=== PATIENT | male | born 1945 | race African-American/Black ===

== ENCOUNTER 2019-06-10 14:17 | Inpatient (IN) | payer OTHER, MEDICARE, SELFPAY ==
[2019-06-10] VITALS (9 sets, daily range): BP systolic 125–180; BP diastolic 42–65; PULSE 60–73; RESP 15–20; TEMP 35.8–37.2; O2SAT 97–100; BMI 30.4
--- NOTE | ~2019-06-10 | US_ITS ---
EXAMINATION: US renal BI DATE: 06/11/2019 10:06 INDICATION: Acute renal insufficiency TECHNIQUE: Multiple ultrasound grayscale images of the kidneys were obtained. COMPARISON: 11/12/2017 FINDINGS: The right kidney measures 12.3 x 5.1 x 5.2 cm. The left kidney measures 10.9 x 6.5 x 5.8 cm. Bilatera l diffuse increased renal cortical echogenicity consistent with medical renal disease. Again seen are bilateral renal cysts including 1.7 cm and 1.1 cm cyst in the right kidney and a 3.2 cm septated [place] II cyst in the left kidney. There is no hydronephrosis in either kidney. No stones identified. The bladder is decompressed around a Ponce catheter which limits evaluation. IMPRESSION: 1. Bilateral increased renal echogenicity consistent with medical renal disease. No hydronephrosis. 2. Stable appearance of bilateral renal cysts. Reviewed, dictated and finalized at location A. IMPRESSION: 1. Bilateral increased renal echogenicity consistent with medical renal diseas e. No hydronephrosis. 2. Stable appearance of bilateral renal cysts.
--- NOTE | ~2019-06-10 | XR_ITS ---
EXAMINATION: XR hip BI wo pelvis DATE: 06/11/2019 10:10 INDICATION: Bilateral hip pain. TECHNIQUE: Anteroposterior and frog-leg lateral views of the left and right hips were obtained. COMPARISON: CT dated 03/24/2015 FINDINGS: Alignment is normal. No fracture or suspected avascular necrosis. Bilateral hip osteoarthritis with s mall marginal osteophytes along the femoral heads and acetabula. The hip joint spaces appear relative ly preserved on the provided projections from prior CT there is mild joint space narrowing anteriorly at the right hip with underlying subarticular cystic change at the femoral head and anterior acetabu lum. Severe spondylosis at the lumbosacral junction. Mild bilateral sacroiliac osteoarthritis. Extens bessie atherosclerotic calcifications in the pelvis of the pelvis and proximal thighs. IMPRESSION: 1. Bilateral hip osteoarthritis, mild on the left and mild to moderate on the right with subarticular cystic changes on the right better appreciated on prior CT. No acute osseous abnormality. Reviewed, dictated and finalized at location A. IMPRESSION: 1. Bilateral hip osteoarthritis, mild on the left and mild to moderate on the r ight with subarticular cystic changes on the right better appreciated on prior CT. No acute osseous abnormality.
--- NOTE | ~2019-06-10 | US_ITS ---
EXAMINATION: US carotid duplex BI DATE: 06/11/2019 10:06 INDICATION: Weakness. Carotid atherosclerosis and stenosis. Cerebral atherosclerosis. TECHNIQUE: Grayscale, color Doppler, and pulsed Doppler images of the cervical carotid arteries were obtained. The degree of vessel stenosis is placed in one of the following categories: normal, <50%, 5 0-69%, >=70% but less than near-occlusion, near-occlusion, or total occlusion. Note that percent sten osis relative to normal distal artery lumen diameter is indirectly measured from velocity measurement s as described by Jared, et al. Radiology 2003; 229:340-346. COMPARISON: None. FINDINGS: RIGHT: The right common carotid artery (CCA) peak systolic velocity (PSV) is 144 cm/s. The right internal ca rotid artery (ICA) PSV is 129 cm/s. The right ICA end-diastolic velocity (EDV) is 17 cm/s. The right ICA/CCA PSV ratio is 0.9. Grayscale and color Doppler images yield an estimate of 50-69% diameter red uction from plaque in the ICA. The external carotid artery (ECA) PSV is 173 cm/s. There is antegrade flow in the right vertebral artery. LEFT: The left CCA PSV is 127 cm/s. The left ICA PSV is 133 cm/s. The left ICA EDV is 20 cm/s. The left ICA /CCA PSV ratio is 1.1. Grayscale and color Doppler images yield an estimate of 50-69% diameter reduct ion from plaque in the ICA. The ECA PSV is 127 cm/s. There is antegrade flow in the left vertebral ar angella. IMPRESSION: 1. 50-69% stenosis in the right internal carotid artery. 2. 50-69% stenosis in the left internal carotid artery. Reviewed, dictated and finalized at location A.
--- NOTE | ~2019-06-10 | XR_ITS ---
XR chest 2V DATE: 06/17/2019 12:47 INDICATION: Fever TECHNIQUE: AP and lateral views COMPARISON: 06/10/2019 AP and lateral chest FINDINGS: There are patchy infiltrates and/or atelectasis in the lower lung zones, left greater than right, involving the lower lobes. Borderline heart size. Aortic calcification. Left pleural effusion can't be excluded. No apparent right pleural effusion. No pneumothorax. IMPRESSION: Bilateral lower lung infiltrate and/atelectasis, greater on the left. Possible left pleur al effusion. Reviewed, dictated and finalized at location A. IMPRESSION: Bilateral lower lung infiltrate and/atelectasis, greater on the lef t. Possible left pleural effusion.
--- NOTE | ~2019-06-10 | CT_ITS ---
EXAMINATION: CT brain wo con DATE: 06/10/2019 15:04 INDICATION: Weakness. TECHNIQUE: Computed tomography (CT) of the head was performed without intravenous contrast. The mA wa s adjusted according to patient size. Iterative reconstruction technique was employed. The dose-lengt h product was 605.33 mGy-cm. COMPARISON: Head CT 02/23/2019 FINDINGS: There are scattered areas of low attenuation in the cerebral white matter. There is no intr acranial hemorrhage, acute infarction, or abnormal intracranial mass lesion. The ventricles are dimitris l in size. The orbits are normal. There is mucosal thickening in the paranasal sinuses. The mastoid a ir cells are normal. IMPRESSION: 1. Unchanged moderate nonspecific cerebral white matter disease, which likely represents chronic smal l vessel ischemic disease. Reviewed, dictated and finalized at location A. IMPRESSION: 1. Unchanged moderate nonspecific cerebral white matter disease, which likely r epresents chronic small vessel ischemic disease.
--- NOTE | ~2019-06-10 | XR_ITS ---
EXAMINATION: XR chest 2V DATE: 06/10/2019 15:09 INDICATION: Fever and chills. Weakness. Headache. TECHNIQUE: Frontal and lateral views of the chest were obtained. COMPARISON: Chest 2 views 03/16/2019 FINDINGS: The chest demonstrates clear lungs without pneumonia, pleural effusion, or pneumothorax. Th e heart size is normal. There are surgical clips in the abdomen. There is mild chronic anterior wedgi ng of multiple thoracic vertebral bodies. IMPRESSION: 1. No acute cardiopulmonary disease. Reviewed, dictated and finalized at location A.
--- NOTE | 2019-06-10 14:17 | ED.GENADULT ---
HPI - General Adult General Chief complaint: Weakness Stated complaint: weakness Time Seen by Provider: 06/10/19 14:17 Source: patient, family (Ex ) and EMS Mode of arrival: EMS Limitations: no limitations History of Present Illness HPI narrative: A 73 y/o male pt has presented to the ED, via EMS, with c/o generalized weakness. Pt's ex went to his house to check on him today and he complained of weakness and difficulty ambulating. Pt's ex stated that his BP was 98/66 when she first encountered him. EMS notes that his BP leanne to 156/[address] to the ED. Pt denies abdominal pain or chest pain, and a fall. Pt has a Hx of dementia, TIA, DM, cardiac stents, HTN, and CAD. Pt notes that he has not had alcohol today or yesterday. MD complaint: Overall Weakness Onset (ago): unknown Associated symptoms: other (Ambulation difficulty) Related Data Home Medications Medication Instructions Recorded Confirmed acetaminophen 1,300 mg PO BID 06/10/19 amlodipine 7.5 mg PO DAILY 06/10/19 atorvastatin 40 mg PO HS 06/10/19 carvedilol 25 mg PO BID 06/10/19 cholecalciferol (vitamin D3) 2,000 unit PO DAILY 06/10/19 clonidine HCl 0.2 mg PO BID 06/10/19 clopidogrel 75 mg PO DAILY 06/10/19 donepezil 10 mg PO HS 06/10/19 ferrous sulfate 325 mg PO DAILY 06/10/19 furosemide 20 mg PO QPM 06/10/19 furosemide 40 mg PO QAM 06/10/19 glucosamine sulfate [Glucosamine] mg 06/10/19 glucose 16 g PO Q15M PRN 06/10/19 insulin aspart U-100 unit SUBCUT 06/10/19 insulin glargine 25 unit SUBCUT DAILY 06/10/19 levetiracetam 500 mg PO BID 06/10/19 memantine 10 mg PO BID 06/10/19 multivitamin 1 cap PO DAILY 06/10/19 nitroglycerin 0.4 mg SUBLINGUAL ONCE 06/10/19 quetiapine 12.5 mg PO HS 06/10/19 rivaroxaban 20 mg PO DAILY 06/10/19 sertraline 50 mg PO DAILY 06/10/19 trazodone 25 mg PO HS 06/10/19 Allergies Allergy/AdvReac Type Severity Reaction Status Date / Time No Known Allergies Allergy Unknown Verified 06/10/19 16:00 Review of Systems Review of Systems: Narrative: CONSTITUTIONAL: Denies fall CARDIOVASCULAR: Denies chest pain. GASTROINTESTINAL: Denies abdominal pain MUSCULOSKELETAL: Reports ambulation difficulty NEUROLOGIC: Reports general weakness. All systems reviewed & are unremarkable except as noted in HPI and below PMFSH Past Medical History Medical History Afib Alzheimer disease Arthritis CAD (coronary artery disease) Chronic kidney disease Stage III Colon polyps CVA (cerebral vascular accident) Dementia Depression Diabetes GERD (gastroesophageal reflux disease) Heart attack History of angina HTN (hypertension) Hyperlipidemia Pneumonia Rectal polyp Seizures TIA (transient ischemic attack) Surgical History Surgical History History of arthroscopic knee surgery Right History of cardiac catheterization History of colonoscopy History of coronary artery stent placement History of knee replacement, total Right History of partial colectomy Social History Social History Smoking status: Former smoker Alcohol intake: never Substance use: never Substance use type: does not use Gender identity (if verbalized by the patient): Male Spiritual care concerns: No Comments PCP is Dr. Valera Exam Narrative: Exam Narrative: GENERAL: Awake, alert, conversant HEAD: Normocephalic, atraumatic. ENT: Nares patent. Mucous membranes moist. NECK: Full range of motion CHEST: No respiratory distress, speaking in full sentences, no tachypnea HEART: Regular rate ABDOMEN: Non distended, non tender EXTREMITIES: Normal range of motion. No edema. SKIN: Warm, dry, no rash. Neuro: Finger to nose intact bilaterally. EOMs intact without nystagmus. No facial droop/asymmetry noted bilaterally. Grimace intact. Intact sensation in face. Hearing intact bilaterally. S
--- NOTE | 2019-06-10 14:20 | ECG_ITS ---
Measurements Intervals [place] Rate: 62 P: 63 MD: 227 QRS: -24 QRSD: 120 T: -25 QT: 440 QTc: 450 Interpretive Statements SINUS RHYTHM WITH FIRST DEGREE AV BLOCK INTRAVENTRICULAR CONDUCTION DELAY CANNOT RULE OUT SEPTAL INFARCT, AGE INDETERMINATE ST-T WAVE ABNORMALITY IN LATERAL LEADS- CONSIDER ISCHEMIA ABNORMAL ECG Electronically Signed On 06-14-2019 17:00:48 CDT by Lloyd Gonsales D.O.
[2019-06-10] MEDS: SODIUM CHLORIDE 0.9% IV 1,000 ML 999 ML IV CONT (14:51)
--- NOTE | 2019-06-10 14:53 | PC.NURSE ---
pt to CT scan
[2019-06-10 15:03] LABS: Basophils Percent Auto 0.2 % (0.2-1.2); Eosinophils Absolute Auto 0.1 K/mm3 (0-0.3); Eosinophils Percent Auto 0.7 % (0-4.4); Immature Granulocyte Absolute 0.05 K/mm3 (0.00-0.031); Immature Granulocyte Percent A 0.5 % (0-0.5); Lymphocytes Absolute Auto 1.93 K/mm3 (0.9-3.2); Lymphocytes Percent Auto 17.4 % (18.3-44.2); Mean Corpuscular HGB Conc 33.3 g/dl (32-36); Mean Platelet Volume 11.7 fl (7.4-10.4); Monocytes Absolute Auto 1.6 K/mm3 (0.1-0.6); Monocytes Percent Auto 14.6 % (2.6-8.5); Neutrophils Absolute Auto 7.4 K/mm3 (1.3-6.7); Neutrophils Percent Auto 66.6 % (45.5-73.1); Platelet Count Result 206 k/mm3 (150-375); Red Blood Count 4.14 M/mm3 (4.6-6.20); Red Cell Distribution Width 13.6 % (11.5-14.5); White Blood Count 11.1 K/mm3 (4.5-10.0)
[2019-06-10 15:13] LABS: INR 1.3; Prothrombin Time 15.6 Seconds (11.1-14.7)
[2019-06-10 15:14] LABS: Partial Thromboplastin Time 28.8 SECONDS (22.3-36.8)
[2019-06-10 15:15] LABS: Alanine Aminotransferase 96 U/L (4-50); Albumin Level 4.5 g/dL (3.5-5.1); Alkaline Phosphatase 76 U/L (38-126); Aspartate Amino Transferase 694 U/L (17-59); Bilirubin,Total 0.5 mg/dL (0.2-1.3); Blood Urea Nitrogen 40 mg/dL (9-20); Calcium 9.4 mg/dL (8.4-10.2); Carbon Dioxide 21 mmol/L (22-30); Chloride 107 mmol/L (98-107); Estimated Glomerular Filt Rate 26; Ethanol < 10 mg/dL (<10); Glucose 69 mg/dL (75-110); Potassium 4.1 mmol/L (3.4-5.0); Sodium 137 mmol/L (137-145)
[2019-06-10 15:26] LABS: Troponin I 0.161 ng/mL (0.000-0.034)
[2019-06-10 15:52] LABS: NT Pro B Type Natriuretic Pept 1550 PG/ML (5-100)
[2019-06-10 16:38] LABS: Add Urine Microscopic? YES; Appearance Urine Cloudy (Clear); Bacteria Urine Trace /hpf; Bilirubin Urine Negative (Negative); Blood Urine 3+ (Negative); Color Urine Yellow (Yellow); Glucose Urine UA Negative (Negative); Ketones Urine Negative (Negative); Leukocyte Esterase Ur Negative LEU/UL (Negative); Mucus Urine Rare /lpf; Nitrate Urine Negative (Negative); Protein Urine 2+ mg/dL (Negative); RBC Urine 0-2 /hpf (0-2); Specific Grav Ur 1.016 (1.001-1.035); Squamous Epithelial Cell Urine Occasional /hpf (Few); Urobilinogen Urine Negative mg/dL (<2.0)
[2019-06-10 16:41] LABS: Amphetamine Screen Urine Negative (Negative); Barbiturate Screen Urine Negative (Negative); Benzodiazepines Screen Urine Negative (Negative); Cannabinoid Screen Urine Negative (Negative); Cocaine Screen Urine Negative (Negative); Methadone Screen Urine Negative (Negative); Opiate Screen Urine Negative (Negative); Phencyclidine Screen Urine Negative (Negative)
--- NOTE | 2019-06-10 17:20 | ADMGEN ---
This patient, Addy Cervantes, was admitted to IMU Room 213-01. Patient/family oriented to hospital policies and general routines including ID bracelet, bed and alarms, visiting hours, pain management, procedures, bathroom and other care routines, personal items, smoking policy, room service/diet, and visiting hours. Valuables list has been completed. Information on how to activate the Rapid Response Team has been discussed. Patient/Family are encouraged to report perceived risks to care and to ask questions if they do not understand what they are told or what they should do.
[2019-06-10 18:12] LABS: Glucose Point of Care 68 (65-105)
--- NOTE | 2019-06-10 18:27 | PM.IMHP ---
H&P: HPI History of Present Illness Chief complaint: Weakness, Elevated troponin Narrative: Addy Cervantes is a 73 year old male who has a history of chronic renal failure stage 2, congestive heart failure diastolic, and diabetes. To the son the patient took his nighttime medicines too early last night he fell asleep early and was slightly confused last night. The patient has not been eating and drinking very much recently. Today the patient had a fall this morning, he fell off of a step that was about 8 inches high. The patient was having difficulty walking is stating that his hips were sore. He is not in a large amount of pain at this time. He also has a history of dementia as well. The patient lives in his own home but has multiple caregivers. The ex- came to check up on the patient today and the patient complained of having weakness and difficulty ambulating. His blood pressure was initially 98 over a 66 when EMS came to the home. But then it leanne up to 156/62 when he came to the emergency room. The patient was afebrile. No chest pain or discomfort. Chest x-ray was read per Radiology as no acute cardiopulmonary disease. Head CT was read per Radiology as well unchanged moderate nonspecific cerebral white matter disease, which likely represents chronic small vessel ischemic disease. His blood sugar was initially 69 on lab draws. The son stated that his blood sugar was in the 200s last night. Patient's creatinine is 2.9 today of which is last admission in March came back down to normal. Although he does have a history of chronic renal failure stage 2. Patient is being admitted to IMU with a troponin of 0.162. BNP is 1550. Patient was given IV bolus. It looks like he is also being worked up for stroke. Although his CT scan was negative. Date of service 06/10/2019. Review of Systems Review of Systems: Narrative: The patient was falling asleep during the interview and his son who is the power title attorney has been answer questions for me. He complained of being and some discomfort. He stated that his hip muscles were sore. He was having difficulty ambulating due to his hip pain. All systems reviewed & are unremarkable except as noted in HPI and below Constitutional: Constitutional: Reports as per HPI and Reports no additional constitutional complaints Eyes: Eyes: Reports as per HPI and Reports no additional eye complaints ENT: Reports system reviewed and no additional complaints, except as documented and Reports Normal hearing present Cardiovascular: Cardiovascular: Reports no additional cardiovascular complaints Respiratory: Respiratory: Reports no additional respiratory complaints and Reports no additional respiratory complaints Gastrointestinal: Gastrointestinal: Reports as per HPI and Reports no additional gastrointestinal complaints Musculoskeletal: Musculoskeletal: Reports no additional musculoskeletal complaints Integumentary/Breasts: Skin/Breast: Reports system reviewed and no additional complaints, except as docu and Reports as per HPI Neurologic: Reports system reviewed and no additional complaints, except as documented, Reports as per HPI and Reports Normal hearing present Psychiatric: Psychiatric: Reports no additional psychiatric complaints and Reports as per HPI Endocrine: Endocrine: Reports no additional endocrine complaints Hematologic/Lymphatic: Hematologic/Lymphatic: Reports no additional hematologic/lymphatic complaints Allergic/Immunologic: Allergic/Immunologic: Reports no additional allergic/immunologic complaints [facility] Past Medical History Medical History (Updated 06/10/19 @ 19:59 by Christine Beaulieu NP) Afib Alzheimer disease Arthritis CAD (coronary artery disease) Chronic kidney disease Stage III Colon polyps COPD (chronic obstructive pulmonary disease) CVA (cerebral vascular accident) Dementia Depression Diabetes GERD (gastroesophageal reflux disease) Heart attack History of angina
[2019-06-10 18:52] LABS: Troponin I 0.112 ng/mL (0.000-0.034)
[2019-06-10 20:43] LABS: Glucose Point of Care 146 (65-105)
[2019-06-10 21:11] LABS: Troponin I 0.104 ng/mL (0.000-0.034)
[2019-06-10] MEDS: DONEPEZIL HCL 10 MG TABLET PO (21:12)
[2019-06-10] MEDS: QUEtiapine FUMARATE 12.5 MG TABLET PO (21:12)
[2019-06-10] MEDS: carvediloL 25 MG TABLET PO (21:12)
[2019-06-10] MEDS: CLONIDINE HCL 0.2 MG TABLET PO (21:13)
[2019-06-10] MEDS: ATORVASTATIN 40 MG TABLET PO (21:13)
[2019-06-10] MEDS: levETIRAcetam 500 MG TABLET PO (21:13)
[2019-06-10] MEDS: MEMANTINE 10 MG TABLET PO (21:13)
[2019-06-11] VITALS (9 sets, daily range): BP systolic 115–155; BP diastolic 43–51; PULSE 58–86; RESP 16–20; TEMP 36–36.7; O2SAT 98–100
[2019-06-11 06:55] LABS: Basophils Absolute Auto 0.1 K/mm3 (0.0-0.1); Basophils Percent Auto 0.4 % (0.2-1.2); Eosinophils Percent Auto 0.1 % (0-4.4); Hematocrit 38.8 % (42.0-52.0); Hemoglobin 11.7 g/dL (14.0-18.0); Immature Granulocyte Absolute 0.08 K/mm3 (0.00-0.031); Immature Granulocyte Percent A 0.5 % (0-0.5); Lymphocytes Absolute Auto 2.12 K/mm3 (0.9-3.2); Lymphocytes Percent Auto 13.1 % (18.3-44.2); Mean Corpuscular HGB Conc 30.2 g/dl (32-36); Mean Corpuscular Hemoglobin 28.7 pg (26-34); Mean Corpuscular Volume 95.3 fl (80-100); Monocytes Absolute Auto 2.4 K/mm3 (0.1-0.6); Monocytes Percent Auto 14.6 % (2.6-8.5); Neutrophils Absolute Auto 11.5 K/mm3 (1.3-6.7); Neutrophils Percent Auto 71.3 % (45.5-73.1); Platelet Count Result 124 k/mm3 (150-375); Red Blood Count 4.07 M/mm3 (4.6-6.20); Red Cell Distribution Width 13.5 % (11.5-14.5); White Blood Count 16.2 K/mm3 (4.5-10.0)
[2019-06-11 08:07] LABS: Alanine Aminotransferase 108 U/L (4-50); Albumin Level 4.3 g/dL (3.5-5.1); Alkaline Phosphatase 80 U/L (38-126); Aspartate Amino Transferase 636 U/L (17-59); Bilirubin,Total 0.7 mg/dL (0.2-1.3); Blood Urea Nitrogen 42 mg/dL (9-20); Calcium 9.3 mg/dL (8.4-10.2); Carbon Dioxide 20 mmol/L (22-30); Chloride 108 mmol/L (98-107); Estimated CRCL calculation 34 ml/min; Estimated Glomerular Filt Rate 36; Glucose 138 mg/dL (75-110); Magnesium 2.2 mg/dL (1.6-2.3); Potassium 3.5 mmol/L (3.4-5.0); Sodium 139 mmol/L (137-145)
[2019-06-11 09:57] LABS: Glucose Point of Care 120 (65-105)
[2019-06-11] MEDS: AMLODIPINE BESYLATE 2.5 MG TABLET 7.5 MG PO (10:16)
[2019-06-11] MEDS: MEMANTINE 10 MG TABLET PO ×2 (10:16→17:17)
[2019-06-11] MEDS: MULTIVITAMINS THERAPEUTIC TAB (*BKC) 1 TABLET PO (10:16)
[2019-06-11] MEDS: CHOLECALCIFEROL 1,000 UNIT TABLET 2000 UNITS PO (10:17)
[2019-06-11] MEDS: carvediloL 25 MG TABLET PO (10:17)
[2019-06-11] MEDS: SERTRALINE HCL 50 MG TABLET PO (10:17)
[2019-06-11] MEDS: CLOPIDOGREL BISULFATE 75 MG TABLET PO (10:17)
[2019-06-11] MEDS: CLONIDINE HCL 0.2 MG TABLET PO ×2 (10:17→17:17)
[2019-06-11] MEDS: levETIRAcetam 500 MG TABLET PO ×2 (10:17→20:51)
[2019-06-11] MEDS: FERROUS SULFATE 324 MG TABLET PO (10:17)
[2019-06-11] MEDS: POTASSIUM CHLORIDE 20 MEQ TABLET PO (10:22)
[2019-06-11] MEDS: INSULIN GLARGINE (*BKC) 100 UNITS/ML 25 UNITS SUB-Q (10:25)
[2019-06-11] MEDS: SODIUM CHLORIDE 0.9% IV 1,000 ML 75 ML IV CONT (10:25)
[2019-06-11 11:42] LABS: Glucose Point of Care 144 (65-105)
--- NOTE | 2019-06-11 12:39 | PC.NURSE ---
transfer from IMU today resting in bed,no complaints.
--- NOTE | 2019-06-11 14:03 | PCOTNOTE ---
Attempted OT evaluation, Per RN patient is unable to awaken at this time, will attempt in AM
--- NOTE | 2019-06-11 14:03 | PCPTNOTE ---
orders received...attempted to see this patient x 2...patient was sleeping very soundly and could not awaken...will see tomorrow as appropriate
[2019-06-11 15:32] LABS: Glucose Point of Care 143 (65-105)
--- NOTE | 2019-06-11 16:29 | PM.IMPN ---
Progress Note: A&P Assessment and Plan (1) Acute kidney injury: Code(s): N17.9 - Acute kidney failure, unspecified Status: Acute Assessment and Plan: Patient received a bolus of IV fluids x1. And will give rah hydration today with saline, mindful fluid overload his history of diastolic heart failure. We will need to encourage the patient to eat and drink. Renal ultrasound no obstruction. His acute on chronic renal failure stage 2. (2) Dehydration: Code(s): E86.0 - Dehydration Status: Acute Assessment and Plan: Gently hydrate the patient for now . (3) COPD (chronic obstructive pulmonary disease): Code(s): J44.9 - Chronic obstructive pulmonary disease, unspecified Status: Acute Assessment and Plan: Continue with home medications. (4) Weakness: Code(s): R53.1 - Weakness Status: Acute Assessment and Plan: x-ray his hips BRI l. PT and OT (5) CHF (congestive heart failure): Code(s): I50.9 - Heart failure, unspecified Status: Acute Assessment and Plan: Continue with Coreg. I am holding Lasix due to his dehydration acute renal failure. chronic diastolic heart failure (6) Seizures: Code(s): R56.9 - Unspecified convulsions Status: Chronic Assessment and Plan: Continue with Keppra and check Keppra levels. (7) HTN (hypertension): Qualifiers: Hypertension type: unspecified Qualified Code(s): I10 - Essential (primary) hypertension Code(s): I10 - Essential (primary) hypertension Status: Chronic Assessment and Plan: Continue with Coreg, Norvasc and still holding Lasix due to his acute renal failure. (8) Afib: Qualifiers: Atrial fibrillation type: unspecified Qualified Code(s): I48.91 - Unspecified atrial fibrillation Code(s): I48.91 - Unspecified atrial fibrillation Status: Chronic Assessment and Plan: Continue with Xarelto and Coreg.and decrease xarelto to 15 qd (9) Diabetes: Qualifiers: Diabetes mellitus type: type 2 Diabetes mellitus senior care insulin use: with senior care use Diabetes mellitus complication status: without complication Qualified Code(s): E11.9 - Type 2 diabetes mellitus without complications; Z79.4 - superintendent [employer] (current) use of insulin Code(s): E11.9 - Type 2 diabetes mellitus without complications Status: Chronic Assessment and Plan: Continue with long-acting insulin and do sliding scale insulin. Patient's blood sugar was in the 60s today. Yesterday the room the 200s. (10) Dementia: Code(s): F03.90 - Unspecified dementia without behavioral disturbance Status: Chronic Assessment and Plan: Continue with Seroquel and Namenda. And Aricept Subjective Date/time seen: 06/11/19 16:29 Interval history: Date of visit 06/10. 73-year-old hypertensive type 2 diabetic with dementia and paroxysmal AFib admitted with acute renal failure, weakness and falling.. Had 1 L of fluid in his bladder when Ponce placed. After hydration feels better today. No other complaints cough or chest pain or shortness of breath Exam Narrative: Exam Narrative: Blood pressure 146/52 pulse is 64 afebrile Lungs are clear CV regular rate rhythm no murmurs Abdomen soft nontender Extremities without edema good distal pulses Neuro alert pleasant cooperative no focal deficits Objective Data Vital Signs Vital Signs: Vital Signs - 24 hr 06/10/19 17:00 06/10/19 18:00 06/10/19 20:00 Temperature 36.3 C L 37.2 C Pulse Rate 68 68 73 Respiratory Rate 18 20 Blood Pressure 180/54 H 144/65 H Pulse Oximetry 100 100 06/10/19 21:12 06/10/19 22:00 06/10/19 23:51 Temperature 36.1 C L Pulse Rate 71 68 66 Respiratory Rate 16 Blood Pressure 125/42 L Pulse Oximetry 100 06/11/19 00:00 06/11/19 02:00 06/11/19 04:00 Temperature 36.7 C Pulse Rate 61 73 70 Respiratory Rate 18 Blood
[2019-06-11] MEDS: RIVAROXABAN 15 MG TABLET PO (17:17)
[2019-06-11] MEDS: ATORVASTATIN 40 MG TABLET PO (20:50)
[2019-06-11] MEDS: DONEPEZIL HCL 10 MG TABLET PO (20:50)
[2019-06-11] MEDS: QUEtiapine FUMARATE 12.5 MG TABLET PO (20:50)
[2019-06-11 21:28] LABS: Glucose Point of Care 291 (65-105)
[2019-06-12] MEDS: SODIUM CHLORIDE 0.9% IV 1,000 ML 75 ML IV CONT (01:57)
[2019-06-12 05:55] LABS: Alanine Aminotransferase 79 U/L (4-50); Albumin Level 3.7 g/dL (3.5-5.1); Alkaline Phosphatase 70 U/L (38-126); Aspartate Amino Transferase 306 U/L (17-59); Bilirubin,Total 0.5 mg/dL (0.2-1.3); Blood Urea Nitrogen 48 mg/dL (9-20); Calcium 8.7 mg/dL (8.4-10.2); Carbon Dioxide 18 mmol/L (22-30); Chloride 111 mmol/L (98-107); Estimated CRCL calculation 36 ml/min; Estimated Glomerular Filt Rate 38; Glucose 161 mg/dL (75-110); Potassium 3.5 mmol/L (3.4-5.0); Sodium 137 mmol/L (137-145)
[2019-06-12 06:28] LABS: Creatine Kinase 12435 U/L (55-170)
[2019-06-12 06:48] VITALS: BP 122/57; PULSE 59; RESP 18; TEMP 36.2; O2SAT 100
[2019-06-12] MEDS: AMLODIPINE BESYLATE 2.5 MG TABLET 7.5 MG PO (08:28)
[2019-06-12 08:29] VITALS: PULSE 59
[2019-06-12] MEDS: carvediloL 25 MG TABLET PO ×2 (08:29→20:45)
[2019-06-12] MEDS: CLONIDINE HCL 0.2 MG TABLET PO ×2 (08:30→16:24)
[2019-06-12] MEDS: CHOLECALCIFEROL 1,000 UNIT TABLET 2000 UNITS PO (08:30)
[2019-06-12] MEDS: CLOPIDOGREL BISULFATE 75 MG TABLET PO (08:31)
[2019-06-12] MEDS: levETIRAcetam 500 MG TABLET PO ×2 (08:31→20:45)
[2019-06-12] MEDS: FERROUS SULFATE 324 MG TABLET PO (08:31)
[2019-06-12] MEDS: MEMANTINE 10 MG TABLET PO ×2 (08:32→16:24)
[2019-06-12] MEDS: SERTRALINE HCL 50 MG TABLET PO (08:32)
[2019-06-12] MEDS: MULTIVITAMINS THERAPEUTIC TAB (*BKC) 1 TABLET PO (08:32)
[2019-06-12] MEDS: INSULIN GLARGINE (*BKC) 100 UNITS/ML 25 UNITS SUB-Q (08:48)
[2019-06-12 09:50] LABS: Glucose Point of Care 155 (65-105)
[2019-06-12] MEDS: POTASSIUM CHLORIDE 20 MEQ TABLET 40 MEQ PO (11:20)
[2019-06-12] MEDS: INSULIN ASPART (*BKC) 100 UNITS/ML SUB-Q ×2 (11:29→16:23)
--- NOTE | 2019-06-12 11:32 | PM.IMPN ---
Progress Note: A&P Assessment and Plan (1) Acute kidney injury: Code(s): N17.9 - Acute kidney failure, unspecified Status: Acute Assessment and Plan: Patient received a bolus of IV fluids x1. And continue hydration, change to Nahco3 with elevated ck , mindful fluid overload with his history of diastolic heart failure. He is eating better and had decrease oral intake at home. Renal ultrasound no obstruction. acute on chronic renal failure stage 2. secondary to prerenal azotemia from decreased intake or possibly rhabdo (2) Dehydration: Code(s): E86.0 - Dehydration Status: Acute Assessment and Plan: continue IV hydrating the patient for now . (3) COPD (chronic obstructive pulmonary disease): Code(s): J44.9 - Chronic obstructive pulmonary disease, unspecified Status: Acute Assessment and Plan: Continue with home medications. (4) Weakness: Code(s): R53.1 - Weakness Status: Acute Assessment and Plan: x-ray hips DJD . PT and OT (5) CHF (congestive heart failure): Code(s): I50.9 - Heart failure, unspecified Status: Acute Assessment and Plan: Continue with Coreg. holding Lasix due to his dehydration acute renal failure. chronic diastolic heart failure, moniter for fluid overload (6) Seizures: Code(s): R56.9 - Unspecified convulsions Status: Chronic Assessment and Plan: Continue with Keppra . (7) HTN (hypertension): Qualifiers: Hypertension type: unspecified Qualified Code(s): I10 - Essential (primary) hypertension Code(s): I10 - Essential (primary) hypertension Status: Chronic Assessment and Plan: Continue with Coreg,, Norvasc,clonidine, and still holding Lasix due to his acute renal failure. (8) Afib: Qualifiers: Atrial fibrillation type: unspecified Qualified Code(s): I48.91 - Unspecified atrial fibrillation Code(s): I48.91 - Unspecified atrial fibrillation Status: Chronic Assessment and Plan: Continue with Xarelto and Coreg.and decrease xarelto to 15 qd (9) Diabetes: Qualifiers: Diabetes mellitus type: type 2 Diabetes mellitus residential insulin use: with salvage determiner use Diabetes mellitus complication status: without complication Qualified Code(s): E11.9 - Type 2 diabetes mellitus without complications; Z79.4 - salvage determiner (current) use of insulin Code(s): E11.9 - Type 2 diabetes mellitus without complications Status: Chronic Assessment and Plan: Continue with long-acting insulin and do sliding scale insulin. Patient's blood sugar fasting today 161 (10) Dementia: Code(s): F03.90 - Unspecified dementia without behavioral disturbance Status: Chronic Assessment and Plan: Continue with Seroquel and Namenda. And Aricept (11) Rhabdomyolysis: Code(s): M62.82 - Rhabdomyolysis Status: Acute Assessment and Plan: falling at home frequently. checked ck today [place] [id number] today. May have been higher on admission. changed IV to Nahco3 and continue hydration. creatinine is falling. Hold statin Subjective Date/time seen: 06/12/19 11:32 Interval history: Date of visit 06/11. 73-year-old hypertensive type 2 diabetic with dementia and paroxysmal AFib admitted with acute renal failure, weakness and falling.. Had 1 L of fluid in his bladder when Ponce placed. After hydration feels better each day. No other complaints cough or chest pain or shortness of breath Exam Narrative: Exam Narrative: Blood pressure 122/60 pulse is 60 afebrile Lungs are clear CV regular rate rhythm no murmurs Abdomen soft nontender Extremities without edema good distal pulses Neuro alert pleasant cooperative no focal deficits Objective Data Vital Signs Vital Signs: Vital Signs - 24 hr 06/11/19 11:45 06/11/19 15:01 06/11/19 22:31 Temperature 36.2 C
--- NOTE | 2019-06-12 11:54 | CONS_ITS ---
DATE OF CONSULTATION: HISTORY OF PRESENT ILLNESS: This 73 years old right-handed male has been admitted to [facility] through the emergency room for the complaint of generalized weakness with elevated troponin. In addition to the history of 1. Chronic renal failure, stage 2. 2. Congestive heart failure, diastolic in nature. 3. Diabetes mellitus. 4. Atrial fibrillation. 5. Alzheimer disease. 6. Arthritis. As per the information available, the patient took his nighttime medication too early. He fell asleep and was subsequently confused. As per the family, has not been eating and drinking very well. He fell off this morning off a step about 8 inches high, was having difficulties in walking. He lives in his own home with the multiple caregivers, was complaining of difficulties in ambulation. His initial blood pressure was 98/66. When EMS came to the home, it went up to 156/62, he was afebrile with no generalized symptomatology. Initial CT of the head, moderate nonspecific white matter disease with chronic small-vessel ischemic changes. Blood sugar 69, creatinine 2.9. He was admitted to IMU for the elevated troponin of 0.62. BNP was 1550. He received IV bolus. CT scan of the head as mentioned above was negative. PAST MEDICAL HISTORY: In addition to this information, the patient has significant past history, there is atrial fibrillation, Alzheimer disease, arthritis, coronary artery disease, chronic kidney disease, stage 3, colon polyps, COPD, CVA, dementia, depression, diabetes, GERD, history of angina and heart attack, hypertension, hyperlipidemia, pneumonia, rectal polyp, seizure, and recurrent TIAs. PAST SURGICAL HISTORY: Surgically, he has undergone right knee arthroscopic surgery, cardiac catheterization, colonoscopy, coronary artery stent placement, and total right knee replacement with partial colectomy due to the villous adenoma. SOCIAL HISTORY: He is a former smoker. Does not use any drugs. Does not drink. At the time of admission, he was taking multiple medications as outlined. PHYSICAL EXAMINATION: GENERAL: Examination revealed him to be awake, alert, cooperative, in no obvious acute distress. HEENT: Head normocephalic with no cranial bruit. Ear, nose, throat exam normal. NECK: Supple with no cervical bruit. No thyromegaly. No lymphadenopathy. HEART: Regular with murmur. LUNGS: Clear. ABDOMEN: Soft. NEUROLOGICAL: He is awake, alert. He regarded the physician when he entered the room, was trying to push the table and talk to the physician. Pupils were round and regular. Khan of vision to the finger threat were full in all 4 quadrants. Extraocular moves are spontaneous, full. No nystagmus. He was able to move both upper and lower extremities. No drift and tone was normal. Reflexes were symmetrical. Plantars were downgoing. IMPRESSION: Ongoing history of the dementia and seizure disorder in addition to multiple comorbid condition as outlined above. Since admission here, the patient has had the hip x-ray, which revealed bilateral hip osteoarthritis with subarticular cystic change in the right, better appreciated. Renal ultrasound, bilateral increased echogenicity consistent with medical renal disease. No hydronephrosis and bilateral renal cyst of stable appearance. Doppler study of the carotid 50% to 69% stenosis bilaterally. Chest x-ray negative. Considering multiple factors as mentioned above, no other intervention is necessary at this particular time. The patient is taking the atorvastatin 40 mg daily with carvedilol 25 twice a day and other medication to control the blood pressure, but he is also taking the clopidogrel 75 mg daily in addition to donepezil 10 mg at bedtime along with diabetic treatment. Treatment will be continued as
[2019-06-12 12:29] LABS: Glucose Point of Care 303 (65-105)
[2019-06-12] MEDS: SODIUM BICARBONATE 8.4% 150 MEQ in DEXTROSE 5% 1,000 ML 950 ML 75 MEQ IV CONT (12:49)
[2019-06-12 15:11] VITALS: PULSE 65; RESP 18; TEMP 36.1; O2SAT 100
[2019-06-12] MEDS: RIVAROXABAN 15 MG TABLET PO (16:24)
[2019-06-12 16:25] VITALS: BP 135/56; PULSE 69
[2019-06-12 16:45] LABS: Glucose Point of Care 344 (65-105)
[2019-06-12 20:45] VITALS: PULSE 72
[2019-06-12 20:45] LABS: Glucose Point of Care 276 (65-105)
[2019-06-12] MEDS: DONEPEZIL HCL 10 MG TABLET PO (20:45)
[2019-06-12] MEDS: QUEtiapine FUMARATE 12.5 MG TABLET PO (20:45)
[2019-06-12 21:21] VITALS: BP 133/46; PULSE 67; RESP 16; TEMP 36.3; O2SAT 100
[2019-06-13] MEDS: SODIUM BICARBONATE 8.4% 150 MEQ in DEXTROSE 5% 1,000 ML 950 ML 75 MEQ IV CONT ×2 (02:10→16:42)
[2019-06-13 05:23] LABS: Basophils Absolute Auto 0.1 K/mm3 (0.0-0.1); Basophils Percent Auto 0.5 % (0.2-1.2); Eosinophils Absolute Auto 0.2 K/mm3 (0-0.3); Eosinophils Percent Auto 2.3 % (0-4.4); Hematocrit 31.4 % (42.0-52.0); Immature Granulocyte Absolute 0.02 K/mm3 (0.00-0.031); Immature Granulocyte Percent A 0.2 % (0-0.5); Lymphocytes Absolute Auto 1.89 K/mm3 (0.9-3.2); Lymphocytes Percent Auto 17.7 % (18.3-44.2); Mean Corpuscular HGB Conc 31.8 g/dl (32-36); Mean Corpuscular Hemoglobin 28.4 pg (26-34); Mean Corpuscular Volume 89.2 fl (80-100); Mean Platelet Volume 12.7 fl (7.4-10.4); Monocytes Absolute Auto 1.2 K/mm3 (0.1-0.6); Monocytes Percent Auto 10.8 % (2.6-8.5); Neutrophils Absolute Auto 7.3 K/mm3 (1.3-6.7); Neutrophils Percent Auto 68.5 % (45.5-73.1); Platelet Count Result 157 k/mm3 (150-375); Red Blood Count 3.52 M/mm3 (4.6-6.20); White Blood Count 10.7 K/mm3 (4.5-10.0)
[2019-06-13 06:16] LABS: Alanine Aminotransferase 66 U/L (4-50); Albumin Level 3.3 g/dL (3.5-5.1); Alkaline Phosphatase 69 U/L (38-126); Aspartate Amino Transferase 172 U/L (17-59); Bilirubin,Total 0.5 mg/dL (0.2-1.3); Blood Urea Nitrogen 50 mg/dL (9-20); Calcium 8.4 mg/dL (8.4-10.2); Carbon Dioxide 19 mmol/L (22-30); Chloride 107 mmol/L (98-107); Creatine Kinase > 3200 U/L (55-170); Estimated CRCL calculation 40 ml/min; Estimated Glomerular Filt Rate 48; Glucose 247 mg/dL (75-110); Potassium 3.6 mmol/L (3.4-5.0); Sodium 135 mmol/L (137-145)
[2019-06-13 06:22] VITALS: BP 131/46; PULSE 64; RESP 16; TEMP 36.3; O2SAT 98
[2019-06-13] MEDS: FERROUS SULFATE 324 MG TABLET PO (09:05)
[2019-06-13] MEDS: MULTIVITAMINS THERAPEUTIC TAB (*BKC) 1 TABLET PO (09:05)
[2019-06-13] MEDS: MEMANTINE 10 MG TABLET PO ×2 (09:06→16:42)
[2019-06-13] MEDS: levETIRAcetam 500 MG TABLET PO ×2 (09:06→20:39)
[2019-06-13] MEDS: CLOPIDOGREL BISULFATE 75 MG TABLET PO (09:06)
[2019-06-13] MEDS: AMLODIPINE BESYLATE 2.5 MG TABLET 7.5 MG PO (09:06)
[2019-06-13] MEDS: CHOLECALCIFEROL 1,000 UNIT TABLET 2000 UNITS PO (09:06)
[2019-06-13 09:07] VITALS: PULSE 68
[2019-06-13] MEDS: carvediloL 25 MG TABLET PO ×2 (09:07→20:40)
[2019-06-13] MEDS: SERTRALINE HCL 50 MG TABLET PO (09:07)
[2019-06-13] MEDS: CLONIDINE HCL 0.2 MG TABLET PO ×2 (09:08→16:42)
[2019-06-13] MEDS: INSULIN GLARGINE (*BKC) 100 UNITS/ML 25 UNITS SUB-Q (09:11)
[2019-06-13] MEDS: INSULIN ASPART (*BKC) 100 UNITS/ML SUB-Q ×3 (09:11→16:43)
[2019-06-13 11:39] LABS: Glucose Point of Care 268 (65-105)
[2019-06-13 11:39] LABS: Glucose Point of Care 305 (65-105)
--- NOTE | 2019-06-13 15:15 | PM.IMPN ---
Progress Note: A&P Assessment and Plan (1) Acute kidney injury: Code(s): N17.9 - Acute kidney failure, unspecified Status: Acute Assessment and Plan: Patient received a bolus of IV fluids x1. And continue hydration, change to Nahco3 with elevated ck , mindful fluid overload with his history of diastolic heart failure. He is eating better and had decrease oral intake at home. Renal ultrasound no obstruction. acute on chronic renal failure stage 2. secondary to prerenal azotemia from decreased intake or possibly rhabdo 06/12 creatinine 1.7, continue hydration (2) Dehydration: Code(s): E86.0 - Dehydration Status: Acute Assessment and Plan: continue IV hydration (3) COPD (chronic obstructive pulmonary disease): Qualifiers: COPD type: unspecified COPD Qualified Code(s): J44.9 - Chronic obstructive pulmonary disease, unspecified Code(s): J44.9 - Chronic obstructive pulmonary disease, unspecified Status: Acute Assessment and Plan: Continue with home medications. (4) Weakness: Code(s): R53.1 - Weakness Status: Acute Assessment and Plan: x-ray hips DJD . PT and OT (5) CHF (congestive heart failure): Qualifiers: Heart failure type: diastolic Heart failure chronicity: chronic Qualified Code(s): I50.32 - Chronic diastolic (congestive) heart failure Code(s): I50.9 - Heart failure, unspecified Status: Acute Assessment and Plan: Continue with Coreg. holding Lasix due to his dehydration acute renal failure. Chronic diastolic heart failure Monitory I/O (6) Seizures: Code(s): R56.9 - Unspecified convulsions Status: Chronic Assessment and Plan: Continue with Keppra . (7) HTN (hypertension): Qualifiers: Hypertension type: unspecified Qualified Code(s): I10 - Essential (primary) hypertension Code(s): I10 - Essential (primary) hypertension Status: Chronic Assessment and Plan: Continue with Coreg, Norvasc,clonidine; holding Lasix due to his acute renal failure. (8) Afib: Qualifiers: Atrial fibrillation type: unspecified Qualified Code(s): I48.91 - Unspecified atrial fibrillation Code(s): I48.91 - Unspecified atrial fibrillation Status: Chronic Assessment and Plan: Continue with Xarelto at reduced dose and Coreg (9) Diabetes: Qualifiers: Diabetes mellitus type: type 2 Diabetes mellitus long chain beamer insulin use: with prison use Diabetes mellitus complication status: without complication Qualified Code(s): E11.9 - Type 2 diabetes mellitus without complications; Z79.4 - longterm (current) use of insulin Code(s): E11.9 - Type 2 diabetes mellitus without complications Status: Chronic Assessment and Plan: Continue with long-acting insulin and do sliding scale insulin Control adequate (10) Dementia: Qualifiers: Dementia type: unspecified type Dementia behavioral disturbance: without behavioral disturbance Qualified Code(s): F03.90 - Unspecified dementia without behavioral disturbance Code(s): F03.90 - Unspecified dementia without behavioral disturbance Status: Chronic Assessment and Plan: Continue with Seroquel and Namenda. And Aricept (11) Rhabdomyolysis: Qualifiers: Rhabdomyolysis type: non-traumatic Qualified Code(s): M62.82 - Rhabdomyolysis Code(s): M62.82 - Rhabdomyolysis Status: Acute Assessment and Plan: Falling at home frequently IV to NaHCO3 and continue hydration. creatinine is falling. Hold statin F/u Lab Subjective Date/time seen: 06/13/19 15:15 Interval history: Admitted 06/09 with urinary retention, ALBINO, dehydration. Feeling better. Tolerating diet. Walks with walker. Confused. Review of Systems Review of Systems: ROS unobtainable: Yes unobtainable due to medical condition Exam Narrative:
[2019-06-13 16:00] VITALS: BP 139/53; PULSE 66; RESP 18; TEMP 36.5; O2SAT 100
[2019-06-13 16:32] LABS: Glucose Point of Care 227 (65-105)
[2019-06-13] MEDS: RIVAROXABAN 15 MG TABLET PO (16:42)
[2019-06-13] MEDS: DONEPEZIL HCL 10 MG TABLET PO (20:39)
[2019-06-13 20:40] VITALS: PULSE 72
[2019-06-13] MEDS: QUEtiapine FUMARATE 12.5 MG TABLET PO (20:40)
[2019-06-13 20:52] LABS: Glucose Point of Care 361 (65-105)
[2019-06-13] MEDS: INSULIN ASPART (*BKC) 100 UNITS/ML 6 UNITS SUB-Q (21:03)
[2019-06-13 22:23] VITALS: BP 152/51; PULSE 72; RESP 16; TEMP 37.1; O2SAT 98
[2019-06-14 00:34] LABS: Glucose Point of Care 146 (65-105)
[2019-06-14 05:58] VITALS: BP 162/53; PULSE 74; RESP 16; TEMP 36.9; O2SAT 100
[2019-06-14 05:58] LABS: Mean Corpuscular HGB Conc 33.3 g/dl (32-36); Mean Corpuscular Hemoglobin 28.8 pg (26-34); Mean Corpuscular Volume 86.5 fl (80-100); Mean Platelet Volume 12.9 fl (7.4-10.4); Platelet Count Result 189 k/mm3 (150-375); Red Blood Count 3.47 M/mm3 (4.6-6.20); Red Cell Distribution Width 12.8 % (11.5-14.5); White Blood Count 10.3 K/mm3 (4.5-10.0)
[2019-06-14] MEDS: SODIUM BICARBONATE 8.4% 150 MEQ in DEXTROSE 5% 1,000 ML 950 ML 75 MEQ IV CONT (06:00)
[2019-06-14 06:18] LABS: Blood Urea Nitrogen 36 mg/dL (9-20); Calcium 8.4 mg/dL (8.4-10.2); Carbon Dioxide 29 mmol/L (22-30); Chloride 104 mmol/L (98-107); Estimated CRCL calculation 65 ml/min; Estimated Glomerular Filt Rate > 60; Glucose 168 mg/dL (75-110); Potassium 3.1 mmol/L (3.4-5.0); Sodium 139 mmol/L (137-145)
[2019-06-14 07:02] LABS: Creatine Kinase 3551 U/L (55-170)
[2019-06-14 07:37] LABS: Glucose Point of Care 208 (65-105)
[2019-06-14] MEDS: MEMANTINE 10 MG TABLET PO ×2 (07:48→16:46)
[2019-06-14] MEDS: AMLODIPINE BESYLATE 2.5 MG TABLET 7.5 MG PO (07:48)
[2019-06-14] MEDS: SERTRALINE HCL 50 MG TABLET PO (07:48)
[2019-06-14] MEDS: FERROUS SULFATE 324 MG TABLET PO (07:49)
[2019-06-14] MEDS: levETIRAcetam 500 MG TABLET PO (07:49)
[2019-06-14] MEDS: CLOPIDOGREL BISULFATE 75 MG TABLET PO (07:49)
[2019-06-14] MEDS: MULTIVITAMINS THERAPEUTIC TAB (*BKC) 1 TABLET PO (07:49)
[2019-06-14] MEDS: CHOLECALCIFEROL 1,000 UNIT TABLET 2000 UNITS PO (07:49)
[2019-06-14 07:50] VITALS: PULSE 74
[2019-06-14] MEDS: INSULIN ASPART (*BKC) 100 UNITS/ML SUB-Q ×3 (07:50→16:47)
[2019-06-14] MEDS: CLONIDINE HCL 0.2 MG TABLET PO ×2 (07:50→16:47)
[2019-06-14] MEDS: INSULIN GLARGINE (*BKC) 100 UNITS/ML 25 UNITS SUB-Q (07:50)
[2019-06-14] MEDS: carvediloL 25 MG TABLET PO (07:50)
[2019-06-14] MEDS: POTASSIUM CHLORIDE 20 MEQ TABLET 40 MEQ PO ×2 (09:32→13:10)
[2019-06-14 11:46] LABS: Glucose Point of Care 324 (65-105)
--- NOTE | 2019-06-14 12:18 | PM.IMPN ---
Progress Note: A&P Assessment and Plan (1) Acute kidney injury: Code(s): N17.9 - Acute kidney failure, unspecified Status: Acute Assessment and Plan: Patient received a bolus of IV fluids x1. And continue hydration, change to Nahco3 with elevated ck , mindful fluid overload with his history of diastolic heart failure. He is eating better and had decrease oral intake at home. Renal ultrasound no obstruction. acute on chronic renal failure stage 2. secondary to prerenal azotemia from decreased intake or possibly rhabdo 06/12 creatinine 1.7, continue hydration 06/13 creatinine 1.2, continue hydration (2) Rhabdomyolysis: Qualifiers: Rhabdomyolysis type: non-traumatic Qualified Code(s): M62.82 - Rhabdomyolysis Code(s): M62.82 - Rhabdomyolysis Status: Acute Assessment and Plan: Falling at home frequently IV to NaHCO3 and continue hydration. CK is falling. Hold statin F/u Lab Anticipate home in 1-2 days (3) Dehydration: Code(s): E86.0 - Dehydration Status: Acute Assessment and Plan: continue IV hydration (4) COPD (chronic obstructive pulmonary disease): Qualifiers: COPD type: unspecified COPD Qualified Code(s): J44.9 - Chronic obstructive pulmonary disease, unspecified Code(s): J44.9 - Chronic obstructive pulmonary disease, unspecified Status: Acute Assessment and Plan: Continue with home medications. (5) Weakness: Code(s): R53.1 - Weakness Status: Acute Assessment and Plan: x-ray hips DJD . PT and OT (6) CHF (congestive heart failure): Qualifiers: Heart failure type: diastolic Heart failure chronicity: chronic Qualified Code(s): I50.32 - Chronic diastolic (congestive) heart failure Code(s): I50.9 - Heart failure, unspecified Status: Acute Assessment and Plan: Continue with Coreg. 06/13 Resume furosemide Monitory I/O (7) Seizures: Code(s): R56.9 - Unspecified convulsions Status: Chronic Assessment and Plan: Continue with Keppra . 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 insulin use: with long chain dyeing machine operator use Diabetes mellitus complication status: without complication Qualified Code(s): E11.9 - Type 2 diabetes mellitus without complications; Z79.4 - senior care (current) use of insulin Code(s): E11.9 - Type 2 diabetes mellitus without complications Status: Chronic Assessment and Plan: Continue with long-acting insulin and do sliding scale insulin Control adequate (11) Dementia: Qualifiers: Dementia type: unspecified type Dementia behavioral disturbance: without behavioral disturbance Qualified Code(s): F03.90 - Unspecified dementia without behavioral disturbance Code(s): F03.90 - Unspecified dementia without behavioral disturbance Status: Chronic Assessment and Plan: Continue with Seroquel and Namenda. And Aricept Subjective Date/time seen: 06/14/19 12:18 Interval history: Admitted 06/09 with urinary retention, ALBINO, dehydration. Feeling better. Tolerating diet. Walks with walker. Confused. Denied pain, sob, gi/gu c/o, bleeding. Review of Systems Review of Systems: All systems reviewed & are unremarkable except as noted in HPI and below Ex
[2019-06-14 14:00] VITALS: BP 154/51; PULSE 66; RESP 15; TEMP 36.3; O2SAT 99
[2019-06-14] MEDS: KCL 20MEQ/0.9% SOD CHL 1,000 ML 100 ML IV CONT (15:08)
[2019-06-14 16:19] LABS: Glucose Point of Care 232 (65-105)
[2019-06-14] MEDS: RIVAROXABAN 15 MG TABLET PO (16:46)
[2019-06-14] MEDS: FUROSEMIDE 20 MG TABLET PO (16:53)
--- NOTE | 2019-06-14 20:10 | PC.NURSE ---
Responded to patient bed exit alarm, patient was found to be confused, stating that he was in his home. Patient was also aggressive towards staff and threatening. Kylie christensen was called and patient was given IM medication to calm aggressive behavior. Patient refused to take any PO medication or to have his blood sugar taken. Dr. Mitali baca.
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
[2019-06-14] MEDS: HALOPERIDOL LACTATE 5 MG/ML VIAL (21:54)
[2019-06-14] MEDS: LORAZEPAM INJ 2 MG/ML VIAL (21:55)
[2019-06-14 22:00] VITALS: BP 160/54; PULSE 79; RESP 21; TEMP 36.9; O2SAT 100
[2019-06-15] MEDS: KCL 20MEQ/0.9% SOD CHL 1,000 ML 100 ML IV CONT ×3 (00:45→20:14)
[2019-06-15 06:00] VITALS: BP 160/71; PULSE 88; RESP 20; TEMP 36.6; O2SAT 98
[2019-06-15 06:09] LABS: Hematocrit 32.4 % (42.0-52.0); Hemoglobin 10.5 g/dL (14.0-18.0); Mean Corpuscular HGB Conc 32.4 g/dl (32-36); Mean Corpuscular Hemoglobin 28.5 pg (26-34); Mean Platelet Volume 12.5 fl (7.4-10.4); Platelet Count Result 228 k/mm3 (150-375); Red Blood Count 3.68 M/mm3 (4.6-6.20); Red Cell Distribution Width 12.7 % (11.5-14.5); White Blood Count 10.8 K/mm3 (4.5-10.0)
[2019-06-15 06:31] LABS: Glucose Point of Care 215 (65-105)
[2019-06-15 06:46] LABS: Blood Urea Nitrogen 25 mg/dL (9-20); Calcium 8.4 mg/dL (8.4-10.2); Carbon Dioxide 29 mmol/L (22-30); Chloride 105 mmol/L (98-107); Creatine Kinase 2370 U/L (55-170); Estimated CRCL calculation 71 ml/min; Estimated Glomerular Filt Rate > 60; Glucose 237 mg/dL (75-110); Magnesium 1.9 mg/dL (1.6-2.3); Potassium 4.2 mmol/L (3.4-5.0); Sodium 139 mmol/L (137-145)
[2019-06-15 07:54] LABS: Glucose Point of Care 210 (65-105)
[2019-06-15] MEDS: carvediloL 25 MG TABLET PO ×2 (08:20→20:06)
[2019-06-15] MEDS: FERROUS SULFATE 324 MG TABLET PO (08:21)
[2019-06-15] MEDS: MULTIVITAMINS THERAPEUTIC TAB (*BKC) 1 TABLET PO (08:21)
[2019-06-15] MEDS: SERTRALINE HCL 50 MG TABLET PO (08:21)
[2019-06-15] MEDS: CLOPIDOGREL BISULFATE 75 MG TABLET PO (08:21)
[2019-06-15] MEDS: FUROSEMIDE 40 MG TABLET PO (08:21)
[2019-06-15] MEDS: MEMANTINE 10 MG TABLET PO ×2 (08:21→16:37)
[2019-06-15] MEDS: levETIRAcetam 500 MG TABLET PO ×2 (08:21→20:06)
[2019-06-15] MEDS: AMLODIPINE BESYLATE 2.5 MG TABLET 7.5 MG PO (08:21)
[2019-06-15] MEDS: CLONIDINE HCL 0.2 MG TABLET PO ×2 (08:21→16:37)
[2019-06-15] MEDS: INSULIN ASPART (*BKC) 100 UNITS/ML SUB-Q ×3 (08:22→17:28)
[2019-06-15] MEDS: CHOLECALCIFEROL 1,000 UNIT TABLET 2000 UNITS PO (08:22)
[2019-06-15] MEDS: INSULIN GLARGINE (*BKC) 100 UNITS/ML 25 UNITS SUB-Q (08:23)
--- NOTE | 2019-06-15 11:27 | PM.DS ---
DS: Diagnosis Admitting Diagnosis Admitting Diagnosis: Acute kidney failure, unspecified Discharge Diagnosis (1) Acute kidney injury: Code(s): N17.9 - Acute kidney failure, unspecified Status: Acute Assessment and Plan: Patient received a bolus of IV fluids x1. And continue hydration, change to Nahco3 with elevated ck , mindful fluid overload with his history of diastolic heart failure. He is eating better and had decrease oral intake at home. Renal ultrasound no obstruction. acute on chronic renal failure stage 2. secondary to prerenal azotemia from decreased intake or possibly rhabdo 06/12 creatinine 1.7, continue hydration 06/13 creatinine 1.2, continue hydration 06/14 creatinine 1.2, home when awake after sedation given last PM and afer voiding trial 06/14 PM Unable to void, 500ml on bladder scan, ramirez, increase tamsulosin, urology to see Possibly home 06/15 (2) Rhabdomyolysis: Qualifiers: Rhabdomyolysis type: non-traumatic Qualified Code(s): M62.82 - Rhabdomyolysis Code(s): M62.82 - Rhabdomyolysis Status: Acute Assessment and Plan: Falling at home frequently CK is falling. Hold statin until evaluation by PCP (3) Dehydration: Code(s): E86.0 - Dehydration Status: Acute Assessment and Plan: continue IV hydration (4) COPD (chronic obstructive pulmonary disease): Qualifiers: COPD type: unspecified COPD Qualified Code(s): J44.9 - Chronic obstructive pulmonary disease, unspecified Code(s): J44.9 - Chronic obstructive pulmonary disease, unspecified Status: Acute Assessment and Plan: Continue with home medications. (5) Weakness: Code(s): R53.1 - Weakness Status: Acute Assessment and Plan: x-ray hips DJD . PT and OT (6) CHF (congestive heart failure): Qualifiers: Heart failure chronicity: chronic Heart failure type: diastolic Qualified Code(s): I50.32 - Chronic diastolic (congestive) heart failure Code(s): I50.9 - Heart failure, unspecified Status: Acute Assessment and Plan: Continue with Coreg. 06/13 Resume furosemide Monitory I/O 2825/2175 06/13 (7) Seizures: Code(s): R56.9 - Unspecified convulsions Status: Chronic Assessment and Plan: Continue with Keppra . (8) HTN (hypertension): Qualifiers: Hypertension type: unspecified Qualified Code(s): I10 - Essential (primary) hypertension Code(s): I10 - Essential (primary) hypertension Status: Chronic Assessment and Plan: Continue with Coreg, Norvasc, clonidine, furosemide 4/2 Orthostatic BP check w/o symptomatic drop (9) Afib: Qualifiers: Atrial fibrillation type: unspecified Qualified Code(s): I48.91 - Unspecified atrial fibrillation Code(s): I48.91 - Unspecified atrial fibrillation Status: Chronic Assessment and Plan: Continue with Xarelto and Coreg (10) Diabetes: Qualifiers: Diabetes mellitus complication status: without complication Diabetes mellitus lobsterman insulin use: with lobsterman use Diabetes mellitus type: type 2 Qualified Code(s): E11.9 - Type 2 diabetes mellitus without complications; Z79.4 - rat exterminator (current) use of insulin Code(s): E11.9 - Type 2 diabetes mellitus without complications Status: Chronic Assessment and Plan: Continue glargine. SSI while inpatient. Control only fair. (11) Dementia: Qualifiers: Dementia behavioral disturbance: without behavioral disturbance Dementia type: unspecified type Qualified Code(s): F03.90 - Unspecified dementia without behavioral disturbance Code(s): F03.90 - Unspecified dementia without behavioral disturbance Status: Chronic Assessment and Plan: Continue with Seroquel and Namenda and Aricept DS: Summary Hospital Course Reason for hospitalization: confusion, weakness, acute renal failur
[2019-06-15 11:42] LABS: Glucose Point of Care 248 (65-105)
[2019-06-15] MEDS: TAMSULOSIN HCL 0.4 MG CAPSULE PO ×2 (12:13→20:06)
[2019-06-15 14:00] VITALS: BP 134/97; PULSE 79; RESP 20; TEMP 36.9; O2SAT 95
[2019-06-15 16:07] VITALS: BP 156/61; PULSE 84
[2019-06-15 16:28] VITALS: BP 132/84; BP 181/63; PULSE 85; PULSE 93
[2019-06-15] MEDS: RIVAROXABAN 15 MG TABLET PO (16:38)
--- NOTE | 2019-06-15 16:57 | PM.IMPN ---
Progress Note: A&P Assessment and Plan (1) Acute kidney injury: Code(s): N17.9 - Acute kidney failure, unspecified Status: Acute Assessment and Plan: Patient received a bolus of IV fluids x1. And continue hydration, change to Nahco3 with elevated ck , mindful fluid overload with his history of diastolic heart failure. He is eating better and had decrease oral intake at home. Renal ultrasound no obstruction. acute on chronic renal failure stage 2. secondary to prerenal azotemia from decreased intake or possibly rhabdo 06/12 creatinine 1.7, continue hydration 06/13 creatinine 1.2, continue hydration 06/14 creatinine 1.2, home when awake after sedation given last PM and afer voiding trial 06/14 PM Unable to void, 500ml on bladder scan, ramirez, increase tamsulosin, urology to see 06/14 Staff notified family (son) that he will be staying an additional day. Possibly home 06/15 (2) Rhabdomyolysis: Qualifiers: Rhabdomyolysis type: non-traumatic Qualified Code(s): M62.82 - Rhabdomyolysis Code(s): M62.82 - Rhabdomyolysis Status: Acute Assessment and Plan: Was falling at home frequently CK is falling. Hold statin until evaluation by PCP (3) Dehydration: Code(s): E86.0 - Dehydration Status: Acute Assessment and Plan: continue IV hydration (4) COPD (chronic obstructive pulmonary disease): Qualifiers: COPD type: unspecified COPD Qualified Code(s): J44.9 - Chronic obstructive pulmonary disease, unspecified Code(s): J44.9 - Chronic obstructive pulmonary disease, unspecified Status: Acute Assessment and Plan: Continue with home medications. (5) Weakness: Code(s): R53.1 - Weakness Status: Acute Assessment and Plan: x-ray hips DJD . PT and OT (6) CHF (congestive heart failure): Qualifiers: Heart failure type: diastolic Heart failure chronicity: chronic Qualified Code(s): I50.32 - Chronic diastolic (congestive) heart failure Code(s): I50.9 - Heart failure, unspecified Status: Acute Assessment and Plan: Continue with Coreg. 06/13 Resume furosemide Monitory I/O 4325/2175 06/13 (7) Seizures: Code(s): R56.9 - Unspecified convulsions Status: Chronic Assessment and Plan: Continue with Keppra . (8) HTN (hypertension): Qualifiers: Hypertension type: unspecified Qualified Code(s): I10 - Essential (primary) hypertension Code(s): I10 - Essential (primary) hypertension Status: Chronic Assessment and Plan: Continue with Coreg, Norvasc, clonidine, furosemide 4/2 Orthostatic BP check w/o symptomatic drop (9) Afib: Qualifiers: Atrial fibrillation type: unspecified Qualified Code(s): I48.91 - Unspecified atrial fibrillation Code(s): I48.91 - Unspecified atrial fibrillation Status: Chronic Assessment and Plan: Continue with Xarelto and Coreg (10) Diabetes: Qualifiers: Diabetes mellitus type: type 2 Diabetes mellitus shelter insulin use: with shelter use Diabetes mellitus complication status: without complication Qualified Code(s): E11.9 - Type 2 diabetes mellitus without complications; Z79.4 - residential (current) use of insulin Code(s): E11.9 - Type 2 diabetes mellitus without complications Status: Chronic Assessment and Plan: Continue glargine. SSI while inpatient. Control only fair. (11) Dementia: Qualifiers: Dementia type: unspecified type Dementia behavioral disturbance: without behavioral disturbance Qualified Code(s): F03.90 - Unspecified dementia without behavioral disturbance Code(s): F03.90 - Unspecified dementia without behavioral disturbance Status: Chronic Assessment and Plan: Continue with Seroquel and Namenda and Aricept Subjective Date/time seen: 06/15/19 16:57 Interval history: Admitted 06/09 with urinary
[2019-06-15] MEDS: FUROSEMIDE 20 MG TABLET PO (17:28)
[2019-06-15 18:29] LABS: Glucose Point of Care 202 (65-105)
[2019-06-15 20:06] VITALS: PULSE 78
[2019-06-15] MEDS: DONEPEZIL HCL 10 MG TABLET PO (20:06)
[2019-06-15] MEDS: QUEtiapine FUMARATE 12.5 MG TABLET PO (20:06)
[2019-06-15 21:09] LABS: Glucose Point of Care 226 (65-105)
[2019-06-15 22:00] VITALS: BP 151/63; PULSE 78; RESP 20; TEMP 36.6; O2SAT 98
[2019-06-16 05:25] LABS: Blood Urea Nitrogen 22 mg/dL (9-20); Calcium 8.5 mg/dL (8.4-10.2); Carbon Dioxide 27 mmol/L (22-30); Chloride 108 mmol/L (98-107); Creatine Kinase 1255 U/L (55-170); Estimated CRCL calculation 61 ml/min; Estimated Glomerular Filt Rate > 60; Glucose 178 mg/dL (75-110); Hematocrit 31.2 % (42.0-52.0); Hemoglobin 10.1 g/dL (14.0-18.0); Mean Corpuscular HGB Conc 32.4 g/dl (32-36); Mean Corpuscular Hemoglobin 28.9 pg (26-34); Mean Corpuscular Volume 89.4 fl (80-100); Mean Platelet Volume 12.4 fl (7.4-10.4); Platelet Count Result 214 k/mm3 (150-375); Potassium 3.8 mmol/L (3.4-5.0); Red Blood Count 3.49 M/mm3 (4.6-6.20); Sodium 141 mmol/L (137-145)
[2019-06-16 06:00] VITALS: BP 137/59; PULSE 89; RESP 21; TEMP 36.9; O2SAT 100
[2019-06-16] MEDS: KCL 20MEQ/0.9% SOD CHL 1,000 ML 100 ML IV CONT ×2 (06:11→18:44)
[2019-06-16] MEDS: TAMSULOSIN HCL 0.4 MG CAPSULE PO ×2 (06:13→17:48)
[2019-06-16 07:57] LABS: Glucose Point of Care 162 (65-105)
[2019-06-16] MEDS: FUROSEMIDE 40 MG TABLET PO (08:05)
[2019-06-16] MEDS: carvediloL 25 MG TABLET PO ×2 (08:05→21:19)
[2019-06-16] MEDS: CHOLECALCIFEROL 1,000 UNIT TABLET 2000 UNITS PO (08:05)
[2019-06-16] MEDS: AMLODIPINE BESYLATE 2.5 MG TABLET 7.5 MG PO (08:06)
[2019-06-16] MEDS: CLOPIDOGREL BISULFATE 75 MG TABLET PO (08:06)
[2019-06-16] MEDS: FERROUS SULFATE 324 MG TABLET PO (08:06)
[2019-06-16] MEDS: MULTIVITAMINS THERAPEUTIC TAB (*BKC) 1 TABLET PO (08:06)
[2019-06-16] MEDS: levETIRAcetam 500 MG TABLET PO ×2 (08:06→21:19)
[2019-06-16] MEDS: SERTRALINE HCL 50 MG TABLET PO (08:06)
[2019-06-16] MEDS: INSULIN GLARGINE (*BKC) 100 UNITS/ML 25 UNITS SUB-Q (08:06)
[2019-06-16] MEDS: CLONIDINE HCL 0.2 MG TABLET PO ×2 (08:06→17:48)
[2019-06-16] MEDS: MEMANTINE 10 MG TABLET PO ×2 (08:13→17:47)
--- NOTE | 2019-06-16 08:55 | WPDURCON ---
Assessment and Plan Assessment and plan (1) BPH (benign prostatic hyperplasia): Code(s): N40.0 - Benign prostatic hyperplasia without lower urinary tract symptoms Status: Acute Assessment and Plan: - continue Flomax BID, added Finasteride - plan to continue Ponce for at least 3-5 days & then void trial. If pt still in hospital next week plan void trial while in-patient, if discharged he can be seen in office for catheter removal (2) Urinary retention: Code(s): R33.9 - Retention of urine, unspecified Status: Acute Urology Consult Note HPI Date Seen: 06/16/19 Requesting Physician: Harsh Garcia MD Primary Care Provider: Robert Valera MD Consult Narrative Narrative: Addy Cervantes Sr. is a 73 year old male admitted with weakness. Pt was unable to void with Ponce removal yesterday. He states no previous issues with urinary retention. Review of Systems Constitutional: Constitutional: Reports no additional constitutional complaints Eyes: Eyes: Reports no additional eye complaints [facility] Past Medical History Medical History (Updated 06/16/19 @ 09:00 by Nick Berg MD) Afib Alzheimer disease Arthritis BPH (benign prostatic hyperplasia) CAD (coronary artery disease) Chronic kidney disease Stage III Colon polyps COPD (chronic obstructive pulmonary disease) CVA (cerebral vascular accident) Dementia Depression Diabetes GERD (gastroesophageal reflux disease) Heart attack History of angina HTN (hypertension) Hyperlipidemia Pneumonia Rectal polyp Seizures TIA (transient ischemic attack) Urinary retention Surgical History Surgical History (Updated 06/10/19 @ 19:20 by Christine Beaulieu NP) History of arthroscopic knee surgery Right History of cardiac catheterization History of colonoscopy History of coronary artery stent placement History of knee replacement, total Right History of partial colectomy Due to vilious adenoma Family History Family History (Updated 06/10/19 @ 19:21 by Christine Beaulieu NP) Son End-stage renal failure with renal transplant Father Acute myocardial infarction Sibling Ovarian cancer Social History Social History (Updated 06/10/19 @ 19:32 by Christine Beaulieu NP) Social History: The patient lives in his own home and he has care givers that come into the home as well as his son Paramjit who is the durable power tax associate attorney. He has 2 sons Paramjit in [place]. But [place] does not come to visit his father. Patient is a full code. His son is there during the night. The patient stopped drinking when Paramjit was 1 years old in 1981. That 18 also quit smoking as well. His ex- also comes to check on him as well. 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 Smoking status: Former smoker Alcohol intake: former Substance use: never Substance use type: does not use Gender identity (if verbalized by the patient): Male Spiritual care concerns: No Agree to blood products: Yes Meds Home Medications and Allergies Home Medications Medication Instructions Recorded Confirmed Type acetaminophen 1,300 mg PO BID 06/10/19 06/10/19 History amlodipine 7.5 mg PO DAILY 06/10/19 06/10/19 History atorvastatin 40 mg PO HS 06/10/19 06/10/19 History carvedilol 25 mg PO BID 06/10/19 06/10/19 History cholecalciferol (vitamin D3) 2,000 unit PO DAILY 06/10/19 06/10/19 History clonidine HCl 0.2 mg PO BID 06/10/19 06/10/19 History clopidogrel 75 mg PO DAILY 06/10/19 06/10/19 History donepezil 10 mg PO HS 06/10/19 06/10/19 History ferrous sulfate 325 mg PO DAILY 06/10/19 06/10/19 History furosemide 20 mg PO QPM 06/10/19 06/10/19 History furosemide 40 mg PO QAM 06/10/19 06/10/19 History glucosamine sulfate [Glucosamine] 500 mg PO BID 06/10/19 06/10/19 History glucose 16 g PO Q15M PRN 06/10/19 06/10/19 History insulin aspart U-100 See Rx Instructions .ROUTE .COMPLEX 06/10/19
--- NOTE | 2019-06-16 13:15 | PM.IMPN ---
Progress Note: A&P Assessment and Plan (1) Acute kidney injury: Code(s): N17.9 - Acute kidney failure, unspecified Status: Acute Assessment and Plan: Patient received a bolus of IV fluids x1. And continue hydration, change to Nahco3 with elevated ck , mindful fluid overload with his history of diastolic heart failure. He is eating better and had decrease oral intake at home. Renal ultrasound no obstruction. acute on chronic renal failure stage 2. secondary to prerenal azotemia from decreased intake or possibly rhabdo 06/12 creatinine 1.7, continue hydration 06/13 creatinine 1.2, continue hydration 06/14 creatinine 1.2, home when awake after sedation given last PM and afer voiding trial 06/14 PM Unable to void, 500ml on bladder scan, ramirez, increase tamsulosin, urology to see 06/14 Staff notified family (son) that he will be staying an additional day. Possibly home 06/1506/16/19 13:15 Patient is 73-year-old male who lives home alone was brought to the emergency department with a complaint of weakness difficulty with ambulation he is found to have rhabdomyolysis, acute on chronic kidney disease and urinary retention, patient is being gently hydrated his kidney function is improving his urinary retention is persisting he is on Ramirez catheter and being treated with Flomax b.i.d. and finasteride his seen by urologist recommended to continue present management with Ramirez and may give voiding trial in 2-3 days if the patient still in the hospital or may be discharged home with Ramirez and can return to the clinic for Ramirez removal, today patient was able to participate in physical therapy he still is requiring assistance for his ambulation, patient BUN and creatinine upon arrival were 42/2.2 and today 22/1.3 and his CK level upon arrival were or 12,000 today is close to 1200 will continue present management will reassess tomorrow and possibly to the discharge planning (2) Rhabdomyolysis: Qualifiers: Rhabdomyolysis type: non-traumatic Qualified Code(s): M62.82 - Rhabdomyolysis Code(s): M62.82 - Rhabdomyolysis Status: Acute Assessment and Plan: Was falling at home frequently CK is falling. Hold statin until evaluation by PCP (3) Dehydration: Code(s): E86.0 - Dehydration Status: Acute Assessment and Plan: continue IV hydration (4) COPD (chronic obstructive pulmonary disease): Qualifiers: COPD type: unspecified COPD Qualified Code(s): J44.9 - Chronic obstructive pulmonary disease, unspecified Code(s): J44.9 - Chronic obstructive pulmonary disease, unspecified Status: Acute Assessment and Plan: Continue with home medications. (5) Weakness: Code(s): R53.1 - Weakness Status: Acute Assessment and Plan: x-ray hips DJD . PT and OT (6) CHF (congestive heart failure): Qualifiers: Heart failure type: diastolic Heart failure chronicity: chronic Qualified Code(s): I50.32 - Chronic diastolic (congestive) heart failure Code(s): I50.9 - Heart failure, unspecified Status: Acute Assessment and Plan: Continue with Coreg. 06/13 Resume furosemide Monitory I/O 4325/2175 06/13 (7) Seizures: Code(s): R56.9 - Unspecified convulsions Status: Chronic Assessment and Plan: Continue with Keppra . (8) HTN (hypertension): Qualifiers: Hypertension type: unspecified Qualified Code(s): I10 - Essential (primary) hypertension Code(s): I10 - Essential (primary) hypertension Status: Chronic Assessment and Plan: Continue with Coreg, Norvasc, clonidine, furosemide 4/ Orthostatic BP check w/o symptomatic drop (9) Afib: Qualifiers: Atrial fibrillation type: unspecified Qualified Code(s): I48.91 - Unspecified atrial fibrillation Code(s): I48.91 - Unspecified atrial fibrillation Status: Chronic Assessment and Plan:
[2019-06-16 13:45] LABS: Glucose Point of Care 186 (65-105)
[2019-06-16 14:00] VITALS: BP 120/51; PULSE 79; RESP 18; TEMP 36.9; O2SAT 96
[2019-06-16 17:34] LABS: Glucose Point of Care 182 (65-105)
[2019-06-16] MEDS: FUROSEMIDE 20 MG TABLET PO (17:48)
[2019-06-16] MEDS: RIVAROXABAN 15 MG TABLET PO (17:48)
[2019-06-16 20:24] LABS: Glucose Point of Care 181 (65-105)
[2019-06-16 21:19] VITALS: PULSE 88
[2019-06-16] MEDS: DONEPEZIL HCL 10 MG TABLET PO (21:19)
[2019-06-16] MEDS: QUEtiapine FUMARATE 12.5 MG TABLET PO (21:20)
[2019-06-16 21:24] VITALS: BP 140/58; PULSE 87; RESP 18; TEMP 36.7; O2SAT 96
[2019-06-17] VITALS (9 sets, daily range): BP systolic 138–157; BP diastolic 65–86; PULSE 76–107; RESP 16–20; TEMP 36.9–38; O2SAT 91–100
[2019-06-17] MEDS: ACETAMINOPHEN 325 MG TABLET 650 MG PO (05:04)
[2019-06-17] MEDS: TAMSULOSIN HCL 0.4 MG CAPSULE PO ×2 (05:05→17:02)
[2019-06-17 05:38] LABS: Hematocrit 31.9 % (42.0-52.0); Hemoglobin 9.7 g/dL (14.0-18.0); Mean Corpuscular HGB Conc 30.4 g/dl (32-36); Mean Corpuscular Hemoglobin 28.2 pg (26-34); Mean Corpuscular Volume 92.7 fl (80-100); Mean Platelet Volume 12.4 fl (7.4-10.4); Platelet Count Result 210 k/mm3 (150-375); Red Blood Count 3.44 M/mm3 (4.6-6.20); Red Cell Distribution Width 13.1 % (11.5-14.5); White Blood Count 11.8 K/mm3 (4.5-10.0)
[2019-06-17 06:15] LABS: Blood Urea Nitrogen 20 mg/dL (9-20); Calcium 8.7 mg/dL (8.4-10.2); Carbon Dioxide 22 mmol/L (22-30); Chloride 111 mmol/L (98-107); Creatine Kinase 961 U/L (55-170); Estimated CRCL calculation 61 ml/min; Estimated Glomerular Filt Rate > 60; Glucose 114 mg/dL (75-110); Potassium 3.4 mmol/L (3.4-5.0); Sodium 141 mmol/L (137-145)
[2019-06-17] MEDS: CLONIDINE HCL 0.2 MG TABLET PO ×2 (09:43→17:00)
[2019-06-17] MEDS: MULTIVITAMINS THERAPEUTIC TAB (*BKC) 1 TABLET PO (09:43)
[2019-06-17] MEDS: FUROSEMIDE 40 MG TABLET PO (09:43)
[2019-06-17] MEDS: SERTRALINE HCL 50 MG TABLET PO (09:43)
[2019-06-17] MEDS: carvediloL 25 MG TABLET PO ×2 (09:45→20:54)
[2019-06-17] MEDS: AMLODIPINE BESYLATE 2.5 MG TABLET 7.5 MG PO (09:45)
[2019-06-17] MEDS: CLOPIDOGREL BISULFATE 75 MG TABLET PO (09:46)
[2019-06-17] MEDS: CHOLECALCIFEROL 1,000 UNIT TABLET 2000 UNITS PO (09:46)
[2019-06-17] MEDS: FINASTERIDE 5 MG TABLET PO (09:46)
[2019-06-17] MEDS: FERROUS SULFATE 324 MG TABLET PO (09:46)
[2019-06-17] MEDS: levETIRAcetam 500 MG TABLET PO ×2 (09:47→20:54)
[2019-06-17] MEDS: MEMANTINE 10 MG TABLET PO ×2 (09:47→17:00)
[2019-06-17 09:56] LABS: Glucose Point of Care 117 (65-105)
--- NOTE | 2019-06-17 10:30 | PC.NURSE ---
called Dr. He to notify him of the blood sugar of 117. Orders received to hold dose of lantus for 06/17/2019.
--- NOTE | 2019-06-17 10:53 | PM.DS ---
DS: Diagnosis Admitting Diagnosis Admitting Diagnosis: Acute kidney failure, unspecified DS: Summary Time Spent with Patient Time attestation: Total time spent providing and/or coordinating discharge services: Exam Narrative: Exam Narrative: Exam Narrative: HEENT: EOMI, PERRL, pharyngeal mucosa pink and intact NECK: No JVD CHEST: Clear to auscultation. Normal effort. HEART: NL S1/S2, regular, no murmur ABDOMEN: BS+, soft, nontender, no mass, no bruits EXTREMITIES: No cyanosis, edema, or clubbing NEUROLOGIC: CN intact and symmetric to inspection. MUSCULOSKELETAL: Tone and strength symmetric. PSYCH: Alert. Pleasant and cooperative. Oriented to person, did not know where he was, but kne year was 2019, thought month was August. DS: Data Data Completed and Pending Labs on day of discharge: Labs from last 24 hours 06/17/19 06/17/19 06/17/19 09:43 04:41 04:41 WBC 11.8 H RBC 3.44 L Hgb 9.7 L Hct 31.9 L MCV 92.7 MCH 28.2 MCHC 30.4 L RDW 13.1 Plt Count 210 MPV 12.4 H Sodium 141 Potassium 3.4 Chloride 111 H Carbon Dioxide 22 BUN 20 Creatinine 1.30 Estim Creat Clear Calc 61 Estimated GFR > 60 Glucose 114 H POC Capillary Glucose 117 H Calcium 8.7 Total Creatine Kinase 961 H 06/16/19 06/16/19 06/16/19 20:22 16:54 11:18 WBC RBC Hgb Hct MCV MCH MCHC RDW Plt Count MPV Sodium Potassium Chloride Carbon Dioxide BUN Creatinine Estim Creat Clear Calc Estimated GFR Glucose POC Capillary Glucose 181 H 182 H 186 H Calcium Total Creatine Kinase Discharge Plan Discharge Consulting providers: Mario Martin ; [place] Discharging Clinician: Carrington Guzman Patient Disposition: Home Health Service Activity: as tolerated Diet: diabetic and low sodium Discharge Instructions: Per Care Coordination, Patient to discharge with [facility] at [phone]. Do not ambulate without assistance. Do not stay home alone. Patient Instructions: Antibiotic Form, Rivaroxaban (By mouth), Heart Failure (DC), A-fib (Atrial Fibrillation) (DC), Ponce Catheter Placement and Care (DC), COPD (Chronic Obstructive Pulmonary Disease) (ED), Fall Prevention (DC) Stand Alone Forms: General Discharge Information Follow-up/Referrals: Robert Valera MD [Primary Care Provider] - El Luna MD [Physician] - Call for Appointment Discharge Medications: New tamsulosin 0.4 mg Capsule 0.4 mg PO Q12H Qty: 60 RF: 0 Continued quetiapine 25 mg Tablet 12.5 mg PO HS RF: 0 furosemide 40 mg Tablet 40 mg PO QAM RF: 0 furosemide 40 mg Tablet 20 mg PO QPM RF: 0 atorvastatin 40 mg Tablet 40 mg PO HS RF: 0 carvedilol 25 mg Tablet 25 mg PO BID RF: 0 acetaminophen 325 mg Tablet 1,300 mg PO BID RF: 0 trazodone 50 mg Tablet 25 mg PO HS RF: 0 levetiracetam 500 mg Tablet 500 mg PO BID RF: 0 donepezil 10 mg Tablet 10 mg PO HS RF: 0 sertraline 100 mg Tablet 50 mg PO DAILY RF: 0 glucosamine sulfate [Glucosamine] 500 mg Tablet 500 mg PO BID RF: 0 amlodipine 2.5 mg Tablet 7.5 mg PO DAILY RF: 0 clopidogrel 75 mg Tablet 75 mg PO DAILY RF: 0 clonidine HCl 0.2 mg Tablet 0.2 mg PO BID RF: 0 ferrous sulfate 325 mg (65 mg iron) Tablet 325 mg PO DAILY RF: 0 glucose 4 gram Tablet,Chewable 16 g PO Q15M PRN (Reason: Hyperglycemia) RF: 0 nitroglycerin 0.4 mg Tablet, Sublingual 0.4 mg SUBLINGUAL ONCE PRN (Reason: Chest Pain) RF: 0 multivitamin Capsule 1 cap PO DAILY RF: 0 memantine 10 mg Tablet 10 mg PO BID RF: 0 rivaroxaban 20 mg Tablet 20 mg PO DAILY RF: 0 cholecalciferol (vitamin D3) 2,000 unit Tablet,Chewable 2,000 unit PO DAILY RF: 0 insulin glargine 100 unit/mL (3 mL) Insulin Pen 25 unit SUBCUT DAILY Qty: 0 RF: 0 Changed insulin aspart
--- NOTE | 2019-06-17 11:08 | PM.IMPN ---
Progress Note: A&P Assessment and Plan (1) Fever: Qualifiers: Fever type: unspecified Qualified Code(s): R50.9 - Fever, unspecified Code(s): R50.9 - Fever, unspecified Status: Acute Assessment and Plan: Etiology unclear as no focal sx/signs CXR, U/a reflex, blood cultures Monitor (2) Acute kidney injury: Code(s): N17.9 - Acute kidney failure, unspecified Status: Acute Assessment and Plan: Patient received a bolus of IV fluids x1. And continue hydration, change to [place]3 with elevated ck , mindful fluid overload with his history of diastolic heart failure. He is eating better and had decrease oral intake at home. Renal ultrasound no obstruction. acute on chronic renal failure stage 2. secondary to prerenal azotemia from decreased intake or possibly rhabdo 06/12 creatinine 1.7, continue hydration 06/13 creatinine 1.2, continue hydration 06/14 creatinine 1.2, home when awake after sedation given last PM and afer voiding trial 06/14 PM Unable to void, 500ml on bladder scan, ramirez, increase tamsulosin, urology to see 06/14 Staff notified family (son) that he will be staying an additional day. 06/16 creatinine 1.3 (3) Rhabdomyolysis: Qualifiers: Rhabdomyolysis type: non-traumatic Qualified Code(s): M62.82 - Rhabdomyolysis Code(s): M62.82 - Rhabdomyolysis Status: Acute Assessment and Plan: Was falling at home frequently CK continues to decline. 06/16 961 Hold statin until evaluation by PCP (4) Dehydration: Code(s): E86.0 - Dehydration Status: Acute Assessment and Plan: continue IV hydration (5) COPD (chronic obstructive pulmonary disease): Qualifiers: COPD type: unspecified COPD Qualified Code(s): J44.9 - Chronic obstructive pulmonary disease, unspecified Code(s): J44.9 - Chronic obstructive pulmonary disease, unspecified Status: Acute Assessment and Plan: Continue with home medications. (6) Weakness: Code(s): R53.1 - Weakness Status: Acute Assessment and Plan: x-ray hips DJD . PT and OT (7) CHF (congestive heart failure): Qualifiers: Heart failure chronicity: chronic Heart failure type: diastolic Qualified Code(s): I50.32 - Chronic diastolic (congestive) heart failure Code(s): I50.9 - Heart failure, unspecified Status: Acute Assessment and Plan: Continue with Coreg. 06/13 Resume furosemide Monitory I/O 5165/2175 06/13 (8) Seizures: Code(s): R56.9 - Unspecified convulsions Status: Chronic Assessment and Plan: Continue with Keppra . (9) HTN (hypertension): Qualifiers: Hypertension type: unspecified Qualified Code(s): I10 - Essential (primary) hypertension Code(s): I10 - Essential (primary) hypertension Status: Chronic Assessment and Plan: Continue with Coreg, Norvasc, clonidine, furosemide 06/14 Orthostatic BP check w/o symptomatic drop (10) Afib: Qualifiers: Atrial fibrillation type: unspecified Qualified Code(s): I48.91 - Unspecified atrial fibrillation Code(s): I48.91 - Unspecified atrial fibrillation Status: Chronic Assessment and Plan: Continue with Xarelto and Coreg (11) Diabetes: Qualifiers: Diabetes mellitus complication status: without complication Diabetes mellitus bed bug exterminator insulin use: with intermediate use Diabetes mellitus type: type 2 Qualified Code(s): E11.9 - Type 2 diabetes mellitus without complications; Z79.4 - care home (current) use of insulin Code(s): E11.9 - Type 2 diabetes mellitus without complications Status: Chronic Assessment and Plan: Continue glargine. SSI while inpatient. Control only fair. (12) Dementia: Qualifiers: Dementia behavioral disturbance: without behavioral disturbance Dementia type: unspecified type Qualified Code(s): F03.90 - Unspecified d
--- NOTE | 2019-06-17 11:23 | WPDUROPN2 ---
Progress Note: A&P Additional Plan Has a ramirez, placed 06/14, and started on flomax bid. . continue BPH medications and plan for voiding trial next 1-2 weeks. he should be discharged on flomax 0.4 mg BID Time Spent With Patient Time with patient: 15 - 25 minutes Subjective Subjective Date/Time Seen: 06/17/19 11:23 ramirez draining well. no acute complaints. Review of Systems Review of Systems: All systems reviewed & are unremarkable except as noted in HPI and below Genitourinary: Genitourinary: Denies hematuria and Denies urinary incontinence Exam Const: General: no acute distress HENMT: Mouth: Yes moist mucous membranes Eyes: General: appearance normal, both eyes and all related structures Neck: Neck: no JVD Resp: Effort & Inspection: normal respiratory effort Cardio: Rate: regular rate Rhythm: regular rhythm GI: Inspection: non-distended : Male General Exam: Yes normal external exam Urinary Catheter: Urinary Catheter: patent and draining and urine clear Skin: General skin exam: normal color Neuro: Cognition (Neuro): normal cognition Speech: normal speech Extrem: General: normal to inspection Psych: Mental Status: mental status grossly normal Objective Data Vital Signs Vital Signs: Vital Signs - 24 hr 06/16/19 14:00 06/16/19 21:19 06/16/19 21:24 Temperature 36.9 C 36.7 C Pulse Rate 79 88 87 Respiratory Rate 18 18 Blood Pressure 120/51 L 140/58 L Pulse Oximetry 96 96 06/17/19 05:00 06/17/19 05:04 06/17/19 06:00 Temperature 38.0 C H 38.0 C H 37.8 C H Pulse Rate 107 H Respiratory Rate 20 Blood Pressure 157/73 H Pulse Oximetry 93 06/17/19 06:01 06/17/19 09:45 Temperature 37.8 C H Pulse Rate 80 Respiratory Rate Blood Pressure Pulse Oximetry Intake/Output Intake/Output: Intake & Output 06/14/19 06/15/19 06/16/19 06/17/19 23:59 23:59 23:59 23:59 Intake Total 3790 3545 3370 925 Output Total 2475 1600 1450 900 Balance 1315 1945 1920 25 Meds/Results Medications: Active Medications Generic Name Dose Route Start Last Admin Trade Name Freq PRN Reason Stop Dose Admin Acetaminophen 650 mg 06/10/19 16:08 06/17/19 05:04 Tylenol Tablet PO 650 mg Q4H PRN Administration Mild Pain (1-3) or Fever Amlodipine Besylate 7.5 mg 06/11/19 09:00 06/17/19 09:45 Norvasc PO 7.5 mg DAILY SOURAV Administration Carvedilol 25 mg 06/10/19 21:00 06/17/19 09:45 Coreg PO 25 mg Q12HR SOURAV Administration Clonidine HCl 0.2 mg 06/10/19 20:10 06/17/19 09:43 Catapres PO 0.2 mg BID SOURAV Administration Clopidogrel Bisulfate 75 mg 06/11/19 09:00 06/17/19 09:46 Plavix PO 75 mg DAILY SOURAV Administration Dextrose 12.5 gm 06/10/19 17:38 Dextrose 50% Syringe IV PUSH PRN PRN Hypoglycemia Protocol Donepezil HCl 10 mg 06/10/19 21:00 06/16/19 21:19 Aricept PO 10 mg HS SOURAV Administration Ferrous Sulfate 324 mg 06/11/19 09:00 06/17/19 09:46 Ferrous Sulfate PO 324 mg DAILY SOURAV Administration Finasteride 5 mg 06/16/19 09:00 06/17/19 09:46 Proscar PO 5 mg QAM SOURAV Administration Furosemide 40 mg 06/15/19 09:00 06/17/19 09:43 Lasix Tablet PO 40 mg QAM SOURAV Administration Furosemide 20 mg 06/14/19 18:00 06/16/19 17:48 Lasix Tablet PO 20 mg QPM SOURAV Administration Glucagon 1 mg 06/10/19 17:38 Glucagon For Inj IM PRN PRN Hypoglycemia Protocol Glucose 15 gm 06/10/19 17:38 Glutose 15 PO PRN PRN Hypoglycemia Protocol Dextrose 1,000 mls @ 100 mls/hr 06/10/19 17:38 Dextrose 5% 1,000 Ml IVPB PRN PRN Hypoglycemia Protocol Potassium Chloride/Sodium Chloride 1,000 mls @ 100 mls/hr 06/14/19 14:05 06/17/19 05:08 Kcl 20 Meq/Ns IV CONT 100 mls/hr .Q10H SOURAV Infusion Insulin Aspart 2 - 5 units 06/11/19 08:00 06/17/19 10:08 Novolog SUB-Q Not Given TIDWM [facility] Protocol Insuli
[2019-06-17] MEDS: KCL 20MEQ/0.9% SOD CHL 1,000 ML 100 ML IV CONT ×2 (11:39→22:06)
[2019-06-17 13:09] LABS: Add Urine Microscopic? YES; Appearance Urine Cloudy (Clear); Bacteria Urine Trace /hpf; Bilirubin Urine Negative (Negative); Blood Urine Negative (Negative); Color Urine Amber (Yellow); Glucose Urine UA Negative (Negative); Ketones Urine Negative (Negative); Leukocyte Esterase Ur Trace LEU/UL (Negative); Mucus Urine Rare /lpf; Nitrate Urine Negative (Negative); Protein Urine 2+ mg/dL (Negative); Specific Grav Ur 1.018 (1.001-1.035); Squamous Epithelial Cell Urine Rare /hpf (Few); Urobilinogen Urine Negative mg/dL (<2.0)
[2019-06-17 13:39] LABS: Glucose Point of Care 123 (65-105)
[2019-06-17] MEDS: RIVAROXABAN 15 MG TABLET PO (17:01)
[2019-06-17] MEDS: FUROSEMIDE 20 MG TABLET PO (17:02)
[2019-06-17 18:07] LABS: Glucose Point of Care 138 (65-105)
[2019-06-17] MEDS: QUEtiapine FUMARATE 12.5 MG TABLET PO (20:54)
[2019-06-17] MEDS: DONEPEZIL HCL 10 MG TABLET PO (20:54)
[2019-06-17 21:05] LABS: Glucose Point of Care 146 (65-105)
[2019-06-18] VITALS (8 sets, daily range): BP systolic 117–139; BP diastolic 47–57; PULSE 69–95; RESP 15–20; TEMP 36.3–37.6; O2SAT 91–96; BMI 10.0
[2019-06-18 05:03] LABS: Hemoglobin 8.4 g/dL (14.0-18.0); Mean Corpuscular HGB Conc 31.1 g/dl (32-36); Mean Corpuscular Hemoglobin 28.3 pg (26-34); Mean Corpuscular Volume 90.9 fl (80-100); Mean Platelet Volume 12.4 fl (7.4-10.4); Platelet Count Result 213 k/mm3 (150-375); Red Blood Count 2.97 M/mm3 (4.6-6.20); Red Cell Distribution Width 13.2 % (11.5-14.5); White Blood Count 10.9 K/mm3 (4.5-10.0)
[2019-06-18 05:29] LABS: Blood Urea Nitrogen 23 mg/dL (9-20); Calcium 8.5 mg/dL (8.4-10.2); Carbon Dioxide 19 mmol/L (22-30); Chloride 113 mmol/L (98-107); Creatine Kinase 540 U/L (55-170); Estimated CRCL calculation 47 ml/min; Estimated Glomerular Filt Rate 48; Glucose 164 mg/dL (75-110); Potassium 3.3 mmol/L (3.4-5.0); Sodium 141 mmol/L (137-145)
[2019-06-18] MEDS: TAMSULOSIN HCL 0.4 MG CAPSULE PO ×2 (05:48→17:15)
[2019-06-18 08:01] LABS: Glucose Point of Care 156 (65-105)
[2019-06-18] MEDS: FERROUS SULFATE 324 MG TABLET PO (08:04)
[2019-06-18] MEDS: CLOPIDOGREL BISULFATE 75 MG TABLET PO (08:04)
[2019-06-18] MEDS: CLONIDINE HCL 0.2 MG TABLET PO ×2 (08:05→17:13)
[2019-06-18] MEDS: levETIRAcetam 500 MG TABLET PO ×2 (08:05→20:45)
[2019-06-18] MEDS: carvediloL 25 MG TABLET PO ×2 (08:05→20:44)
[2019-06-18] MEDS: FINASTERIDE 5 MG TABLET PO (08:05)
[2019-06-18] MEDS: FUROSEMIDE 40 MG TABLET PO (08:05)
[2019-06-18] MEDS: POTASSIUM CHLORIDE 20 MEQ TABLET 40 MEQ PO (08:05)
[2019-06-18] MEDS: MULTIVITAMINS THERAPEUTIC TAB (*BKC) 1 TABLET PO (08:05)
[2019-06-18] MEDS: AMLODIPINE BESYLATE 2.5 MG TABLET 7.5 MG PO (08:05)
[2019-06-18] MEDS: CHOLECALCIFEROL 1,000 UNIT TABLET 2000 UNITS PO (08:05)
[2019-06-18] MEDS: SERTRALINE HCL 50 MG TABLET PO (08:05)
[2019-06-18] MEDS: MEMANTINE 10 MG TABLET PO ×2 (08:07→17:14)
[2019-06-18] MEDS: INSULIN GLARGINE (*BKC) 100 UNITS/ML 25 UNITS SUB-Q (08:15)
--- NOTE | 2019-06-18 11:20 | PM.IMPN ---
Progress Note: A&P Assessment and Plan (1) Pneumonia: Qualifiers: Pneumonia type: aspiration pneumonia Aspiration pneumonia type: unspecified Laterality: bilateral Lung location: lower lobe of lung Qualified Code(s): J69.0 - Pneumonitis due to inhalation of food and vomit Code(s): J18.9 - Pneumonia, unspecified organism Status: Acute Assessment and Plan: Likely due to aspiration WBC improving and fever resolved Day 2 Zosyn Continue PT/OT (2) Fever: Qualifiers: Fever type: unspecified Qualified Code(s): R50.9 - Fever, unspecified Code(s): R50.9 - Fever, unspecified Status: Acute Assessment and Plan: Etiology unclear as no focal sx/signs CXR c/w bilateral LL infiltrates U/a negative Zosyn for probable aspiration pneumonia (3) Acute kidney injury: Code(s): N17.9 - Acute kidney failure, unspecified Status: Acute Assessment and Plan: Patient received a bolus of IV fluids x1. And continue hydration, change to N[place]co3 with elevated ck , mindful fluid overload with his history of diastolic heart failure. He is eating better and had decrease oral intake at home. Renal ultrasound no obstruction. acute on chronic renal failure stage 2. secondary to prerenal azotemia from decreased intake or possibly rhabdo 06/12 creatinine 1.7, continue hydration 06/13 creatinine 1.2, continue hydration 06/14 creatinine 1.2, home when awake after sedation given last PM and afer voiding trial 06/14 PM Unable to void, 500ml on bladder scan, ramirez, increase tamsulosin, urology to see 06/14 Staff notified family (son) that he will be staying an additional day. 06/16 creatinine 1.3 06/17 1.7, monitor PO intake and f/u lab (4) Rhabdomyolysis: Qualifiers: Rhabdomyolysis type: non-traumatic Qualified Code(s): M62.82 - Rhabdomyolysis Code(s): M62.82 - Rhabdomyolysis Status: Acute Assessment and Plan: Was falling at home frequently CK continues to decline. 06/16 961 06/17 540 Hold statin until evaluation by PCP (5) Dehydration: Code(s): E86.0 - Dehydration Status: Acute Assessment and Plan: continue IV hydration (6) COPD (chronic obstructive pulmonary disease): Qualifiers: COPD type: unspecified COPD Qualified Code(s): J44.9 - Chronic obstructive pulmonary disease, unspecified Code(s): J44.9 - Chronic obstructive pulmonary disease, unspecified Status: Acute Assessment and Plan: Continue with home medications. (7) Weakness: Code(s): R53.1 - Weakness Status: Acute Assessment and Plan: x-ray hips DJD . PT and OT (8) CHF (congestive heart failure): Qualifiers: Heart failure type: diastolic Heart failure chronicity: chronic Qualified Code(s): I50.32 - Chronic diastolic (congestive) heart failure Code(s): I50.9 - Heart failure, unspecified Status: Acute Assessment and Plan: Continue with Coreg. 06/13 Resume furosemide Monitory I/O 7605/2175 06/13 (9) Seizures: Code(s): R56.9 - Unspecified convulsions Status: Chronic Assessment and Plan: Continue with Keppra . (10) HTN (hypertension): Qualifiers: Hypertension type: unspecified Qualified Code(s): I10 - Essential (primary) hypertension Code(s): I10 - Essential (primary) hypertension Status: Chronic Assessment and Plan: Continue with Coreg, Norvasc, clonidine, furosemide 4/ Orthostatic BP check w/o symptomatic drop (11) Afib: Qualifiers: Atrial fibrillation type: unspecified Qualified Code(s): I48.91 - Unspecified atrial fibrillation Code(s): I48.91 - Unspecified atrial fibrillation Status: Chronic Assessment and Plan: Continue with Xarelto and Coreg (12) Diabetes: Qualifiers: Diabetes mellitus type: type 2 Diabetes mellitus repair department manager insulin use: with repair department manager use Shonda
[2019-06-18 11:31] LABS: Glucose Point of Care 186 (65-105)
[2019-06-18 16:56] LABS: Glucose Point of Care 257 (65-105)
[2019-06-18] MEDS: RIVAROXABAN 15 MG TABLET PO (17:14)
[2019-06-18] MEDS: FUROSEMIDE 20 MG TABLET PO (17:15)
[2019-06-18] MEDS: INSULIN ASPART (*BKC) 100 UNITS/ML SUB-Q (17:17)
[2019-06-18] MEDS: DONEPEZIL HCL 10 MG TABLET PO (20:45)
[2019-06-18] MEDS: QUEtiapine FUMARATE 12.5 MG TABLET PO (20:45)
[2019-06-18 20:52] LABS: Glucose Point of Care 270 (65-105)
[2019-06-19] VITALS (8 sets, daily range): BP systolic 130–138; BP diastolic 51–57; PULSE 65–75; RESP 16–20; TEMP 36.4–36.7; O2SAT 91–99
[2019-06-19 05:12] LABS: Hematocrit 26.2 % (42.0-52.0); Hemoglobin 8.4 g/dL (14.0-18.0); Mean Corpuscular HGB Conc 32.1 g/dl (32-36); Mean Corpuscular Hemoglobin 28.8 pg (26-34); Mean Corpuscular Volume 89.7 fl (80-100); Platelet Count Result 227 k/mm3 (150-375); Red Blood Count 2.92 M/mm3 (4.6-6.20); Red Cell Distribution Width 12.9 % (11.5-14.5); White Blood Count 9.3 K/mm3 (4.5-10.0)
[2019-06-19 05:24] LABS: Blood Urea Nitrogen 26 mg/dL (9-20); Calcium 8.6 mg/dL (8.4-10.2); Carbon Dioxide 18 mmol/L (22-30); Chloride 112 mmol/L (98-107); Creatine Kinase 276 U/L (55-170); Estimated CRCL calculation 44 ml/min; Estimated Glomerular Filt Rate 45; Glucose 195 mg/dL (75-110); Potassium 3.6 mmol/L (3.4-5.0); Sodium 138 mmol/L (137-145)
[2019-06-19] MEDS: TAMSULOSIN HCL 0.4 MG CAPSULE PO ×2 (06:24→17:07)
[2019-06-19] MEDS: FERROUS SULFATE 324 MG TABLET PO (07:52)
[2019-06-19] MEDS: CHOLECALCIFEROL 1,000 UNIT TABLET 2000 UNITS PO (07:52)
[2019-06-19] MEDS: MULTIVITAMINS THERAPEUTIC TAB (*BKC) 1 TABLET PO (07:53)
[2019-06-19] MEDS: SERTRALINE HCL 50 MG TABLET PO (07:53)
[2019-06-19] MEDS: MEMANTINE 10 MG TABLET PO ×2 (07:53→16:30)
[2019-06-19] MEDS: FINASTERIDE 5 MG TABLET PO (07:53)
[2019-06-19] MEDS: AMLODIPINE BESYLATE 2.5 MG TABLET 7.5 MG PO (07:53)
[2019-06-19] MEDS: FUROSEMIDE 40 MG TABLET PO (07:53)
[2019-06-19] MEDS: CLOPIDOGREL BISULFATE 75 MG TABLET PO (07:53)
[2019-06-19] MEDS: levETIRAcetam 500 MG TABLET PO ×2 (07:53→20:25)
[2019-06-19] MEDS: CLONIDINE HCL 0.2 MG TABLET PO ×2 (07:54→16:30)
[2019-06-19] MEDS: carvediloL 25 MG TABLET PO ×2 (07:54→20:30)
[2019-06-19] MEDS: INSULIN GLARGINE (*BKC) 100 UNITS/ML 25 UNITS SUB-Q (07:55)
[2019-06-19 08:18] LABS: Glucose Point of Care 191 (65-105)
[2019-06-19] MEDS: SODIUM CHLORIDE 0.45% 1,000 ML 125 ML IV CONT (09:18)
--- NOTE | 2019-06-19 10:18 | PCNWS ---
Weekly nutritional screen. Patient is tolerating current diet with adequate intake. No weight loss reported. No nutritional needs at this time.
[2019-06-19] MEDS: INSULIN ASPART (*BKC) 100 UNITS/ML SUB-Q (11:43)
[2019-06-19 11:57] LABS: Glucose Point of Care 267 (65-105)
--- NOTE | 2019-06-19 16:27 | PM.IMPN ---
Progress Note: A&P Assessment and Plan (1) Pneumonia: Qualifiers: Pneumonia type: aspiration pneumonia Aspiration pneumonia type: unspecified Laterality: bilateral Lung location: lower lobe of lung Qualified Code(s): J69.0 - Pneumonitis due to inhalation of food and vomit Code(s): J18.9 - Pneumonia, unspecified organism Status: Acute Assessment and Plan: Likely due to aspiration WBC improving and fever resolved Day 3 Zosyn Would switch to Augmentin 875mg PO q 12 hrs at discharge to complete a total of 7 days therapy Continue PT/OT Plan SNF 06/19 (2) Fever: Qualifiers: Fever type: unspecified Qualified Code(s): R50.9 - Fever, unspecified Code(s): R50.9 - Fever, unspecified Status: Acute Assessment and Plan: Etiology unclear as no focal sx/signs CXR c/w bilateral LL infiltrates Urine growing enterococcus Zosyn for both. Could switch to Augmentin upon discharge to complete a total of 7 days therapy. (3) Acute kidney injury: Code(s): N17.9 - Acute kidney failure, unspecified Status: Acute Assessment and Plan: Patient received a bolus of IV fluids x1. And continue hydration, change to Nahco3 with elevated ck , mindful fluid overload with his history of diastolic heart failure. He is eating better and had decrease oral intake at home. Renal ultrasound no obstruction. acute on chronic renal failure stage 2. secondary to prerenal azotemia from decreased intake or possibly rhabdo 06/12 creatinine 1.7, continue hydration 06/13 creatinine 1.2, continue hydration 06/14 creatinine 1.2, home when awake after sedation given last PM and afer voiding trial 06/14 PM Unable to void, 500ml on bladder scan, ramirez, increase tamsulosin, urology to see 06/14 Staff notified family (son) that he will be staying an additional day. 06/16 creatinine 1.3 06/17 1.7 06/18 creatinine 1.8, relatively stable, reduced furosemide from 60 to 40mg total per day f/u lab (4) Rhabdomyolysis: Qualifiers: Rhabdomyolysis type: non-traumatic Qualified Code(s): M62.82 - Rhabdomyolysis Code(s): M62.82 - Rhabdomyolysis Status: Acute Assessment and Plan: Was falling at home frequently CK continues to decline. 06/16 961 06/17 540 06/18 276 Hold statin until evaluation by PCP (5) Dehydration: Code(s): E86.0 - Dehydration Status: Acute Assessment and Plan: resolved (6) COPD (chronic obstructive pulmonary disease): Qualifiers: COPD type: unspecified COPD Qualified Code(s): J44.9 - Chronic obstructive pulmonary disease, unspecified Code(s): J44.9 - Chronic obstructive pulmonary disease, unspecified Status: Acute Assessment and Plan: Continue with home medications. (7) Weakness: Code(s): R53.1 - Weakness Status: Acute Assessment and Plan: x-ray hips DJD . PT and OT (8) CHF (congestive heart failure): Qualifiers: Heart failure type: diastolic Heart failure chronicity: chronic Qualified Code(s): I50.32 - Chronic diastolic (congestive) heart failure Code(s): I50.9 - Heart failure, unspecified Status: Acute Assessment and Plan: Continue with Coreg. 06/13 Resume furosemide Monitory I/O: 06/17 7390/3876 (9) Seizures: Code(s): R56.9 - Unspecified convulsions Status: Chronic Assessment and Plan: Continue with Keppra . (10) HTN (hypertension): Qualifiers: Hypertension type: unspecified Qualified Code(s): I10 - Essential (primary) hypertension Code(s): I10 - Essential (primary) hypertension Status: Chronic Assessment and Plan: Continue with Coreg, Norvasc, clonidine, furosemide 4/ Orthostatic BP check w/o symptomatic drop (11) Afib: Qualifiers: Atrial fibrillation type: unspecified Qualified Code(s): I48.91 - Unspecified atrial fibrillation Code(s): I48.91 - Unspecifie
[2019-06-19] MEDS: RIVAROXABAN 15 MG TABLET PO (16:30)
[2019-06-19 16:52] LABS: Glucose Point of Care 198 (65-105)
[2019-06-19 17:59] LABS: Blood Urea Nitrogen 25 mg/dL (9-20); Calcium 8.5 mg/dL (8.4-10.2); Carbon Dioxide 19 mmol/L (22-30); Chloride 109 mmol/L (98-107); Estimated CRCL calculation 47 ml/min; Estimated Glomerular Filt Rate 48; Glucose 286 mg/dL (75-110); Potassium 3.3 mmol/L (3.4-5.0); Sodium 135 mmol/L (137-145)
[2019-06-19] MEDS: QUEtiapine FUMARATE 12.5 MG TABLET PO (20:29)
[2019-06-19] MEDS: DONEPEZIL HCL 10 MG TABLET PO (20:29)
[2019-06-19 21:09] LABS: Glucose Point of Care 267 (65-105)
[2019-06-20] MEDS: QUEtiapine FUMARATE 12.5 MG TABLET PO (00:30)
[2019-06-20] MEDS: OLANZapine 10 MG INJ VIAL 5 MG IM (02:05)
--- NOTE | 2019-06-20 03:29 | P.PNCROSS_ITS ---
Event Note Event Note Event Note: I was on the medical floor seeing another patient when Mr. Cervantes could be heard yelling at staff from his room. Staff made multiple efforts to redirect the patient and, as behaviors. The called the patient's son who tried to calm the patient. Despite these efforts the patient was trying to push staff and was being verbally abusive. He was threatening to call the state police. I gave the patient a 1 time order for an additional 12.5 mg of Seroquel. The patient did briefly calmed down for about half an hour but then was becoming agitated again. The patient actually kicked a CONTINUOUS IMPROVEMENT COACH. Subsequently 5 mg of Zyprexa was ordered.
[2019-06-20 07:47] LABS: Hematocrit 28.8 % (42.0-52.0); Hemoglobin 9.4 g/dL (14.0-18.0); Mean Corpuscular HGB Conc 32.6 g/dl (32-36); Mean Corpuscular Hemoglobin 28.7 pg (26-34); Mean Corpuscular Volume 88.1 fl (80-100); Mean Platelet Volume 12.4 fl (7.4-10.4); Platelet Count Result 255 k/mm3 (150-375); Red Blood Count 3.27 M/mm3 (4.6-6.20); Red Cell Distribution Width 12.9 % (11.5-14.5); White Blood Count 13.6 K/mm3 (4.5-10.0)
[2019-06-20 08:00] VITALS: BP 123/69; PULSE 85; RESP 20; TEMP 36.3; O2SAT 91
[2019-06-20 08:01] LABS: Blood Urea Nitrogen 22 mg/dL (9-20); Calcium 8.9 mg/dL (8.4-10.2); Carbon Dioxide 14 mmol/L (22-30); Chloride 114 mmol/L (98-107); Creatine Kinase 277 U/L (55-170); Estimated CRCL calculation 52 ml/min; Estimated Glomerular Filt Rate 55; Glucose 231 mg/dL (75-110); Potassium 4.3 mmol/L (3.4-5.0); Sodium 138 mmol/L (137-145)
[2019-06-20] MEDS: FERROUS SULFATE 324 MG TABLET PO (08:46)
[2019-06-20] MEDS: SERTRALINE HCL 50 MG TABLET PO (08:46)
[2019-06-20] MEDS: CHOLECALCIFEROL 1,000 UNIT TABLET 2000 UNITS PO (08:46)
[2019-06-20] MEDS: AMLODIPINE BESYLATE 2.5 MG TABLET 7.5 MG PO (08:46)
[2019-06-20] MEDS: MULTIVITAMINS THERAPEUTIC TAB (*BKC) 1 TABLET PO (08:46)
[2019-06-20] MEDS: levETIRAcetam 500 MG TABLET PO ×2 (08:46→20:40)
[2019-06-20] MEDS: TAMSULOSIN HCL 0.4 MG CAPSULE PO ×2 (08:46→18:37)
[2019-06-20] MEDS: CLOPIDOGREL BISULFATE 75 MG TABLET PO (08:47)
[2019-06-20] MEDS: FUROSEMIDE 40 MG TABLET PO (08:47)
[2019-06-20] MEDS: FINASTERIDE 5 MG TABLET PO (08:47)
[2019-06-20 08:48] VITALS: PULSE 72
[2019-06-20] MEDS: CLONIDINE HCL 0.2 MG TABLET PO ×2 (08:48→16:29)
[2019-06-20] MEDS: carvediloL 25 MG TABLET PO ×2 (08:48→20:40)
[2019-06-20] MEDS: INSULIN ASPART (*BKC) 100 UNITS/ML SUB-Q ×2 (08:50→16:39)
[2019-06-20] MEDS: INSULIN GLARGINE (*BKC) 100 UNITS/ML 30 UNITS SUB-Q (08:51)
[2019-06-20] MEDS: MEMANTINE 10 MG TABLET PO ×2 (09:09→16:29)
[2019-06-20 10:11] LABS: Glucose Point of Care 214 (65-105)
[2019-06-20 11:13] LABS: Glucose Point of Care 175 (65-105)
--- NOTE | 2019-06-20 11:55 | PC.NURSE ---
Call to patient's son Paramjit to update him on plan of care. Dr. Garcia planning to keep patient today and continue IV antibiotic zosyn. Tentative discharge planned for tomorrow 06/21/2019.
[2019-06-20 12:00] VITALS: BP 147/53; PULSE 76; RESP 16; TEMP 37.1; O2SAT 92
--- NOTE | 2019-06-20 13:43 | WPDCDIQUERY2 ---
CDI Query Clarification Request - Fever: CXR c/w bilateral LL infiltrates, Urine growing enterococcus, Zosyn for both documented by Dr Guzman - Urine culture from 06/16 growing >100,000 enterococcus Please clarify if there is a corresponding diagnosis for above findings. <Yesy Perkins RN - Last Filed: 06/20/19 13:48>
--- NOTE | 2019-06-20 15:36 | PM.IMPN ---
Progress Note: A&P Assessment and Plan (1) Pneumonia: Qualifiers: Pneumonia type: aspiration pneumonia Aspiration pneumonia type: unspecified Laterality: bilateral Lung location: lower lobe of lung Qualified Code(s): J69.0 - Pneumonitis due to inhalation of food and vomit Code(s): J18.9 - Pneumonia, unspecified organism Status: Acute Assessment and Plan: Likely due to aspiration Day 4 Zosyn Would switch to Augmentin 875mg PO q 12 hrs at discharge to complete a total of 7 days therapy Continue PT/OT Plan SNF possibly 06/20 (2) Fever: Qualifiers: Fever type: unspecified Qualified Code(s): R50.9 - Fever, unspecified Code(s): R50.9 - Fever, unspecified Status: Acute Assessment and Plan: Resolved thought secondary to infiltrates and/or Enterococcus UTI (3) Acute kidney injury: Code(s): N17.9 - Acute kidney failure, unspecified Status: Acute Assessment and Plan: Patient received a bolus of IV fluids x1. And continue hydration, change to Nahco3 with elevated ck , mindful fluid overload with his history of diastolic heart failure. He is eating better and had decrease oral intake at home. Renal ultrasound no obstruction. acute on chronic renal failure stage 2. secondary to prerenal azotemia from decreased intake or possibly rhabdo 06/12 creatinine 1.7, continue hydration 06/13 creatinine 1.2, continue hydration 06/14 creatinine 1.2, home when awake after sedation given last PM and afer voiding trial 06/14 PM Unable to void, 500ml on bladder scan, ramirez, increase tamsulosin, urology to see 06/14 Staff notified family (son) that he will be staying an additional day. 06/16 creatinine 1.3 06/17 1.7 06/18 creatinine 1.8, relatively stable, reduced furosemide from 60 to 40mg total per day f/u lab 06/19 creatinine 1.5 (4) Rhabdomyolysis: Qualifiers: Rhabdomyolysis type: non-traumatic Qualified Code(s): M62.82 - Rhabdomyolysis Code(s): M62.82 - Rhabdomyolysis Status: Acute Assessment and Plan: Was falling at home frequently CK continues to decline. 06/16 961 06/17 540 06/18 276 Hold statin until evaluation by PCP (5) Dehydration: Code(s): E86.0 - Dehydration Status: Acute Assessment and Plan: resolved (6) COPD (chronic obstructive pulmonary disease): Qualifiers: COPD type: unspecified COPD Qualified Code(s): J44.9 - Chronic obstructive pulmonary disease, unspecified Code(s): J44.9 - Chronic obstructive pulmonary disease, unspecified Status: Acute Assessment and Plan: Continue with home medications. (7) Weakness: Code(s): R53.1 - Weakness Status: Acute Assessment and Plan: x-ray hips DJD . PT and OT (8) CHF (congestive heart failure): Qualifiers: Heart failure type: diastolic Heart failure chronicity: chronic Qualified Code(s): I50.32 - Chronic diastolic (congestive) heart failure Code(s): I50.9 - Heart failure, unspecified Status: Acute Assessment and Plan: Continue with Coreg. / Resumed furosemide Monitory I/O: (9) Seizures: Code(s): R56.9 - Unspecified convulsions Status: Chronic Assessment and Plan: Continue with Keppra . (10) HTN (hypertension): Qualifiers: Hypertension type: unspecified Qualified Code(s): I10 - Essential (primary) hypertension Code(s): I10 - Essential (primary) hypertension Status: Chronic Assessment and Plan: Continue with Coreg, Norvasc, clonidine, furosemide 4/2 Orthostatic BP check w/o symptomatic drop (11) Afib: Qualifiers: Atrial fibrillation type: unspecified Qualified Code(s): I48.91 - Unspecified atrial fibrillation Code(s): I48.91 - Unspecified atrial fibrillation Status: Chronic Assessment and Plan: Continue with Xarelto and Coreg (12) Diabetes: Qualifiers: D
[2019-06-20 16:00] VITALS: BP 124/54; PULSE 71; RESP 20; TEMP 36.9; O2SAT 93
[2019-06-20] MEDS: RIVAROXABAN 15 MG TABLET PO (16:29)
[2019-06-20 17:21] LABS: Glucose Point of Care 226 (65-105)
[2019-06-20 20:29] LABS: Glucose Point of Care 201 (65-105)
[2019-06-20 20:40] VITALS: PULSE 72
[2019-06-20] MEDS: DONEPEZIL HCL 10 MG TABLET PO (20:40)
[2019-06-20] MEDS: QUEtiapine FUMARATE 25 MG TABLET 50 MG PO (20:40)
[2019-06-20 22:00] VITALS: BP 144/60; PULSE 72; RESP 21; TEMP 36.4; O2SAT 100
[2019-06-21 05:10] LABS: Basophils Absolute Auto 0.1 K/mm3 (0.0-0.1); Basophils Percent Auto 0.9 % (0.2-1.2); Eosinophils Absolute Auto 0.4 K/mm3 (0-0.3); Hemoglobin 9.1 g/dL (14.0-18.0); Immature Granulocyte Absolute 0.08 K/mm3 (0.00-0.031); Immature Granulocyte Percent A 0.8 % (0-0.5); Lymphocytes Absolute Auto 1.49 K/mm3 (0.9-3.2); Lymphocytes Percent Auto 14.1 % (18.3-44.2); Mean Corpuscular HGB Conc 32.5 g/dl (32-36); Mean Corpuscular Hemoglobin 28.7 pg (26-34); Mean Corpuscular Volume 88.3 fl (80-100); Mean Platelet Volume 11.8 fl (7.4-10.4); Monocytes Absolute Auto 1.1 K/mm3 (0.1-0.6); Monocytes Percent Auto 10.2 % (2.6-8.5); Neutrophils Absolute Auto 7.4 K/mm3 (1.3-6.7); Platelet Count Result 315 k/mm3 (150-375); Red Blood Count 3.17 M/mm3 (4.6-6.20); Red Cell Distribution Width 12.9 % (11.5-14.5); White Blood Count 10.5 K/mm3 (4.5-10.0)
[2019-06-21 05:35] LABS: Blood Urea Nitrogen 18 mg/dL (9-20); Carbon Dioxide 18 mmol/L (22-30); Chloride 114 mmol/L (98-107); Estimated CRCL calculation 49 ml/min; Estimated Glomerular Filt Rate 51; Glucose 152 mg/dL (75-110); Potassium 3.3 mmol/L (3.4-5.0); Sodium 141 mmol/L (137-145)
[2019-06-21] MEDS: TAMSULOSIN HCL 0.4 MG CAPSULE PO (05:37)
[2019-06-21 06:00] VITALS: BP 154/60; PULSE 73; RESP 20; TEMP 36.3; O2SAT 98
[2019-06-21 07:33] LABS: Glucose Point of Care 145 (65-105)
[2019-06-21] MEDS: POTASSIUM CHLORIDE 20 MEQ TABLET 40 MEQ PO (08:50)
[2019-06-21] MEDS: SERTRALINE HCL 50 MG TABLET PO (08:51)
[2019-06-21] MEDS: CHOLECALCIFEROL 1,000 UNIT TABLET 2000 UNITS PO (08:51)
[2019-06-21] MEDS: levETIRAcetam 500 MG TABLET PO (08:51)
[2019-06-21] MEDS: FUROSEMIDE 40 MG TABLET PO (08:51)
[2019-06-21] MEDS: MULTIVITAMINS THERAPEUTIC TAB (*BKC) 1 TABLET PO (08:51)
[2019-06-21 08:53] VITALS: PULSE 73
[2019-06-21] MEDS: MEMANTINE 10 MG TABLET PO (08:53)
[2019-06-21] MEDS: CLONIDINE HCL 0.2 MG TABLET PO (08:53)
[2019-06-21] MEDS: FINASTERIDE 5 MG TABLET PO (08:53)
[2019-06-21] MEDS: carvediloL 25 MG TABLET PO (08:53)
[2019-06-21] MEDS: INSULIN GLARGINE (*BKC) 100 UNITS/ML 30 UNITS SUB-Q (08:53)
[2019-06-21] MEDS: CLOPIDOGREL BISULFATE 75 MG TABLET PO (08:53)
[2019-06-21] MEDS: AMLODIPINE BESYLATE 2.5 MG TABLET 7.5 MG PO (08:53)
[2019-06-21] MEDS: FERROUS SULFATE 324 MG TABLET PO (08:53)
[2019-06-21 10:24] VITALS: BP 159/58; PULSE 76; RESP 18; TEMP 36.1; O2SAT 95
[2019-06-21 11:25] LABS: Glucose Point of Care 253 (65-105)
[2019-06-21] MEDS: INSULIN ASPART (*BKC) 100 UNITS/ML SUB-Q (11:40)
--- NOTE | 2019-06-21 17:49 | PM.DS ---
DS: Diagnosis Admitting Diagnosis Admitting Diagnosis: Acute kidney failure, unspecified Discharge Diagnosis (1) Pneumonia: Qualifiers: Pneumonia type: aspiration pneumonia Aspiration pneumonia type: unspecified Laterality: bilateral Lung location: lower lobe of lung Qualified Code(s): J69.0 - Pneumonitis due to inhalation of food and vomit Code(s): J18.9 - Pneumonia, unspecified organism Status: Acute Assessment and Plan: Likely due to aspiration Received approximately 4 half days of Zosyn while here and will transition to oral on discharge switch to Augmentin 875mg PO q 12 hrs at discharge to complete a total of 10 days therapy Plan SNF today 06/20 with WBC at 10.5 (2) Fever: Qualifiers: Fever type: unspecified Qualified Code(s): R50.9 - Fever, unspecified Code(s): R50.9 - Fever, unspecified Status: Acute Assessment and Plan: Resolved thought secondary to infiltrates and/or Enterococcus UTI WBC decreased and continue antibiotic (3) Acute kidney injury: Code(s): N17.9 - Acute kidney failure, unspecified Status: Acute Assessment and Plan: Patient received a bolus of IV fluids x1. And continue hydration, change to Nahco3 with elevated ck , mindful fluid overload with his history of diastolic heart failure. He is eating better and had decrease oral intake at home. Renal ultrasound no obstruction. acute on chronic renal failure stage 2. secondary to prerenal azotemia from decreased intake or possibly rhabdo 06/12 creatinine 1.7, continue hydration 06/13 creatinine 1.2, continue hydration 06/14 creatinine 1.2, home when awake after sedation given last PM and afer voiding trial 06/14 PM Unable to void, 500ml on bladder scan, ramirez, increase tamsulosin, urology saw and finasteride added to tamsulosin And Ramirez catheter will be left in initially since failed voiding trial 06/14 Staff notified family (son) that he will be staying an additional day. 06/16 creatinine 1.3 06/17 1.7 06/18 creatinine 1.8, relatively stable, reduced furosemide from 60 to 40mg total per day f/u lab 06/19 creatinine 1.5 06/20 creatinine 1.6 at discharge (4) Rhabdomyolysis: Qualifiers: Rhabdomyolysis type: non-traumatic Qualified Code(s): M62.82 - Rhabdomyolysis Code(s): M62.82 - Rhabdomyolysis Status: Acute Assessment and Plan: Was falling at home frequently CK continues to decline. 06/16 961 06/17 540 06/18 276 Hold statin until evaluation by PCP (5) Dehydration: Code(s): E86.0 - Dehydration Status: Acute Assessment and Plan: resolved (6) COPD (chronic obstructive pulmonary disease): Qualifiers: COPD type: unspecified COPD Qualified Code(s): J44.9 - Chronic obstructive pulmonary disease, unspecified Code(s): J44.9 - Chronic obstructive pulmonary disease, unspecified Status: Acute Assessment and Plan: Continue with home medications. (7) Weakness: Code(s): R53.1 - Weakness Status: Acute Assessment and Plan: x-ray hips DJD . PT and OT (8) CHF (congestive heart failure): Qualifiers: Heart failure type: diastolic Heart failure chronicity: chronic Qualified Code(s): I50.32 - Chronic diastolic (congestive) heart failure Code(s): I50.9 - Heart failure, unspecified Status: Acute Assessment and Plan: Continue with Coreg. 06/13 Resumed furosemide Monitory I/O: (9) Seizures: Code(s): R56.9 - Unspecified convulsions Status: Chronic Assessment and Plan: Continue with Keppra . (10) HTN (hypertension): Qualifiers: Hypertension type: unspecified Qualified Code(s): I10 - Essential (primary) hypertension Code(s): I10 - Essential (primary) hypertension Status: Chronic Assessment and Plan: Continue with Coreg, Norvasc, clonidine, furosemide 06/14 notice some orthostatic changes but
== END 2019-06-21 14:58 | DRG 557 ==
LOC: ANHED 16:27 → ANHIMU 16:41 → ANH2MED 06-11 11:49
PROVIDERS: Internal Medicine; Nurse Practitioner; Admitting Provider Internal Medicine; Emergency Provider Emergency Medicine; PCP Family Medicine Adolescent Medicine; Visit Provider Internal Medicine
DX: M62.82 Rhabdomyolysis (principal); J69.0 Pneumonitis due to inhalation of food and vomit; N39.0 Urinary tract infection, site not specified; I50.32 Chronic diastolic (congestive) heart failure; I48.20 Chronic atrial fibrillation, unspecified; I13.0 Hypertensive heart and chronic kidney disease with heart failure and stage 1 through stage 4 chronic kidney disease, or unspecified chronic kidney disease; B95.2 Enterococcus as the cause of diseases classified elsewhere; N18.3 Chronic kidney disease, stage 3 (moderate); E11.22 Type 2 diabetes mellitus with diabetic chronic kidney disease; E86.0 Dehydration; J44.9 Chronic obstructive pulmonary disease, unspecified; G40.909 Epilepsy, unspecified, not intractable, without status epilepticus; I25.10 Atherosclerotic heart disease of native coronary artery without angina pectoris; G30.9 Alzheimer's disease, unspecified; F02.80 Dementia in other diseases classified elsewhere, unspecified severity, without behavioral disturbance, psychotic disturbance, mood disturbance, and anxiety; M19.90 Unspecified osteoarthritis, unspecified site; K21.9 Gastro-esophageal reflux disease without esophagitis; E78.5 Hyperlipidemia, unspecified; R33.9 Retention of urine, unspecified; I48.0 Paroxysmal atrial fibrillation; Z96.653 Presence of artificial knee joint, bilateral; Z79.4 Long term (current) use of insulin; Z79.01 Long term (current) use of anticoagulants; Z86.73 Personal history of transient ischemic attack (TIA), and cerebral infarction without residual deficits; Z95.5 Presence of coronary angioplasty implant and graft; I25.2 Old myocardial infarction; Z87.891 Personal history of nicotine dependence; Z91.81 History of falling
CPT/HCPCS: 36415; 51701; 70450; 71046; 73521; 76775; 80048; 80053; 80177; 80307; 81001; 82550; 83735; 83880; 84443; 84484; 85025; 85027; 85610; 85730; 87040; 87077; 87086; 87088; 87186; 93005; 93880; 97110; 97116; 97161; 97165; 97530; 97535; 99285; A9270; G0378; J1200; J1630; J1815; J2060; J2543; J3480; J7030; J7070

== ENCOUNTER 2020-02-15 09:08 | Inpatient (IN) | payer MEDICARE, SELFPAY ==
[2020-02-15] VITALS (9 sets, daily range): BP systolic 147–176; BP diastolic 50–83; PULSE 66–77; RESP 14–20; TEMP 36–36.7; O2SAT 96–100; BMI 30.1
--- NOTE | ~2020-02-15 | XR_ITS ---
EXAMINATION: XR chest 1V portable DATE: 03/01/2020 05:52 INDICATION: Acute respiratory failure. COVID-19 pneumonia. TECHNIQUE: A single frontal view of the chest was obtained. COMPARISON: Chest 2 views 02/29/2020 FINDINGS: There are patchy airspace opacities in all lung zones bilaterally. No pleural effusion or p neumothorax. The heart size is normal. The endotracheal tube tip is 5.5 cm above the edgar. The naso gastric tube tip is beyond the inferior margin of the radiograph, but at least to the stomach. A righ t internal jugular central venous catheter is seen with tip at the superior cavoatrial junction. IMPRESSION: 1. Diffuse lung disease with worsening in left lower lung zone, consistent with pneumonia. Reviewed, dictated and finalized at location A. ARMAN
--- NOTE | ~2020-02-15 | XR_ITS ---
EXAMINATION: XR chest 1V portable EXAM DATE: 02/16/2020 13:17 INDICATION: Leukocytosis TECHNIQUE: Portable AP frontal chest x-ray was obtained. Comparison is made to prior examination from 06/17/2019. FINDINGS: The lungs are clear. There are no pleural effusions. Cardiac silhouette is prominent but magnified on this AP technique. There is aortic arteriosclerosis. There is no pneumothorax suspect ed. The bones and soft tissues are unremarkable. IMPRESSION: No acute cardiopulmonary findings. Reviewed, dictated and finalized at location A. S ENGINEER ENGINEERED PRODUCTS
--- NOTE | ~2020-02-15 | US_ITS ---
EXAMINATION: US renal BI DATE: 02/21/2020 11:09 INDICATION: Acute on chronic kidney injury. TECHNIQUE: Multiple ultrasound grayscale images of the kidneys were obtained. COMPARISON: CT abdomen and pelvis 12/23/2015 FINDINGS: The right kidney measures 11.4 x 4.5 x 6.3 cm. The left kidney measures 10.5 x 6.9 x 5.1 cm. The kidn eys demonstrate normal parenchymal echogenicity. There are cysts in the kidneys measuring up to 4.1 c m on the left. There is no hydronephrosis. The bladder is decompressed by a Ponce catheter. IMPRESSION: 1. Normal kidney sizes. No hydronephrosis. Reviewed, dictated and finalized at location B. ER MACHINE OPERATOR
--- NOTE | ~2020-02-15 | XR_ITS ---
EXAMINATION: XR chest 1V portable DATE: 03/02/2020 06:34 INDICATION: COVID-19 pneumonia. Acute respiratory failure. TECHNIQUE: A single frontal view of the chest was obtained. COMPARISON: Chest single view 03/01/2020 FINDINGS: The lung volumes are small. There are airspace opacities in all lung zones bilaterally, wor st in right upper lung zone and left lower lung zone. No pleural effusion or pneumothorax. Cardiomega ly is noted. The endotracheal tube tip is 2.0 cm above the edgar. The nasogastric tube tip is beyond the inferior margin of the radiograph, but at least to the stomach. IMPRESSION: 1. Stable diffuse lung disease, consistent with pneumonia. 2. Cardiomegaly. Reviewed, dictated and finalized at location A. HER PATCHER
--- NOTE | ~2020-02-15 | XR_ITS ---
EXAMINATION: XR abdomen obstructive series DATE: 02/19/2020 19:55 INDICATION: Abdominal pain, C. Difficile TECHNIQUE: Upright and supine views of the abdomen were obtained. COMPARISON: None. FINDINGS: No free intraperitoneal gas is identified. There are minimal airspace opacities of the lung bases. The gas-filled transverse colon is upper limits of normal in size. No definitely dilated loop s of bowel are identified. Calcified atherosclerosis is noted. IMPRESSION: 1. Nonobstructive bowel gas pattern. 2. Airspace opacities of the visualized lung bases, consistent with atelectasis versus pneumonia. Reviewed, dictated and finalized at location A. ESTATE DIRECTOR
--- NOTE | ~2020-02-15 | XR_ITS ---
EXAMINATION: XR chest 1V portable DATE: 02/21/2020 10:19 INDICATION: Shortness of breath. COVID-19 pneumonia. TECHNIQUE: A single frontal view of the chest was obtained on 2 radiographs. COMPARISON: Chest single view 02/16/2020, chest CT 12/13/2019 FINDINGS: There are patchy airspace opacities in all lung zones bilaterally. No pleural effusion or p neumothorax. Cardiomegaly is noted. IMPRESSION: 1. Worsened diffuse lung disease, consistent with pneumonia versus pulmonary edema. 2. Cardiomegaly. Reviewed, dictated and finalized at location B. L DESIGNER IMPRESSION: 1. Worsened diffuse lung disease, consistent with pneumonia versus pulmonary ed delio. 2. Cardiomegaly.
--- NOTE | ~2020-02-15 | CT_ITS ---
EXAMINATION: CT brain wo con EXAM DATE: 02/16/2020 02:18 INDICATION: Confusion. Fever. TECHNIQUE: Spiral CT of the head was performed without contrast. Axial, coronal and sagittal images were reviewed. The dose-length product (DLP) for this examination was 908.00 mGy-cm. The exposure w as tailored according to patient size, and iterative reconstruction (ASIR) was used as additional dos e reduction technique. Comparison is made to prior examination from 06/10/2019. FINDINGS: Study is limited due to patient motion. There is no acute intraparenchymal hemorrhage. No evidence of intraparenchymal brain mass lesion. No evidence of acute infarction. Please note that initial head CT has limited sensitivity for small or acute infarctions. There is mild to moderate per iventricular and subcortical hypodensity, nonspecific but probably related to small vessel ischemic d isease. There is mild to moderate prominence of the sulci and ventricles related to cerebral atroph y. There is intracranial carotid arteriosclerosis. There are no extra-axial collections. There is no mass effect or midline shift. The orbits are unremarkable. Soft tissue is unremarkable. The vi sualized sinuses and mastoid air cells are well aerated. IMPRESSION: 1. No acute intracranial findings. 2. Chronic age related findings. Reviewed, dictated and finalized at location A. ITT SPINNER
--- NOTE | ~2020-02-15 | XR_ITS ---
EXAMINATION: XR abdomen/kub 1V DATE: 02/26/2020 14:18 INDICATION: C. Difficile colitis TECHNIQUE: A supine view of the abdomen was obtained. COMPARISON: None. FINDINGS: There is some gas scattered throughout the colon. No dilated loops of gas-filled bowel to suggest obs truction. IMPRESSION: 1. Nonobstructive bowel gas pattern. Reviewed, dictated and finalized at location B. MERCHANT
--- NOTE | ~2020-02-15 | XR_ITS ---
EXAMINATION: XR abdomen NG/feed tube insert DATE: 02/28/2020 01:07 INDICATION: Orogastric tube placement. TECHNIQUE: An upright view of the abdomen was obtained. COMPARISON: Abdomen single view 02/26/2020 FINDINGS: The lower abdomen is excluded. There are no visible dilated loops of bowel. The nasogastric tube tip is in the stomach. IMPRESSION: 1. Nasogastric tube tip in the stomach. Reviewed, dictated and finalized at location A. RNATIONAL ORGANIZER
--- NOTE | ~2020-02-15 | US_ITS ---
US right upper quadrant INDICATION: Elevated liver function tests PROCEDURE: Realtime right upper abdominal ultrasound. COMPARISON: No prior studies for comparison. FINDINGS: The pancreas is normal without focal mass or pancreatic ductal dilation. Liver echotexture is normal without focal mass or intrahepatic biliary dilatation. There is normal directional flow i n the portal vein. The gallbladder is normal without stones, gallbladder wall thickening or pericholecystic fluid. Comm on bile duct measures 3 mm. No sonographic Connor's sign. There is a 2.2 cm cyst in the lower pole o f the right kidney. IMPRESSION: 1: Right renal cyst measuring 2.2 cm. Reviewed, dictated and finalized at location B. ERS' COMPENSATION COMMISSIONER
--- NOTE | ~2020-02-15 | XR_ITS ---
EXAMINATION: XR chest ET placement DATE: 02/28/2020 01:08 INDICATION: Intubation. TECHNIQUE: A single frontal view of the chest was obtained. COVID-19 pneumonia. COMPARISON: Chest single view 02/21/2020, chest CT 12/12/2017 FINDINGS: There is a diffuse interstitial pattern in the lungs. No pleural effusion or pneumothorax. Cardiomegaly is noted. The endotracheal tube tip is 5.6 cm above the edgar. The nasogastric tube tip is beyond the inferior margin of the radiograph, but at least to the stomach. A right internal jugul ar central venous catheter is seen with tip at the superior cavoatrial junction. IMPRESSION: 1. Diffuse lung disease with interval improvement, consistent with atypical pneumonia versus mild pul monary edema. 2. Cardiomegaly. Reviewed, dictated and finalized at location A. CTOR CAREER IMPRESSION: 1. Diffuse lung disease with interval improvement, consistent with atypical pne umonia versus mild pulmonary edema. 2. Cardiomegaly.
--- NOTE | ~2020-02-15 | XR_ITS ---
EXAMINATION: XR chest 1V portable INDICATION: Acute respiratory failure, COVID 19 pneumonia TECHNIQUE: Portable AP chest at 0520 hours COMPARISON: 03/03/2020 FINDINGS: The endotracheal tube ends approximately 5.0 cm above the edgar. The nasogastric tube is f ollowed as far as the stomach. Its tip is beyond the inferior margin of the radiograph. A right inter nal jugular catheter ends with its tip in the distal superior vena cava. Diffuse opacities of the rig ht lung and opacities of the left mid and lower lung zones persist without significant change. There is no pleural effusion or pneumothorax. Stable cardiomegaly is noted. IMPRESSION: 1. Stable diffuse lung disease, consistent with pneumonia. 2. Stable cardiomegaly. Reviewed, dictated and finalized at location A. E LOG CUT OFF SAW OPERATOR
--- NOTE | ~2020-02-15 | XR_ITS ---
EXAMINATION: XR chest 1V portable DATE: 03/03/2020 05:58 INDICATION: Acute respiratory failure. COVID-19 pneumonia. TECHNIQUE: A single frontal view of the chest was obtained. COMPARISON: Chest single view 03/02/2020 FINDINGS: The patient is rotated to his right. There are airspace opacities in all right lung zones a nd in left mid and lower lung zones. No pleural effusion or pneumothorax. Cardiomegaly is noted. The endotracheal tube tip is 5.0 cm above the edgar. A right internal jugular central venous catheter is seen with tip in the superior vena cava. The nasogastric tube tip is beyond the inferior margin of t he radiograph, but at least to the stomach. IMPRESSION: 1. Stable diffuse lung disease, consistent with pneumonia. 2. Cardiomegaly. Reviewed, dictated and finalized at location A. HIC PRE PRESS TRADES WORKER
--- NOTE | ~2020-02-15 | XR_ITS ---
EXAMINATION: XR chest 1V portable DATE: 02/29/2020 06:15 INDICATION: Intubation. COVID-19 pneumonia. TECHNIQUE: A single frontal view of the chest was obtained. COMPARISON: Chest single view 02/28/2020, chest CT 12/12/2017 FINDINGS: There are scattered airspace opacities in all lung zones bilaterally. No pleural effusion o r pneumothorax. Cardiomegaly is noted. The endotracheal tube tip is 6.0 cm above the edgar. The naso gastric tube tip is in the stomach. A right internal jugular central venous catheter is seen with tip in the superior vena cava. IMPRESSION: 1. Stable diffuse lung disease, consistent with pneumonia versus mild pulmonary edema. 2. Cardiomegaly. Reviewed, dictated and finalized at location A. EL FITTER MECHANIC
--- NOTE | 2020-02-15 09:55 | PC.NURSE ---
pt is a difficult draw for blood. notified the RN.
[2020-02-15 10:08] LABS: Add Urine Microscopic? YES; Appearance Urine Clear (Clear); Bacteria Urine Trace /hpf; Bilirubin Urine Negative (Negative); Blood Urine 3+ (Negative); Color Urine Yellow (Yellow); Glucose Urine UA Negative (Negative); Ketones Urine Negative (Negative); Leukocyte Esterase Ur Negative LEU/UL (Negative); Mucus Urine Rare /lpf; Nitrate Urine Negative (Negative); Protein Urine 2+ mg/dL (Negative); Specific Grav Ur 1.015 (1.001-1.035); Urobilinogen Urine Negative mg/dL (<2.0); WBC Urine 0-3 /hpf
[2020-02-15 10:19] LABS: Amphetamine Screen Urine Negative (Negative); Barbiturate Screen Urine Negative (Negative); Benzodiazepines Screen Urine Negative (Negative); Cannabinoid Screen Urine Negative (Negative); Cocaine Screen Urine Negative (Negative); Methadone Screen Urine Negative (Negative); Opiate Screen Urine Negative (Negative); Phencyclidine Screen Urine Negative (Negative)
--- NOTE | 2020-02-15 10:28 | PC.NURSE ---
ems iv infiltrated. unable to start another line or draw labs after multiple attempts
--- NOTE | 2020-02-15 10:50 | PC.NURSE ---
attempted iv - unsuccessful
--- NOTE | 2020-02-15 11:18 | PC.NURSE ---
still unable to start iv or obtain labs after multiple attempts by staff. iv therapy nurse breezy notified to assist
--- NOTE | 2020-02-15 12:25 | ED.GENADULT ---
HPI - General Adult General Chief complaint: Overdose Stated complaint: lethargic Time Seen by Provider: 02/15/20 09:13 History of Present Illness HPI narrative: Patient is a 74-year-old male who presents ER with concerns for possible overdose. After speaking with the family it turns out patient has dementia and he took his evening medications instead of his morning medications. He did not take any extra medication so it is not infected overdose. His evening medications include Seroquel and trazodone. He is very sleepy but does respond to noxious stimuli. Related Data Home Medications Medication Instructions Recorded Confirmed acetaminophen 1,300 mg PO BID 06/10/19 06/10/19 amlodipine mg PO TID 06/10/19 06/10/19 atorvastatin 80 mg PO HS 06/10/19 06/10/19 carvedilol 25 mg PO BID 06/10/19 06/10/19 cholecalciferol (vitamin D3) 2,000 unit PO DAILY 06/10/19 06/10/19 clonidine HCl 0.2 mg PO BID 06/10/19 06/10/19 clopidogrel 75 mg PO DAILY 06/10/19 06/10/19 donepezil 10 mg PO HS 06/10/19 06/10/19 ferrous sulfate 325 mg PO DAILY 06/10/19 06/10/19 furosemide 20 mg PO QPM 06/10/19 06/10/19 furosemide 40 mg PO QAM 06/10/19 06/10/19 glucosamine sulfate [Glucosamine] 500 mg PO BID 06/10/19 06/10/19 glucose 16 g PO Q15M PRN 06/10/19 06/10/19 levetiracetam 500 mg PO BID 06/10/19 06/10/19 memantine 10 mg PO BID 06/10/19 06/10/19 multivitamin 1 cap PO DAILY 06/10/19 06/10/19 nitroglycerin 0.4 mg SUBLINGUAL ONCE PRN 06/10/19 06/10/19 quetiapine 12.5 mg PO HS 06/10/19 06/10/19 sertraline 50 mg PO DAILY 06/10/19 06/10/19 trazodone 50 mg PO HS 06/10/19 06/10/19 insulin glargine [Lantus U-100 22 units SUBCUT DAILY 12/03/20 Insulin] rivaroxaban [Xarelto] 20 mg PO DAILY@1700 02/15/20 Allergies Allergy/AdvReac Type Severity Reaction Status Date / Time No Known Drug Allergies Allergy Unknown Other Verified 02/15/20 13:02 Review of Systems Review of Systems: ROS unobtainable: Yes unobtainable due to medical condition [facility] Past Medical History Medical History (Updated 02/15/20 @ 16:12 by Eddie Richards MD) Afib Alzheimer disease Arthritis BPH (benign prostatic hyperplasia) CAD (coronary artery disease) Chronic kidney disease Stage III Colon polyps COPD (chronic obstructive pulmonary disease) CVA (cerebral vascular accident) Dementia Depression Diabetes GERD (gastroesophageal reflux disease) Heart attack History of angina HTN (hypertension) Hyperlipidemia Pneumonia Rectal polyp Seizures TIA (transient ischemic attack) Urinary retention Surgical History Surgical History (Updated 06/10/19 @ 19:20 by Christine Beaulieu NP) History of arthroscopic knee surgery Right History of cardiac catheterization History of colonoscopy History of coronary artery stent placement History of knee replacement, total Right History of partial colectomy Due to vilious adenoma Family History Family History (Updated 06/10/19 @ 19:21 by Christine Beaulieu NP) Son End-stage renal failure with renal transplant Father Acute myocardial infarction Sibling Ovarian cancer Social History Social History (Updated 06/10/19 @ 19:32 by Christine Beaulieu NP) Social History: The patient lives in his own home and he has care givers that come into the home as well as his son Paramjit who is the durable power mergers and acquisitions attorney. He has 2 sons Paramjit in [place]. But [place] does not come to visit his father. Patient is a full code. His son is there during the night. The patient stopped drinking when Paramjit was 1 years old in 1981. That 18 also quit smoking as well. His ex- also comes to check on him as well. 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 Smoking status: Former smoker Alcohol intake: former Substance use: never Substance use type: does not use Gender identity (if verbalized by the patient): Male Spiritual care concerns: No Agree to blood products: Yes
[2020-02-15] MEDS: SODIUM CHLORIDE 0.9% IV 500 ML 999 ML IV CONT (12:44)
[2020-02-15 12:49] LABS: Basophils Percent Auto 0.4 % (0.2-1.2); Hematocrit 38.1 % (42.0-52.0); Hemoglobin 12.7 g/dL (14.0-18.0); Immature Granulocyte Absolute 0.04 K/mm3 (0.00-0.031); Immature Granulocyte Percent A 0.5 % (0-0.5); Lymphocytes Absolute Auto 1.54 K/mm3 (0.9-3.2); Lymphocytes Percent Auto 18.1 % (18.3-44.2); Mean Corpuscular HGB Conc 33.3 g/dl (32-36); Mean Corpuscular Hemoglobin 29.3 pg (26-34); Mean Platelet Volume 11.9 fl (7.4-10.4); Monocytes Absolute Auto 1.2 K/mm3 (0.1-0.6); Monocytes Percent Auto 13.9 % (2.6-8.5); Neutrophils Absolute Auto 5.7 K/mm3 (1.3-6.7); Neutrophils Percent Auto 67.1 % (45.5-73.1); Platelet Count Result 200 k/mm3 (150-375); Red Blood Count 4.33 M/mm3 (4.6-6.20); Red Cell Distribution Width 12.9 % (11.5-14.5); White Blood Count 8.5 K/mm3 (4.5-10.0)
--- NOTE | 2020-02-15 12:56 | PC.NURSE ---
less drowsy and arouses to loud verbal stimuli.
[2020-02-15 12:58] LABS: INR 1.3; Prothrombin Time 16.5 Seconds (11.1-14.7)
[2020-02-15 12:59] LABS: Partial Thromboplastin Time 31.3 SECONDS (22.3-36.8)
[2020-02-15 13:00] LABS: Acetaminophen < 10 ug/mL (10-30); Ethanol < 10 mg/dL (<10); Salicylate < 1.0 mg/dL (2-20)
[2020-02-15 13:01] LABS: Alanine Aminotransferase 76 U/L (4-50); Albumin Level 4.3 g/dL (3.5-5.1); Alkaline Phosphatase 86 U/L (38-126); Anion Gap 13 mmol/L (8-16); Aspartate Amino Transferase 407 U/L (17-59); Bilirubin,Total 0.4 mg/dL (0.2-1.3); Blood Urea Nitrogen 54 mg/dL (9-20); Calcium 8.9 mg/dL (8.4-10.2); Carbon Dioxide 21 mmol/L (22-30); Chloride 102 mmol/L (98-107); Estimated CRCL calculation 32 ml/min; Estimated Glomerular Filt Rate 34; Glucose 265 mg/dL (75-110); Potassium 4.3 mmol/L (3.4-5.0); Sodium 136 mmol/L (137-145)
[2020-02-15] MEDS: SODIUM CHLORIDE 0.9% IV 1,000 ML 999 ML IV CONT (14:07)
--- NOTE | 2020-02-15 16:35 | ADMGEN ---
This patient, Addy Cervantes Sr., was admitted to Medical Room 243-01. Patient/family oriented to hospital policies and general routines including ID bracelet, bed and alarms, visiting hours, pain management, procedures, bathroom and other care routines, personal items, smoking policy, room service/diet, and visiting hours. Information on how to activate the Rapid Response Team has been discussed. Patient/Family are encouraged to report perceived risks to care and to ask questions if they do not understand what they are told or what they should do.
[2020-02-15] MEDS: SODIUM CHLORIDE 0.9% IV 1,000 ML 125 ML IV CONT (16:40)
[2020-02-15 17:59] LABS: Glucose Point of Care 257 (65-105)
[2020-02-15] MEDS: INSULIN ASPART (*BKC) 100 UNITS/ML SUB-Q (18:05)
[2020-02-16] VITALS: BP 137/56; PULSE 74; RESP 18; TEMP 37.4; O2SAT 95
--- NOTE | 2020-02-16 00:03 | PM.IMHP ---
H&P: HPI History of Present Illness Date/Time: 02/15/20 8810 Chief complaint: ALBINO Narrative: Addy Cervantes Sr. is a 74 year old male Who has a history of dementia and lives home alone. He has family members come and stay with him during the night. The patient was brought into the emergency room for possible overdose. The ED physician talked to the patient's family members and a was noted that the patient did not take extra pills he just took his evening dose medication and made him very sleepy. Therefore he did not take an overdose. His evening medications include Seroquel and trazodone. The patient was responsive to noxious stimuli. 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 His baseline creatinine is anywhere from 1.6-1.8. However today it is 2.3. The patient is very somnolent today. Sodium level was noted to be 136. Glucose 265. The patient is being admitted into observation status on the date of service of 02/15/2020. Review of Systems Review of Systems: ROS unobtainable: Yes unobtainable due to mental status Constitutional: Constitutional: Reports as per HPI and Reports no additional constitutional complaints Eyes: Eyes: Reports as per HPI and Reports no additional eye complaints ENT: Reports system reviewed and no additional complaints, except as documented and Reports Normal hearing present Cardiovascular: Cardiovascular: Reports no additional cardiovascular complaints Respiratory: Respiratory: Reports no additional respiratory complaints and Reports no additional respiratory complaints Gastrointestinal: Gastrointestinal: Reports as per HPI and Reports no additional gastrointestinal complaints Musculoskeletal: Musculoskeletal: Reports no additional musculoskeletal complaints Integumentary/Breasts: Skin/Breast: Reports system reviewed and no additional complaints, except as docu and Reports as per HPI Neurologic: Reports system reviewed and no additional complaints, except as documented, Reports as per HPI and Reports Normal hearing present Psychiatric: Psychiatric: Reports no additional psychiatric complaints and Reports as per HPI Endocrine: Endocrine: Reports no additional endocrine complaints Hematologic/Lymphatic: Hematologic/Lymphatic: Reports no additional hematologic/lymphatic complaints Allergic/Immunologic: Allergic/Immunologic: Reports no additional allergic/immunologic complaints [facility] Past Medical History Medical History Afib Alzheimer disease Arthritis BPH (benign prostatic hyperplasia) CAD (coronary artery disease) Chronic kidney disease Stage III Colon polyps COPD (chronic obstructive pulmonary disease) CVA (cerebral vascular accident) Dementia Depression Diabetes GERD (gastroesophageal reflux disease) Heart attack History of angina HTN (hypertension) Hyperlipidemia Pneumonia Rectal polyp Seizures TIA (transient ischemic attack) Urinary retention Surgical History Surgical History History of arthroscopic knee surgery Right History of cardiac catheterization History of colonoscopy History of coronary artery stent placement History of knee replacement, total Right History of partial colectomy Due to vilious adenoma Family History Family History Son End-stage renal failure with renal transplant Father Acute myocardial infarction Sibling Ovarian cancer Social History Social History (Updated 02/16/20 @ 00:16 by Christine Beaulieu NP) Social History: The patient lives in his own home and he has care givers that come into the home as well as his son Paramjit who is the durable power gang bore operator. He has 2 sons Paramjit and Addy. But Addy does not come to visit his father. Patient is a full code. His son is there during the night. The patient stopped drinking when Paramjit was 1 years old in 1981. he
--- NOTE | 2020-02-16 00:31 | ECG_ITS ---
Measurements Intervals [place] Rate: 71 P: 61 MO: 207 QRS: -25 QRSD: 115 T: 56 QT: 405 QTc: 441 Interpretive Statements SINUS RHYTHM WITH FIRST DEGREE AV BLOCK INTRAVENTRICULAR CONDUCTION DELAY LEFT VENTRICULAR HYPERTROPHY WITH ST-T CHANGE CANNOT RULE OUT SEPTAL INFARCT, AGE INDETERMINATE BORDERLINE ST-T WAVE ABNORMALITY- DIFFUSE LEADS BASELINE ARTIFACT- I, III, AVR, AVL, AVF ABNORMAL ECG Electronically Signed On 02-16-2020 6:51:42 TRAVEL ASSISTANT by Lloyd Gonsales D.O.
[2020-02-16] MEDS: SODIUM CHLORIDE 0.9% IV 1,000 ML 125 ML IV CONT (00:40)
[2020-02-16 00:43] LABS: Alveolar/Arterial O2 Gradient 47.2 mmHg; Base Excess ABG -7.8 mEq/l (+/-2.0); Fractional Inspired Oxygen 21 %; HCO3 ABG 16.2 mEq/l (22.0-26.0); Oxygen Content ABG 17.5 %vol (16.0-22.0); Oxygen Saturation ABG 93.2 % (95.0-100.0); PCO2 ABG 29.1 mmHg (35.0-45.0); PO2 ABG 67.7 mmHg (80.0-100.0); PO2 FiO2 Ratio Arterial Blood 3.22 %; Total Hemoglobin 13.5 g/dL (12.0-18.0); pH ABG 7.363 (7.350-7.450)
[2020-02-16 00:44] LABS: Device ROOM AIR; Modified Allen's Test Unable to perform; Site Drawn RIGHT RADIAL
[2020-02-16 01:04] LABS: Glucose Point of Care 252 (65-105)
[2020-02-16] MEDS: LOPERAMIDE HCL 2 MG CAPSULE PO (03:42)
[2020-02-16 04:00] VITALS: BP 152/44; PULSE 75; RESP 18; TEMP 37; O2SAT 100
[2020-02-16 05:22] LABS: IFOB Positive Control Positive; Immunochemical Fecal Occult Bl Positive (N)
[2020-02-16 08:12] LABS: Hematocrit 40.6 % (42.0-52.0); Hemoglobin 13.2 g/dL (14.0-18.0); Mean Corpuscular HGB Conc 32.5 g/dl (32-36); Mean Corpuscular Hemoglobin 28.7 pg (26-34); Mean Corpuscular Volume 88.3 fl (80-100); Mean Platelet Volume 11.3 fl (7.4-10.4); Platelet Count Result 181 k/mm3 (150-375); Red Cell Distribution Width 13.1 % (11.5-14.5); White Blood Count 14.8 K/mm3 (4.5-10.0)
[2020-02-16 08:23] LABS: Ammonia 15 umol/L (9-30)
[2020-02-16 08:24] LABS: Alanine Aminotransferase 87 U/L (4-50); Albumin Level 3.8 g/dL (3.5-5.1); Alkaline Phosphatase 82 U/L (38-126); Anion Gap 12 mmol/L (8-16); Aspartate Amino Transferase 443 U/L (17-59); Bilirubin,Total 0.4 mg/dL (0.2-1.3); Blood Urea Nitrogen 53 mg/dL (9-20); Calcium 8.4 mg/dL (8.4-10.2); Carbon Dioxide 18 mmol/L (22-30); Chloride 111 mmol/L (98-107); Estimated CRCL calculation 35 ml/min; Estimated Glomerular Filt Rate 42; Glucose 268 mg/dL (75-110); Magnesium 2.2 mg/dL (1.6-2.3); Potassium 3.9 mmol/L (3.4-5.0); Sodium 141 mmol/L (137-145)
--- NOTE | 2020-02-16 08:25 | PM.IMPN ---
Progress Note: A&P Assessment and Plan (1) Lethargic: Code(s): R53.83 - Other fatigue Status: Acute Assessment and Plan: Improving. The patient took his nighttime medications yesterday morning which made him lethargic. He appears more awake and alert today. CT brain was unremarkable for acute findings. Urinalysis is negative for infection. WBC is normal. Check lactic acid. The pt is afebrile. Continue gentle hydration for treatment of dehydration and ALBINO. Continue to monitor. (2) Diarrhea: Code(s): R19.7 - Diarrhea, unspecified Status: Acute Assessment and Plan: Possibly secondary to gastroenteritis. He did have antibiotics 06/2019 but none recently. Stool cultures were ordered and are pending. I do not feel antibiotics are indicated at this time. Continue supportive care. GI has been consulted given guaiac positive stools. Appreciate GI input. Await stool cultures. Continue supportive care with gentle hydration and antiemetics as needed. (3) Guaiac positive stools: Code(s): R19.5 - Other fecal abnormalities Status: Acute Assessment and Plan: Will consult GI. He does not have gross melena or hematochezia. Hb & Hct are stable and will be monitored closely. He is on xarelto for hx of atrial fibrillation. Await further GI input. (4) Acute kidney injury: Code(s): N17.9 - Acute kidney failure, unspecified Status: Acute Assessment and Plan: He has CKD stage II-III with acute on chronic kidney injury. This is likely pre-renal as he is having diarrhea and poor PO intake. He also had urinary retention and ramirez was placed overnight. Will hydrate very gently given underlying diastolic dysfunction. Hold lasix and lisinopril. Avoid nephrotoxins and renally dose medications. Check renal US. (5) COPD (chronic obstructive pulmonary disease): Qualifiers: COPD type: unspecified COPD Qualified Code(s): J44.9 - Chronic obstructive pulmonary disease, unspecified Code(s): J44.9 - Chronic obstructive pulmonary disease, unspecified Status: Acute Assessment and Plan: Chronic with no acute issues. Continue albuterol as needed. (6) BPH (benign prostatic hyperplasia): Code(s): N40.0 - Benign prostatic hyperplasia without lower urinary tract symptoms Status: Acute Assessment and Plan: Ramirez is in place due to retention. Continue tamsulosin and finasteride. He follows with urology. Continue to monitor. (7) Seizures: Code(s): R56.9 - Unspecified convulsions Status: Chronic Assessment and Plan: Chronic. Keppra level is pending. He is on IV keppra which will be switched to PO today. (8) CHF (congestive heart failure): Qualifiers: Heart failure type: diastolic Heart failure chronicity: chronic Qualified Code(s): I50.32 - Chronic diastolic (congestive) heart failure Code(s): I50.9 - Heart failure, unspecified Status: Acute Assessment and Plan: Diastolic. EF on echocardiogram 03/2019 was normal. Lisinopril is held given ALBINO. Continue carvedilol. Monitor volume status closely with daily weights and strict intake and output. Will give very gentle hydration. Resume lasix when clinically indicated. (9) Weakness: Code(s): R53.1 - Weakness Status: Acute Assessment and Plan: Likely due to deconditioning and dehydration in the setting of possible gastroenteritis. PT/OT have been consulted. (10) HTN (hypertension): Qualifiers: Hypertension type: unspecified Qualified Code(s): I10 - Essential (primary) hypertension Code(s): I10 - Essential (primary) hypertension Status: Chronic Assessment and Plan: Blood pressures are acceptable with some readings above target. Lisinopril is held given ALBINO. Most recent BP is 152/44. Continue carvedilol, clonidine, and amlodipine. Adjust treatment as indicated
[2020-02-16 09:02] LABS: Glucose Point of Care 284 (65-105)
[2020-02-16 09:14] LABS: Band Neutrophils Percent 9 % (0-6); Lymphocytes Absolute Manual 1.33 K/mm3 (1.1-4.5); Monocytes Absolute Manual 1.77 K/mm3 (0.1-0.90); Monocytes Percent Manual 12 % (3-9); Neutrophils Absolute Manual 11.69 K/mm3 (1.3-6.7); Neutrophils Percent Manual 70 % (46-73); Platelet Estimate Adequate (Adequate); Total Cells Counted 100
[2020-02-16 09:45] VITALS: BMI 10.0
[2020-02-16 09:47] LABS: Folic Acid > 20.0 ng/mL (2.76->20)
[2020-02-16 10:30] LABS: Lactic Acid Reflex 0.9 mmol/L (0.7-2.1)
[2020-02-16 10:43] LABS: Iron 19 ug/dL (49-181)
[2020-02-16 10:53] LABS: Percent Iron Saturation 7 % (20-50)
--- NOTE | 2020-02-16 10:55 | PC.NURSE ---
returned from US will attempt to eat breakfast and take PO meds
--- NOTE | 2020-02-16 10:58 | WPDGICN ---
Assessment and Plan Assessment and plan (1) Guaiac positive stools: Code(s): R19.5 - Other fecal abnormalities Status: Acute Assessment and Plan: Hemoccult-positive stools identified on lab testing because of diarrhea. Certainly Xarelto anticoagulation can contribute to his occult blood loss. No obvious active bleeding. Hemoglobin is currently stable. Would recommend elective colonoscopy be performed as an outpatient primarily because of his prior history of colon polyps. Requiring surgical resection 2005. Most recent colonoscopy 2014 revealed benign colon adenoma. Patient should be referred to my office for elective colonoscopy after discharge. (2) Diarrhea: Code(s): R19.7 - Diarrhea, unspecified Status: Acute Assessment and Plan: Diarrhea noted after admission. It is uncertain if this been present prior to admission. Stool cultures are pending. Would recommend supportive care for now antibiotics only if stool cultures confirm infection. (3) History of colon polyps: Code(s): Z86.010 - Personal history of colonic polyps Status: Acute Assessment and Plan: Patient has a history of adenomatous colon polyps large villous adenoma requiring surgical resection 2005. Most recent colonoscopy within adenoma in 2014. Would recommend follow-up colonoscopy this can be performed as an outpatient. Patient should be referred to my office for elective outpatient colonoscopy discharge. 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 is a 74 year old male with a history of else I murmurs dementia. Currently lives at home. He was noted to be somewhat sleepy and admitted to the hospital. It was felt that this was secondary to a taking too much of his medications. After admission it was noted the patient had diarrhea stools. He was given Imodium is had no subsequent bowel movements. Patient is a poor historian is somewhat difficult to know how his bowel habits have been at home. But no diarrhea has been described in no bleeding reported. Stool was found to be Hemoccult positive. Patient has a past medical history of atrial fibrillation on chronic Xarelto anticoagulation. He has a history of COPD, congestive heart failure, diabetes mellitus. In 2005 he had a large villous adenoma of the colon requiring surgical resection. Follow-up colonoscopy 2014 revealed a benign colon adenoma. Patient has had no obvious GI blood loss reported home nor by the nursing service. As stated diarrhea has stopped after give being given 1 Imodium tablet. Review of Systems Review of Systems: All systems reviewed & are unremarkable except as noted in HPI and below PMFSH Past Medical History Medical Histo
[2020-02-16] MEDS: cloNIDine HCL 0.2 MG TABLET PO ×2 (11:07→17:19)
[2020-02-16] MEDS: FERROUS SULFATE 324 MG TABLET PO (11:07)
[2020-02-16] MEDS: TAMSULOSIN HCL 0.4 MG CAPSULE PO ×2 (11:07→21:30)
[2020-02-16] MEDS: MULTIVITAMINS THERAPEUTIC TAB (*BKC) 1 TABLET PO (11:07)
[2020-02-16] MEDS: MEMANTINE 10 MG TABLET PO ×2 (11:07→17:19)
[2020-02-16] MEDS: amLODIPine BESYLATE 2.5 MG TABLET 7.5 MG PO (11:07)
[2020-02-16] MEDS: CLOPIDOGREL BISULFATE 75 MG TABLET PO (11:07)
[2020-02-16] MEDS: FINASTERIDE 5 MG TABLET PO (11:07)
[2020-02-16 11:08] VITALS: PULSE 102
[2020-02-16] MEDS: carvediloL 25 MG TABLET PO ×2 (11:08→22:30)
[2020-02-16] MEDS: CHOLECALCIFEROL 1,000 UNITS TABLET 2000 UNITS PO (11:08)
[2020-02-16] MEDS: INSULIN GLARGINE (*BKC) 100 UNITS/ML 10 UNITS SUB-Q (11:09)
[2020-02-16] MEDS: INSULIN ASPART (*BKC) 100 UNITS/ML SUB-Q ×2 (11:09→17:19)
[2020-02-16] MEDS: levETIRAcetam 500 MG TABLET PO ×2 (11:11→21:30)
--- NOTE | 2020-02-16 11:27 | PC.NURSE ---
attempt to return call to pt's son Paramjit, no answer
[2020-02-16] MEDS: SODIUM CHLORIDE 0.9% IV 1,000 ML 75 ML IV CONT (12:06)
--- NOTE | 2020-02-16 13:05 | PC.NURSE ---
spoke with son Paramjit over phone and pt was able to speak to him also
[2020-02-16 14:00] VITALS: BP 143/47; PULSE 73; RESP 21; TEMP 37.7; O2SAT 97
[2020-02-16] MEDS: RIVAROXABAN 20 MG TABLET PO (17:19)
[2020-02-16 17:47] LABS: Glucose Point of Care 315 (65-105)
[2020-02-16] MEDS: DONEPEZIL HCL 10 MG TABLET PO (21:30)
[2020-02-16 21:53] LABS: Glucose Point of Care 299 (65-105)
[2020-02-16 21:56] VITALS: BP 106/56; PULSE 79; RESP 18; TEMP 36.2; O2SAT 100
[2020-02-16 22:30] VITALS: PULSE 78
[2020-02-17 05:34] VITALS: BP 124/78; PULSE 73; RESP 20; TEMP 36.1; O2SAT 99
[2020-02-17 06:49] LABS: Basophils Percent Auto 0.2 % (0.2-1.2); Hematocrit 38.2 % (42.0-52.0); Hemoglobin 12.3 g/dL (14.0-18.0); Immature Granulocyte Absolute 0.13 K/mm3 (0.00-0.031); Lymphocytes Absolute Auto 1.45 K/mm3 (0.9-3.2); Lymphocytes Percent Auto 11.6 % (18.3-44.2); Mean Corpuscular HGB Conc 32.2 g/dl (32-36); Mean Corpuscular Hemoglobin 29.3 pg (26-34); Mean Platelet Volume 11.7 fl (7.4-10.4); Monocytes Absolute Auto 1.7 K/mm3 (0.1-0.6); Monocytes Percent Auto 13.7 % (2.6-8.5); Neutrophils Absolute Auto 9.2 K/mm3 (1.3-6.7); Neutrophils Percent Auto 73.5 % (45.5-73.1); Platelet Count Result 163 k/mm3 (150-375); Red Cell Distribution Width 13.1 % (11.5-14.5); White Blood Count 12.5 K/mm3 (4.5-10.0)
[2020-02-17 07:02] LABS: Alanine Aminotransferase 70 U/L (4-50); Albumin Level 3.4 g/dL (3.5-5.1); Alkaline Phosphatase 75 U/L (38-126); Anion Gap 9 mmol/L (8-16); Aspartate Amino Transferase 278 U/L (17-59); Bilirubin,Total 0.4 mg/dL (0.2-1.3); Blood Urea Nitrogen 53 mg/dL (9-20); Calcium 8.5 mg/dL (8.4-10.2); Carbon Dioxide 18 mmol/L (22-30); Chloride 112 mmol/L (98-107); Estimated CRCL calculation 37 ml/min; Estimated Glomerular Filt Rate 45; Glucose 278 mg/dL (75-110); Magnesium 2.5 mg/dL (1.6-2.3); Potassium 3.8 mmol/L (3.4-5.0); Sodium 139 mmol/L (137-145)
[2020-02-17 08:37] LABS: Glucose Point of Care 428 (65-105)
[2020-02-17 09:00] LABS: Hepatitis B Surface Antigen Negative (Negative)
[2020-02-17 09:06] LABS: HAV RESULT Negative (Negative); Hepatitis B Core IgM Result Negative (Negative)
[2020-02-17] MEDS: INSULIN ASPART (*BKC) 100 UNITS/ML 10 UNITS SUB-Q (09:08)
[2020-02-17] MEDS: INSULIN GLARGINE (*BKC) 100 UNITS/ML 22 UNITS SUB-Q (09:09)
[2020-02-17 09:12] VITALS: PULSE 64
[2020-02-17] MEDS: FINASTERIDE 5 MG TABLET PO (09:12)
[2020-02-17] MEDS: CLOPIDOGREL BISULFATE 75 MG TABLET PO (09:12)
[2020-02-17] MEDS: FERROUS SULFATE 324 MG TABLET PO (09:12)
[2020-02-17] MEDS: cloNIDine HCL 0.2 MG TABLET PO ×2 (09:12→16:53)
[2020-02-17] MEDS: MULTIVITAMINS THERAPEUTIC TAB (*BKC) 1 TABLET PO (09:12)
[2020-02-17] MEDS: carvediloL 25 MG TABLET PO ×2 (09:12→22:43)
[2020-02-17] MEDS: CHOLECALCIFEROL 1,000 UNITS TABLET 2000 UNITS PO (09:12)
[2020-02-17] MEDS: MEMANTINE 10 MG TABLET PO ×2 (09:12→16:52)
[2020-02-17] MEDS: amLODIPine BESYLATE 2.5 MG TABLET 7.5 MG PO (09:12)
[2020-02-17] MEDS: TAMSULOSIN HCL 0.4 MG CAPSULE PO ×2 (09:12→22:43)
[2020-02-17] MEDS: levETIRAcetam 500 MG TABLET PO ×2 (09:12→22:44)
[2020-02-17 09:17] LABS: Hepatitis C Virus Antibody Negative (Negative)
[2020-02-17 11:39] LABS: Glucose Point of Care 281 (65-105)
[2020-02-17] MEDS: SODIUM CHLORIDE 0.9% IV 1,000 ML 50 ML IV CONT (11:41)
[2020-02-17] MEDS: INSULIN ASPART (*BKC) 100 UNITS/ML SUB-Q (12:21)
[2020-02-17 12:35] LABS: SARS-CoV-2 RNA PCR Positive
--- NOTE | 2020-02-17 12:37 | PM.IMPN ---
Progress Note: A&P Assessment and Plan (1) Encephalopathy: Code(s): G93.40 - Encephalopathy, unspecified Status: Acute Assessment and Plan: Pt is more confused today. COVID-19 testing is positive and confusion may be secondary to COVID encephalopathy superimposed on underlying dementia. CT brain was negative for acute findings. Urinalysis is negative for infection. Ammonia is normal. Folate and B12 are normal. WBC was elevated yesterday but improving. CXR is negative for acute findings including pneumonia. Lactic acid is normal. The pt is afebrile. Plan for MRI. Obtain blood cultures. Continue to monitor. Will also consult neurology for further input. (2) COVID-19: Code(s): U07.1 - COVID-19 Status: Acute Assessment and Plan: COVID-19 is positive and likely explains diarrhea, fatigue, and possibly he has COVID-19 encephalopathy. He is not hypoxic so remdesivir and dexamethasone are not indicated at this time. I have asked neurology to see him. Continue supportive care. (3) Lethargic: Code(s): R53.83 - Other fatigue Status: Acute Assessment and Plan: Improving. The patient took his nighttime medications yesterday morning which made him lethargic. He appears more awake and alert today. CT brain was unremarkable for acute findings. Urinalysis is negative for infection. WBC is normal. Check lactic acid. The pt is afebrile. Continue gentle hydration for treatment of dehydration and ALBINO. Continue to monitor. (4) Diarrhea: Code(s): R19.7 - Diarrhea, unspecified Status: Acute Assessment and Plan: Possibly secondary to COVID-19 as he just tested positive today. Additional stool cultures were ordered and are pending. He had antibiotics 06/2019 but none recently. I do not feel antibiotics are indicated at this time. Continue supportive care. GI has been consulted given guaiac positive stools and recommends colonoscopy outpatient. Await stool cultures. Continue supportive care with gentle hydration and antiemetics as needed. (5) Guaiac positive stools: Code(s): R19.5 - Other fecal abnormalities Status: Acute Assessment and Plan: Will consult GI. He does not have gross melena or hematochezia. Hb & Hct remain stable and will be monitored closely. He is on xarelto for hx of atrial fibrillation. He was seen by Dr. Melgar who recommends elective colonoscopy outpatient due to hx of colon polyps. He did have a colonoscopy in 2015 that showed benign colon adenoma. He is to be referred to Dr. Melgar after discharge. (6) Acute kidney injury: Code(s): N17.9 - Acute kidney failure, unspecified Status: Acute Assessment and Plan: He has CKD stage II-III with acute on chronic kidney injury. This is likely pre-renal as he is having diarrhea and poor PO intake. He also had urinary retention and ramirez was placed overnight 12/. Will hydrate very gently given underlying diastolic dysfunction. Hold lasix and lisinopril. Avoid nephrotoxins and renally dose medications. Renal US shows medical renal disease, no hydronephrosis, and stable appearance of bilateral renal cysts. (7) COPD (chronic obstructive pulmonary disease): Qualifiers: COPD type: unspecified COPD Qualified Code(s): J44.9 - Chronic obstructive pulmonary disease, unspecified Code(s): J44.9 - Chronic obstructive pulmonary disease, unspecified Status: Acute Assessment and Plan: Chronic with no acute issues. Continue albuterol as needed. (8) BPH (benign prostatic hyperplasia): Code(s): N40.0 - Benign prostatic hyperplasia without lower urinary tract symptoms Status: Acute Assessment and Plan: Ramirez is in place due to retention. Continue tamsulosin and finasteride. He follows with urology. Continue to monitor. He will need voiding trial once his lethargy and confusion improves. (9) Seizures: Code(s): R
--- NOTE | 2020-02-17 14:54 | PC.NURSE ---
This patient, Addy Cervantes Sr., was admitted to [facility] Surg Room 305-02. Patient/family oriented to hospital policies and general routines including ID bracelet, bed and alarms, visiting hours, pain management, procedures, bathroom and other care routines, personal items, smoking policy, room service/diet, and visiting hours. Information on how to activate the Rapid Response Team has been discussed. Patient/Family are encouraged to report perceived risks to care and to ask questions if they do not understand what they are told or what they should do.
[2020-02-17 15:06] VITALS: BP 144/53; PULSE 71; RESP 18; TEMP 36.2; O2SAT 96
--- NOTE | 2020-02-17 15:35 | PC.NURSE ---
This patient, Addy Cervantes , was transferred to [ ] on 02/17/20 at 1535. Personal belongings sent with patient. Report given to [ ]. Appropriate documentation sent with patient.
--- NOTE | 2020-02-17 15:36 | PC.NURSE ---
This patient, Addy Cervantes ., was transferred to [facility] med surg on 02/17/20 at 1445. Personal belongings sent with patient. Report given to Sole YEUNG. Appropriate documentation sent with patient.
[2020-02-17] MEDS: RIVAROXABAN 20 MG TABLET PO (16:53)
[2020-02-17 17:06] LABS: Glucose Point of Care 145 (65-105)
[2020-02-17 20:00] VITALS: BP 136/51; PULSE 70; RESP 20; TEMP 37.4; O2SAT 91; O2SAT 96
[2020-02-17 22:43] VITALS: PULSE 70
[2020-02-17] MEDS: DONEPEZIL HCL 10 MG TABLET PO (22:43)
[2020-02-17 23:30] LABS: Glucose Point of Care 166 (65-105)
[2020-02-18] VITALS (8 sets, daily range): BP systolic 133–150; BP diastolic 53–91; PULSE 69–100; RESP 16–20; TEMP 36.3–37.1; O2SAT 95–100
[2020-02-18] MEDS: SODIUM CHLORIDE 0.9% IV 1,000 ML 75 ML IV CONT (02:17)
[2020-02-18 09:58] LABS: Basophils Percent Auto 0.3 % (0.2-1.2); Eosinophils Absolute Auto 0.1 K/mm3 (0-0.3); Eosinophils Percent Auto 0.4 % (0-4.4); Hematocrit 32.5 % (42.0-52.0); Immature Granulocyte Absolute 0.16 K/mm3 (0.00-0.031); Immature Granulocyte Percent A 1.3 % (0-0.5); Lymphocytes Absolute Auto 1.59 K/mm3 (0.9-3.2); Lymphocytes Percent Auto 12.6 % (18.3-44.2); Mean Corpuscular HGB Conc 33.8 g/dl (32-36); Mean Corpuscular Hemoglobin 29.7 pg (26-34); Mean Corpuscular Volume 87.8 fl (80-100); Mean Platelet Volume 12.1 fl (7.4-10.4); Monocytes Absolute Auto 1.2 K/mm3 (0.1-0.6); Monocytes Percent Auto 9.2 % (2.6-8.5); Neutrophils Absolute Auto 9.6 K/mm3 (1.3-6.7); Neutrophils Percent Auto 76.2 % (45.5-73.1); Platelet Count Result 169 k/mm3 (150-375); Red Cell Distribution Width 12.9 % (11.5-14.5); White Blood Count 12.6 K/mm3 (4.5-10.0)
[2020-02-18] MEDS: amLODIPine BESYLATE 2.5 MG TABLET 7.5 MG PO (10:30)
[2020-02-18] MEDS: carvediloL 25 MG TABLET PO ×2 (10:30→20:26)
[2020-02-18] MEDS: cloNIDine HCL 0.2 MG TABLET PO ×2 (10:31→17:20)
[2020-02-18] MEDS: FERROUS SULFATE 324 MG TABLET PO (10:31)
[2020-02-18] MEDS: MULTIVITAMINS THERAPEUTIC TAB (*BKC) 1 TABLET PO (10:31)
[2020-02-18] MEDS: FINASTERIDE 5 MG TABLET PO (10:31)
[2020-02-18] MEDS: CHOLECALCIFEROL 1,000 UNITS TABLET 2000 UNITS PO (10:31)
[2020-02-18] MEDS: levETIRAcetam 500 MG TABLET PO ×2 (10:32→20:26)
[2020-02-18] MEDS: INSULIN GLARGINE (*BKC) 100 UNITS/ML 22 UNITS SUB-Q (10:32)
[2020-02-18] MEDS: CLOPIDOGREL BISULFATE 75 MG TABLET PO (10:32)
[2020-02-18] MEDS: TAMSULOSIN HCL 0.4 MG CAPSULE PO ×2 (10:33→20:27)
[2020-02-18] MEDS: MEMANTINE 10 MG TABLET PO ×2 (10:33→17:23)
[2020-02-18 10:36] LABS: Alanine Aminotransferase 65 U/L (4-50); Albumin Level 3.3 g/dL (3.5-5.1); Alkaline Phosphatase 64 U/L (38-126); Anion Gap 9 mmol/L (8-16); Aspartate Amino Transferase 236 U/L (17-59); Bilirubin,Total 0.6 mg/dL (0.2-1.3); Blood Urea Nitrogen 49 mg/dL (9-20); Carbon Dioxide 16 mmol/L (22-30); Chloride 118 mmol/L (98-107); Estimated CRCL calculation 44 ml/min; Estimated Glomerular Filt Rate 55; Glucose 195 mg/dL (75-110); Magnesium 2.5 mg/dL (1.6-2.3); Potassium 4.3 mmol/L (3.4-5.0); Sodium 143 mmol/L (137-145)
[2020-02-18 10:49] LABS: CRP 22.7 mg/dL (<1.0)
[2020-02-18 11:40] LABS: Glucose Point of Care 168 (65-105)
--- NOTE | 2020-02-18 13:41 | PM.IMPN ---
Progress Note: A&P Assessment and Plan (1) Encephalopathy: Code(s): G93.40 - Encephalopathy, unspecified Status: Acute Assessment and Plan: Improving. COVID-19 testing is positive and confusion may be secondary to COVID encephalopathy superimposed on underlying dementia. CT brain was negative for acute findings. Urinalysis is negative for infection. Ammonia is normal. Folate and B12 are normal. WBC was elevated yesterday but improving. CXR is negative for acute findings including pneumonia. Lactic acid is normal. The pt is afebrile. MRI was ordered but the patient would not cooperate for the study. I feel the risks of sedating him for this test outweigh potential benefits as this time since he is improving and has no focal deficits. Blood cultures are pending. Continue to monitor. I have consulted neurology to see him for further recommendations. (2) COVID-19: Code(s): U07.1 - COVID-19 Status: Acute Assessment and Plan: COVID-19 is positive and likely explains diarrhea, fatigue, and possibly he has COVID-19 encephalopathy. He is not hypoxic so remdesivir and dexamethasone are not indicated at this time. I have asked neurology to see him. Continue supportive care. (3) Lethargic: Code(s): R53.83 - Other fatigue Status: Acute Assessment and Plan: As above. Improving. (4) Diarrhea: Code(s): R19.7 - Diarrhea, unspecified Status: Acute Assessment and Plan: Possibly secondary to COVID-19 as he just tested positive 02/16. Additional stool cultures were ordered and are pending. He had antibiotics 06/2019 but none recently. C. diff GDH antigen is positive but toxin A&B are negative. Will start PO vancomycin pending PCR testing. He is already on isolation. Shiga toxin Ecoli 0157 and salmonella/shigella are negative. Additional studies are pending. Continue supportive care. GI has been consulted given guaiac positive stools and recommends colonoscopy outpatient. Await additional stool cultures and C. diff testing via PCR. Continue supportive care with gentle hydration and antiemetics as needed. (5) Guaiac positive stools: Code(s): R19.5 - Other fecal abnormalities Status: Acute Assessment and Plan: He does not have gross melena or hematochezia. Hb & Hct remain stable and will be monitored closely. He is on xarelto for hx of atrial fibrillation. He was seen by Dr. Melgar who recommends elective colonoscopy outpatient due to hx of colon polyps. He did have a colonoscopy in 2015 that showed benign colon adenoma. He is to be referred to Dr. Melgar after discharge. (6) Acute kidney injury: Code(s): N17.9 - Acute kidney failure, unspecified Status: Acute Assessment and Plan: He has CKD stage II-III with acute on chronic kidney injury. This is likely pre-renal as he is having diarrhea and poor PO intake. He also had urinary retention and ramirez was placed overnight 02/15. Stop IV fluids since renal function has returned to baseline. Hold lasix and lisinopril. Avoid nephrotoxins and renally dose medications. Renal US shows medical renal disease, no hydronephrosis, and stable appearance of bilateral renal cysts. (7) COPD (chronic obstructive pulmonary disease): Qualifiers: COPD type: unspecified COPD Qualified Code(s): J44.9 - Chronic obstructive pulmonary disease, unspecified Code(s): J44.9 - Chronic obstructive pulmonary disease, unspecified Status: Acute Assessment and Plan: Chronic with no acute issues. Continue albuterol as needed. (8) BPH (benign prostatic hyperplasia): Code(s): N40.0 - Benign prostatic hyperplasia without lower urinary tract symptoms Status: Acute Assessment and Plan: Ramirez is in place due to retention. Continue tamsulosin and finasteride. He follows with urology. Continue to monitor. He will need voiding trial once his lethargy and confusion
[2020-02-18 14:09] LABS: Glucose Point of Care 306 (65-105)
[2020-02-18] MEDS: INSULIN ASPART (*BKC) 100 UNITS/ML SUB-Q (14:12)
[2020-02-18] MEDS: RIVAROXABAN 20 MG TABLET PO (17:23)
[2020-02-18] MEDS: FUROSEMIDE 20 MG TABLET PO (17:24)
[2020-02-18] MEDS: VANCOMYCIN ORAL 125 MG/2.5 ML SYRUP PO (17:39)
[2020-02-18 19:39] LABS: Glucose Point of Care 162 (65-105)
[2020-02-18] MEDS: DONEPEZIL HCL 10 MG TABLET PO (20:26)
[2020-02-18 22:15] LABS: Glucose Point of Care 223 (65-105)
[2020-02-19] VITALS (8 sets, daily range): BP systolic 105–151; BP diastolic 40–91; PULSE 62–105; RESP 18–20; TEMP 36.4–37.9; O2SAT 92–99
[2020-02-19] MEDS: VANCOMYCIN ORAL 125 MG/2.5 ML SYRUP PO ×5 (00:04→22:56)
[2020-02-19 06:52] LABS: Basophils Percent Auto 0.2 % (0.2-1.2); Eosinophils Absolute Auto 0.1 K/mm3 (0-0.3); Eosinophils Percent Auto 0.4 % (0-4.4); Hematocrit 29.4 % (42.0-52.0); Hemoglobin 9.7 g/dL (14.0-18.0); Immature Granulocyte Percent A 0.8 % (0-0.5); Lymphocytes Absolute Auto 1.54 K/mm3 (0.9-3.2); Lymphocytes Percent Auto 12.7 % (18.3-44.2); Mean Corpuscular Hemoglobin 28.5 pg (26-34); Mean Corpuscular Volume 86.5 fl (80-100); Mean Platelet Volume 12.3 fl (7.4-10.4); Monocytes Absolute Auto 1.1 K/mm3 (0.1-0.6); Monocytes Percent Auto 9.1 % (2.6-8.5); Neutrophils Absolute Auto 9.3 K/mm3 (1.3-6.7); Neutrophils Percent Auto 76.8 % (45.5-73.1); Platelet Count Result 174 k/mm3 (150-375); Red Cell Distribution Width 12.7 % (11.5-14.5); White Blood Count 12.2 K/mm3 (4.5-10.0)
[2020-02-19 08:01] LABS: Alanine Aminotransferase 76 U/L (4-50); Albumin Level 2.9 g/dL (3.5-5.1); Alkaline Phosphatase 68 U/L (38-126); Anion Gap 7 mmol/L (8-16); Aspartate Amino Transferase 227 U/L (17-59); Bilirubin,Total 0.5 mg/dL (0.2-1.3); Blood Urea Nitrogen 45 mg/dL (9-20); CRP 26.4 mg/dL (<1.0); Calcium 8.7 mg/dL (8.4-10.2); Carbon Dioxide 17 mmol/L (22-30); Chloride 115 mmol/L (98-107); Estimated CRCL calculation 35 ml/min; Estimated Glomerular Filt Rate 42; Glucose 298 mg/dL (75-110); Lactate Dehydrogenase 1059 U/L (313-618); Magnesium 2.3 mg/dL (1.6-2.3); Potassium 3.6 mmol/L (3.4-5.0); Sodium 139 mmol/L (137-145)
[2020-02-19] MEDS: INSULIN ASPART (*BKC) 100 UNITS/ML SUB-Q ×2 (08:32→12:01)
[2020-02-19] MEDS: INSULIN GLARGINE (*BKC) 100 UNITS/ML 25 UNITS SUB-Q (08:33)
[2020-02-19] MEDS: CLOPIDOGREL BISULFATE 75 MG TABLET PO (08:34)
[2020-02-19] MEDS: FERROUS SULFATE 324 MG TABLET PO (08:35)
[2020-02-19] MEDS: MULTIVITAMINS THERAPEUTIC TAB (*BKC) 1 TABLET PO (08:35)
[2020-02-19] MEDS: MEMANTINE 10 MG TABLET PO ×2 (08:36→18:02)
[2020-02-19] MEDS: levETIRAcetam 500 MG TABLET PO ×2 (08:36→20:20)
[2020-02-19] MEDS: TAMSULOSIN HCL 0.4 MG CAPSULE PO ×2 (08:36→20:19)
[2020-02-19] MEDS: FINASTERIDE 5 MG TABLET PO (08:37)
[2020-02-19] MEDS: CHOLECALCIFEROL 1,000 UNITS TABLET 2000 UNITS PO (08:37)
[2020-02-19] MEDS: carvediloL 25 MG TABLET PO ×2 (08:42→20:20)
[2020-02-19] MEDS: FUROSEMIDE 40 MG TABLET PO (08:42)
[2020-02-19] MEDS: amLODIPine BESYLATE 2.5 MG TABLET 7.5 MG PO (08:42)
[2020-02-19] MEDS: cloNIDine HCL 0.2 MG TABLET PO ×2 (08:43→18:02)
[2020-02-19 08:49] LABS: Glucose Point of Care 276 (65-105)
--- NOTE | 2020-02-19 09:29 | WPDNEURCNPN ---
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 His electrolytes were normal with sodium being borderline 136 and glucose 265 patient does have ongoing history of multiple medical problems as outlined. Neuro opinion was obtained because of right-sided Parikh's palsy Review of Systems Review of Systems: All systems reviewed & are unremarkable except as noted in HPI and below PMFSH Past Medical History Medical History Afib Alzheimer disease Arthritis BPH (benign prostatic hyperplasia) CAD (coronary artery disease) Chronic kidney disease Stage III Colon polyps COPD (chronic obstructive pulmonary disease) CVA (cerebral vascular accident) Dementia Depression Diabetes GERD (gastroesophageal reflux disease) Heart attack History of angina HTN (hypertension) Hyperlipidemia Pneumonia Rectal polyp Seizures TIA (transient ischemic attack) Urinary retention Surgical History Surgical History History of arthroscopic knee surgery Right History of cardiac catheterization History of colonoscopy History of coronary artery stent placement History of knee replacement, total Right History of partial colectomy Due to vilious adenoma Family History Family History Son End-stage renal failure with renal transplant Father Acute myocardial infarction Sibling Ovarian cancer Social History Social History Social History: The patient lives in his own home and he has care givers that come into the home as well as his son Paramjit who is the durable power business attorney. He has 2 sons Paramjit and Addy. But Addy does not come to visit his father. Patient is a full code. His son is there during the night. The patient stopped drinking when Paramjit was 1 years old in 1981. he also quit smoking as well. His ex- also comes to check on him as well. 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 Smoking packs per day: 1.5 Smoking cigarettes per day: 30.0 Years smoked: 15 Smoking pack-years: 22.50 Smoking status: Former smoker Tobacco type: cigarettes Alcohol intake: never Substance use: never Substance use type: does not use Gender identity (if verbalized by the patient): Male Sexual Orientation (if Verbalized by the Patient): Straight or Heterosexual Spiritual care concerns: No Agree to blood products: Yes Meds Home Medications and Allergies Home Medications Medication Instructions Recorded Confirmed Type acetaminophen 1,300 mg PO BID 06/10/19 02/15/20 History amlodipine 7.5 mg PO DAILY 06/10/19 02/15/20 History atorvastatin 40 mg PO HS 06/10/19 02/15/20 History carvedilol 25 mg PO BID 06/10/19 02/15/20 History cholecalciferol (vitamin D3) 2,000 unit PO DAILY 06/10/19 02/15/20 History clonidine HCl 0.2 mg PO BID 06/10/19 02/15/20 History clopidogrel 75 mg PO DAILY 06/10/19 02/15/20 History donepezil 10 mg PO HS 06/10/19 02/15/20 History ferrous sulfate 325 mg PO DAILY 06/10/19 02/15/20 History furosemide 20 mg PO QPM 06/10/19 02/15/20 History furosemide 40 mg PO QAM 06/10/19 02/15/20 History glucosamine sulfate [Glucosamine] 500 mg PO BID 06/10/19 02/15/20 Histor
--- NOTE | 2020-02-19 10:04 | PC.NURSE ---
This nurse returned a phone call to this patients son Paramjit, gave a general updated and answered all questions per Paramjit. Agreed to set up a phone call later with the patient from the patients room with family.
[2020-02-19] MEDS: lisinopriL 20 MG TABLET PO (11:56)
[2020-02-19 12:47] LABS: Glucose Point of Care 372 (65-105)
--- NOTE | 2020-02-19 13:30 | PM.IMPN ---
Progress Note: A&P Assessment and Plan (1) Encephalopathy: Code(s): G93.40 - Encephalopathy, unspecified Status: Acute Assessment and Plan: Improving. COVID-19 testing is positive and confusion may be secondary to COVID encephalopathy and C. diff infection superimposed on underlying dementia. CT brain was negative for acute findings. Urinalysis is negative for infection. Ammonia is normal. Folate and B12 are normal. CXR is negative for acute findings including pneumonia. Lactic acid is normal. The pt is afebrile. Neurology was consulted for further recommendations. He was minimally responsive during my initial visit but significantly improved later in the day today. He has no focal deficits. Meningitis was considered but felt unlikely at this time as he is improving. LP considered but he is on xarelto and plavix. If condition worsens, consider LP. Continue to monitor. (2) COVID-19: Code(s): U07.1 - COVID-19 Status: Acute Assessment and Plan: COVID-19 is positive and he may have COVID-19 encephalopathy. He is not hypoxic so remdesivir and dexamethasone are not indicated at this time. I have asked neurology to see him. Continue supportive care. Await further neurology input. (3) C. difficile diarrhea: Code(s): A04.72 - Enterocolitis due to Clostridium difficile, not specified as recurrent Status: Acute Assessment and Plan: The pt was having diarrhea. C. diff Toxin B PCR testing is positive. PO vancomycin was initiated 02/17. Plan to continue PO vancomycin. Check abdominal plain films. Stool frequency has decreased today. (4) Lethargic: Code(s): R53.83 - Other fatigue Status: Acute Assessment and Plan: As above. Improving. (5) Diarrhea: Code(s): R19.7 - Diarrhea, unspecified Status: Acute Assessment and Plan: C. diff testing is positive. Additional stool studies are pending. Continue treatment of C. diff as outlined above. Continue supportive care. (6) Guaiac positive stools: Code(s): R19.5 - Other fecal abnormalities Status: Acute Assessment and Plan: He does not have gross melena or hematochezia. Hb & Hct are relatively stable with no evidence of active bleeding. He is on xarelto for hx of atrial fibrillation. He was seen by Dr. Melgar who recommends elective colonoscopy outpatient due to hx of colon polyps. He did have a colonoscopy in 2015 that showed benign colon adenoma. He is to be referred to Dr. Melgar after discharge. (7) Acute kidney injury: Code(s): N17.9 - Acute kidney failure, unspecified Status: Acute Assessment and Plan: He has CKD stage II-III with acute on chronic kidney injury. This is likely pre-renal as he is having diarrhea and poor PO intake. He also had urinary retention and ramirez was placed overnight 02/15. IV fluids were discontinued 02/17 since renal function returned to baseline. Cr is increased to 1.9 today. He is drinking fluids. Will hold lasix for tonight and tomorrow morning. Avoid nephrotoxins and renally dose medications. Renal US shows medical renal disease, no hydronephrosis, and stable appearance of bilateral renal cysts. (8) COPD (chronic obstructive pulmonary disease): Qualifiers: COPD type: unspecified COPD Qualified Code(s): J44.9 - Chronic obstructive pulmonary disease, unspecified Code(s): J44.9 - Chronic obstructive pulmonary disease, unspecified Status: Acute Assessment and Plan: Chronic with no acute issues. Continue albuterol as needed. (9) BPH (benign prostatic hyperplasia): Code(s): N40.0 - Benign prostatic hyperplasia without lower urinary tract symptoms Status: Acute Assessment and Plan: Ramirez is in place due to retention. Continue tamsulosin and finasteride. He follows with urology. Continue to monitor. He will need voiding trial once his mentation improves.
[2020-02-19 13:48] LABS: Creatine Kinase 7660 U/L (55-170)
[2020-02-19 14:32] LABS: INR 1.8; Prothrombin Time 21.8 Seconds (11.1-14.7)
[2020-02-19 14:33] LABS: Partial Thromboplastin Time 42.6 SECONDS (22.3-36.8)
[2020-02-19] MEDS: RIVAROXABAN 20 MG TABLET PO (18:03)
[2020-02-19] MEDS: FUROSEMIDE 20 MG TABLET PO (18:03)
[2020-02-19 18:12] LABS: Glucose Point of Care 110 (65-105)
[2020-02-19] MEDS: DONEPEZIL HCL 10 MG TABLET PO (20:19)
[2020-02-19 22:30] LABS: Glucose Point of Care 165 (65-105)
[2020-02-20] VITALS (7 sets, daily range): BP systolic 110–131; BP diastolic 43–87; PULSE 77–103; RESP 16–20; TEMP 36.2–37.1; O2SAT 90–98
[2020-02-20] MEDS: VANCOMYCIN ORAL 125 MG/2.5 ML SYRUP PO ×4 (06:15→23:54)
[2020-02-20 09:12] LABS: Basophils Absolute Auto 0.1 K/mm3 (0.0-0.1); Basophils Percent Auto 0.4 % (0.2-1.2); Eosinophils Absolute Auto 0.1 K/mm3 (0-0.3); Eosinophils Percent Auto 0.4 % (0-4.4); Hematocrit 30.5 % (42.0-52.0); Hemoglobin 10.2 g/dL (14.0-18.0); Immature Granulocyte Absolute 0.35 K/mm3 (0.00-0.031); Immature Granulocyte Percent A 2.3 % (0-0.5); Lymphocytes Absolute Auto 1.64 K/mm3 (0.9-3.2); Mean Corpuscular HGB Conc 33.4 g/dl (32-36); Mean Corpuscular Hemoglobin 29.1 pg (26-34); Mean Corpuscular Volume 87.1 fl (80-100); Mean Platelet Volume 11.7 fl (7.4-10.4); Monocytes Absolute Auto 1.4 K/mm3 (0.1-0.6); Neutrophils Absolute Auto 11.5 K/mm3 (1.3-6.7); Neutrophils Percent Auto 76.9 % (45.5-73.1); Platelet Count Result 196 k/mm3 (150-375)
[2020-02-20] MEDS: amLODIPine BESYLATE 2.5 MG TABLET 7.5 MG PO (09:12)
[2020-02-20] MEDS: CHOLECALCIFEROL 1,000 UNITS TABLET 2000 UNITS PO (09:13)
[2020-02-20] MEDS: carvediloL 25 MG TABLET PO ×2 (09:13→20:34)
[2020-02-20] MEDS: CLOPIDOGREL BISULFATE 75 MG TABLET PO (09:14)
[2020-02-20] MEDS: FINASTERIDE 5 MG TABLET PO (09:15)
[2020-02-20] MEDS: FERROUS SULFATE 324 MG TABLET PO (09:15)
[2020-02-20] MEDS: cloNIDine HCL 0.2 MG TABLET PO ×2 (09:16→17:39)
[2020-02-20] MEDS: levETIRAcetam 500 MG TABLET PO ×2 (09:16→20:33)
[2020-02-20] MEDS: MEMANTINE 10 MG TABLET PO ×2 (09:17→17:45)
[2020-02-20] MEDS: lisinopriL 20 MG TABLET PO (09:17)
[2020-02-20] MEDS: MULTIVITAMINS THERAPEUTIC TAB (*BKC) 1 TABLET PO (09:18)
[2020-02-20] MEDS: TAMSULOSIN HCL 0.4 MG CAPSULE PO ×2 (09:18→21:00)
[2020-02-20] MEDS: INSULIN GLARGINE (*BKC) 100 UNITS/ML 30 UNITS SUB-Q (09:21)
[2020-02-20 09:31] LABS: Alanine Aminotransferase 84 U/L (4-50); Albumin Level 3.2 g/dL (3.5-5.1); Alkaline Phosphatase 68 U/L (38-126); Anion Gap 10 mmol/L (8-16); Aspartate Amino Transferase 195 U/L (17-59); Bilirubin,Total 0.6 mg/dL (0.2-1.3); Blood Urea Nitrogen 55 mg/dL (9-20); Calcium 9.1 mg/dL (8.4-10.2); Carbon Dioxide 14 mmol/L (22-30); Chloride 115 mmol/L (98-107); Estimated CRCL calculation 29 ml/min; Estimated Glomerular Filt Rate 34; Glucose 218 mg/dL (75-110); Lactate Dehydrogenase 1142 U/L (313-618); Magnesium 2.4 mg/dL (1.6-2.3); Potassium 3.7 mmol/L (3.4-5.0); Sodium 139 mmol/L (137-145)
[2020-02-20 10:09] LABS: CRP 33.7 mg/dL (<1.0); Creatine Kinase 4776 U/L (55-170)
[2020-02-20 12:47] LABS: Glucose Point of Care 319 (65-105)
--- NOTE | 2020-02-20 16:40 | PM.IMPN ---
Progress Note: A&P Assessment and Plan (1) Encephalopathy: Code(s): G93.40 - Encephalopathy, unspecified Status: Acute Assessment and Plan: Improving. Confusion may be secondary to COVID encephalopathy and C. diff infection superimposed on underlying dementia. CT brain was negative for acute findings. Urinalysis is negative for infection. Ammonia is normal. Folate and B12 are normal. CXR is negative for acute findings including pneumonia. Lactic acid is normal. Meningitis unlikely given improvement and lack of meningeal signs. No focal neuro deficits noted on exam. Mental status appears to be fluctuant. Noted by previous provider to be minimally responsive on 02/19/2020 with improvement upon later visit. Upon my exam, patient is oriented to self only and follows all commands. Appears to be consistent with his baseline. Neurology has been consulted with no further recommendations at this time Monitor mental status closely (2) COVID-19: Code(s): U07.1 - COVID-19 Status: Acute Assessment and Plan: COVID-19 is positive and he may have COVID-19 encephalopathy. CXR is unremarkable. Low-grade fever of 100.3 on 02/18. At this time, will avoid remdesivir and dexamethasone as he is not hypoxic, therefore these medications are not indicated. Supplemental O2 as needed with goal saturation 90% or above Supportive care as needed to include bronchodilators, expectorants, and antipyretics. Continue isolation precautions (3) C. difficile diarrhea: Code(s): A04.72 - Enterocolitis due to Clostridium difficile, not specified as recurrent Status: Acute Assessment and Plan: The pt was having diarrhea. C. diff Toxin B PCR testing is positive. Slight increase in leukocytosis noted. Abdominal X-ray with nonobstructive pattern. Decreased stool frequency today. Continue PO vancomycin initiated 02/17. Begin probiotic and banatrol Monitor stool frequency and volume (4) Lethargic: Code(s): R53.83 - Other fatigue Status: Acute Assessment and Plan: Improved. Patient awake and alert. (5) Guaiac positive stools: Code(s): R19.5 - Other fecal abnormalities Status: Acute Assessment and Plan: He does not have gross melena or hematochezia. Hb & Hct are relatively stable with no evidence of active bleeding. He is on xarelto for hx of atrial fibrillation. He was seen by Dr. Melgar who recommends elective colonoscopy outpatient due to hx of colon polyps. He did have a colonoscopy in 2015 that showed benign colon adenoma. He is to be referred to Dr. Melgar after discharge. (6) Acute kidney injury: Code(s): N17.9 - Acute kidney failure, unspecified Status: Acute Assessment and Plan: He has CKD stage II-III with acute on chronic kidney injury. This is likely pre-renal as he is having diarrhea and poor PO intake. He also had urinary retention and ramirez was placed overnight 02/15. IV fluids were discontinued 02/17 since renal function returned to baseline. Renal US shows medical renal disease, no hydronephrosis, and stable appearance of bilateral renal cysts. Cr is increased to 2.3 today. Will restart IV fluids given increase in Cr, likely due to dehydration from GI losses Hold lasix and lisinopril Avoid nephrotoxins and renally dose medications. Renal US shows medical renal disease, no hydronephrosis, and stable appearance of bilateral renal cysts. Continue ramirez catheter (7) COPD (chronic obstructive pulmonary disease): Qualifiers: COPD type: unspecified COPD Qualified Code(s): J44.9 - Chronic obstructive pulmonary disease, unspecified Code(s): J44.9 - Chronic obstructive pulmonary disease, unspecified Status: Acute Assessment and Plan: Chronic with no acute issues. Continue albuterol as needed. (8) BPH (benign prostatic hyperplasia): Code(s): N40.0 - Benign prostatic hyperplasia wi
[2020-02-20] MEDS: INSULIN ASPART (*BKC) 100 UNITS/ML SUB-Q (17:30)
[2020-02-20] MEDS: RIVAROXABAN 20 MG TABLET PO (17:44)
[2020-02-20] MEDS: SODIUM CHLORIDE 0.9% IV 1,000 ML 85 ML IV CONT (18:06)
[2020-02-20 18:37] LABS: Glucose Point of Care 160 (65-105)
[2020-02-20] MEDS: SACCHAROMYCES BOULARDII 250 MG CAPSULE PO (19:31)
[2020-02-20] MEDS: QUEtiapine FUMARATE 12.5 MG TABLET PO (20:32)
[2020-02-20] MEDS: DONEPEZIL HCL 10 MG TABLET PO (20:33)
[2020-02-20 21:38] LABS: Glucose Point of Care 211 (65-105)
[2020-02-21] VITALS (8 sets, daily range): BP systolic 100–119; BP diastolic 52–87; PULSE 74–100; RESP 18–22; TEMP 36.3–37.7; O2SAT 94–98
[2020-02-21] MEDS: VANCOMYCIN ORAL 125 MG/2.5 ML SYRUP PO ×3 (05:02→18:00)
[2020-02-21] MEDS: SODIUM CHLORIDE 0.9% IV 1,000 ML 85 ML IV CONT (06:57)
[2020-02-21 08:04] LABS: Basophils Absolute Auto 0.1 K/mm3 (0.0-0.1); Basophils Percent Auto 0.6 % (0.2-1.2); Eosinophils Absolute Auto 0.1 K/mm3 (0-0.3); Eosinophils Percent Auto 1.1 % (0-4.4); Hematocrit 31.9 % (42.0-52.0); Hemoglobin 10.2 g/dL (14.0-18.0); Immature Granulocyte Absolute 0.19 K/mm3 (0.00-0.031); Lymphocytes Absolute Auto 1.21 K/mm3 (0.9-3.2); Lymphocytes Percent Auto 12.6 % (18.3-44.2); Mean Corpuscular Hemoglobin 29.1 pg (26-34); Mean Corpuscular Volume 90.9 fl (80-100); Monocytes Absolute Auto 1.2 K/mm3 (0.1-0.6); Monocytes Percent Auto 12.1 % (2.6-8.5); Neutrophils Absolute Auto 6.9 K/mm3 (1.3-6.7); Neutrophils Percent Auto 71.6 % (45.5-73.1); Platelet Count Result 192 k/mm3 (150-375); Red Blood Count 3.51 M/mm3 (4.6-6.20); Red Cell Distribution Width 13.2 % (11.5-14.5); White Blood Count 9.6 K/mm3 (4.5-10.0)
[2020-02-21 08:17] LABS: Alanine Aminotransferase 84 U/L (4-50); Albumin Level 3.1 g/dL (3.5-5.1); Alkaline Phosphatase 82 U/L (38-126); Anion Gap 12 mmol/L (8-16); Aspartate Amino Transferase 137 U/L (17-59); Bilirubin,Total 0.5 mg/dL (0.2-1.3); Blood Urea Nitrogen 70 mg/dL (9-20); Carbon Dioxide 9 mmol/L (22-30); Chloride 119 mmol/L (98-107); Estimated CRCL calculation 22 ml/min; Estimated Glomerular Filt Rate 25; Glucose 162 mg/dL (75-110); Potassium 3.7 mmol/L (3.4-5.0); Sodium 140 mmol/L (137-145)
[2020-02-21] MEDS: INSULIN ASPART (*BKC) 100 UNITS/ML SUB-Q ×3 (09:34→17:54)
[2020-02-21] MEDS: amLODIPine BESYLATE 2.5 MG TABLET 7.5 MG PO (09:35)
[2020-02-21] MEDS: carvediloL 25 MG TABLET PO ×2 (09:35→22:24)
[2020-02-21] MEDS: cloNIDine HCL 0.2 MG TABLET PO ×2 (09:36→18:00)
[2020-02-21] MEDS: FERROUS SULFATE 324 MG TABLET PO (09:36)
[2020-02-21] MEDS: CLOPIDOGREL BISULFATE 75 MG TABLET PO (09:36)
[2020-02-21] MEDS: CHOLECALCIFEROL 1,000 UNITS TABLET 2000 UNITS PO (09:36)
[2020-02-21] MEDS: levETIRAcetam 500 MG TABLET PO ×2 (09:37→22:24)
[2020-02-21] MEDS: FINASTERIDE 5 MG TABLET PO (09:37)
[2020-02-21] MEDS: INSULIN GLARGINE (*BKC) 100 UNITS/ML 30 UNITS SUB-Q (09:37)
[2020-02-21] MEDS: MEMANTINE 10 MG TABLET PO ×2 (09:37→17:53)
[2020-02-21] MEDS: lisinopriL 20 MG TABLET PO (09:37)
[2020-02-21] MEDS: TAMSULOSIN HCL 0.4 MG CAPSULE PO ×2 (09:38→22:24)
[2020-02-21] MEDS: SACCHAROMYCES BOULARDII 250 MG CAPSULE PO ×2 (09:38→17:53)
[2020-02-21] MEDS: MULTIVITAMINS THERAPEUTIC TAB (*BKC) 1 TABLET PO (09:38)
[2020-02-21 09:52] LABS: Glucose Point of Care 141 (65-105)
[2020-02-21 12:40] LABS: Glucose Point of Care 110 (65-105)
--- NOTE | 2020-02-21 15:30 | PM.IMPN ---
Progress Note: A&P Assessment and Plan (1) Encephalopathy: Code(s): G93.40 - Encephalopathy, unspecified Status: Acute Assessment and Plan: Improving. Confusion may be secondary to COVID encephalopathy and C. diff infection superimposed on underlying dementia. CT brain was negative for acute findings. Urinalysis is negative for infection. Ammonia is normal. Folate and B12 are normal. CXR is negative for acute findings including pneumonia. Lactic acid is normal. Meningitis unlikely given improvement and lack of meningeal signs. No focal neuro deficits noted on exam. Mental status appears to be fluctuant. Neurology has been consulted with no further recommendations at this time Monitor mental status closely Continue with treatment for acute infection as detailed below. (2) COVID-19: Code(s): U07.1 - COVID-19 Status: Acute Assessment and Plan: COVID-19 is positive and he may have COVID-19 encephalopathy. Initial CXR is unremarkable. Low-grade fever with Tmax of 100.3 on 02/18. CXR repeated today as patient required 2L O2 per NC which showed worsened diffuse lung disease (pneumonia vs pulmonary edema) Initiate remdesivir today due to O2 requirements. Continue to hold on Remdesivir and will initiate if worsening. Supplemental O2 as needed with goal saturation 90% or above Supportive care as needed to include bronchodilators, expectorants, and antipyretics. Continue isolation precautions (3) C. difficile diarrhea: Code(s): A04.72 - Enterocolitis due to Clostridium difficile, not specified as recurrent Status: Acute Assessment and Plan: The pt was having diarrhea therefore stool sample collected. C. diff Toxin B PCR testing is positive. Leukocytosis resolved. Abdominal X-ray with nonobstructive pattern. Decreased stool frequency today and more formed. Continue PO vancomycin initiated 02/17. Daily probiotic and banatrol Monitor stool frequency and volume (4) Guaiac positive stools: Code(s): R19.5 - Other fecal abnormalities Status: Acute Assessment and Plan: He does not have gross melena or hematochezia. Hb & Hct are relatively stable with no evidence of active bleeding. He is on xarelto for hx of atrial fibrillation. He was seen by Dr. Melgar who recommends elective colonoscopy outpatient due to hx of colon polyps. He did have a colonoscopy in 2014 that showed benign colon adenoma. He is to be referred to Dr. Melgar after discharge. (5) Acute kidney injury: Code(s): N17.9 - Acute kidney failure, unspecified Status: Acute Assessment and Plan: He has CKD stage II-III with acute on chronic kidney injury. Baseline appears to be 1.5-1.6. Patient's son believes he is established with senior data scientist Dr. Anaya. Suspect pre-renal etiology as he is having diarrhea and poor PO intake. He also had urinary retention and ramirez was placed overnight 02/15, therefore obstructive considered but less likely as no improvement after ramirez. Renal US shows medical renal disease, no hydronephrosis, and stable appearance of bilateral renal cysts. IV fluids discontinued despite increase in creatinine due to suspected pulmonary edema. Careful monitoring required to find balance between need for IV fluid and risk for pulmonary edema. Hold lasix and lisinopril Avoid nephrotoxins and renally dose medications. Continue ramirez catheter (6) CHF (congestive heart failure): Qualifiers: Heart failure type: diastolic Heart failure chronicity: chronic Qualified Code(s): I50.32 - Chronic diastolic (congestive) heart failure Code(s): I50.9 - Heart failure, unspecified Status: Acute Assessment and Plan: Diastolic. EF on echocardiogram 03/2019 was normal. CXR today suggested pulmonary edema, which is likely secondary to IV fluids required for acute kidney injury. Continue carvedilol and lisinopril. Monitor volume status
[2020-02-21 16:39] LABS: Glucose Point of Care 87 (65-105)
[2020-02-21] MEDS: RIVAROXABAN 20 MG TABLET PO (17:53)
[2020-02-21] MEDS: DONEPEZIL HCL 10 MG TABLET PO (22:24)
[2020-02-21] MEDS: QUEtiapine FUMARATE 12.5 MG TABLET PO (22:24)
[2020-02-21 22:42] LABS: Glucose Point of Care 122 (65-105)
[2020-02-22] VITALS (9 sets, daily range): BP systolic 106–129; BP diastolic 42–60; PULSE 68–91; RESP 16–20; TEMP 36.1–36.9; O2SAT 96–100
[2020-02-22] MEDS: VANCOMYCIN ORAL 125 MG/2.5 ML SYRUP PO ×5 (00:12→23:24)
[2020-02-22] MEDS: INSULIN ASPART (*BKC) 100 UNITS/ML SUB-Q ×5 (10:01→17:13)
[2020-02-22] MEDS: DEXAMETHASONE 2 MG TABLET 6 MG PO (10:01)
[2020-02-22] MEDS: TAMSULOSIN HCL 0.4 MG CAPSULE PO ×2 (10:04→21:17)
[2020-02-22] MEDS: CHOLECALCIFEROL 1,000 UNITS TABLET 2000 UNITS PO (10:04)
[2020-02-22] MEDS: MEMANTINE 10 MG TABLET PO ×2 (10:05→17:15)
[2020-02-22] MEDS: SACCHAROMYCES BOULARDII 250 MG CAPSULE PO ×2 (10:05→17:15)
[2020-02-22] MEDS: levETIRAcetam 500 MG TABLET PO ×2 (10:05→21:16)
[2020-02-22] MEDS: FERROUS SULFATE 324 MG TABLET PO (10:05)
[2020-02-22] MEDS: FINASTERIDE 5 MG TABLET PO (10:05)
[2020-02-22] MEDS: CLOPIDOGREL BISULFATE 75 MG TABLET PO (10:05)
[2020-02-22] MEDS: MULTIVITAMINS THERAPEUTIC TAB (*BKC) 1 TABLET PO (10:05)
[2020-02-22] MEDS: INSULIN GLARGINE (*BKC) 100 UNITS/ML 30 UNITS SUB-Q (10:06)
[2020-02-22 11:52] LABS: Hematocrit 30.8 % (42.0-52.0); Hemoglobin 10.1 g/dL (14.0-18.0); Mean Corpuscular HGB Conc 32.8 g/dl (32-36); Mean Corpuscular Hemoglobin 28.7 pg (26-34); Mean Corpuscular Volume 87.5 fl (80-100); Mean Platelet Volume 11.5 fl (7.4-10.4); Platelet Count Result 298 k/mm3 (150-375); Red Blood Count 3.52 M/mm3 (4.6-6.20); Red Cell Distribution Width 13.3 % (11.5-14.5); White Blood Count 15.2 K/mm3 (4.5-10.0)
[2020-02-22 12:03] LABS: Anion Gap 11 mmol/L (8-16); Blood Urea Nitrogen 75 mg/dL (9-20); Calcium 9.5 mg/dL (8.4-10.2); Carbon Dioxide 14 mmol/L (22-30); Chloride 120 mmol/L (98-107); Estimated CRCL calculation 19 ml/min; Estimated Glomerular Filt Rate 21; Glucose 222 mg/dL (75-110); Potassium 3.8 mmol/L (3.4-5.0); Sodium 145 mmol/L (137-145)
--- NOTE | 2020-02-22 12:46 | PM.IMPN ---
Progress Note: A&P Assessment and Plan (1) Encephalopathy: Code(s): G93.40 - Encephalopathy, unspecified Status: Acute Assessment and Plan: Improving. Confusion may be secondary to COVID encephalopathy and C. diff infection superimposed on underlying dementia. Additionally may be due to uremia and overall dehydration. CT brain was negative for acute findings. Urinalysis is negative for infection. Ammonia is normal. Folate and B12 are normal. CXR is negative for acute findings including pneumonia. Lactic acid is normal. Meningitis unlikely given improvement and lack of meningeal signs. No focal neuro deficits noted on exam. Mental status appears to be fluctuant. Neurology has been consulted with no further recommendations at this time Monitor mental status closely Continue with treatment for acute infection as detailed below. (2) COVID-19: Code(s): U07.1 - COVID-19 Status: Acute Assessment and Plan: COVID-19 is positive and he may have COVID-19 encephalopathy. Initial CXR is unremarkable. Low-grade fever with Tmax of 100.3 on 02/18. CXR repeated 02/20 as patient required 2L O2 per NC which showed worsened diffuse lung disease (pneumonia vs pulmonary edema). Currently requiring 1L O2. Continue with dexamethasone; initiated 02/21/20 due to O2 requirements. Continue to hold on Remdesivir and will initiate if worsening. Supplemental O2 as needed with goal saturation 90% or above Supportive care as needed to include bronchodilators, expectorants, and antipyretics. Trend acute phase reactants Continue isolation precautions (3) C. difficile diarrhea: Code(s): A04.72 - Enterocolitis due to Clostridium difficile, not specified as recurrent Status: Acute Assessment and Plan: The pt was having diarrhea therefore stool sample collected. C. diff Toxin B PCR testing is positive. Leukocytosis resolved. Abdominal X-ray with nonobstructive pattern. Decreased stool frequency today and more formed. Slightly increased leukocytosis today. Continue PO vancomycin initiated 02/17. 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 Baseline appears to be 1.5-1.6. Patient's son believes he is established with feather stitcher Dr. Anaya. Highly suspect pre-renal etiology as he is having diarrhea and poor PO intake. Post-renal etiology secondary to bladder obstruction less likely as no improvement following ramirez placement and no hydronephrosis. Renal US shows medical renal disease, no hydronephrosis, and stable appearance of bilateral renal cysts. Resume IV fluids at 125 ml/hr. He has had IV fluids intermittently discontinued due to concerns for pulmonary edema. However, I suspect that he is intravascularly dry. Careful monitoring of volume status needed. Hold lasix and lisinopril Avoid nephrotoxins and renally dose medications. Continue ramirez catheter (5) Rhabdomyolysis: Qualifiers: Rhabdomyolysis type: non-traumatic Qualified Code(s): M62.82 - Rhabdomyolysis Code(s): M62.82 - Rhabdomyolysis Status: Acute Assessment and Plan: Improving. CK on admission was 7660. Patient had 3+ blood on initial UA. Improved to 1295 today. LFTs mildly elevated. Urine appears dark. Etiology not entirely clear. Patient has history of rhabdo in June 2019 secondary to fall. No current history to suggest traumatic cause. Patient is not on any medications known to induce rhabdo. There are reports of episodes induced by COVID-19, which is a possibility. Continue with IV fluids at 125 ml/hr Monitor I&O closely Trend LFTs Monitor CK daily (6) Guaiac positive stools: Code(s): R19.5 - Other fecal abnormalities Status: Acute Assessment and P
[2020-02-22 13:00] LABS: Glucose Point of Care 235 (65-105)
[2020-02-22] MEDS: amLODIPine BESYLATE 2.5 MG TABLET 7.5 MG PO (13:16)
[2020-02-22] MEDS: SODIUM CHLORIDE 0.9% IV 1,000 ML 100 ML IV CONT (13:19)
[2020-02-22 13:21] LABS: Creatine Kinase 1295 U/L (55-170)
[2020-02-22 16:05] LABS: Add Urine Microscopic? YES; Appearance Urine Cloudy (Clear); Bacteria Urine Trace /hpf; Bilirubin Urine Negative (Negative); Blood Urine 2+ (Negative); Color Urine Yellow (Yellow); Glucose Urine UA Negative (Negative); Ketones Urine Negative (Negative); Leukocyte Esterase Ur 1+ LEU/UL (Negative); Mucus Urine Rare /lpf; Nitrate Urine Negative (Negative); Protein Urine 2+ mg/dL (Negative); Specific Grav Ur 1.016 (1.001-1.035); Squamous Epithelial Cell Urine Rare /hpf (Few); Urobilinogen Urine Negative mg/dL (<2.0)
[2020-02-22 16:43] LABS: Creatinine Urine 273.3 mg/dL
[2020-02-22] MEDS: RIVAROXABAN 20 MG TABLET PO (17:15)
[2020-02-22] MEDS: SODIUM BICARBONATE TAB 650 MG TABLET PO (17:15)
[2020-02-22 17:57] LABS: Glucose Point of Care 272 (65-105)
[2020-02-22] MEDS: QUEtiapine FUMARATE 12.5 MG TABLET PO (21:16)
[2020-02-22] MEDS: carvediloL 25 MG TABLET PO (21:17)
[2020-02-22] MEDS: DONEPEZIL HCL 10 MG TABLET PO (21:17)
[2020-02-22 21:37] LABS: Glucose Point of Care 260 (65-105)
[2020-02-22] MEDS: SODIUM CHLORIDE 0.9% IV 1,000 ML 125 ML IV CONT (23:28)
[2020-02-23] VITALS (7 sets, daily range): BP systolic 116–141; BP diastolic 50–89; PULSE 74–86; RESP 16–20; TEMP 35.9–36.7; O2SAT 91–99
[2020-02-23] MEDS: VANCOMYCIN ORAL 125 MG/2.5 ML SYRUP PO ×4 (05:34→23:49)
[2020-02-23 06:27] LABS: Hematocrit 27.3 % (42.0-52.0); Hemoglobin 9.1 g/dL (14.0-18.0); Mean Corpuscular HGB Conc 33.3 g/dl (32-36); Mean Corpuscular Hemoglobin 29.6 pg (26-34); Mean Corpuscular Volume 88.9 fl (80-100); Mean Platelet Volume 12.2 fl (7.4-10.4); Platelet Count Result 288 k/mm3 (150-375); Red Blood Count 3.07 M/mm3 (4.6-6.20); Red Cell Distribution Width 13.5 % (11.5-14.5); White Blood Count 16.6 K/mm3 (4.5-10.0)
[2020-02-23 06:58] LABS: Alanine Aminotransferase 136 U/L (4-50); Albumin Level 3.1 g/dL (3.5-5.1); Alkaline Phosphatase 116 U/L (38-126); Anion Gap 12 mmol/L (8-16); Aspartate Amino Transferase 119 U/L (17-59); Bilirubin,Total 0.5 mg/dL (0.2-1.3); Blood Urea Nitrogen 83 mg/dL (9-20); Calcium 8.8 mg/dL (8.4-10.2); Carbon Dioxide 9 mmol/L (22-30); Chloride 119 mmol/L (98-107); Creatine Kinase 793 U/L (55-170); Estimated CRCL calculation 20 ml/min; Estimated Glomerular Filt Rate 22; Glucose 326 mg/dL (75-110); Lactate Dehydrogenase 1062 U/L (313-618); Potassium 4.4 mmol/L (3.4-5.0); Sodium 140 mmol/L (137-145)
[2020-02-23 07:08] LABS: CRP 25.4 mg/dL (<1.0)
[2020-02-23] MEDS: SODIUM BICARBONATE 8.4% 100 MEQ in DEXTROSE 5% 1,000 ML 1,000 ML 75 MEQ IV CONT ×2 (09:07→23:49)
[2020-02-23] MEDS: INSULIN ASPART (*BKC) 100 UNITS/ML SUB-Q ×3 (09:08→17:52)
[2020-02-23] MEDS: INSULIN ASPART (*BKC) 100 UNITS/ML 7 UNITS SUB-Q ×2 (09:08→12:22)
[2020-02-23] MEDS: CHOLECALCIFEROL 1,000 UNITS TABLET 2000 UNITS PO (09:09)
[2020-02-23] MEDS: MEMANTINE 10 MG TABLET PO ×2 (09:09→17:55)
[2020-02-23] MEDS: DEXAMETHASONE 2 MG TABLET 6 MG PO (09:09)
[2020-02-23] MEDS: FINASTERIDE 5 MG TABLET PO (09:09)
[2020-02-23] MEDS: levETIRAcetam 500 MG TABLET PO ×2 (09:09→21:29)
[2020-02-23] MEDS: TAMSULOSIN HCL 0.4 MG CAPSULE PO ×2 (09:10→21:29)
[2020-02-23] MEDS: CLOPIDOGREL BISULFATE 75 MG TABLET PO (09:10)
[2020-02-23] MEDS: SACCHAROMYCES BOULARDII 250 MG CAPSULE PO ×2 (09:10→17:56)
[2020-02-23] MEDS: FERROUS SULFATE 324 MG TABLET PO (09:10)
[2020-02-23] MEDS: amLODIPine BESYLATE 2.5 MG TABLET 7.5 MG PO (09:10)
[2020-02-23] MEDS: MULTIVITAMINS THERAPEUTIC TAB (*BKC) 1 TABLET PO (09:10)
[2020-02-23 09:11] LABS: Glucose Point of Care 290 (65-105)
[2020-02-23] MEDS: INSULIN GLARGINE (*BKC) 100 UNITS/ML 30 UNITS SUB-Q (09:11)
--- NOTE | 2020-02-23 09:59 | PCOTNOTE ---
Attempted to see Pt this AM. Pt was pleasantly confused and refused to participate in therapy. Pt stated that he will try tomorrow since it was going to rain today. Will attempt to see Pt at a later time if able. RN informed of pt's refusal.
--- NOTE | 2020-02-23 11:15 | PCNWS ---
Weekly nutritional screen. Patient is tolerating current diet with adequate intake. No weight loss reported. No nutritional needs at this time.
[2020-02-23 14:26] LABS: Glucose Point of Care 368 (65-105)
--- NOTE | 2020-02-23 16:48 | PM.IMPN ---
Progress Note: A&P Assessment and Plan (1) Encephalopathy: Code(s): G93.40 - Encephalopathy, unspecified Status: Acute Assessment and Plan: Improving. Confusion may be secondary to COVID encephalopathy and C. diff infection superimposed on underlying dementia. Additionally may be due to uremia and overall dehydration. CT brain was negative for acute findings. Urinalysis is negative for infection. Ammonia is normal. Folate and B12 are normal. CXR is negative for acute findings including pneumonia. Lactic acid is normal. Meningitis unlikely given improvement and lack of meningeal signs. No focal neuro deficits noted on exam. Mental status appears to be fluctuant. Neurology has been consulted with no further recommendations at this time Monitor mental status closely Continue with treatment for acute infection as detailed below. (2) COVID-19: Code(s): U07.1 - COVID-19 Status: Acute Assessment and Plan: COVID-19 is positive and he may have COVID-19 encephalopathy. Initial CXR is unremarkable. Low-grade fever with Tmax of 100.3 on 02/18. CXR repeated 02/20 as patient required 2L O2 per NC which showed worsened diffuse lung disease (pneumonia vs pulmonary edema). Currently maintaining adequate oxygen saturations on room air Continue with dexamethasone; initiated 02/21/20 due to O2 requirements. Continue to hold off on Remdesivir at this time and will initiate if worsening. Supplemental O2 as needed with goal saturation 90% or above Supportive care as needed to include bronchodilators, expectorants, and antipyretics. Trend acute phase reactants Continue isolation precautions (3) C. difficile diarrhea: Code(s): A04.72 - Enterocolitis due to Clostridium difficile, not specified as recurrent Status: Acute Assessment and Plan: The pt was having diarrhea therefore stool sample collected. C. diff Toxin B PCR testing is positive. Leukocytosis resolved. Abdominal X-ray with nonobstructive pattern. Decreased stool frequency today and more formed. Slightly increased leukocytosis today. Continue PO vancomycin initiated 02/17. 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 Baseline appears to be 1.5-1.6. Patient's son believes he is established with strategic client executive Dr. Anaya. Highly suspect pre-renal etiology as he is having diarrhea and poor PO intake. Post-renal etiology secondary to bladder obstruction less likely as no improvement following ramirez placement and no hydronephrosis. Renal US shows medical renal disease, no hydronephrosis, and stable appearance of bilateral renal cysts. Continue IV fluids. He has had IV fluids intermittently discontinued due to concerns for pulmonary edema. However, I suspect that he is intravascularly dry. Careful monitoring of volume status needed. Hold lasix and lisinopril Avoid nephrotoxins and renally dose medications. Continue ramirez catheter (5) Rhabdomyolysis: Qualifiers: Rhabdomyolysis type: non-traumatic Qualified Code(s): M62.82 - Rhabdomyolysis Code(s): M62.82 - Rhabdomyolysis Status: Acute Assessment and Plan: Improving. CK on admission was 7660. Patient had 3+ blood on initial UA. Improved to 700s today. LFTs elevated. Urine appears dark. Etiology not entirely clear. Patient has history of rhabdo in June 2019 secondary to fall. No current history to suggest traumatic cause. Patient is not on any medications known to induce rhabdo. There are reports of episodes induced by COVID-19, which is a possibility. Continue with IV fluids at 75 ml/hr Monitor I&O closely Trend LFTs (6) Guaiac positive stools: Code(s): R19.5 - Other fecal abnormalities Status: Acute As
[2020-02-23 17:29] LABS: Glucose Point of Care 370 (65-105)
[2020-02-23] MEDS: cloNIDine HCL 0.2 MG TABLET PO (17:52)
[2020-02-23] MEDS: INSULIN ASPART (*BKC) 100 UNITS/ML 9 UNITS SUB-Q (17:53)
[2020-02-23] MEDS: RIVAROXABAN 20 MG TABLET PO (17:55)
[2020-02-23] MEDS: DONEPEZIL HCL 10 MG TABLET PO (21:29)
[2020-02-23] MEDS: carvediloL 25 MG TABLET PO (21:29)
[2020-02-23] MEDS: QUEtiapine FUMARATE 12.5 MG TABLET PO (21:30)
[2020-02-23 21:36] LABS: Glucose Point of Care 297 (65-105)
[2020-02-24] VITALS (7 sets, daily range): BP systolic 110–155; BP diastolic 44–93; PULSE 69–103; RESP 16–20; TEMP 36.3–37; O2SAT 91–96
[2020-02-24] MEDS: VANCOMYCIN ORAL 125 MG/2.5 ML SYRUP PO ×3 (05:32→18:25)
[2020-02-24] MEDS: DEXAMETHASONE 2 MG TABLET 6 MG PO (08:59)
[2020-02-24] MEDS: CHOLECALCIFEROL 1,000 UNITS TABLET 2000 UNITS PO (08:59)
[2020-02-24] MEDS: carvediloL 25 MG TABLET PO (09:00)
[2020-02-24] MEDS: FINASTERIDE 5 MG TABLET PO (09:00)
[2020-02-24] MEDS: FERROUS SULFATE 324 MG TABLET PO (09:00)
[2020-02-24] MEDS: TAMSULOSIN HCL 0.4 MG CAPSULE PO (09:00)
[2020-02-24] MEDS: MEMANTINE 10 MG TABLET PO ×2 (09:00→18:26)
[2020-02-24] MEDS: CLOPIDOGREL BISULFATE 75 MG TABLET PO (09:00)
[2020-02-24] MEDS: levETIRAcetam 500 MG TABLET PO (09:00)
[2020-02-24] MEDS: MULTIVITAMINS THERAPEUTIC TAB (*BKC) 1 TABLET PO (09:00)
[2020-02-24] MEDS: cloNIDine HCL 0.2 MG TABLET PO ×2 (09:00→18:26)
[2020-02-24] MEDS: SACCHAROMYCES BOULARDII 250 MG CAPSULE PO ×2 (09:00→18:26)
[2020-02-24] MEDS: amLODIPine BESYLATE 2.5 MG TABLET 7.5 MG PO (09:00)
[2020-02-24 09:18] LABS: Hematocrit 31.4 % (42.0-52.0); Hemoglobin 10.5 g/dL (14.0-18.0); Mean Corpuscular HGB Conc 33.4 g/dl (32-36); Mean Corpuscular Hemoglobin 29.6 pg (26-34); Mean Corpuscular Volume 88.5 fl (80-100); Platelet Count Result 343 k/mm3 (150-375); Red Blood Count 3.55 M/mm3 (4.6-6.20); Red Cell Distribution Width 13.3 % (11.5-14.5); White Blood Count 15.2 K/mm3 (4.5-10.0)
[2020-02-24 09:31] LABS: Alanine Aminotransferase 103 U/L (4-50); Albumin Level 3.2 g/dL (3.5-5.1); Alkaline Phosphatase 118 U/L (38-126); Anion Gap 12 mmol/L (8-16); Aspartate Amino Transferase 64 U/L (17-59); Bilirubin,Total 0.5 mg/dL (0.2-1.3); Blood Urea Nitrogen 80 mg/dL (9-20); Carbon Dioxide 12 mmol/L (22-30); Chloride 120 mmol/L (98-107); Estimated CRCL calculation 24 ml/min; Estimated Glomerular Filt Rate 27; Glucose 284 mg/dL (75-110); Magnesium 2.9 mg/dL (1.6-2.3); Potassium 3.8 mmol/L (3.4-5.0); Sodium 144 mmol/L (137-145)
[2020-02-24] MEDS: INSULIN ASPART (*BKC) 100 UNITS/ML SUB-Q ×2 (10:17→11:53)
[2020-02-24] MEDS: INSULIN ASPART (*BKC) 100 UNITS/ML 9 UNITS SUB-Q ×2 (10:18→11:54)
[2020-02-24] MEDS: INSULIN GLARGINE (*BKC) 100 UNITS/ML 35 UNITS SUB-Q (10:18)
[2020-02-24 12:15] LABS: Glucose Point of Care 253 (65-105)
--- NOTE | 2020-02-24 13:04 | PCOTNOTE ---
Attempted to see patient on this date in the afternoon. Nursing cleared patient for OT services and reported has not been participating. Patient was sleeping upon arrival, OT brought in his lunch. OT attempted to wake patient, patient continued to moan and not open his eyes or acknowledge OT. OT continued to encourage to participate and eat lunch. Patient continued to moan. Nursing was notified of OT departure and that the patient did not eat.
--- NOTE | 2020-02-24 15:26 | PM.IMPN ---
Progress Note: A&P Assessment and Plan (1) Encephalopathy: Code(s): G93.40 - Encephalopathy, unspecified Status: Acute Assessment and Plan: Improving. Confusion may be secondary to COVID encephalopathy and C. diff infection superimposed on underlying dementia. Additionally may be due to uremia and overall dehydration. CT brain was negative for acute findings. Urinalysis is negative for infection. Ammonia is normal. Folate and B12 are normal. CXR is negative for acute findings including pneumonia. Lactic acid is normal. Meningitis unlikely given improvement and lack of meningeal signs. No focal neuro deficits noted on exam. Mental status appears to be fluctuant. Neurology has been consulted with no further recommendations at this time Monitor mental status closely Continue with treatment for acute infection as detailed below. (2) COVID-19: Code(s): U07.1 - COVID-19 Status: Acute Assessment and Plan: COVID-19 is positive. Initial CXR is unremarkable. Low-grade fever with Tmax of 100.3 on 02/18, he has now been afebrile >72 hours. CXR repeated 02/20 as patient required 2L O2 per NC which showed worsened diffuse lung disease (felt to be more likely related to pulmonary edema than pneumonia). Currently maintaining adequate oxygen saturations on room air Continue with dexamethasone; initiated 02/21/20 due to O2 requirements. Do not feel that Remdesivir would be beneficial at this juncture as CXR unremarkable and O2 requirements have improved. Supplemental O2 as needed with goal saturation 90% or above Supportive care as needed to include bronchodilators, expectorants, and antipyretics. Trend acute phase reactants Continue isolation precautions (3) C. difficile diarrhea: Code(s): A04.72 - Enterocolitis due to Clostridium difficile, not specified as recurrent Status: Acute Assessment and Plan: The pt was having diarrhea therefore stool sample collected. C. diff Toxin B PCR testing is positive. Abdominal X-ray with nonobstructive pattern. Seems to be improving and stool frequency continues to decrease and is becoming more formed. Continue PO vancomycin initiated 02/17. 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 Baseline appears to be 1.5-1.6. Patient's son believes he is established with production manufacturing worker Dr. Anaya. Highly suspect pre-renal etiology as he is having diarrhea and poor PO intake. Post-renal etiology secondary to bladder obstruction less likely as no improvement following ramirez placement and no hydronephrosis. Renal US shows medical renal disease, no hydronephrosis, and stable appearance of bilateral renal cysts. Continue IV fluids. He has had IV fluids intermittently discontinued due to concerns for pulmonary edema. However, I suspect that he is intravascularly dry. Careful monitoring of volume status needed. Hold lasix and lisinopril Avoid nephrotoxins and renally dose medications. Continue ramirez catheter (5) Rhabdomyolysis: Qualifiers: Rhabdomyolysis type: non-traumatic Qualified Code(s): M62.82 - Rhabdomyolysis Code(s): M62.82 - Rhabdomyolysis Status: Acute Assessment and Plan: Resolving. CK on admission was 7660. Patient had 3+ blood on initial UA. Improved to 700s. LFTs elevated but improving. Urine initially dark in appearance and now more yellow. Etiology not entirely clear. Patient has history of rhabdo in June 2019 secondary to fall. No current history to suggest traumatic cause. Patient is not on any medications known to induce rhabdo. There are reports of episodes induced by COVID-19, which is a possibility. Continue with IV fluids at 75 ml/hr Monitor I&O closely Trend LFTs (6) Guaiac pos
[2020-02-24 17:28] LABS: Glucose Point of Care 94 (65-105)
[2020-02-24] MEDS: RIVAROXABAN 20 MG TABLET PO (18:26)
[2020-02-25] VITALS (8 sets, daily range): BP systolic 135–154; BP diastolic 61–90; PULSE 70–90; RESP 16–20; TEMP 36.4–36.7; O2SAT 97–100
[2020-02-25] MEDS: VANCOMYCIN ORAL 125 MG/2.5 ML SYRUP PO ×4 (01:00→17:01)
[2020-02-25 07:14] LABS: Hemoglobin 10.6 g/dL (14.0-18.0); Mean Corpuscular HGB Conc 33.1 g/dl (32-36); Mean Corpuscular Hemoglobin 29.4 pg (26-34); Mean Corpuscular Volume 88.6 fl (80-100); Platelet Count Result 385 k/mm3 (150-375); Red Blood Count 3.61 M/mm3 (4.6-6.20); Red Cell Distribution Width 13.5 % (11.5-14.5); White Blood Count 12.7 K/mm3 (4.5-10.0)
[2020-02-25 07:42] LABS: Alanine Aminotransferase 84 U/L (4-50); Albumin Level 3.2 g/dL (3.5-5.1); Alkaline Phosphatase 124 U/L (38-126); Anion Gap 9 mmol/L (8-16); Aspartate Amino Transferase 59 U/L (17-59); Bilirubin,Total 0.6 mg/dL (0.2-1.3); Blood Urea Nitrogen 75 mg/dL (9-20); CRP 8.5 mg/dL (<1.0); Calcium 9.2 mg/dL (8.4-10.2); Carbon Dioxide 18 mmol/L (22-30); Chloride 118 mmol/L (98-107); Creatine Kinase 274 U/L (55-170); Estimated CRCL calculation 29 ml/min; Estimated Glomerular Filt Rate 34; Glucose 260 mg/dL (75-110); Lactate Dehydrogenase 1060 U/L (313-618); Potassium 4.1 mmol/L (3.4-5.0); Sodium 145 mmol/L (137-145)
[2020-02-25] MEDS: SODIUM BICARBONATE 8.4% 100 MEQ in DEXTROSE 5% 1,000 ML 1,000 ML 75 MEQ IV CONT (07:47)
[2020-02-25] MEDS: amLODIPine BESYLATE 2.5 MG TABLET 7.5 MG PO (09:17)
[2020-02-25] MEDS: carvediloL 25 MG TABLET PO ×2 (09:18→21:14)
[2020-02-25] MEDS: DEXAMETHASONE 2 MG TABLET 6 MG PO (09:18)
[2020-02-25] MEDS: CHOLECALCIFEROL 1,000 UNITS TABLET 2000 UNITS PO (09:20)
[2020-02-25] MEDS: FERROUS SULFATE 324 MG TABLET PO (09:21)
[2020-02-25] MEDS: cloNIDine HCL 0.2 MG TABLET PO ×2 (09:21→16:59)
[2020-02-25] MEDS: CLOPIDOGREL BISULFATE 75 MG TABLET PO (09:21)
[2020-02-25] MEDS: FINASTERIDE 5 MG TABLET PO (09:22)
[2020-02-25] MEDS: levETIRAcetam 500 MG TABLET PO ×2 (09:22→21:13)
[2020-02-25] MEDS: MEMANTINE 10 MG TABLET PO ×2 (09:23→17:00)
[2020-02-25] MEDS: MULTIVITAMINS THERAPEUTIC TAB (*BKC) 1 TABLET PO (09:23)
[2020-02-25] MEDS: SACCHAROMYCES BOULARDII 250 MG CAPSULE PO ×2 (09:24→17:00)
[2020-02-25] MEDS: TAMSULOSIN HCL 0.4 MG CAPSULE PO ×2 (09:24→21:14)
[2020-02-25] MEDS: INSULIN GLARGINE (*BKC) 100 UNITS/ML 35 UNITS SUB-Q (09:27)
[2020-02-25] MEDS: INSULIN ASPART (*BKC) 100 UNITS/ML 9 UNITS SUB-Q ×3 (09:28→17:12)
[2020-02-25] MEDS: INSULIN ASPART (*BKC) 100 UNITS/ML SUB-Q ×2 (09:29→13:14)
[2020-02-25 09:37] LABS: Glucose Point of Care 274 (65-105)
[2020-02-25 11:47] LABS: Glucose Point of Care 217 (65-105)
--- NOTE | 2020-02-25 16:31 | PM.IMPN ---
Progress Note: A&P Assessment and Plan (1) Encephalopathy: Code(s): G93.40 - Encephalopathy, unspecified Status: Acute Assessment and Plan: Improving. Confusion may be secondary to COVID encephalopathy and C. diff infection superimposed on underlying dementia. Additionally may be due to uremia and overall dehydration. CT brain was negative for acute findings. Urinalysis is negative for infection. Ammonia is normal. Folate and B12 are normal. CXR is negative for acute findings including pneumonia. Lactic acid is normal. Meningitis unlikely given improvement and lack of meningeal signs. No focal neuro deficits noted on exam. Mental status appears to be fluctuant. Neurology has been consulted with no further recommendations at this time Monitor mental status closely Continue with treatment for acute infection as detailed below. (2) COVID-19: Code(s): U07.1 - COVID-19 Status: Acute Assessment and Plan: COVID-19 is positive. Initial CXR is unremarkable. Low-grade fever with Tmax of 100.3 on 02/18, he has now been afebrile >72 hours. CXR repeated 02/20 as patient required 2L O2 per NC which showed worsened diffuse lung disease (felt to be more likely related to pulmonary edema than pneumonia). Currently maintaining adequate oxygen saturations on room air Continue with dexamethasone; initiated 02/21/20 due to O2 requirements. Do not feel that Remdesivir would be beneficial at this juncture as CXR unremarkable and O2 requirements have improved. Supplemental O2 as needed with goal saturation 90% or above Supportive care as needed to include bronchodilators, expectorants, and antipyretics. Trend acute phase reactants Continue isolation precautions (3) C. difficile diarrhea: Code(s): A04.72 - Enterocolitis due to Clostridium difficile, not specified as recurrent Status: Acute Assessment and Plan: The pt was having diarrhea therefore stool sample collected. C. diff Toxin B PCR testing is positive. No history of recent antibiotic use that I can gather. Abdominal X-ray with nonobstructive pattern. Seems to be improving and stool frequency continues to decrease and is becoming more formed. Continue PO vancomycin initiated 02/17. Plan to complete 10 days of treatment. 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 Baseline appears to be 1.5-1.6. Patient's son believes he is established with feather trimmer Dr. Anaya. Highly suspect pre-renal etiology as he is having diarrhea and poor PO intake. ATN secondary to infection considered. Post-renal etiology secondary to bladder obstruction less likely as no improvement following ramirez placement and no hydronephrosis. Renal US shows medical renal disease, no hydronephrosis, and stable appearance of bilateral renal cysts. Continue IV fluids. He has had IV fluids intermittently discontinued due to concerns for pulmonary edema. However, I suspect that he is intravascularly dry. Careful monitoring of volume status needed. Hold lasix and lisinopril Avoid nephrotoxins and renally dose medications. Continue ramirez catheter (5) Rhabdomyolysis: Qualifiers: Rhabdomyolysis type: non-traumatic Qualified Code(s): M62.82 - Rhabdomyolysis Code(s): M62.82 - Rhabdomyolysis Status: Acute Assessment and Plan: Resolving. CK on admission was 7660. Patient had 3+ blood on initial UA. Improved to 700s. LFTs improving. Urine initially dark in appearance and now more yellow. Etiology not entirely clear. Patient has history of rhabdo in June 2019 secondary to fall. No current history to suggest traumatic cause. Patient is not on any medications known to induce rhabdo. There are reports of episodes induced by COVI
[2020-02-25] MEDS: RIVAROXABAN 20 MG TABLET PO (17:00)
[2020-02-25 17:24] LABS: Glucose Point of Care 108 (65-105)
[2020-02-25] MEDS: DONEPEZIL HCL 10 MG TABLET PO (21:13)
[2020-02-25] MEDS: QUEtiapine FUMARATE 12.5 MG TABLET PO (21:14)
[2020-02-25 23:28] LABS: Glucose Point of Care 168 (65-105)
[2020-02-26] VITALS (7 sets, daily range): BP systolic 103–139; BP diastolic 58–90; PULSE 71–95; RESP 16–20; TEMP 36.2–37; O2SAT 90–97
[2020-02-26] MEDS: SODIUM BICARBONATE 8.4% 100 MEQ in DEXTROSE 5% 1,000 ML 1,000 ML 75 MEQ IV CONT ×2 (00:25→15:57)
[2020-02-26] MEDS: VANCOMYCIN ORAL 125 MG/2.5 ML SYRUP PO ×4 (00:25→18:06)
[2020-02-26 08:34] LABS: Glucose Point of Care 186 (65-105)
[2020-02-26] MEDS: DEXAMETHASONE 2 MG TABLET 6 MG PO (09:15)
[2020-02-26] MEDS: INSULIN ASPART (*BKC) 100 UNITS/ML 9 UNITS SUB-Q ×3 (09:17→18:07)
[2020-02-26] MEDS: amLODIPine BESYLATE 2.5 MG TABLET 7.5 MG PO (09:19)
[2020-02-26] MEDS: carvediloL 25 MG TABLET PO ×2 (09:19→22:52)
[2020-02-26] MEDS: CHOLECALCIFEROL 1,000 UNITS TABLET 2000 UNITS PO (09:20)
[2020-02-26] MEDS: cloNIDine HCL 0.2 MG TABLET PO ×2 (09:21→18:02)
[2020-02-26] MEDS: FERROUS SULFATE 324 MG TABLET PO (09:21)
[2020-02-26] MEDS: CLOPIDOGREL BISULFATE 75 MG TABLET PO (09:21)
[2020-02-26] MEDS: levETIRAcetam 500 MG TABLET PO ×2 (09:22→22:52)
[2020-02-26] MEDS: FINASTERIDE 5 MG TABLET PO (09:22)
[2020-02-26] MEDS: MEMANTINE 10 MG TABLET PO ×2 (09:23→18:03)
[2020-02-26] MEDS: TAMSULOSIN HCL 0.4 MG CAPSULE PO ×2 (09:23→22:53)
[2020-02-26] MEDS: SACCHAROMYCES BOULARDII 250 MG CAPSULE PO ×2 (09:23→18:06)
[2020-02-26] MEDS: MULTIVITAMINS THERAPEUTIC TAB (*BKC) 1 TABLET PO (09:23)
[2020-02-26 11:47] LABS: Hematocrit 29.1 % (42.0-52.0); Hemoglobin 9.6 g/dL (14.0-18.0); Mean Corpuscular Volume 87.9 fl (80-100); Mean Platelet Volume 11.3 fl (7.4-10.4); Platelet Count Result 358 k/mm3 (150-375); Red Blood Count 3.31 M/mm3 (4.6-6.20); Red Cell Distribution Width 13.4 % (11.5-14.5); White Blood Count 11.8 K/mm3 (4.5-10.0)
--- NOTE | 2020-02-26 11:51 | PCPTNOTE ---
The PT treatment was unable to be completed today. Patient unable to remain awake and did not participate in any attempted therapy exercises. Patient did not respond to any questions or commands. Will continue per Plan of Care frequency and duration.
[2020-02-26 12:01] LABS: Anion Gap 9 mmol/L (8-16); Blood Urea Nitrogen 66 mg/dL (9-20); CRP 6.2 mg/dL (<1.0); Calcium 8.5 mg/dL (8.4-10.2); Carbon Dioxide 20 mmol/L (22-30); Chloride 113 mmol/L (98-107); Estimated CRCL calculation 33 ml/min; Estimated Glomerular Filt Rate 40; Glucose 181 mg/dL (75-110); Lactate Dehydrogenase 1372 U/L (313-618); Potassium 3.6 mmol/L (3.4-5.0); Sodium 142 mmol/L (137-145)
--- NOTE | 2020-02-26 12:22 | WPDNEUROPN ---
Progress Note: A&P Assessment and Plan (1) Buttock wound: Code(s): S31.809A - Unspecified open wound of unspecified buttock, initial encounter Status: Acute (2) Facial nerve palsy: Code(s): G51.0 - Parikh's palsy Status: Acute (3) Encephalopathy: Code(s): G93.40 - Encephalopathy, unspecified Status: Acute (4) COVID-19: Code(s): U07.1 - COVID-19 Status: Acute (5) Anticoagulation adequate: Code(s): Z79.01 - long term (current) use of anticoagulants Status: Acute (6) Acute kidney injury: Code(s): N17.9 - Acute kidney failure, unspecified Status: Acute (7) Dementia: Qualifiers: Dementia type: unspecified type Dementia behavioral disturbance: without behavioral disturbance Qualified Code(s): F03.90 - Unspecified dementia without behavioral disturbance Code(s): F03.90 - Unspecified dementia without behavioral disturbance Status: Chronic (8) Seizures: Code(s): R56.9 - Unspecified convulsions Status: Chronic (9) Alzheimer disease: Qualifiers: Alzheimer's disease onset: unspecified onset Dementia behavioral disturbance: without behavioral disturbance Qualified Code(s): G30.9 - Alzheimer's disease, unspecified; F02.80 - Dementia in other diseases classified elsewhere without behavioral disturbance Code(s): G30.9 - Alzheimer's disease, unspecified; F02.80 - Dementia in other diseases classified elsewhere without behavioral disturbance Status: Chronic Additional Plan ongoing dementia complicated by the COVID and encephalopathic condition, infection is being treated accordingly I will prefer to contain the treatment as such Review of Systems Review of Systems: All systems reviewed & are unremarkable except as noted in HPI and below Exam Narrative: Exam Narrative: on examination today he does not open his eyes on verbal commands but feels the pain all over his body and slight stimulus moves the head in different directions and makes sounds and asked to open the eyes he does not he opened his mouth and even with slight touch and pain he is making loud noise his pupils are sluggish extraocular movements are spontaneously full in the horizontal gaze facial grimace symmetrical tongue in the oral cavity with no fasciculations he tries to open the mouth on command and tries to protrude his tongue slightly on command is moving both upper and lower extremities and feels the pain plantar responses are neutral neck is supple with no restriction of the range of motions heart regular lungs clear abdomen nontender with normal bowel sounds skin is as mention on in her bilateral buttocks serous discharge Objective Data Vital Signs Vital Signs: Vital Signs - 24 hr 02/25/20 16:00 02/25/20 20:00 02/25/20 21:14 Temperature 36.5 C 36.6 C Pulse Rate 87 77 87 Respiratory Rate 20 16 Blood Pressure 135/90 135/70 Pulse Oximetry 100 98 02/26/20 00:00 02/26/20 04:00 02/26/20 08:00 Temperature 36.9 C 37.0 C 36.2 C L Pulse Rate 71 74 87 Respiratory Rate 19 18 16 Blood Pressure 139/82 103/90 137/61 Pulse Oximetry 97 92 96 Intake/Output Intake/Output: Intake & Output 02/23/20 02/24/20 02/25/20 02/26/20 23:59 23:59 23:59 23:59 Intake Total 2470 1540 3210 160 Output Total 1050 1850 1850 700 Balance 1420 -310 1360 -540 Meds/Results Medications: Active Medications Generic Name Dose Route Start Last Admin Trade Name Freq PRN Reason Stop Dose Admin Acetaminophen 650 mg 02/15/20 14:15 Acetaminophen 325 Mg Tablet PO Q4H PRN Mild Pain (1-3) or Fever Albuterol 2 puff 02/17/20 16:00 Albuterol Sulfate (*Sp) Aerosol 1 Puff INHALATION Q8HRT PRN Shortness Of Breath Amlodipine Besylate 7.5 mg 02/16/20 09:00 02/26/20 09:19 Amlodipine Besylate 2.5 Mg Tablet PO 7.5 mg DAILY SOURAV Administration Carvedilol 25 mg 02/16/20 09:00 02/26/20 09:19 Carvedilol 25 Mg T
[2020-02-26 13:24] LABS: Glucose Point of Care 184 (65-105)
--- NOTE | 2020-02-26 13:46 | PM.IMPN ---
Progress Note: A&P Assessment and Plan (1) C. difficile diarrhea: Code(s): A04.72 - Enterocolitis due to Clostridium difficile, not specified as recurrent Status: Acute Assessment and Plan: The pt was having diarrhea therefore stool sample collected. C. diff Toxin B PCR testing is positive. No history of recent antibiotic use that I can gather. Abdominal X-ray with nonobstructive pattern. Nursing staff notes no bowel movement in 2-3 days. Continue PO vancomycin initiated 02/17. Plan to complete 10 days of treatment. Daily probiotic and banatrol Monitor stool frequency and volume Will evaluate repeat KUB (2) COVID-19: Code(s): U07.1 - COVID-19 Status: Acute Assessment and Plan: COVID-19 is positive. Initial CXR is unremarkable. Low-grade fever with Tmax of 100.3 on 02/18, he has now been afebrile >72 hours. CXR repeated 02/20 as patient required 2L O2 per NC which showed worsened diffuse lung disease (felt to be more likely related to pulmonary edema than pneumonia). Currently maintaining adequate oxygen saturations on room air Continue with dexamethasone; initiated 02/21/20 due to O2 requirements. Do not feel that Remdesivir would be beneficial at this juncture as CXR unremarkable and O2 requirements have improved. Supplemental O2 as needed with goal saturation 90% or above Supportive care as needed to include bronchodilators, expectorants, and antipyretics. 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 Baseline appears to be 1.5-1.6. Patient's son believes he is established with manager validation Dr. Anaya. Highly suspect pre-renal etiology as he was having severe diarrhea and poor PO intake. ATN secondary to infection considered. Post-renal etiology secondary to bladder obstruction less likely as no improvement following ramirez placement and no hydronephrosis. Renal US shows medical renal disease, no hydronephrosis, and stable appearance of bilateral renal cysts. Continue IV fluids. He has had IV fluids intermittently discontinued due to concerns for pulmonary edema. However, I suspect that he is intravascularly dry. Careful monitoring of volume status needed. Hold lasix and lisinopril Avoid nephrotoxins and renally dose medications. Continue ramirez catheter (4) Encephalopathy: Code(s): G93.40 - Encephalopathy, unspecified Status: Acute Assessment and Plan: Patient has underlying dementia. Noted to have alteration from his baseline. Confusion may be secondary to acute infectious process. Additionally may be due to uremia and overall dehydration. CT brain was negative for acute findings. Ammonia is normal. Folate and B12 are normal. Lactic acid is normal. No focal neuro deficits noted on exam. Mental status appears to be fluctuant. Neurology has been consulted with recommendations to continue current treatment plan Monitor mental status closely Continue with treatment for acute infection as detailed below. (5) Metabolic acidosis: Code(s): E87.2 - Acidosis Status: Acute Assessment and Plan: Secondary to ongoing GI losses from diarrhea. Normal anion gap. Improving. Continue IV bicarb drip Monitor BMP closely (6) UTI (urinary tract infection) due to Enterococcus: Code(s): N39.0 - Urinary tract infection, site not specified; B95.2 - Enterococcus as the cause of diseases classified elsewhere Status: Acute Assessment and Plan: Urine culture growing Enterococcus. Continue IV Vancomycin; started on 02/25/20 (7) Rhabdomyolysis: Qualifiers: Rhabdomyolysis type: non-traumatic Qualified Code(s): M62.82 - Rhabdomyolysis Code(s): M62.82 - Rhabdomyolysis Status: Acute Asse
[2020-02-26] MEDS: INSULIN GLARGINE (*BKC) 100 UNITS/ML 35 UNITS SUB-Q (16:01)
--- NOTE | 2020-02-26 17:36 | PM.CNGS ---
Assessment and Plan Assessment and plan (1) Buttock wound: Code(s): S31.809A - Unspecified open wound of unspecified buttock, initial encounter Status: Acute Assessment and Plan: Patient has a large unstageable ulcer along his sacrum and buttock region extending to the perianal region. The wound appears infected. The wound needs to be debrided down to healthy appearing tissue, but due to the amount of pain patient is in and his mental status changes, I do not think this will be able to be performed at the bedside under local anesthesia. I will likely need to perform a surgical debridement in the OR under anesthesia. Wound care is going to be somewhat difficult due to the location right at the patient's anus. Will have to carefully plan dressing changes and even consider other interventions if wound continues to be soiled with stool. (2) C. difficile diarrhea: Code(s): A04.72 - Enterocolitis due to Clostridium difficile, not specified as recurrent Status: Acute (3) COVID-19: Code(s): U07.1 - COVID-19 Status: Acute (4) Encephalopathy: Code(s): G93.40 - Encephalopathy, unspecified Status: Acute History of Present Illness Consult details Consult date: 02/26/20 Reason for consult: wound care Requesting physician: Otilia Lomas PA-C Narrative: This is a 74-year-old man who I am consulted to see for a buttocks wound. He has some underlying dementia and history is difficult to obtain from him. Most of the history is obtained from the chart. He presented to the emergency department on 02/14 with lethargy and mental status changes. He was also noted to be in acute renal failure. He had a COVID test done due to the fatigue and mental status changes. This was positive. He was also having an extensive amount of diarrhea and stool was also positive for C diff. Due to the significant amount of diarrhea, he was noted to have some wounds develop on his buttock and sacral area. These wounds have progressively worsened during his hospitalization and now has a foul odor and yellow-colored surface. He has a difficult time laying still and is having a significant amount of pain on examination in this area. Review of Systems Review of Systems: ROS unobtainable: Yes unobtainable due to mental status PMFSH Past Medical History Medical History Afib Alzheimer disease Arthritis BPH (benign prostatic hyperplasia) CAD (coronary artery disease) Chronic kidney disease Stage III Colon polyps COPD (chronic obstructive pulmonary disease) CVA (cerebral vascular accident) Dementia Depression Diabetes GERD (gastroesophageal reflux disease) Heart attack History of angina HTN (hypertension) Hyperlipidemia Pneumonia Rectal polyp Seizures TIA (transient ischemic attack) Urinary retention Surgical History Surgical History History of arthroscopic knee surgery Right History of cardiac catheterization History of colonoscopy History of coronary artery stent placement History of knee replacement, total Right 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 He has 2 sons Paramjit and Addy. But Addy does not come to visit his father. Patient is a full code. His son is there during the night. The patient stopped drinking when Paramjit was 1 years old in 1981. he also quit smoking as well. His ex- also comes to check on him as well. The archie
[2020-02-26 17:41] LABS: Glucose Point of Care 137 (65-105)
[2020-02-26] MEDS: SOD HYPOCHLORITE 1/4 STRENGTH 473 ML 1 APPLIC TOPICAL (18:02)
[2020-02-26 20:32] LABS: Glucose Point of Care 144 (65-105)
[2020-02-26] MEDS: DONEPEZIL HCL 10 MG TABLET PO (22:52)
[2020-02-26] MEDS: QUEtiapine FUMARATE 12.5 MG TABLET PO (22:53)
[2020-02-27] VITALS (16 sets, daily range): BP systolic 64–144; BP diastolic 30–98; PULSE 45–113; RESP 10–25; TEMP 36.1–36.9; O2SAT 93–100
[2020-02-27] MEDS: VANCOMYCIN ORAL 125 MG/2.5 ML SYRUP PO ×4 (01:15→18:47)
--- NOTE | 2020-02-27 07:55 | PM.IMPN ---
Progress Note: A&P Assessment and Plan (1) Buttock wound: Code(s): S31.809A - Unspecified open wound of unspecified buttock, initial encounter Status: Acute Assessment and Plan: Will go for sharp debridement Appreciate Surgery note. (2) Metabolic acidosis: Code(s): E87.2 - Acidosis Status: Acute Assessment and Plan: Currently on Bicarb drip. (3) C. difficile diarrhea: Code(s): A04.72 - Enterocolitis due to Clostridium difficile, not specified as recurrent Status: Acute Assessment and Plan: Continue oral Vanc. (4) Encephalopathy: Code(s): G93.40 - Encephalopathy, unspecified Status: Acute Assessment and Plan: Unchanged Likely secondary to infected wound. (5) COVID-19: Code(s): U07.1 - COVID-19 Status: Acute Assessment and Plan: Stable Continue to monitor Continue supportive care. (6) Diarrhea: Code(s): R19.7 - Diarrhea, unspecified Status: Acute Assessment and Plan: Supportive care Oral vanc. (7) Lethargic: Code(s): R53.83 - Other fatigue Status: Acute Assessment and Plan: Likely secondary to infected wound Patient had Dementia as well. (8) Acute kidney injury: Code(s): N17.9 - Acute kidney failure, unspecified Status: Acute Assessment and Plan: IV fluids Will monitor Daily BMP (9) Rhabdomyolysis: Qualifiers: Rhabdomyolysis type: non-traumatic Qualified Code(s): M62.82 - Rhabdomyolysis Code(s): M62.82 - Rhabdomyolysis Status: Acute Assessment and Plan: On Bicarb drip Receiving IV fluids. Subjective Date/time seen: 02/27/20 07:55 patient moaning in bed. Review of Systems Review of Systems: Narrative: Unable to obtain as patient is delirious constantly moaning in bed. Exam Narrative: Exam Narrative: In bed delirious. Const: General: confusion and ill appearing Nutritional Appearance: average body habitus Orientation/consciousness: Other orientation findings (Delirious.) HENMT: Head: normocephalic Ears: hearing grossly normal bilaterally Eyes: General: appearance normal, both eyes and all related structures Pupils: Equal, round and reactive pupils present EOM: EOMs intact bilaterally Neck: Neck: full ROM, no lymphadenopathy, supple and no JVD Resp: Effort & Inspection: normal respiratory effort Auscultation: clear to auscultation bilaterally Cardio: Jugular venous distension: no JVD Rate: regular rate Rhythm: regular rhythm GI: Inspection: normal to inspection GI Palp: Yes Soft to palpation and Yes No hepatosplenomegaly present Skin: General skin exam: normal color Wounds: wounds noted (Unsteageable sacral wound.) Neuro: General: moves all extremities and CN's II-XI intact bilaterally Cranial nerves: Yes CN's II-XII intact bilaterally Cognition (Neuro): abnormal cognition (Delirious.) Motor exam (neuro): 5/5 motor strength present throughout Extrem: General: full ROM and no pedal edema Objective Data Vital Signs Vital Signs: Vital Signs - 24 hr 02/26/20 08:00 02/26/20 12:00 02/26/20 16:00 Temperature 97.1 F L 97.8 F 97.8 F Pulse Rate 87 95 87 Respiratory Rate 16 20 20 Blood Pressure 137/61 124/58 L 119/65 Pulse Oximetry 96 96 94 02/26/20 20:00 02/26/20 22:52 02/27/20 00:00 Temperature 97.6 F 98.5 F Pulse Rate 77 77 76 Respiratory Rate 20 20 Blood Pressure 105/68 106/49 L Pulse Oximetry 90 94 02/27/20 04:00 Temperature 97.7 F Pulse Rate 84 Respiratory Rate 20 Blood Pressure 143/47 H Pulse Oximetry 100 Intake/Output Intake/Output: Intake & Output 02/24/20 02/25/20 02/26/20 02/27/20 23:59 23:59 23:59 23:59 Intake Total 1540 3210 2770 540 Output Total 1850 1850 1400 450 Balance -310 1360 1370 90 Meds/Results Medications: Active Medications Generic Name Dose Route Start Last Admin Trade Name Freq PRN Reason Stop Dose Admin Acetaminophen 650 m
[2020-02-27] MEDS: DEXTROSE 50% 25 GM/50 ML SYRINGE IV PUSH (09:13)
[2020-02-27] MEDS: SOD HYPOCHLORITE 1/4 STRENGTH 473 ML 1 APPLIC TOPICAL (09:14)
[2020-02-27 09:17] LABS: Basophils Percent Auto 0.1 % (0.2-1.2); Eosinophils Percent Auto 0.3 % (0-4.4); Hematocrit 28.3 % (42.0-52.0); Hemoglobin 9.1 g/dL (14.0-18.0); Immature Granulocyte Absolute 0.16 K/mm3 (0.00-0.031); Immature Granulocyte Percent A 1.1 % (0-0.5); Lymphocytes Absolute Auto 1.44 K/mm3 (0.9-3.2); Lymphocytes Percent Auto 9.5 % (18.3-44.2); Mean Corpuscular HGB Conc 32.2 g/dl (32-36); Mean Corpuscular Hemoglobin 28.8 pg (26-34); Mean Corpuscular Volume 89.6 fl (80-100); Mean Platelet Volume 11.8 fl (7.4-10.4); Monocytes Absolute Auto 1.7 K/mm3 (0.1-0.6); Monocytes Percent Auto 11.2 % (2.6-8.5); Neutrophils Absolute Auto 11.9 K/mm3 (1.3-6.7); Neutrophils Percent Auto 77.8 % (45.5-73.1); Nucleated Red Blood Cells Perc 0.1 % (0.0-0.2); Platelet Count Result 405 k/mm3 (150-375); Red Blood Count 3.16 M/mm3 (4.6-6.20); Red Cell Distribution Width 13.3 % (11.5-14.5); White Blood Count 15.2 K/mm3 (4.5-10.0)
[2020-02-27 09:46] LABS: Alanine Aminotransferase 109 U/L (4-50); Albumin Level 3.2 g/dL (3.5-5.1); Alkaline Phosphatase 157 U/L (38-126); Anion Gap 8 mmol/L (8-16); Aspartate Amino Transferase 338 U/L (17-59); Bilirubin,Total 0.6 mg/dL (0.2-1.3); Blood Urea Nitrogen 71 mg/dL (9-20); CRP 7.6 mg/dL (<1.0); Calcium 8.8 mg/dL (8.4-10.2); Carbon Dioxide 26 mmol/L (22-30); Chloride 110 mmol/L (98-107); Creatine Kinase 1523 U/L (55-170); Estimated CRCL calculation 28 ml/min; Estimated Glomerular Filt Rate 32; Glucose 74 mg/dL (75-110); Potassium 3.7 mmol/L (3.4-5.0); Sodium 144 mmol/L (137-145)
[2020-02-27 10:01] LABS: Lactate Dehydrogenase 2218 U/L (313-618)
[2020-02-27 10:34] LABS: Ovalocytes 1+ (NORMAL)
[2020-02-27 10:35] LABS: Platelet Estimate Adequate (Adequate)
[2020-02-27 10:36] LABS: Microcytosis 1+ (NORMAL)
[2020-02-27 10:41] LABS: Vancomycin Trough 9.8 ug/mL (10.0-20.0)
[2020-02-27 12:36] LABS: Glucose Point of Care 70 (65-105)
[2020-02-27 12:37] LABS: Glucose Point of Care 114 (65-105)
--- NOTE | 2020-02-27 15:46 | WPDANESEPP ---
Anes - Eval Pre Procedure Procedure: Operation Date: 02/27/20 16:30 Proposed Procedures p DEBRIDEMENT OF BUTTOCK AND SACRAL WOUNDS - Marco Black DO Date/Time: 02/27/20 15:46 Pre Op Diagnosis: ALBINO Patient Data Age: 74 Gender: M Height: 6 ft 2 in Weight: 106.5 kg Last Vital Signs Temp 36.5 C 02/27/20 13:18 Pulse 72 02/27/20 13:18 Resp 20 02/27/20 13:18 BP 144/88 H 02/27/20 13:18 Pulse Ox 100 02/27/20 13:18 Allergies Allergy/AdvReac Type Severity Reaction Status Date / Time No Known Drug Allergies Allergy Unknown Other Verified 02/15/20 18:55 Home Medications Medication Instructions Recorded Confirmed Type acetaminophen 1,300 mg PO BID 06/10/19 02/15/20 History amlodipine 7.5 mg PO DAILY 06/10/19 02/15/20 History atorvastatin 40 mg PO HS 06/10/19 02/15/20 History carvedilol 25 mg PO BID 06/10/19 02/15/20 History cholecalciferol (vitamin D3) 2,000 unit PO DAILY 06/10/19 02/15/20 History clonidine HCl 0.2 mg PO BID 06/10/19 02/15/20 History clopidogrel 75 mg PO DAILY 06/10/19 02/15/20 History donepezil 10 mg PO HS 06/10/19 02/15/20 History ferrous sulfate 325 mg PO DAILY 06/10/19 02/15/20 History furosemide 20 mg PO QPM 06/10/19 02/15/20 History furosemide 40 mg PO QAM 06/10/19 02/15/20 History glucosamine sulfate [Glucosamine] 500 mg PO BID 06/10/19 02/15/20 History glucose 16 g PO Q15M PRN 06/10/19 02/15/20 History levetiracetam 500 mg PO BID 06/10/19 02/15/20 History memantine 10 mg PO BID 06/10/19 02/15/20 History multivitamin 1 cap PO DAILY 06/10/19 02/15/20 History nitroglycerin 0.4 mg SUBLINGUAL ONCE PRN 06/10/19 02/15/20 History quetiapine 12.5 mg PO HS 06/10/19 02/15/20 History sertraline 50 mg PO DAILY 06/10/19 02/15/20 History trazodone 50 mg PO HS 06/10/19 02/15/20 History tamsulosin 0.4 mg PO Q12H 30 Days #60 cap 06/15/19 02/15/20 Rx insulin aspart U-100 See Rx Instructions .ROUTE 06/17/19 02/15/20 Rx .COMPLEX #15 ml finasteride [Proscar] 5 mg PO QAM 30 Days #30 tablet 06/21/19 02/15/20 Rx albuterol See Rx Instructions .ROUTE .COMPLEX 02/15/20 02/15/20 History insulin glargine [Lantus U-100 22 units SUBCUT DAILY 02/15/20 02/15/20 History Insulin] lisinopril 40 mg PO DAILY 02/15/20 02/15/20 History rivaroxaban [Xarelto] 20 mg PO DAILY@1700 02/15/20 02/15/20 History Laboratory Tests 02/26/20 02/26/20 02/27/20 17:35 20:21 07:57 WBC RBC Hgb Hct MCV MCH MCHC RDW Plt Count MPV Immature Gran % (Auto) Neut % (Auto) Lymph % (Auto) Kimball % (Auto) Eos % (Auto) Baso % (Auto) Lymph # (Auto) Kimball # (Auto) Eos # (Auto) Baso # (Auto) Abs Immat Gran (auto) Absolute Neuts (auto) Absolute Nucleated RBC Nucleated RBC % Platelet Estimate Microcytosis Ovalocytes Sodium Potassium Chloride Carbon Dioxide Anion Gap BUN Creatinine Estim Creat Clear Calc Estimated GFR Glucose POC Capillary Glucose 137 mg/dl H mg/dl 144 mg/dl H mg/dl 70 mg/dl mg/dl (65-105) (65-105) (65-105) Calcium Ferritin Total Bilirubin AST ALT Alkaline Phosphatase Lactate Dehydrogenase Total Creatine Kinase C-Reactive Protein Total Protein Albumin Vancomycin Trough 02/27/20 02/27/20 02/27/20 08:55 08:55 08:55 WBC 15.2 K/mm3 H K/mm3 (4.5-10.0) RBC 3.16 M/mm3 L M/mm3 (4.6-6.20) Hgb 9.1 g/dL L g/dL (14.0-18.0) Hct 28.3 % L % (42.0-52.0) MCV 89.6 fl fl
--- NOTE | 2020-02-27 17:21 | WPDANESEFPP ---
Anes - Eval Final PreProcedure Day of Procedure 02/27/20 17:21 Patient weight: obese Heart: regular rate and rhythm Lungs: clear to auscultation and normal air movement Airway: Mallampati scale class II Neurological: alert and oriented Last oral intake: >/= 8 hours ASA classification: IV Emergent: no Anesthetic plan: proceed Anesthesia type and monitoring: general GIVS, LMA and ETT Informed Consent: The patient's anesthetic plan and its attendant risks and benefits were discussed with the patient/family/POA. Questions were solicited and answers provided to the satisfaction of the patient/family/POA.
--- NOTE | 2020-02-27 18:38 | P.OP_ITS ---
Procedure Note - Detailed Date of procedure: 02/27/20 Pre-op diagnosis: Unstageable sacral decubitus ulcer Post-op diagnosis: same (Stage III sacral decubitus ulcer) Procedure performed: Sharp excisional debridement of stage III sacral decubitus ulcer including skin, subcutaneous fat, and muscle measuring 13 cm x 6 cm Description of procedure: * Patient was brought back to surgical suite. He was placed supine on operating table. Time-out was done to confirm patient and procedure. He was then intubated by the Anesthesia Department. He was then repositioned to right lateral decubitus position. His sacral and perineal ar ea was prepped and draped in sterile fashion using Betadine prep. The surface of the sacral ulcer was sharply debrided using a 10 blade scalpel. The necrotic tissue was sharply debrided down to healthy appearing tissue. This was carefully done all the way around the wound. The necrotic tissue was completely excised using the 10 blade scalpel for a total area measuring 13 cm x 6 cm. This included skin, subcutaneous fat, and muscle. Hemostasis was then a applied using electrocautery. The wound bed was then irrigated with sterile saline. There appeared very minimal remaining necrotic tissue and most of the wound bed appeared healthy and viable. Betadine-soaked 4 in Kerlix gauze was then packed within the wound followed by fluffed gauze, ABD pad, and tape. The patient was then awakened from anesthesia and extubated. Anesthesia: GLMA Surgeon: Marco Black DO Estimated blood loss (mL): 20 Packing: Yes (4 in Kerlix gauze) Complications: No immediate complications Condition: stable Disposition: floor Findings: This is a 74-year-old man with a recent diagnosis of C diff colitis and COVID positive. He was having significant diarrhea upon admission and has had severe wound problems secondary to the amount of diarrhea and his underlying dementia. He is unable to remain continent to prevent soilage of the wound. He has a large unstageable sacral decubitus ulcer that appears infected. Decision was made to proceed with debridement of the sacral decubitus ulcer. Sharp excisional debridement of the sacral decubitus ulcer was performed. Total dimensions measured approximately 13 cm x 6 cm and extended to within 1 cm of the anal verge. The necrotic skin, subcutaneous fat, and muscle was excised sharply with a 10 blade scalpel. No specimens were obtained for pathology. The wound was then packed with Betadine-soaked Kerlix gauze. The patient did have a loose bowel movement while still on the OR table, therefore the dressing was changed again to try to prevent any soilage. Patient will need aggressive wound care initially, and may even require fecal containment device or eventual ostomy if he is unable to remain continent.
[2020-02-27 19:27] LABS: Glucose Point of Care 99 (65-105)
[2020-02-27] MEDS: LACTATED RINGERS 1,000 ML 150 ML IV CONT (19:56)
[2020-02-27] MEDS: DONEPEZIL HCL 10 MG TABLET PO (21:06)
[2020-02-27] MEDS: levETIRAcetam 500 MG TABLET PO (21:06)
[2020-02-27 21:07] LABS: Glucose Point of Care 77 (65-105)
[2020-02-27] MEDS: QUEtiapine FUMARATE 12.5 MG TABLET PO (21:07)
[2020-02-27] MEDS: carvediloL 25 MG TABLET PO (21:07)
[2020-02-27] MEDS: TAMSULOSIN HCL 0.4 MG CAPSULE PO (21:09)
[2020-02-27 22:45] LABS: Glucose Point of Care 90 (65-105)
[2020-02-27] MEDS: HYDROcodone/acetaminophen (*CRX) 7.5-325 MG TABLET 1 TAB PO (22:48)
--- NOTE | 2020-02-27 23:50 | ECG_ITS ---
Measurements Intervals [place] Rate: 100 P: NH: 0 QRS: -54 QRSD: 114 T: 50 QT: 376 QTc: 486 Interpretive Statements ATRIAL FIBRILLATION WITH RAPID VENTRICULAR RESPONSE VENTRICULAR PREMATURE COMPLEXES LEFT AXIS DEVIATION CANNOT RULE OUT SEPTAL INFARCT, AGE INDETERMINATE ANTERIOR ST ELEVATION WITH PEAKED T WAVES- CONSIDER ACUTE INFARCT ABNORMAL ECG Electronically Signed On 02-28-2020 10:07:26 VENEER PRESS OPERATOR by Lloyd Gonsales D.O.
[2020-02-28] VITALS (28 sets, daily range): BP systolic 74–131; BP diastolic 50–100; PULSE 76–111; RESP 16–27; TEMP 36.4–36.9; O2SAT 91–100; BMI 30.1
--- NOTE | 2020-02-28 | ECHO_ITS ---
Patient Info Name: Addy Cervantes Age: 74 years : 1945 Gender: Male Ht: 74 in Wt: 235 lbs BSA: 2.38 m2 HR: 76 bpm BP: 105 / 56 mmHg Heart Rhythm: Sinus Rhythm Technical Quality: Good Exam Date: 02/28/2020 1:45 PM Exam Location: [facility] Patient Status: Inpatient Admit Date: 02/17/2020 Staff Ordering Physician: Demar Michelle DO Carbon Rod Inserter: Charles Hinds RDCS Attending Provider: Otilia Lomas PA-C Referring Physician: Miguel Angel DRUMMOND; Exam Type: CA echo doppler color flow Study Info Indications I22.0 - Subsequent ST elevation (STEMI) myocardial infarction of anterior wall Complete two-dimensional, color flow and Doppler transthoracic echocardiogram is performed. Strain analysis performed. History/Risk Factors STEMI; COVID 19+, CAD, CKDIII, HTN, cardiogenic shock. Summary 1. Complete two-dimensional, color flow and Doppler transthoracic echocardiogram is performed. 2. Strain analysis performed. 3. Left ventricular chamber dimension is mildly enlarged. 4. Left ventricular systolic function is severely reduced, estimated at 20-25%. 5. There is moderately increased left ventricular wall thickness. 6. The left ventricular diastolic function is grade I diastolic dysfunction. 7. Global longitudinal strain is abnormal at -7 %. 8. The apical inferior wall, apical anterior wall, mid inferior wall, and basal anteroseptal are akinetic. 9. The apical lateral wall, and mid anterior wall are hypokinetic. 10. The apical septum, apical cap, mid inferoseptal, and mid anteroseptal are dyskinetic. 11. Right ventricular chamber dimension is mildly enlarged. 12. Left atrial chamber dimension is mildly enlarged. 13. Right atrial chamber dimension is mildly enlarged. 14. There is mild mitral valve regurgitation. 15. There is mild tricuspid valve regurgitation. 16. There is mild pulmonic regurgitation. Left Ventricle Left ventricular chamber dimension is mildly enlarged. Left ventricular systolic function is severely reduced, estimated at 20-25%. There is moderately increased left ventricular wall thickness. The left ventricular diastolic function is grade I diastolic dysfunction. Global longitudinal strain is abnormal at -7 %. The apical inferior wall, apical anterior wall, mid inferior wall, and basal anteroseptal are akinetic. The apical lateral wall, and mid anterior wall are hypokinetic. The apical septum, apical cap, mid inferoseptal, and mid anteroseptal are dyskinetic. All other flynn appear normal. Right Ventricle Right ventricular chamber dimension is mildly enlarged. Right ventricular systolic function is normal. Left Atria Left atrial chamber dimension is mildly enlarged. Right Atria Right atrial chamber dimension is mildly enlarged. Aortic Valve The aortic valve is trileaflet. There is mild aortic valve sclerosis. There is no aortic valve stenosis. There is trace aortic valve regurgitation. Pulmonic Valve The pulmonic valve is normal. There is no pulmonic valve stenosis. There is mild pulmonic regurgitation. Mitral Valve The mitral valve has normal leaflets. There is no mitral valve stenosis. There is mild mitral valve regurgitation. Tricuspid Valve The tricuspid valve leaflets are normal. There is no significant tricuspid valve stenosis. There is mild tricuspid valve regurgitation. No pulmonary hypertension, estimated pulmonary arterial systolic pressure is 34 mmHg. Pericardium/Pleural
[2020-02-28 00:09] LABS: Base Excess ABG -5.5 mEq/l (+/-2.0); HCO3 ABG 17.5 mEq/l (22.0-26.0); Oxygen Saturation ABG 99.8 % (95.0-100.0); PCO2 ABG 26.6 mmHg (35.0-45.0); PO2 ABG 338.4 mmHg (80.0-100.0); pH ABG 7.437 (7.350-7.450)
[2020-02-28 00:10] LABS: Device NON-REBREATHER MASK; Fractional Inspired Oxygen 100 %; Modified Allen's Test Unable to perform; Oxygen Content ABG 14.6 %vol (16.0-22.0); Oxyhemoglobin 97.7 % THb (90.0-100.0); PO2 FiO2 Ratio Arterial Blood 3.38 %; Site Drawn RIGHT RADIAL
--- NOTE | 2020-02-28 00:12 | PC.NURSE ---
Addendum entered by Ethan Campos RN 02/28/20 00:27: Pt sia Paramjit updated with patient's condition. Original Note: Called to room by polysomnography technician. Pt hypotensive, low 02 sat, bradycardic, and unresponsive. Rapid response called. Pt placed on non rebreather at 15L, IV fluid bolus started, and pt transferred to ICU for intubation.
[2020-02-28] MEDS: RAPID SEQUENCE INTUBATION KIT 1 EACH (00:30)
[2020-02-28] MEDS: FENTANYL 2,500MCG/NS250ML(*CRX 2,500 MCG/250 ML BAG 12.5 MCG IV CONT (00:30)
--- NOTE | 2020-02-28 00:35 | PC.NURSE ---
Per Dr Calderon during rapid. 2345: Narcan given 2354: Calcium given 2355: 2nd dose of narcan given 2359: pt to ICU for RSI.
[2020-02-28 00:50] LABS: Glucose Point of Care 78 (65-105)
[2020-02-28 01:13] LABS: Hematocrit 25.6 % (42.0-52.0); Hemoglobin 8.2 g/dL (14.0-18.0); Mean Corpuscular Hemoglobin 28.9 pg (26-34); Mean Corpuscular Volume 90.1 fl (80-100); Mean Platelet Volume 11.5 fl (7.4-10.4); Platelet Count Result 309 k/mm3 (150-375); Red Blood Count 2.84 M/mm3 (4.6-6.20); Red Cell Distribution Width 13.4 % (11.5-14.5); White Blood Count 13.5 K/mm3 (4.5-10.0)
[2020-02-28 01:25] LABS: INR 1.4; Prothrombin Time 17.4 Seconds (11.1-14.7)
[2020-02-28 01:26] LABS: Partial Thromboplastin Time 30.3 SECONDS (22.3-36.8)
[2020-02-28 01:28] LABS: Magnesium 2.8 mg/dL (1.6-2.3)
[2020-02-28 01:29] LABS: Lactic Acid Reflex 2.1 mmol/L (0.7-2.1)
[2020-02-28 01:30] LABS: Alanine Aminotransferase 357 U/L (4-50); Albumin Level 2.7 g/dL (3.5-5.1); Alkaline Phosphatase 124 U/L (38-126); Anion Gap 9 mmol/L (8-16); Aspartate Amino Transferase 700 U/L (17-59); Bilirubin,Total 0.9 mg/dL (0.2-1.3); Blood Urea Nitrogen 77 mg/dL (9-20); Calcium 9.2 mg/dL (8.4-10.2); Carbon Dioxide 23 mmol/L (22-30); Chloride 113 mmol/L (98-107); Estimated CRCL calculation 22 ml/min; Estimated Glomerular Filt Rate 24; Glucose 71 mg/dL (75-110); Potassium 4.1 mmol/L (3.4-5.0); Sodium 145 mmol/L (137-145)
[2020-02-28 02:12] LABS: Alveolar/Arterial O2 Gradient 149.6 mmHg; Base Excess ABG -5.2 mEq/l (+/-2.0); Carboxyhemoglobin 0.2 % THb (0-2.0); Fractional Inspired Oxygen 50 %; HCO3 ABG 18.2 mEq/l (22.0-26.0); Methemoglobin ABG 0.3 %THb (0-1.5); Oxygen Saturation ABG 99.3 % (95.0-100.0); Oxyhemoglobin 97.1 % THb (90.0-100.0); PCO2 ABG 27.9 mmHg (35.0-45.0); PO2 ABG 175.5 mmHg (80.0-100.0); PO2 FiO2 Ratio Arterial Blood 3.51 %; Reduced Hemoglobin 2.4 %THb (0-5.0); Total Hemoglobin 9.2 g/dL (12.0-18.0); pH ABG 7.432 (7.350-7.450)
[2020-02-28 02:14] LABS: Arterial Blood Gas PEEP 5 cmH2O; Arterial Blood Gas Tidal Volume 450 ml; Arterial Blood Gas Vent Mode CMV; Arterial Blood Gas Ventilator rate 16 /MIN; Device VENTILATOR; Modified Allen's Test Pass; Site Drawn LEFT RADIAL
[2020-02-28] MEDS: NOREPINEPHRINE 8 MG/D5W 250 ML 8 MG/250 ML BAG 18.75 MG IV CONT (02:24)
--- NOTE | 2020-02-28 02:24 | P.RRN_ITS ---
Critical Care Event Note Summary Code activated: No (Rapid response was activated) Narrative: Rapid response was called at 11:41 p.m. for patient being unresponsive. I arrived to the scene and patient appeared to be unresponsive but breathing spontaneously. Patient was hypotensive and normal saline fluid bolus was started. I was informed he had Leland 30 minutes prior to the rapid response. He was given Narcan x2 with no improvement. EKG showed bradycardia and peak T-wave concern for acute PR, comparison EKG also had some concern for acute PR from 02/16/2020 however the new changes were the bradycardia and the peak T-wave. With peaked T we gave him a dose of calcium IV. Vitals were not consistent, his heart rate would go from 40s to 100s, blood pressures range from 70s systolic to 90s, pulse ox was difficult to obtain good pleth. Because of his unresponsiveness and feeling clinical status he was moved to ICU for elective intubation. He was given a dose of atropine for bradycardia and shock. At 0023 He was intubated with a glide scope, etomidate 30 mg and succinylch oline 70mg, 7.5 ET tube at 23 in at lips. At 0043 Central line was placed in right IJ ultrasound-guided with no complications. OG tube was placed. X-ray confirmed positions. Lab work was drawn for central line. ABG was stable normal pH, LFT showed transaminitis, initial troponin is 73.1. Repeat EKG showed atrial fibrillation. At 2:[address] Frank informing him of the EKG changes, patient showing acute PR anteriorly with elevated troponin at 73. supervisor fish bait processing does not believe cardiac catheterization at this time would benefit patient as the troponin is already at 73 and infarct is likely complete. I initiated patient on heparin drip. I updated turn down attendant Dr. Bauer. Patient was getting hypotensive clearly cardiogenic shock secondary to acute PR, being managed with Levophed with good heart rate and blood pressure. Patient is on Versed and fentanyl for sedation. Second trop at 4:08 a.m. elevated at greater than 80. Sia Cervantes has been updated. This case had a high probability of a clinically significant, sudden, or life threatening deterioration of this patient's condition which required my full and direct attention, intervention and personal management. Critical care time: 75 - 104 mins
--- NOTE | 2020-02-28 02:27 | WPDPROCEDUR ---
Procedures Central Line Placement Right IJ: Central Line Date: 02/28/20 Central Line Time: 00:23 Discussed w/ the patient/family/POA,the placement of a central venous catheter, including its clinical necessity/indication & associated potential risks, benifits and alternatives.: Yes The patient/family/POA understand(s) and acknowledge(s) the need to proceed with central venous catheter insertion as an important element of the patient's clinical management.: Yes Performed Emergently - Given emergent patient condition, temporal constraints may have precluded informed consent.: Yes Consent: Sia verbal Time Out Performed: Yes Patient Position: supine Patient placed on monitor/pulse ox: Yes Provider Prep: sterile gown, sterile gloves, Max. sterile barrier precautions and other (vented carr) Central line prep: 2% Chlorhexidine scrub Local anesthesia used: lidocaine 1% Amount of anesthesia used (ml): 5 Sterile US Technique with sterile gel/sterile probe covers: Yes Central line lumen inserted: triple Bulgarian: 17 Post Procedure: sutured in place, good blood return, all ports aspirated, flushed, capped, transparent dressing, hemostatic product, antimicrobial product and aseptic technique maintained throughout procedure Post procedure x-ray: tip of catheter in good position and no pneumothorax seen Patient tolerated procedure: well Complications: none
[2020-02-28] MEDS: HEPARIN SODIUM 5,000 UNITS/ML VIAL 4000 UNITS IV PUSH (02:55)
[2020-02-28] MEDS: HEPARIN SOD/D5W 100 UNITS/ML 25,000 UNITS/250 ML BAG 10 UNITS IV CONT (02:58)
[2020-02-28 04:11] LABS: Reflex Lactic Acid Yes or No Add Lactic
[2020-02-28] MEDS: SODIUM CHLORIDE 0.9% IV 1,000 ML 70 ML IV CONT ×2 (04:18→22:01)
[2020-02-28] MEDS: VANCOMYCIN ORAL 125 MG/2.5 ML SYRUP PO (04:19)
[2020-02-28 04:52] LABS: Troponin I > 80.000 ng/mL (0.000-0.034)
--- NOTE | 2020-02-28 06:14 | WPDPROCEDUR ---
Procedures Intubation Intubation Date: 02/28/20 Intubation Time: 00:23 Consent: Family A pre-procedural Time-Out was completed immediately before starting the procedure and confirmed: Patient Identification, Site, Procedure, Patient Position and the Availability of Requisite Equipment: Yes Sedative: etomidate Mg given: 30 Paralytic: succinylcholine Mg given: 70 Laryngoscope: fiber optic video scope Assist device used: fiber optic device ET tube size: 7.5 Tube secured depth (cm): 23 Tube secured location: lips Tube placement confirmation: visualized tube passing through cords, equal breath sounds bilaterally, no breath sounds over epigastrium and confirmation by capnometry Patient tolerated procedure: well Intubation complications: none
--- NOTE | 2020-02-28 07:26 | PCPTNOTE ---
PT will hold therapy at this time due to patient's transfer to ICU due to change in medical status. Will await new orders to hold or continue PT.
[2020-02-28] MEDS: CLOPIDOGREL BISULFATE 75 MG TABLET PO (08:37)
[2020-02-28] MEDS: CHOLECALCIFEROL 1,000 UNITS TABLET 2000 UNITS PO (08:38)
[2020-02-28] MEDS: DEXAMETHASONE 2 MG TABLET 6 MG PO (08:38)
[2020-02-28] MEDS: levETIRAcetam 500 MG TABLET PO ×2 (08:39→22:08)
[2020-02-28] MEDS: FINASTERIDE 5 MG TABLET PO (08:39)
[2020-02-28] MEDS: TAMSULOSIN HCL 0.4 MG CAPSULE PO (08:40)
[2020-02-28] MEDS: MULTIVITAMINS THERAPEUTIC TAB (*BKC) 1 TABLET PO (08:40)
[2020-02-28] MEDS: SACCHAROMYCES BOULARDII 250 MG CAPSULE PO ×2 (08:42→17:31)
[2020-02-28] MEDS: MEMANTINE 10 MG TABLET PO ×2 (08:45→17:30)
[2020-02-28 09:15] LABS: Lactic Acid 1.3 mmol/L (0.7-2.1); Partial Thromboplastin Time 73.4 SECONDS (22.3-36.8)
[2020-02-28 09:43] LABS: Troponin I > 80.000 ng/mL (0.000-0.034)
--- NOTE | 2020-02-28 11:21 | WPDCNINT ---
Assessment and Plan Assessment and plan (1) Acute respiratory failure: Code(s): J96.00 - Acute respiratory failure, unspecified whether with hypoxia or hypercapnia Status: Acute Assessment and Plan: Acute respiratory failure likely related to acute coronary event, COVID-19 pneumonia, shock, encephalopathy -continue low tidal volume strategy -currently on peep of 5, 50% FiO2, wean FiO2 to maintain O2 sats greater than 92% -continue bronchodilators -sedated with fentanyl Versed infusion (2) Shock: Code(s): R57.9 - Shock, unspecified Status: Acute Assessment and Plan: Shock likely cardiogenic versus septic -troponin levels elevated to 73 and >80 -lactic acid normal -remains on Levophed maintain mean arterial pressures greater than 65 mmHg -will obtain echocardiogram to evaluate cardiac function (3) COVID-19: Code(s): U07.1 - COVID-19 Status: Acute Assessment and Plan: SARS-CoV-2 PCR positive on 02/16 -continue droplet, airborne, contact isolation/precautions -patient on dexamethasone initiated on 02/21/2020 -patient not a candidate for Remdesivir due to renal function and late presentation (4) Anemia: Code(s): D64.9 - Anemia, unspecified Status: Acute Assessment and Plan: Guaiac-positive stool, appreciate GI evaluation recommendation -patient has a history of colonic polyps -will start Protonix as patient on steroids, now intubated on mechanical ventilation and guaiac-positive stools (5) UTI (urinary tract infection) due to Enterococcus: Code(s): N39.0 - Urinary tract infection, site not specified; B95.2 - Enterococcus as the cause of diseases classified elsewhere Status: Acute Assessment and Plan: Urine cultures growing Enterococcus, patient on vancomycin (6) COPD (chronic obstructive pulmonary disease): Qualifiers: COPD type: unspecified COPD Qualified Code(s): J44.9 - Chronic obstructive pulmonary disease, unspecified Code(s): J44.9 - Chronic obstructive pulmonary disease, unspecified Status: Acute Assessment and Plan: Continue bronchodilators (7) DVT prophylaxis: Code(s): Z29.9 - Encounter for prophylactic measures, unspecified Status: Acute Assessment and Plan: Heparin infusion (8) Acute kidney injury superimposed on chronic kidney disease: Code(s): N17.9 - Acute kidney failure, unspecified; N18.9 - Chronic kidney disease, unspecified Status: Acute Assessment and Plan: Acute on chronic kidney disease likely related to shock, acute coronary event, hypotension -renal ultrasound 02/21/2020 showed normal kidney size, no hydronephrosis -will have Nephrology evaluate the patient (9) Elevated troponin: Code(s): R79.89 - Other specified abnormal findings of blood chemistry Status: Acute Assessment and Plan: Patient with acute coronary event with elevated troponin -likely late presentation OK -appreciate cardiology evaluation and recommendations -no intervention at this time given patient's renal function significantly elevated troponin and late presentation -medical management when blood pressures permit -last night the hospitalist discuss with cardiology. Heparin infusion was started (10) Afib: Qualifiers: Atrial fibrillation type: unspecified Qualified Code(s): I48.91 - Unspecified atrial fibrillation Code(s): I48.91 - Unspecified atrial fibrillation Status: Chronic Assessment and Plan: Patient remains in AFib currently rate controlled. Remains on heparin infusion - Additional Plan Discussed with since Sia, and his son Paramjit who is the POA and updated them with patient's condition, plan of care. I did discuss with them regarding the acute coronary event significant elevation of troponin. Patient also in state of shock, requiring Levophed with a blood pressure support medication. Patient remains intubated o
--- NOTE | 2020-02-28 11:27 | PCDIET ---
MD ordered to start trickle feedings: Nepro beginning at 10mL/hr and increasing to 20mL/hr later today, if tolerated.
--- NOTE | 2020-02-28 11:46 | PM.PNGS ---
Progress Note: A&P Assessment and Plan (1) Buttock wound: Code(s): S31.809A - Unspecified open wound of unspecified buttock, initial encounter Status: Acute Assessment and Plan: POD#1 excisional debridement of stage III sacral decubitus ulcer. Will assess the sacral wound later today with the wound care nurses and decide on appropriate wound care at that time. Wound VAC is not an option due to the close proximity of the wound to the anal verge. Ordered a rectal tube to help keep the sacral wound clean - patient still having a significant amount of diarrhea and will be incontinent while intubated/sedated. (2) Acute respiratory failure: Code(s): J96.00 - Acute respiratory failure, unspecified whether with hypoxia or hypercapnia Status: Acute Assessment and Plan: Now intubated in the ICU. Likely secondary to acute coronary event, COVID-19 pneumonia, and shock. Care per Material Damage Appraiser. (3) Shock: Code(s): R57.9 - Shock, unspecified Status: Acute Assessment and Plan: Cardiogenic versus septic. Lactic acid normal. Now on vasopressor support, wean levophed as tolerated. Continue IV abx. (4) Elevated troponin: Code(s): R79.89 - Other specified abnormal findings of blood chemistry Status: Acute Assessment and Plan: Troponin 73.1 and then >80. Started on an IV Heparin drip overnight. Cardiology has been consulted, will await their recommendations. (5) COVID-19: Code(s): U07.1 - COVID-19 Status: Acute Assessment and Plan: Now with acute respiratory failure in the ICU. Continue droplet/contact/airborne isolation. Management per primary team. (6) C. difficile diarrhea: Code(s): A04.72 - Enterocolitis due to Clostridium difficile, not specified as recurrent Status: Acute (7) Encephalopathy: Code(s): G93.40 - Encephalopathy, unspecified Status: Acute Additional Plan Discussed the patient's plan of care with Dr. Black. Subjective Subjective Date/Time Seen: 02/28/20 11:00 Post Op day: 1 Interval history: Patient intubated and sedated in the ICU. Rapid response called overnight, per EMR, patient was unresponsive and was subsequently intubated and a right IJ central line was placed. He was started on Levophed. Labs were drawn and he had a troponin of 73.1. The patient was started on a Heparin gtt. Cardiology has since been consulted. Review of Systems Review of Systems: ROS unobtainable: Yes unobtainable due to endotracheal tube and unobtainable due to mental status Exam Const: Other: Sedated on the mechanical ventilator. Cardio: Rate: tachycardic Rhythm: abnormal rhythm irregularly irregular GI: Inspection: non-distended GI Palp: Yes Soft to palpation Auscultation: normal bowel sounds Urinary Catheter: Urinary Catheter: patent and draining Skin: Other: JO wound at this time, will return later today with wound care nurses to be able to turn the patient and assess sacral wound. Neuro: Other: Limited assessment d/t being intubated/sedated. Opens eyes but no tracking or following commands. Pupils pinpoint but reactive to light. Extrem: General: no clubbing, cyanosis or edema Objective Data Vital Signs Vital Signs: Vital Signs - 24 hr 02/27/20 12:38 02/27/20 13:18 02/27/20 16:00 Temperature 97.7 F 98.0 F Pulse Rate 88 72 91 Respiratory Rate 20 20 Blood Pressure 144/88 H 135/59 L Pulse Oximetry 95 100 98 02/27/20 18:00 02/27/20 18:15 02/27/20 18:48 Temperature 96.9 F L 98.0 F Pulse Rate 101 H 88 80 Respiratory Rate 25 H 25 H 18 Blood Pressure 103/59 L 135/84 99/53 L Pulse Oximetry 93 96 95 02/27/20 20:00 02/27/20 20:49 02/27/20 21:07 Temperature 98.1 F Pulse Rate 113 H 92 Respiratory Rate 18 Blood Pressure 136/98 H Pulse Oximetry 98 98 02/27/20 23:25 02/27/20 23:52 02/27/20 23:55 Temperature 97.1 F L Pulse Rate 48 L 61 83 Respiratory Rate 12 Blood Pressure 64/
[2020-02-28 12:06] LABS: Glucose Point of Care 122 (65-105)
--- NOTE | 2020-02-28 12:09 | PM.CNCAR ---
Assessment and Plan Assessment and plan (1) ACS (acute coronary syndrome): Code(s): I24.9 - Acute ischemic heart disease, unspecified Status: Acute Assessment and Plan: Significant infarction has occurred. 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 Given the late presentation, decision was previously made not to pursue emergent intervention. Continue supportive care and medical management. Will continue heparin drip per ACS protocol. Will repeat an EKG now. Repeat troponin. Clopidogrel 75 mg p.o. daily to be started. 2D echocardiogram Doppler is ordered will be reviewed. Continue supportive care with norepinephrine and wean as able. Blood pressures are stable enough that I do think that some degree of down titration could be performed. (2) COVID-19: Code(s): U07.1 - COVID-19 Status: Acute Assessment and Plan: Continue supportive care (3) Paroxysmal atrial fibrillation: Code(s): I48.0 - Paroxysmal atrial fibrillation Status: Acute Assessment and Plan: Continue anticoagulation and currently in sinus rhythm (4) Acute on chronic renal failure: Code(s): N17.9 - Acute kidney failure, unspecified; N18.9 - Chronic kidney disease, unspecified Status: Acute Assessment and Plan: Worsening and followed by other services (5) Buttock wound: Code(s): S31.809A - Unspecified open wound of unspecified buttock, initial encounter Status: Acute Assessment and Plan: Per surgery (6) Shock: Code(s): R57.9 - Shock, unspecified Status: Acute Assessment and Plan: Combination of cardiogenic and septic shock (7) Alzheimer disease: Qualifiers: Alzheimer's disease onset: unspecified onset Dementia behavioral disturbance: without behavioral disturbance Qualified Code(s): G30.9 - Alzheimer's disease, unspecified; F02.80 - Dementia in other diseases classified elsewhere without behavioral disturbance Code(s): G30.9 - Alzheimer's disease, unspecified; F02.80 - Dementia in other diseases classified elsewhere without behavioral disturbance Status: Chronic (8) HTN (hypertension): Qualifiers: Hypertension type: unspecified Qualified Code(s): I10 - Essential (primary) hypertension Code(s): I10 - Essential (primary) hypertension Status: Chronic Assessment and Plan: Will resume BP medications when able/needed History of Present Illness History of Present Illness Consult date/time: 12/16/20 12:09 Requesting physician: Lise Bauer MD Consult reason: Other (Elevated troponin) Reason For Visit: Unstageable sacral decubitus ulcer Narrative: Date of service 02/28/2020 Reason for admission: Acute renal failure, dementia, possible overdose. Reason for consultation: Elevated troponin History: Patient is a 74-year-old male who has a history of coronary disease hypertension atrial fibrillation, Alzheimer's, chronic kidney disease, diabetes, history of noncompliance who presented to the hospital because ?possible overdose ?. Creatinine was also worse than usual. Within 48 hours of admission he tested positive for Coronavirus. He was also found to have a large decubitus ulcer. Patient did go for surgery on his decubitus ulcer yesterday. Last night events were noted where have rapid response was called because of decreased mental status and lack of responsiveness. This eventually led to a transfer to the ICU and intubation. EKG was obtained which did show some ST segment elevations and peak T-waves anteriorly. Troponins were above 70 initially. The hospitalist did contact Dr. Frank and decision was made by him not to pursue intervention as this is likely a late presentation myocardial infarction. Patient was started on heparin and pressors. He is currently intubated and sedated. Blood pressure is more stable.
--- NOTE | 2020-02-28 12:40 | ECG_ITS ---
Measurements Intervals [place] Rate: 75 P: 64 TX: 156 QRS: -38 QRSD: 113 T: 45 QT: 430 QTc: 482 Interpretive Statements SINUS RHYTHM ATRIAL PREMATURE COMPLEX LEFT AXIS DEVIATION INTRAVENTRICULAR CONDUCTION DELAY CANNOT RULE OUT SEPTAL INFARCT, AGE INDETERMINATE ANTERIOR ST ELEVATION WITH PEAKED T WAVES- CONSIDER ACUTE INFARCT ABNORMAL ECG Electronically Signed On 02-28-2020 14:04:08 METAL STAMPING MACHINE OPERATOR by Lloyd Gonsales D.O.
--- NOTE | 2020-02-28 12:53 | PM.CNNEP ---
Assessment and Plan Assessment and plan (1) Acute on chronic renal failure: Code(s): N17.9 - Acute kidney failure, unspecified; N18.9 - Chronic kidney disease, unspecified Status: Acute Assessment and Plan: Addy has acute kidney injury on top of chronic kidney disease. The chronic kidney disease is most likely due to his hypertension and diabetes. I do not think he has ever been evaluated for this. The acute kidney injury is likely related to sepsis, and hypotension. other causes such as interstitial nephritis and glomerulonephritis are possible but less likely. Obstruction is always a possibility. He did already have a renal ultrasound which was negative. At this point will get urine electrolytes and eosinophils. will follow this along. (2) COVID-19: Code(s): U07.1 - COVID-19 Status: Acute Assessment and Plan: The patient is getting Dexamethasone and supportive care (3) Shock: Code(s): R57.9 - Shock, unspecified Status: Acute Assessment and Plan: the patient is on norepinephrine. His blood pressure is relatively stable right now. (4) Acute respiratory failure: Code(s): J96.00 - Acute respiratory failure, unspecified whether with hypoxia or hypercapnia Status: Acute Assessment and Plan: He is on the ventilator. His chest x-ray shows diffuse lung disease but has improved a little bit. Some of this might be fluid in some of this is probably COVID. He is getting diuretics. (5) UTI (urinary tract infection) due to Enterococcus: Code(s): N39.0 - Urinary tract infection, site not specified; B95.2 - Enterococcus as the cause of diseases classified elsewhere Status: Acute Assessment and Plan: His culture grew enterococcus and he is on antibiotics. (6) Metabolic acidosis: Code(s): E87.2 - Acidosis Status: Acute Assessment and Plan: His bicarbonate level was very low a few days ago. This has come up to normal now. (7) Paroxysmal atrial fibrillation: Code(s): I48.0 - Paroxysmal atrial fibrillation Status: Acute Assessment and Plan: He is in sinus rhythm right now (8) Diarrhea: Code(s): R19.7 - Diarrhea, unspecified Status: Acute Assessment and Plan: he has C diff colitis. He still has liquid stools but not voluminous according to the nurse. (9) Buttock wound: Code(s): S31.809A - Unspecified open wound of unspecified buttock, initial encounter Status: Acute Assessment and Plan: He had a debridement of this wound. History of Present Illness Reason for Consult Consult date: 02/28/20 Chief Complaint Chief complaint: Unstageable sacral decubitus ulcer History of Present Illness Narrative: Addy is a very pleasant 74-year-old gentleman who has multiple medical problems including dementia, arthritis, coronary disease, myocardial infarction, hyperlipidemia, TIA, seizures, hypertension, diabetes, depression, stroke, COPD, BPH, arthritis, urinary retention. The patient was admitted to the hospital on the because of possible overdose. Apparently he took a bunch of medications in the evening with that he was not supposed to take and became very sleepy so his family brought him to the ER. In the ER he is evaluated. He had a creatinine of 2.3. He was COVID positive. He was admitted to the hospital and given some IV fluids. His creatinine was as high as 3.5 and dropped to around 1.5 0 with the fluid. However lately his creatinine has crept back up again and today is up to 3.1 so renal consultation was requested. Issues in the hospital as well. He recently had a debridement of the decubitus ulcer. Postoperatively he was hemodynamically unstable. He ended up being intubated is now in the intensive care unit. He has respiratory failure. Review of Systems Review of Systems: ROS unobtainable: Yes unobtainable due to medica
--- NOTE | 2020-02-28 12:54 | PM.IMPN ---
Progress Note: A&P Assessment and Plan (1) Acute on chronic renal failure: Code(s): N17.9 - Acute kidney failure, unspecified; N18.9 - Chronic kidney disease, unspecified Status: Acute Assessment and Plan: Likely secondary to pre renal azotemia on CKD as patient has had diarrhea for quite some time, being treated in the outpatient setting for C. diff. Also shock currently on vasopressors. Gentle hydration Daily I/O's Strict I/O's (2) Paroxysmal atrial fibrillation: Code(s): I48.0 - Paroxysmal atrial fibrillation Status: Acute Assessment and Plan: Stable Continue to monitor. (3) Shock: Code(s): R57.9 - Shock, unspecified Status: Acute Assessment and Plan: Likely multifactorial On vasopressors On vent support (4) Acute respiratory failure: Code(s): J96.00 - Acute respiratory failure, unspecified whether with hypoxia or hypercapnia Status: Acute Assessment and Plan: On ventilator Appreciate Int/CC note. (5) Buttock wound: Code(s): S31.809A - Unspecified open wound of unspecified buttock, initial encounter Status: Acute Assessment and Plan: S/p sharp debridement. Post op day 1 (6) Metabolic acidosis: Code(s): E87.2 - Acidosis Status: Acute Assessment and Plan: Improved Bicarb wnl (7) C. difficile diarrhea: Code(s): A04.72 - Enterocolitis due to Clostridium difficile, not specified as recurrent Status: Acute Assessment and Plan: Completed course of po Vanc (8) Encephalopathy: Code(s): G93.40 - Encephalopathy, unspecified Status: Acute Assessment and Plan: Currently on ventilator. (9) Dementia: Qualifiers: Dementia type: unspecified type Dementia behavioral disturbance: without behavioral disturbance Qualified Code(s): F03.90 - Unspecified dementia without behavioral disturbance Code(s): F03.90 - Unspecified dementia without behavioral disturbance Status: Chronic Assessment and Plan: Alzheimer's dementia. Supportive care (10) Elevated troponin: Code(s): R79.89 - Other specified abnormal findings of blood chemistry Status: Acute Assessment and Plan: Currently on Heparin drip Appreciate Cardiology note. Subjective Date/time seen: 02/28/20 12:54 Patient is intubated and on a ventilator. Review of Systems Review of Systems: Narrative: Unable to obtain as patient is on life support. Exam Narrative: Exam Narrative: Patient seen thru glass door. Exam is limited to inspection. Patient is s/p sharp debridement of sacral wound post op day one. Const: General: other (On ventilator support.) HENMT: Head: normal to inspection and normocephalic Face and sinus: normal facial exam Neck: Neck: supple, no JVD and other (R IJ tripple lumen in place.) Resp: Effort & Inspection: other (In sync with vent.) Neuro: Cranial nerves: Yes Other cranial nerve findings present (Under sedation.) Objective Data Vital Signs Vital Signs: Vital Signs - 24 hr 02/27/20 13:18 02/27/20 16:00 02/27/20 18:00 Temperature 97.7 F 98.0 F 96.9 F L Pulse Rate 72 91 101 H Respiratory Rate 20 20 25 H Blood Pressure 144/88 H 135/59 L 103/59 L Pulse Oximetry 100 98 93 02/27/20 18:15 02/27/20 18:48 02/27/20 20:00 Temperature 98.0 F Pulse Rate 88 80 Respiratory Rate 25 H 18 Blood Pressure 135/84 99/53 L Pulse Oximetry 96 95 98 02/27/20 20:49 02/27/20 21:07 02/27/20 23:25 Temperature 98.1 F 97.1 F L Pulse Rate 113 H 92 48 L Respiratory Rate 18 12 Blood Pressure 136/98 H 64/31 L Pulse Oximetry 98 100 02/27/20 23:52 02/27/20 23:55 02/28/20 00:00 Temperature Pulse Rate 61 83 96 Respiratory Rate Blood Pressure 74/47 L 82/45 L Pulse Oximetry 100 02/28/20 00:28 02/28/20 00:30 02/28/20 01:00 Temperature 98.1 F 98.1 F Pulse Rate 90 111 H 95 Respiratory Rate 20 25 H 20 Blood Pressure 74/50 L
[2020-02-28 12:57] LABS: Glucose Point of Care 134 (65-105)
--- NOTE | 2020-02-28 13:36 | PCPTNOTE ---
Spoke w/ Dr Bauer regarding pt transfer to ICU and pt vented/sedated. DC PT due to decline in medical status.
--- NOTE | 2020-02-28 14:09 | WPDANESPN ---
Anes - Prog Note Post-Op Date/Time: 02/28/20 14:09 Cardiovascular status: other (patient on levophed) Respiratory status: other (patient on ventilator) Airway patency: other (intubated) Mental status: other (sedated) Post-Op hydration status: normal Vital Signs: Last Vital Signs Temp 36.8 C 02/28/20 12:00 Pulse 97 02/28/20 12:00 Resp 18 02/28/20 12:00 BP 97/51 L 02/28/20 12:00 Pulse Ox 97 02/28/20 12:00 Pain Score (VAS): 0/10. Patient resting in bed at time of assessment, appears comfortable. Patient on levophed and sedated. No additional concerns or issues addressed by RN at time of assessment. I/O: Intake & Output 02/27/20 02/28/20 02/28/20 23:59 07:59 15:59 Intake Total 600 1000 Output Total 750 240 Balance -150 760 Laboratory Tests 02/28/20 01:04 02/28/20 01:04 02/27/20 02/27/20 02/27/20 18:46 21:04 22:39 WBC RBC Hgb Hct MCV MCH MCHC RDW Plt Count MPV PT INR APTT Puncture Site ABG pH ABG pCO2 ABG pO2 ABG PO2/FiO2 Ratio ABG HCO3 ABG O2 Saturation ABG O2 Content ABG Base Excess A-a Gradient Oxyhemoglobin Carboxyhemoglobin Methemoglobin Reduced Hemoglobin Total Hemoglobin O2 Delivery Device O2 Liters/Min Minute Volume Vent Rate Vent Mode FiO2 Tidal Volume PEEP Peak Inspir Pressure Pressure Support Sodium Potassium Chloride Carbon Dioxide Anion Gap BUN Creatinine Estim Creat Clear Calc Estimated GFR Glucose POC Capillary Glucose 99 77 90 Lactic Acid Calcium Magnesium Total Bilirubin AST ALT Alkaline Phosphatase Troponin I Total Protein Albumin 02/27/20 02/28/20 02/28/20 23:43 00:01 01:04 WBC RBC Hgb Hct MCV MCH MCHC RDW Plt Count MPV PT INR APTT Puncture Site Right radial ABG pH 7.437 ABG pCO2 26.6 L ABG pO2 338.4 H ABG PO2/FiO2 Ratio 3.38 ABG HCO3 17.5 L ABG O2 Saturation 99.8 ABG O2 Content 14.6 L ABG Base Excess -5.5 A-a Gradient 348.0 Oxyhemoglobin 97.7 Carboxyhemoglobin Methemoglobin Reduced Hemoglobin Total Hemoglobin 10.0 L O2 Delivery Device Non-rebreather mask O2 Liters/Min 15.0 Minute Volume Vent Rate Vent Mode FiO2 100 Tidal Volume PEEP Peak Inspir Pressure Pressure Support Sodium 145 Potassium 4.1 Chloride 113 H Carbon Dioxide 23 Anion Gap 9 BUN 77 H Creatinine 3.10 H Estim Creat Clear Calc 22 Estimated GFR 24 L Glucose 71 L POC Capillary Glucose 78 Lactic Acid Calcium 9.2 Magnesium Total Bilirubin 0.9 AST 700 H ALT 357 H Alkaline Phosphatase 124 Troponin I 73.100 H* Total Protein 6.0 L Albumin 2.7 L 02/28/20 02/28/20 02/28/20 01:04 01:04 01:04 WBC 13.5 H RBC 2.84 L Hgb 8.2 L Hct 25.6 L MCV 90.1 MCH 28.9 MCHC 32.0 RDW 13.4 Plt Count 309 MPV 11.5 H PT 17.4 H INR 1.4 APTT 30.3 Puncture Site ABG pH ABG pCO2 ABG pO2 ABG PO2/FiO2 Ratio ABG HCO3 ABG O2 Saturation ABG O2 Content ABG Base Excess A-a Gradient Oxyhemoglobin Carboxyhemoglobin Methemoglobin Reduced Hemoglobin Total Hemoglobin O2 Delivery Device O2 Liters/Min Minute Volume Vent Rate Vent Mode FiO2 Tidal Volume PEEP Peak Inspir Pressure Pressure Support Sodium Potassium Chloride Carbon Dioxide Anion Gap BUN Creatinine Estim Creat Clear Calc Estimated GFR Glucose POC Capillary Glucose Lactic Acid Calcium Magnesium 2.8 H Total Bilirubin AST ALT Alkaline Phosphatase Troponin I Total Protein Albumin 02/28/20 02/28/20 02/28/20 01:04 02:04 04:08 WBC RBC Hgb Hct
[2020-02-28 14:45] LABS: Troponin I > 80.000 ng/mL (0.000-0.034)
[2020-02-28 16:52] LABS: Partial Thromboplastin Time 74.4 SECONDS (22.3-36.8)
[2020-02-28 17:07] LABS: Glucose Point of Care 231 (65-105)
[2020-02-28] MEDS: INSULIN ASPART (*BKC) 100 UNITS/ML SUB-Q (17:28)
[2020-02-28 17:46] LABS: Creatinine Urine 212.5 mg/dL; Total Protein Urine Random 81 mg/dL; Ur Ttl Prot Creatinine Ratio 0.38 mg/mg (0-0.20)
[2020-02-28 17:48] LABS: Sodium Urine Random 7 meq/L
[2020-02-28] MEDS: PANTOPRAZOLE SODIUM IV 40 MG VIAL IV PUSH (22:05)
[2020-02-28] MEDS: QUEtiapine FUMARATE 12.5 MG TABLET PO (22:06)
[2020-02-28] MEDS: SOD HYPOCHLORITE 1/4 STRENGTH 473 ML 1 APPLIC TOPICAL (22:07)
[2020-02-29] VITALS (24 sets, daily range): BP systolic 87–119; BP diastolic 46–79; PULSE 70–131; RESP 12–22; TEMP 36.1–37.9; O2SAT 96–100
[2020-02-29] MEDS: HEPARIN SOD/D5W 100 UNITS/ML 25,000 UNITS/250 ML BAG 10 UNITS IV CONT (01:15)
[2020-02-29 01:26] LABS: Glucose Point of Care 224 (65-105)
[2020-02-29] MEDS: INSULIN ASPART (*BKC) 100 UNITS/ML SUB-Q ×3 (01:29→17:42)
[2020-02-29] MEDS: FENTANYL 2,500MCG/NS250ML(*CRX 2,500 MCG/250 ML BAG 7.5 MCG IV CONT (04:00)
[2020-02-29 04:26] LABS: Alveolar/Arterial O2 Gradient 84.1 mmHg; Base Excess ABG -6.7 mEq/l (+/-2.0); Carboxyhemoglobin 0.2 % THb (0-2.0); Fractional Inspired Oxygen 30 %; HCO3 ABG 17.6 mEq/l (22.0-26.0); Methemoglobin ABG 0.2 %THb (0-1.5); Oxygen Content ABG 13.9 %vol (16.0-22.0); Oxyhemoglobin 94.8 % THb (90.0-100.0); PCO2 ABG 31.3 mmHg (35.0-45.0); Reduced Hemoglobin 4.8 %THb (0-5.0); Total Hemoglobin 10.3 g/dL (12.0-18.0); pH ABG 7.369 (7.350-7.450)
[2020-02-29 04:27] LABS: Device VENTILATOR; Modified Allen's Test Unable to perform; Site Drawn RIGHT RADIAL
[2020-02-29 04:28] LABS: Arterial Blood Gas PEEP 5 cmH2O; Arterial Blood Gas Tidal Volume 450 ml; Arterial Blood Gas Vent Mode ASSIST CONTROL; Arterial Blood Gas Ventilator rate 16 /MIN
[2020-02-29 06:15] LABS: Partial Thromboplastin Time 45.7 SECONDS (22.3-36.8)
[2020-02-29] MEDS: NOREPINEPHRINE 8 MG/D5W 250 ML 8 MG/250 ML BAG 11.25 MG IV CONT (06:38)
[2020-02-29 06:53] LABS: Glucose Point of Care 212 (65-105)
[2020-02-29] MEDS: HEPARIN SODIUM 5,000 UNITS/ML VIAL 4000 UNITS IV PUSH (07:04)
[2020-02-29] MEDS: levETIRAcetam 500 MG TABLET PO ×2 (08:17→20:37)
[2020-02-29] MEDS: PANTOPRAZOLE SODIUM IV 40 MG VIAL IV PUSH ×2 (08:17→20:37)
[2020-02-29] MEDS: MULTIVITAMINS THERAPEUTIC TAB (*BKC) 1 TABLET PO (08:17)
[2020-02-29] MEDS: DEXAMETHASONE 2 MG TABLET 6 MG PO (08:18)
[2020-02-29] MEDS: CHOLECALCIFEROL 1,000 UNITS TABLET 2000 UNITS PO (08:18)
[2020-02-29] MEDS: FERROUS SULFATE 324 MG TABLET PO (08:18)
[2020-02-29] MEDS: MEMANTINE 10 MG TABLET PO ×2 (08:19→17:42)
[2020-02-29] MEDS: FINASTERIDE 5 MG TABLET PO (08:19)
[2020-02-29] MEDS: SACCHAROMYCES BOULARDII 250 MG CAPSULE PO ×2 (08:19→17:42)
[2020-02-29] MEDS: SOD HYPOCHLORITE 1/4 STRENGTH 473 ML 1 APPLIC TOPICAL ×2 (08:20→20:40)
[2020-02-29] MEDS: TAMSULOSIN HCL 0.4 MG CAPSULE PO ×2 (08:20→20:40)
[2020-02-29 08:34] LABS: Basophils Percent Auto 0.1 % (0.2-1.2); Eosinophils Absolute Auto 0.2 K/mm3 (0-0.3); Eosinophils Percent Auto 0.9 % (0-4.4); Hematocrit 26.5 % (42.0-52.0); Hemoglobin 8.4 g/dL (14.0-18.0); Immature Granulocyte Absolute 0.36 K/mm3 (0.00-0.031); Immature Granulocyte Percent A 2.1 % (0-0.5); Lymphocytes Absolute Auto 1.27 K/mm3 (0.9-3.2); Lymphocytes Percent Auto 7.3 % (18.3-44.2); Mean Corpuscular HGB Conc 31.7 g/dl (32-36); Mean Corpuscular Hemoglobin 29.2 pg (26-34); Mean Platelet Volume 12.2 fl (7.4-10.4); Monocytes Absolute Auto 1.2 K/mm3 (0.1-0.6); Monocytes Percent Auto 6.9 % (2.6-8.5); Neutrophils Absolute Auto 14.3 K/mm3 (1.3-6.7); Neutrophils Percent Auto 82.7 % (45.5-73.1); Nucleated Red Blood Cells Absolute Auto 0.1 K/mm3 (0.0-0.012); Nucleated Red Blood Cells Perc 0.4 % (0.0-0.2); Platelet Count Result 344 k/mm3 (150-375); Red Blood Count 2.88 M/mm3 (4.6-6.20); Red Cell Distribution Width 13.7 % (11.5-14.5); White Blood Count 17.3 K/mm3 (4.5-10.0)
[2020-02-29 09:02] LABS: Anion Gap 9 mmol/L (8-16); Blood Urea Nitrogen 99 mg/dL (9-20); Calcium 8.1 mg/dL (8.4-10.2); Carbon Dioxide 21 mmol/L (22-30); Chloride 109 mmol/L (98-107); Estimated CRCL calculation 14 ml/min; Estimated Glomerular Filt Rate 14; Glucose 227 mg/dL (75-110); Magnesium 2.9 mg/dL (1.6-2.3); Sodium 139 mmol/L (137-145)
[2020-02-29 09:26] LABS: Albumin Level 2.6 g/dL (3.5-5.1); Phosphorus 7.8 mg/dL (2.5-4.5)
[2020-02-29] MEDS: INSULIN ASPART (*BKC) 100 UNITS/ML 9 UNITS SUB-Q (10:00)
--- NOTE | 2020-02-29 11:18 | PCDIET ---
ICU Rounding Note: Patient tolerating Nepro at 20mL/hr with 30mL water flush every 4 hours. MD order to advance to 40mL/hr Nepro, as tolerated. Last recorded weight is 106.5kg. Recommend obtaining new weight. Bowel Motility: FMS in place for diarrhea. Labs Reviewed: Glu (227), BUN (99), Cr (4.8), Ca (8.1), Mg (2.9) Meds Noted: Plavix, Fentanyl, Ferrous Sulfate, Lasix, Versed, MVI, Levophed, Dexamethasone, Heparin, Novolog, Protonix, Florastor, Vancomycin, Vitamin D, NS at 70mL/hr Additional Notes: Patient with large coccyx wound s/p debridement - no significant change reported. Following daily in ICU rounds. Assessing/reassessing every Wednesday/Wednesday.
--- NOTE | 2020-02-29 11:23 | PM.PNGS ---
Progress Note: A&P Assessment and Plan (1) Buttock wound: Code(s): S31.809A - Unspecified open wound of unspecified buttock, initial encounter Status: Acute Assessment and Plan: POD#2 excisional debridement of stage III sacral decubitus ulcer. When assessing the sacral wound today, majority of the wound bed has some necrotic slough. He is sedated and potentially could tolerate bedside debridement if needed, but the location of this wound makes positioning challenging. Also, he is fully anticoagulated and supplies to control bleeding when debridement is done at the bedside are limited. We will reassess the wound again tomorrow and decide on any intervention depending on how this progresses. Continue local wound care with Dakin's 1/4 strength dressing changes BID. Continue the rectal tube to avoid soilage of the wound. (2) Acute respiratory failure: Code(s): J96.00 - Acute respiratory failure, unspecified whether with hypoxia or hypercapnia Status: Acute Assessment and Plan: Remains intubated in the ICU. Likely secondary to acute coronary event, COVID-19 pneumonia, and shock. Care per Biochemical Development Engineer. (3) Shock: Code(s): R57.9 - Shock, unspecified Status: Acute Assessment and Plan: Still requiring vasopressor support. Wean Levophed as tolerated. Lactic acid normal. Seems to be more likely cardiogenic. (4) ACS (acute coronary syndrome): Code(s): I24.9 - Acute ischemic heart disease, unspecified Status: Acute Assessment and Plan: On Heparin drip per ACS protocol. Troponins > 80. Echo results noted with EF 20-25%, apical inferior wall/apical anterior wall/mid inferior wall/basal anteroseptal are akinetic, the apical lateral wall/mid anterior wall are hypokinetic, and the apical septum/apical cap/mid inferoseptal/mid anteroseptal are dyskinetic. [place] to be a subacute injury. On Plavix. Cardiology following. (5) COVID-19: Code(s): U07.1 - COVID-19 Status: Acute Assessment and Plan: With acute respiratory failure, intubated in the ICU. On dexamethasone. Continue droplet/contact/airborne isolation. Management per primary team. (6) C. difficile diarrhea: Code(s): A04.72 - Enterocolitis due to Clostridium difficile, not specified as recurrent Status: Acute (7) Encephalopathy: Code(s): G93.40 - Encephalopathy, unspecified Status: Acute Additional Plan Discussed the patient's plan of care with Dr. Black. Subjective Subjective Date/Time Seen: 02/29/20 11:00 Post Op day: 2 Interval history: Patient remains intubated and sedated in the ICU. Per the nurse, no issues with the rectal tube or wound overnight. Currently on 10 mcg/min of Levophed. Still on Heparin drip for ACS protocol. Review of Systems Review of Systems: ROS unobtainable: Yes unobtainable due to endotracheal tube and unobtainable due to mental status Exam Const: General: comfortable and no acute distress Other: Sedated on the mechanical ventilator. Cardio: Rate: tachycardic Rhythm: abnormal rhythm irregularly irregular GI: Inspection: normal to inspection and non-distended GI Palp: Yes Soft to palpation Auscultation: normal bowel sounds Urinary Catheter: Urinary Catheter: patent and draining Skin: Other: Large sacral wound with yellow/lee necrotic slough lining majority of the wound bed, foul odor. Packed with Dakin's soaked gauze and covered with ABD. Neuro: Other: Limited assessment d/t being intubated/sedated. Opens eyes but no tracking or following commands. Pupils pinpoint but reactive to light. Extrem: General: no clubbing, cyanosis or edema Objective Data Vital Signs Vital Signs: Vital Signs - 24 hr 02/28/20 11:53 02/28/20 12:00 02/28/20 13:00 Temperature 98.3 F Pulse Rate 97 97 76 Respiratory Rate 18 22 H Blood Pressure 97/51 L Pulse Oximetry 98 97 02/28/20 14:00 02/28/20 14:19 02/28/20 16:00 Temperature 98.5 F P
--- NOTE | 2020-02-29 11:58 | WPDNEUROPN ---
Progress Note: A&P Additional Plan encephalopathy with other infections Review of Systems Review of Systems: All systems reviewed & are unremarkable except as noted in HPI and below Exam Narrative: Exam Narrative: on examination drowsy but arousable oriented to the person neck is supple with no thyromegaly no lymphadenopathy no cervical bruits no JVD heart is regular lungs decreased breath sounds extremities normal abdomen is soft neuro examination drowsiness intact cranial nerves and generalized weakness with sluggish reflexes and downgoing plantar responses Objective Data Vital Signs Vital Signs: Vital Signs - 24 hr 02/28/20 12:00 02/28/20 13:00 02/28/20 14:00 Temperature 36.8 C Pulse Rate 97 76 76 Respiratory Rate 18 22 H 22 H Blood Pressure 97/51 L 131/76 Pulse Oximetry 97 98 02/28/20 14:19 02/28/20 16:00 02/28/20 17:06 Temperature 36.9 C Pulse Rate 76 81 81 Respiratory Rate 16 Blood Pressure 109/52 L Pulse Oximetry 99 99 99 02/28/20 18:00 02/28/20 20:00 02/28/20 22:00 Temperature 36.9 C Pulse Rate 80 77 78 Respiratory Rate 27 H 16 16 Blood Pressure 99/76 L 111/54 L 117/56 L Pulse Oximetry 96 100 100 02/28/20 22:45 02/29/20 00:00 02/29/20 01:55 Temperature 36.6 C Pulse Rate 78 79 108 H Respiratory Rate 18 Blood Pressure 112/54 L Pulse Oximetry 100 98 100 02/29/20 02:00 02/29/20 03:55 02/29/20 04:00 Temperature 36.4 C Pulse Rate 118 H 107 H 112 H Respiratory Rate 12 22 H 18 Blood Pressure 95/52 L 99/65 L Pulse Oximetry 99 98 02/29/20 04:09 02/29/20 06:00 02/29/20 06:38 Temperature Pulse Rate 114 H 106 H 110 H Respiratory Rate 16 Blood Pressure 106/57 L 106/57 L Pulse Oximetry 99 97 02/29/20 08:00 02/29/20 11:17 Temperature Pulse Rate 115 H 109 H Respiratory Rate Blood Pressure Pulse Oximetry 98 99 Intake/Output Intake/Output: Intake & Output 02/26/20 02/27/20 02/28/20 02/29/20 23:59 23:59 23:59 23:59 Intake Total 2770 1140 2500 1076 Output Total 1400 1200 290 250 Balance 1370 -60 2210 826 Meds/Results Medications: Active Medications Generic Name Dose Route Start Last Admin Trade Name Freq PRN Reason Stop Dose Admin Acetaminophen 650 mg 02/15/20 14:15 Acetaminophen 325 Mg Tablet PO Q4H PRN Mild Pain (1-3) or Fever Hydrocodone Bitart/Acetaminophen 1 tab 02/27/20 19:04 Hydrocodone/Acetaminophen (*Crx) 5-325 Mg Tablet PO Q4H PRN Pain Rated 4-6 Albuterol 2 puff 02/17/20 16:00 Albuterol Sulfate (*Sp) Aerosol 1 Puff INHALATION Q8HRT PRN Shortness Of Breath Clonidine HCl 0.2 mg 02/16/20 09:00 02/29/20 08:20 Clonidine Hcl 0.2 Mg Tablet PO Not Given BID SOURAV Clopidogrel Bisulfate 75 mg 02/16/20 09:00 02/28/20 08:37 Clopidogrel Bisulfate 75 Mg Tablet PO 75 mg DAILY SOURAV Administration Dexamethasone 6 mg 02/22/20 08:00 02/29/20 08:18 Dexamethasone 2 Mg Tablet PO 03/02/20 08:01 6 mg DAILY@0800 SOURAV Administration Dextrose 12.5 gm 02/15/20 17:26 02/27/20 09:13 Dextrose 50% 25 Gm/50 Ml Syringe IV PUSH 12.5 gm PRN PRN Administration Hypoglycemia Protocol Donepezil HCl 10 mg 02/16/20 21:00 02/27/20 21:06 Donepezil Hcl 10 Mg Tablet PO 10 mg HS SOURAV Administration Ferrous Sulfate 324 mg 02/16/20 09:00 02/29/20 08:18 Ferrous Sulfate 324 Mg Tablet PO 324 mg DAILY SOURAV Administration Finasteride 5 mg 02/16/20 09:00 02/29/20 08:19 Finasteride 5 Mg Tablet PO 5 mg QAM SOURAV Administration Furosemide 40 mg 02/19/20 09:00 02/19/20 08:42 Furosemide 40 Mg Tablet PO 40 mg QAM SOURAV Administration Furosemide 20 mg 02/18/20 18:00 02/19/20 18:03 Furosemide 20 Mg Tablet PO 20 mg QPM SOURAV Administration Glucagon 1 mg 02/15/20 17:26 Glucagon For Inj 1 Mg Vial IM PRN PRN Hypoglycemia Protocol Glucose 15 gm 02/15/20 17:26 Glucose Oral Gel 15 Gm Of Glucse In 37.5 Gm Tub
--- NOTE | 2020-02-29 12:00 | WPDINTPN ---
Progress Note: A&P Assessment and Plan (1) Acute respiratory failure: Code(s): J96.00 - Acute respiratory failure, unspecified whether with hypoxia or hypercapnia Status: Acute Assessment and Plan: Acute respiratory failure likely related to acute coronary event, COVID-19 pneumonia, shock, encephalopathy -continue low tidal volume strategy -currently on peep of 5, 30 % FiO2, -continue bronchodilators -sedated with fentanyl Versed infusion (2) Shock: Code(s): R57.9 - Shock, unspecified Status: Acute Assessment and Plan: Shock likely cardiogenic versus septic -troponin levels elevated to 73 and >80 -lactic acid normal -remains on Levophed maintain mean arterial pressures greater than 65 mmHg -echocardiogram on 02/27: LV systolic function severely reduced with EF of 20-25%. Grade 1 diastolic dysfunction. The apical inferior wall the apical anterior wall the mid inferior wall and the basal anteroseptal wall are akinetic apical lateral wall in the mid anterior wall hypokinetic. The apical septum, apical cap, mid inferoseptal, and mid anteroseptal are dyskinetic -cardiology following the patient, (3) COVID-19: Code(s): U07.1 - COVID-19 Status: Acute Assessment and Plan: SARS-CoV-2 PCR positive on 02/16 -continue droplet, airborne, contact isolation/precautions -patient on dexamethasone initiated on 02/21/2020 -patient not a candidate for Remdesivir due to renal function and late presentation (4) Anemia: Code(s): D64.9 - Anemia, unspecified Status: Acute Assessment and Plan: Guaiac-positive stool, appreciate GI evaluation recommendation -patient has a history of colonic polyps - Protonix as patient on steroids, now intubated on mechanical ventilation and guaiac-positive stools (5) UTI (urinary tract infection) due to Enterococcus: Code(s): N39.0 - Urinary tract infection, site not specified; B95.2 - Enterococcus as the cause of diseases classified elsewhere Status: Acute Assessment and Plan: Urine cultures growing Enterococcus, patient on vancomycin (6) COPD (chronic obstructive pulmonary disease): Qualifiers: COPD type: unspecified COPD Qualified Code(s): J44.9 - Chronic obstructive pulmonary disease, unspecified Code(s): J44.9 - Chronic obstructive pulmonary disease, unspecified Status: Acute Assessment and Plan: Continue bronchodilators (7) DVT prophylaxis: Code(s): Z29.9 - Encounter for prophylactic measures, unspecified Status: Acute Assessment and Plan: Heparin infusion (8) Acute kidney injury superimposed on chronic kidney disease: Code(s): N17.9 - Acute kidney failure, unspecified; N18.9 - Chronic kidney disease, unspecified Status: Acute Assessment and Plan: Acute on chronic kidney disease likely related to shock, acute coronary event, hypotension -renal ultrasound 02/21/2020 showed normal kidney size, no hydronephrosis -will have Nephrology evaluate the patient (9) Elevated troponin: Code(s): R79.89 - Other specified abnormal findings of blood chemistry Status: Acute Assessment and Plan: Patient with acute coronary event with elevated troponin -likely late presentation [place] -appreciate cardiology evaluation and recommendations -no intervention at this time given patient's renal function significantly elevated troponin and late presentation -medical management when blood pressures permit -last night the hospitalist discuss with cardiology. Heparin infusion ongoing (10) Afib: Qualifiers: Atrial fibrillation type: unspecified Qualified Code(s): I48.91 - Unspecified atrial fibrillation Code(s): I48.91 - Unspecified atrial fibrillation Status: Chronic Assessment and Plan: Patient remains in AFib currently rate controlled. Remains on heparin infusion Additional Plan Updated family Code status: Full code
--- NOTE | 2020-02-29 12:07 | PM.PNNEP ---
Progress Note: A&P Assessment and Plan (1) Acute on chronic renal failure: Code(s): N17.9 - Acute kidney failure, unspecified; N18.9 - Chronic kidney disease, unspecified Status: Acute Assessment and Plan: Addy has acute kidney injury on top of chronic kidney disease. The chronic kidney disease is most likely due to his hypertension and diabetes. he has acute kidney injury as well. Renal ultrasound is normal urine electrolytes are pre renal UA shows a few red cells and a few white cells. Urine culture showed enterococcus and is getting treated. The acute kidney injury is likely related to sepsis, and hypotension. His creatinine is on the rise. This is in spite of getting fluids. His urine output is low. His chest x-ray looks wet. His echocardiogram shows low ejection fraction at 20-25%. Most likely he has ATN from the sepsis and hypotension. He also has a pre renal component which may be related to 3rd spacing from sepsis and/or his poor cardiac function. He also probably has intrinsic lung disease from the COVID. Will continue supportive care. If his creatinine continues to rise we may need to do dialysis. (2) COVID-19: Code(s): U07.1 - COVID-19 Status: Acute Assessment and Plan: The patient is getting Dexamethasone and supportive care (3) Shock: Code(s): R57.9 - Shock, unspecified Status: Acute Assessment and Plan: the patient is on norepinephrine. His blood pressure is relatively stable right now. (4) Acute respiratory failure: Code(s): J96.00 - Acute respiratory failure, unspecified whether with hypoxia or hypercapnia Status: Acute Assessment and Plan: He is on the ventilator. His chest x-ray shows diffuse lung disease but has improved a little bit. Some of this might be fluid in some of this is probably COVID. He is getting diuretics. (5) UTI (urinary tract infection) due to Enterococcus: Code(s): N39.0 - Urinary tract infection, site not specified; B95.2 - Enterococcus as the cause of diseases classified elsewhere Status: Acute Assessment and Plan: His culture grew enterococcus and he is on antibiotics. (6) Metabolic acidosis: Code(s): E87.2 - Acidosis Status: Acute Assessment and Plan: His bicarbonate level was very low a few days ago. This has come up to normal now. (7) Paroxysmal atrial fibrillation: Code(s): I48.0 - Paroxysmal atrial fibrillation Status: Acute Assessment and Plan: His rhythm goes in and out. (8) Diarrhea: Code(s): R19.7 - Diarrhea, unspecified Status: Acute Assessment and Plan: he has C diff colitis. He still has liquid stools but not voluminous according to the nurse. (9) Buttock wound: Code(s): S31.809A - Unspecified open wound of unspecified buttock, initial encounter Status: Acute Assessment and Plan: He had a debridement of this wound. Subjective Date/time seen: 02/29/20 12:07 Interval history: Patient is on the ventilator and sedated. Review of Systems Review of Systems: ROS unobtainable: Yes unobtainable due to medical condition Exam Narrative: Exam Narrative: WDWN in NAD skin no rash head ncat lungs Coarse bilaterally cor irreg no rub abd BS+ nontender and soft ext 1+ edema. Objective Data Vital Signs Vital Signs: Vital Signs - 24 hr 02/28/20 13:00 02/28/20 14:00 02/28/20 14:19 Temperature Pulse Rate 76 76 76 Respiratory Rate 22 H 22 H Blood Pressure 131/76 Pulse Oximetry 98 99 02/28/20 16:00 02/28/20 17:06 02/28/20 18:00 Temperature 36.9 C Pulse Rate 81 81 80 Respiratory Rate 16 27 H Blood Pressure 109/52 L 99/76 L Pulse Oximetry 99 99 96 02/28/20 20:00 02/28/20 22:00 02/28/20 22:45 Temperature 36.9 C Pulse Rate 77 78 78 Respiratory Rate 16 16 Blood Pressure 111/54 L 11
[2020-02-29] MEDS: CLOPIDOGREL BISULFATE 75 MG TABLET PO (13:01)
[2020-02-29 13:05] LABS: Glucose Point of Care 246 (65-105)
[2020-02-29 13:23] LABS: Partial Thromboplastin Time 73.5 SECONDS (22.3-36.8)
[2020-02-29 13:46] LABS: Vancomycin Trough 20.5 ug/mL (10.0-20.0)
--- NOTE | 2020-02-29 15:01 | PM.PNCARD ---
Progress Note: A&P Assessment and Plan (1) ACS (acute coronary syndrome): Code(s): I24.9 - Acute ischemic heart disease, unspecified Status: Acute Assessment and Plan: Significant infarction has occurred. Continue supportive care. Continue anti-platelet, anticoagulation. Will continue pressors as needed. (2) COVID-19: Code(s): U07.1 - COVID-19 Status: Acute Assessment and Plan: Continue supportive care (3) Paroxysmal atrial fibrillation: Code(s): I48.0 - Paroxysmal atrial fibrillation Status: Acute Assessment and Plan: Continue anticoagulation. Back in atrial fibrillation. Will start amiodarone drip at 0.5 mg per minute (4) Acute on chronic renal failure: Code(s): N17.9 - Acute kidney failure, unspecified; N18.9 - Chronic kidney disease, unspecified Status: Acute Assessment and Plan: Worsening and followed by other services (5) Buttock wound: Code(s): S31.809A - Unspecified open wound of unspecified buttock, initial encounter Status: Acute Assessment and Plan: Per surgery (6) Shock: Code(s): R57.9 - Shock, unspecified Status: Acute Assessment and Plan: Combination of cardiogenic and septic shock (7) Alzheimer disease: Qualifiers: Alzheimer's disease onset: unspecified onset Dementia behavioral disturbance: without behavioral disturbance Qualified Code(s): G30.9 - Alzheimer's disease, unspecified; F02.80 - Dementia in other diseases classified elsewhere without behavioral disturbance Code(s): G30.9 - Alzheimer's disease, unspecified; F02.80 - Dementia in other diseases classified elsewhere without behavioral disturbance Status: Chronic (8) HTN (hypertension): Qualifiers: Hypertension type: unspecified Qualified Code(s): I10 - Essential (primary) hypertension Code(s): I10 - Essential (primary) hypertension Status: Chronic Assessment and Plan: Will resume BP medications when able/needed (9) Ischemic cardiomyopathy: Code(s): I25.5 - Ischemic cardiomyopathy Status: Acute Assessment and Plan: Severe Subjective Date/time seen: 02/29/20 15:01 Interval history: 74-year-old originally admitted because of mental status changes, decubitus ulcers. Patient is on the ventilator and sedated. Date of service 02/29/2020: Went back into atrial fibrillation. Review of Systems Review of Systems: ROS unobtainable: Yes unobtainable due to endotracheal tube and unobtainable due to medical condition Constitutional: Constitutional: Denies excessive sweating, Denies headache(s) and Reports weakness Eyes: Eyes: Denies blurry vision ENT: Denies headache(s), Denies lip swelling and Denies epistaxis Cardiovascular: Cardiovascular: Denies diaphoresis Respiratory: Respiratory: Denies hemoptysis Gastrointestinal: Gastrointestinal: Denies hematochezia Genitourinary: Genitourinary: Denies hematuria Musculoskeletal: Musculoskeletal: Denies joint swelling Neurologic: Reports confusion, Denies headache(s) and Reports weakness Psychiatric: Psychiatric: Reports confusion Endocrine: Endocrine: Denies excessive sweating Hematologic/Lymphatic: Hematologic/Lymphatic: Denies easy bleeding Allergic/Immunologic: Allergic/Immunologic: Denies lip swelling Exam Narrative: Exam Narrative: Currently intubated and sedated Const: General: comfortable HENMT: General nose exam: Normal nares present Chest: Other: No chest deformities Cardio: Rhythm: abnormal rhythm irregularly irregular Skin: General skin exam: normal color Neuro: General: confusion Other: Currently intubated and sedated. Extrem: General: no edema Psych: Other: Sedated Objective Data Vital Signs Vital Signs: Vital Signs - 24 hr 02/28/20 16:00 02/28/20 17:06 02/28/20 18:00 Temperature 36.9 C Pulse Rate 81 81 80 Respiratory Rate 16 27 H Blood Pre
[2020-02-29] MEDS: AMIODARONE 360 MG/D5W 200 ML 360 MG/200 ML BAG 16.67 MG IV CONT (15:45)
[2020-02-29] MEDS: SODIUM CHLORIDE 0.9% IV 1,000 ML 70 ML IV CONT (15:49)
--- NOTE | 2020-02-29 16:34 | PM.IMPN ---
Progress Note: A&P Assessment and Plan (1) Paroxysmal atrial fibrillation: Code(s): I48.0 - Paroxysmal atrial fibrillation Status: Acute Assessment and Plan: On Amiodarone drip currently. Continue to monitor. (2) ACS (acute coronary syndrome): Code(s): I24.9 - Acute ischemic heart disease, unspecified Status: Acute Assessment and Plan: On Heparin drip. Appreciate Cardiology note Requiring vasopressor 2DECHO reviewed (3) Acute kidney injury superimposed on chronic kidney disease: Code(s): N17.9 - Acute kidney failure, unspecified; N18.9 - Chronic kidney disease, unspecified Status: Acute Assessment and Plan: Multifactorial Sepsis/Shock Strict I/O's Appreciate Nephrology note (4) Acute respiratory failure: Code(s): J96.00 - Acute respiratory failure, unspecified whether with hypoxia or hypercapnia Status: Acute Assessment and Plan: On ventilator support. Appreciate Int/Cc note. (5) Buttock wound: Code(s): S31.809A - Unspecified open wound of unspecified buttock, initial encounter Status: Acute Assessment and Plan: Local care S/p sharp debridement Appreciate Surgery note. (6) Metabolic acidosis: Code(s): E87.2 - Acidosis Status: Acute Assessment and Plan: Bicarb is normal now Multifactorial Sepsis/Shock On vent support. (7) C. difficile diarrhea: Code(s): A04.72 - Enterocolitis due to Clostridium difficile, not specified as recurrent Status: Acute Assessment and Plan: Completed course of Vanc. (8) Encephalopathy: Code(s): G93.40 - Encephalopathy, unspecified Status: Acute Assessment and Plan: On ventilator support Initially likely secondary to sepsis but known to have Alzheimer's dementia as well. Currently sedated. Subjective Date/time seen: 02/29/20 16:34 Patient on life support. Review of Systems Review of Systems: Narrative: Unable to obtain as patient is on life support. Exam Narrative: Exam Narrative: Patient seen thru glass door. Exam is limitted to inspection. Const: General: other (Un life support. On ventilator.) Nutritional Appearance: average body habitus HENMT: Head: normal to inspection and normocephalic Other: ETT in place. Neck: Neck: supple Resp: Effort & Inspection: other (In sync with vent.) Skin: Wounds: no wounds (Sacrla area.) Neuro: General: other (Under sedation.) Objective Data Vital Signs Vital Signs: Vital Signs - 24 hr 02/28/20 17:06 02/28/20 18:00 02/28/20 20:00 Temperature 98.4 F Pulse Rate 81 80 77 Respiratory Rate 27 H 16 Blood Pressure 99/76 L 111/54 L Pulse Oximetry 99 96 100 02/28/20 22:00 02/28/20 22:45 02/29/20 00:00 Temperature 97.8 F Pulse Rate 78 78 79 Respiratory Rate 16 18 Blood Pressure 117/56 L 112/54 L Pulse Oximetry 100 100 98 02/29/20 01:55 02/29/20 02:00 02/29/20 03:55 Temperature Pulse Rate 108 H 118 H 107 H Respiratory Rate 12 22 H Blood Pressure 95/52 L Pulse Oximetry 100 99 02/29/20 04:00 02/29/20 04:09 02/29/20 06:00 Temperature 97.6 F Pulse Rate 112 H 114 H 106 H Respiratory Rate 18 16 Blood Pressure 99/65 L 106/57 L Pulse Oximetry 98 99 97 02/29/20 06:38 02/29/20 08:00 02/29/20 10:00 Temperature 98.3 F Pulse Rate 110 H 100 116 H Respiratory Rate 18 19 Blood Pressure 106/57 L 104/79 105/64 Pulse Oximetry 98 100 02/29/20 11:17 02/29/20 12:00 02/29/20 14:00 Temperature 97 F L Pulse Rate 109 H 122 H 122 H Respiratory Rate 18 18 Blood Pressure 102/56 L 87/58 L Pulse Oximetry 99 97 96 02/29/20 14:03 02/29/20 15:45 Temperature Pulse Rate 117 H 115 H Respiratory Rate Blood Pressure 88/56 L 102/64 Pulse Oximetry Intake/Output Intake/Output: Intake & Output 02/26/20 02/27/20 02/28/20 02/29/20 23:59 23:59 23:59 23:59 Intake Total 2770 1140 2500 2076 Output Total 1400 1200 290 250 Balance 1370
[2020-02-29 17:29] LABS: Glucose Point of Care 295 (65-105)
[2020-02-29 17:58] LABS: Partial Thromboplastin Time 96.7 SECONDS (22.3-36.8)
[2020-02-29] MEDS: NOREPINEPHRINE 8 MG/D5W 250 ML 8 MG/250 ML BAG 28.13 MG IV CONT (20:34)
[2020-02-29] MEDS: QUEtiapine FUMARATE 12.5 MG TABLET PO (20:39)
[2020-02-29] MEDS: HEPARIN SOD/D5W 100 UNITS/ML 25,000 UNITS/250 ML BAG 14 UNITS IV CONT (22:04)
[2020-02-29] MEDS: CENTRAL LINE FLUSH 10 ML IV PUSH (22:07)
[2020-03-01] VITALS (35 sets, daily range): BP systolic 82–137; BP diastolic 47–64; PULSE 85–119; RESP 12–20; TEMP 36.3–37.4; O2SAT 93–99
[2020-03-01] MEDS: AMIODARONE 360 MG/D5W 200 ML 360 MG/200 ML BAG 16.67 MG IV CONT (00:28)
[2020-03-01] MEDS: SODIUM CHLORIDE 0.9% IV 1,000 ML 70 ML IV CONT ×2 (00:28→16:36)
[2020-03-01 05:10] LABS: Alveolar/Arterial O2 Gradient 89.9 mmHg; Base Excess ABG -9.1 mEq/l (+/-2.0); Carboxyhemoglobin 0.3 % THb (0-2.0); Fractional Inspired Oxygen 30 %; HCO3 ABG 16.2 mEq/l (22.0-26.0); Methemoglobin ABG 0.2 %THb (0-1.5); Oxygen Content ABG 11.7 %vol (16.0-22.0); Oxygen Saturation ABG 95.8 % (95.0-100.0); Oxyhemoglobin 94.2 % THb (90.0-100.0); PCO2 ABG 32.6 mmHg (35.0-45.0); PO2 ABG 85.7 mmHg (80.0-100.0); PO2 FiO2 Ratio Arterial Blood 2.86 %; Reduced Hemoglobin 5.3 %THb (0-5.0); Total Hemoglobin 8.7 g/dL (12.0-18.0); pH ABG 7.314 (7.350-7.450)
[2020-03-01 05:11] LABS: Device VENTILATOR; Modified Allen's Test Pass; Site Drawn RIGHT RADIAL
[2020-03-01 05:12] LABS: Arterial Blood Gas PEEP 5 cmH2O; Arterial Blood Gas Tidal Volume 450 ml; Arterial Blood Gas Vent Mode CMV; Arterial Blood Gas Ventilator rate 16 /MIN
[2020-03-01] MEDS: NOREPINEPHRINE 8 MG/D5W 250 ML 8 MG/250 ML BAG 28.13 MG IV CONT (06:07)
[2020-03-01 06:55] LABS: Glucose Point of Care 310 (65-105)
[2020-03-01] MEDS: INSULIN ASPART (*BKC) 100 UNITS/ML SUB-Q (07:59)
[2020-03-01] MEDS: CENTRAL LINE FLUSH 10 ML IV PUSH ×4 (08:00→19:55)
[2020-03-01 08:03] LABS: Glucose Point of Care 381 (65-105)
[2020-03-01 08:06] LABS: Basophils Percent Auto 0.2 % (0.2-1.2); Hematocrit 24.8 % (42.0-52.0); Hemoglobin 7.9 g/dL (14.0-18.0); Immature Granulocyte Percent A 2.8 % (0-0.5); Lymphocytes Absolute Auto 0.86 K/mm3 (0.9-3.2); Mean Corpuscular HGB Conc 31.9 g/dl (32-36); Mean Corpuscular Hemoglobin 28.6 pg (26-34); Mean Corpuscular Volume 89.9 fl (80-100); Mean Platelet Volume 12.3 fl (7.4-10.4); Monocytes Absolute Auto 1.7 K/mm3 (0.1-0.6); Monocytes Percent Auto 7.8 % (2.6-8.5); Neutrophils Absolute Auto 18.4 K/mm3 (1.3-6.7); Neutrophils Percent Auto 85.2 % (45.5-73.1); Nucleated Red Blood Cells Absolute Auto 0.2 K/mm3 (0.0-0.012); Nucleated Red Blood Cells Perc 0.9 % (0.0-0.2); Platelet Count Result 339 k/mm3 (150-375); Red Blood Count 2.76 M/mm3 (4.6-6.20); White Blood Count 21.6 K/mm3 (4.5-10.0)
[2020-03-01 08:28] LABS: Alanine Aminotransferase 438 U/L (4-50); Albumin Level 2.6 g/dL (3.5-5.1); Alkaline Phosphatase 161 U/L (38-126); Anion Gap 9 mmol/L (8-16); Aspartate Amino Transferase 355 U/L (17-59); Bilirubin,Total 0.3 mg/dL (0.2-1.3); Blood Urea Nitrogen 114 mg/dL (9-20); Calcium 7.7 mg/dL (8.4-10.2); Carbon Dioxide 21 mmol/L (22-30); Chloride 108 mmol/L (98-107); Estimated CRCL calculation 11 ml/min; Estimated Glomerular Filt Rate 11; Glucose 375 mg/dL (75-110); Phosphorus 9.4 mg/dL (2.5-4.5); Potassium 4.8 mmol/L (3.4-5.0); Sodium 138 mmol/L (137-145)
--- NOTE | 2020-03-01 08:40 | WPDINTPN ---
Progress Note: A&P Assessment and Plan (1) Acute respiratory failure: Code(s): J96.00 - Acute respiratory failure, unspecified whether with hypoxia or hypercapnia Status: Acute Assessment and Plan: Acute respiratory failure likely related to acute coronary event, COVID-19 pneumonia, shock, encephalopathy -continue low tidal volume strategy -currently on peep of 5, 30 % FiO2, -continue bronchodilators -sedated with fentanyl and Versed infusion (2) Shock: Code(s): R57.9 - Shock, unspecified Status: Acute Assessment and Plan: Shock likely cardiogenic versus septic -troponin levels elevated to 73 and >80 -lactic acid normal -remains on Levophed maintain mean arterial pressures greater than 65 mmHg -echocardiogram on 02/27: LV systolic function severely reduced with EF of 20-25%. Grade 1 diastolic dysfunction. The apical inferior wall the apical anterior wall the mid inferior wall and the basal anteroseptal wall are akinetic apical lateral wall in the mid anterior wall hypokinetic. The apical septum, apical cap, mid inferoseptal, and mid anteroseptal are dyskinetic -significant renal dysfunction, discussed with Cardiology, agreeable with Milrinone (3) COVID-19: Code(s): U07.1 - COVID-19 Status: Acute Assessment and Plan: SARS-CoV-2 PCR positive on 02/16 -continue droplet, airborne, contact isolation/precautions -patient on dexamethasone initiated on 02/21/2020 -patient not a candidate for Remdesivir due to renal function and late presentation (4) Anemia: Code(s): D64.9 - Anemia, unspecified Status: Acute Assessment and Plan: Guaiac-positive stool, appreciate GI evaluation recommendation -patient has a history of colonic polyps - Protonix as patient on steroids, now intubated on mechanical ventilation and guaiac-positive stools (5) UTI (urinary tract infection) due to Enterococcus: Code(s): N39.0 - Urinary tract infection, site not specified; B95.2 - Enterococcus as the cause of diseases classified elsewhere Status: Acute Assessment and Plan: Urine cultures growing Enterococcus, patient on vancomycin (6) COPD (chronic obstructive pulmonary disease): Qualifiers: COPD type: unspecified COPD Qualified Code(s): J44.9 - Chronic obstructive pulmonary disease, unspecified Code(s): J44.9 - Chronic obstructive pulmonary disease, unspecified Status: Acute Assessment and Plan: Continue bronchodilators (7) DVT prophylaxis: Code(s): Z29.9 - Encounter for prophylactic measures, unspecified Status: Acute Assessment and Plan: Heparin infusion (8) Acute kidney injury superimposed on chronic kidney disease: Code(s): N17.9 - Acute kidney failure, unspecified; N18.9 - Chronic kidney disease, unspecified Status: Acute Assessment and Plan: Acute on chronic kidney disease likely related to shock, acute coronary event, hypotension -renal ultrasound 02/21/2020 showed normal kidney size, no hydronephrosis -appreciate Nephrology evaluation and recommendation -will start Milrinone since patient is probably in cardiogenic shock, may improve renal function (9) Elevated troponin: Code(s): R79.89 - Other specified abnormal findings of blood chemistry Status: Acute Assessment and Plan: Patient with acute coronary event with elevated troponin -likely late presentation [place] -appreciate cardiology evaluation and recommendations -no intervention at this time given patient's renal function significantly elevated troponin and late presentation -medical management when blood pressures permit -last night the hospitalist discuss with cardiology. Heparin infusion ongoing (10) Afib: Qualifiers: Atrial fibrillation type: unspecified Qualified Code(s): I48.91 - Unspecified atrial fibrillation Code(s): I48.91 - Unspecified atrial fibrillation Status: Chronic Ass
[2020-03-01 09:11] LABS: Platelet Estimate Adequate (Adequate); Poikilocytosis 1+ (NORMAL)
[2020-03-01 09:12] LABS: Ovalocytes 1+ (NORMAL)
--- NOTE | 2020-03-01 09:15 | PM.PNNEP ---
Progress Note: A&P Assessment and Plan (1) Acute on chronic renal failure: Code(s): N17.9 - Acute kidney failure, unspecified; N18.9 - Chronic kidney disease, unspecified Status: Acute Assessment and Plan: Addy has acute kidney injury on top of chronic kidney disease. The chronic kidney disease is most likely due to his hypertension and diabetes. he has acute kidney injury as well. Renal ultrasound is normal urine electrolytes are pre renal UA shows a few red cells and a few white cells. Urine culture showed enterococcus and is getting treated. The acute kidney injury is likely related to sepsis, and hypotension. His creatinine continues to rise. Today it is up to 6.0. His chest x-ray looks wet. His echocardiogram shows low ejection fraction at 20-25%. Most likely he has ATN from the sepsis and hypotension. He also has a pre renal component which may be related to 3rd spacing from sepsis and/or his poor cardiac function. Discussed with Dr. Bauer. He is going to discuss with Cardiology about a possible dobutamine drip for better renal perfusion He also probably has intrinsic lung disease from the COVID. Will continue supportive care. If his creatinine continues to rise we may need to do dialysis. However his overall status as far as chronic medical problems is substantial. He also is on Levophed at 15 mics and his blood pressure is very soft. He might not tolerate dialysis. Hopefully Dobutamine might help. (2) COVID-19: Code(s): U07.1 - COVID-19 Status: Acute Assessment and Plan: The patient is getting Dexamethasone and supportive care (3) Shock: Code(s): R57.9 - Shock, unspecified Status: Acute Assessment and Plan: the patient is on norepinephrine. His blood pressure is soft. He is on 15 mics of Levophed. (4) Acute respiratory failure: Code(s): J96.00 - Acute respiratory failure, unspecified whether with hypoxia or hypercapnia Status: Acute Assessment and Plan: He is on the ventilator. His chest x-ray shows diffuse lung disease but has improved a little bit. Some of this might be fluid in some of this is probably COVID. He is getting diuretics. (5) UTI (urinary tract infection) due to Enterococcus: Code(s): N39.0 - Urinary tract infection, site not specified; B95.2 - Enterococcus as the cause of diseases classified elsewhere Status: Acute Assessment and Plan: His culture grew enterococcus and he is on antibiotics. (6) Metabolic acidosis: Code(s): E87.2 - Acidosis Status: Acute Assessment and Plan: His bicarbonate level was very low a few days ago. This has come up to normal now. (7) Paroxysmal atrial fibrillation: Code(s): I48.0 - Paroxysmal atrial fibrillation Status: Acute Assessment and Plan: His rhythm goes in and out. (8) Diarrhea: Code(s): R19.7 - Diarrhea, unspecified Status: Acute Assessment and Plan: he has C diff colitis. He still has liquid stools but not voluminous according to the nurse. (9) Buttock wound: Code(s): S31.809A - Unspecified open wound of unspecified buttock, initial encounter Status: Acute Assessment and Plan: He had a debridement of this wound. Subjective Date/time seen: 03/01/20 09:15 Interval history: Patient is on the ventilator and sedated. He is not able to interact. He looks comfortable. Review of Systems Review of Systems: ROS unobtainable: Yes unobtainable due to medical condition Exam Narrative: Exam Narrative: WDWN in NAD skin no rash or subcu nodules head ncat lungs Coarse bilaterally cor irreg no rub or gallop abd BS+ nontender and soft ext 1+ edema. Objective Data Vital Signs Vital Signs: Vital Signs - 24 hr 02/29/20 10:00 02/29/20 11:17 02/29/20 12:00 Temperature 36.1 C L Pulse Rate 116 H
[2020-03-01] MEDS: DEXAMETHASONE 2 MG TABLET 6 MG PO (09:29)
[2020-03-01] MEDS: CLOPIDOGREL BISULFATE 75 MG TABLET PO (09:30)
[2020-03-01] MEDS: FERROUS SULFATE 324 MG TABLET PO (09:30)
[2020-03-01] MEDS: CHOLECALCIFEROL 1,000 UNITS TABLET 2000 UNITS PO (09:30)
[2020-03-01] MEDS: INSULIN DETEMIR 100 UNITS/ML 8 UNITS SUB-Q (09:30)
[2020-03-01] MEDS: FINASTERIDE 5 MG TABLET PO (09:30)
[2020-03-01] MEDS: levETIRAcetam 500 MG TABLET PO ×2 (09:31→19:53)
[2020-03-01] MEDS: MULTIVITAMINS THERAPEUTIC TAB (*BKC) 1 TABLET PO (09:31)
[2020-03-01] MEDS: MEMANTINE 10 MG TABLET PO (09:31)
[2020-03-01] MEDS: PANTOPRAZOLE SODIUM IV 40 MG VIAL IV PUSH ×2 (09:31→19:56)
[2020-03-01] MEDS: TAMSULOSIN HCL 0.4 MG CAPSULE PO ×2 (09:32→19:55)
[2020-03-01] MEDS: SACCHAROMYCES BOULARDII 250 MG CAPSULE PO (09:32)
[2020-03-01] MEDS: SOD HYPOCHLORITE 1/4 STRENGTH 473 ML 1 APPLIC TOPICAL ×2 (09:32→19:55)
--- NOTE | 2020-03-01 10:30 | PM.PNCARD ---
Progress Note: A&P Assessment and Plan (1) ACS (acute coronary syndrome): Code(s): I24.9 - Acute ischemic heart disease, unspecified Status: Acute Assessment and Plan: Significant infarction has occurred. Continue supportive care. Continue anti-platelet, anticoagulation. Will continue pressors as needed. (2) COVID-19: Code(s): U07.1 - COVID-19 Status: Acute Assessment and Plan: Continue supportive care (3) Paroxysmal atrial fibrillation: Code(s): I48.0 - Paroxysmal atrial fibrillation Status: Acute Assessment and Plan: Continue anticoagulation. Back in atrial fibrillation. Will DC amiodarone drip and monitor her rate. May start oral amnio per tube or resume amiodarone drip depending on rate (4) Acute on chronic renal failure: Code(s): N17.9 - Acute kidney failure, unspecified; N18.9 - Chronic kidney disease, unspecified Status: Acute Assessment and Plan: Worsening and followed by other services (5) Buttock wound: Code(s): S31.809A - Unspecified open wound of unspecified buttock, initial encounter Status: Acute Assessment and Plan: Per surgery (6) Shock: Code(s): R57.9 - Shock, unspecified Status: Acute Assessment and Plan: will start Milrinone IV drip 0.375 mcg per kg per minute. (7) Alzheimer disease: Qualifiers: Alzheimer's disease onset: unspecified onset Dementia behavioral disturbance: without behavioral disturbance Qualified Code(s): G30.9 - Alzheimer's disease, unspecified; F02.80 - Dementia in other diseases classified elsewhere without behavioral disturbance Code(s): G30.9 - Alzheimer's disease, unspecified; F02.80 - Dementia in other diseases classified elsewhere without behavioral disturbance Status: Chronic (8) HTN (hypertension): Qualifiers: Hypertension type: unspecified Qualified Code(s): I10 - Essential (primary) hypertension Code(s): I10 - Essential (primary) hypertension Status: Chronic Assessment and Plan: Will resume BP medications when able/needed (9) Ischemic cardiomyopathy: Code(s): I25.5 - Ischemic cardiomyopathy Status: Acute Assessment and Plan: Severe Subjective Date/time seen: 03/01/20 10:30 Interval history: 74-year-old originally admitted because of mental status changes, decubitus ulcers. Patient is on the ventilator and sedated. Date of service 03/01/2020: Went back into atrial fibrillation. worsening renal failure. Rhythm is rate controlled. Still hypotensive Review of Systems Review of Systems: ROS unobtainable: Yes unobtainable due to endotracheal tube and unobtainable due to medical condition Constitutional: Constitutional: Denies excessive sweating and Reports weakness Gastrointestinal: Gastrointestinal: Denies hematochezia Genitourinary: Genitourinary: Denies hematuria Neurologic: Reports confusion and Denies headache(s) Allergic/Immunologic: Allergic/Immunologic: Denies lip swelling Exam Narrative: Exam Narrative: Currently intubated and sedated Const: General: comfortable and confusion Orientation/consciousness: confusion HENMT: General nose exam: Normal nares present Eyes: Sclera: sclerae normal Chest: Other: No chest deformities Cardio: Rate: regular rate Rhythm: abnormal rhythm irregularly irregular Skin: General skin exam: normal color Neuro: General: confusion Other: Currently intubated and sedated. Extrem: General: no edema Psych: Other: Sedated Objective Data Vital Signs Vital Signs: Vital Signs - 24 hr 02/29/20 11:17 02/29/20 12:00 02/29/20 14:00 Temperature 36.1 C L Pulse Rate 109 H 122 H 122 H Respiratory Rate 18 18 Blood Pressure 102/56 L 87/58 L Pulse Oximetry 99 97 96 02/29/20 14:03 02/29/20 15:45 02/29/20 16:00 Temperature 37.9 C H Pulse Rate 117 H 115 H 112 H Respiratory Rate 21 H Blood Pressu
[2020-03-01] MEDS: MILRINONE LACTATE 20 MG in DEXTROSE 5% 80 ML 11.98 MG IV CONT ×2 (10:44→17:39)
--- NOTE | 2020-03-01 11:19 | PCDIET ---
Nutrition Follow-Up Complete: Nutrition Diagnosis: Inadequate oral intake related to oral intubation as evidenced by NPO status. Nutrition Goal: Patient to meet estimated nutritional needs. Goal in progress. Patient tolerating Nepro at 40mL/hr with 30mL water flush every 4 hours. Milrinone initiated with plan for dialysis if no improvement. If dialysis is started, recommend adding Pro-Stat TID to ensure protein needs are being met. Last recorded weight is 106.5 kg. RN to obtain new weight. Bowel Motility: FMS in place for loose stools. Labs Reviewed: Hgb (7.9), Hct (24.8), Glu (381), BUN (114), Cr (6.0), Cl (108), Alb (2.6), Brenda Ca (8.82), PO4 (9.4) Meds Noted: Versed, MVI, Levophed, Lasix, Heparin, Novolog, Albuterol, Aricept, Fentanyl, Dexamethasone, Ferrous Sulfate, Protonix, Florastor, NS at 70mL/hr, Vancomycin, Vitamin D Additional Notes: No change in skin reported. Sacral area with large wound. Will continue to monitor with same goal. Nutrition Monitoring and Evaluation: Follow up every Wednesday/Wednesday.
[2020-03-01] MEDS: INSULIN ASPART (*BKC) 100 UNITS/ML 12 UNITS SUB-Q (11:42)
[2020-03-01 11:50] LABS: Glucose Point of Care 450 (65-105)
[2020-03-01 11:56] LABS: Partial Thromboplastin Time 110.6 SECONDS (22.3-36.8)
--- NOTE | 2020-03-01 13:49 | PM.PNGS ---
Progress Note: A&P Assessment and Plan (1) Buttock wound: Code(s): S31.809A - Unspecified open wound of unspecified buttock, initial encounter Status: Acute Assessment and Plan: POD#3 s/p excisional debridement of stage III sacral decubitus ulcer. Patient too unstable to take down to OR for further debridement or diverting ostomy. WBC going up, but possibly related to dexamethasone administration. No other worsening signs of infection, but could very possibly be multifactorial. Continue local wound care with Dakin's 1/4 strength dressing changes BID. Continue the rectal tube to avoid soilage of the wound. (2) Acute respiratory failure: Code(s): J96.00 - Acute respiratory failure, unspecified whether with hypoxia or hypercapnia Status: Acute Assessment and Plan: Remains intubated in the ICU. Likely secondary to acute coronary event, COVID-19 pneumonia, and shock. Care per Lead Manufacturing Technician. (3) Shock: Code(s): R57.9 - Shock, unspecified Status: Acute Assessment and Plan: Still requiring vasopressor support. Wean Levophed as tolerated. Lactic acid normal. Seems to be more likely cardiogenic. (4) ACS (acute coronary syndrome): Code(s): I24.9 - Acute ischemic heart disease, unspecified Status: Acute Assessment and Plan: On Heparin drip per ACS protocol. Troponins > 80. Echo results noted with EF 20-25%, apical inferior wall/apical anterior wall/mid inferior wall/basal anteroseptal are akinetic, the apical lateral wall/mid anterior wall are hypokinetic, and the apical septum/apical cap/mid inferoseptal/mid anteroseptal are dyskinetic. Zoar to be a subacute injury. On Plavix. Cardiology following. (5) COVID-19: Code(s): U07.1 - COVID-19 Status: Acute Assessment and Plan: With acute respiratory failure, intubated in the ICU. On dexamethasone. Continue droplet/contact/airborne isolation. Management per primary team. (6) C. difficile diarrhea: Code(s): A04.72 - Enterocolitis due to Clostridium difficile, not specified as recurrent Status: Acute (7) Encephalopathy: Code(s): G93.40 - Encephalopathy, unspecified Status: Acute Subjective Subjective Date/Time Seen: 03/01/20 13:49 Patient remains intubated and sedated. He is on Levophed. Fecal containment device in place. Exam Skin: Other: Sacral/buttock wound has some necrotic tissue and slight greenish drainage on dressing. Wound looks dry. Some of the areas have healthy appearing granulation tissue. Objective Data Vital Signs Vital Signs: Vital Signs - 24 hr 02/29/20 14:00 02/29/20 14:03 02/29/20 15:45 Temperature Pulse Rate 122 H 117 H 115 H Respiratory Rate 18 Blood Pressure 87/58 L 88/56 L 102/64 Pulse Oximetry 96 02/29/20 16:00 02/29/20 17:37 02/29/20 18:00 Temperature 37.9 C H Pulse Rate 112 H 107 H 114 H Respiratory Rate 21 H 17 Blood Pressure 109/61 119/57 L Pulse Oximetry 98 97 100 02/29/20 18:26 02/29/20 19:51 02/29/20 20:00 Temperature 37.6 C H Pulse Rate 92 93 110 H Respiratory Rate 12 18 Blood Pressure 97/46 L 95/56 L Pulse Oximetry 97 02/29/20 20:34 02/29/20 22:00 02/29/20 23:10 Temperature Pulse Rate 92 103 H 97 Respiratory Rate 18 Blood Pressure 97/46 L 97/57 L Pulse Oximetry 97 98 03/01/20 00:00 03/01/20 00:26 03/01/20 00:28 Temperature 37.4 C Pulse Rate 97 93 101 H Respiratory Rate 15 12 Blood Pressure 96/62 L 96/62 L Pulse Oximetry 95 03/01/20 02:00 03/01/20 02:15 03/01/20 04:00 Temperature 36.3 C L Pulse Rate 98 102 H 104 H Respiratory Rate 17 16 Blood Pressure 98/54 L 91/58 L Pulse Oximetry 96 97 97 03/01/20 04:56 03/01/20 05:28 03/01/20 06:00 Temperature Pulse Rate 103 H 96 86 Respiratory Rate 17 Blood Pressure 82/54 L 87/51 L Pulse Oximetry 97 93 03/01/20 06:07 03/01/20 08:00 03/01/20 08:59 Temperature 37.2 C Pulse Rate 96 112 H 109 H
--- NOTE | 2020-03-01 13:58 | PC.NURSE ---
Coccyx wound dressing changed by Dr. Black at bedside. See his note
[2020-03-01] MEDS: NOREPINEPHRINE 8 MG/D5W 250 ML 8 MG/250 ML BAG 37.5 MG IV CONT (14:05)
[2020-03-01] MEDS: HEPARIN SOD/D5W 100 UNITS/ML 25,000 UNITS/250 ML BAG 12 UNITS IV CONT (14:32)
--- NOTE | 2020-03-01 15:32 | PM.IMPN ---
Progress Note: A&P Assessment and Plan (1) Ischemic cardiomyopathy: Code(s): I25.5 - Ischemic cardiomyopathy Status: Acute Assessment and Plan: Requiring vasopressor 2DECHO EF=20-25% (2) Acute on chronic renal failure: Code(s): N17.9 - Acute kidney failure, unspecified; N18.9 - Chronic kidney disease, unspecified Status: Acute Assessment and Plan: Likely to be multifactorial Continue to monitor Bun/cr Will likely require dialysis however blood pressure is on the lower site. (3) Paroxysmal atrial fibrillation: Code(s): I48.0 - Paroxysmal atrial fibrillation Status: Acute Assessment and Plan: Amiodarone to be started thru NG Continue to monitor (4) ACS (acute coronary syndrome): Code(s): I24.9 - Acute ischemic heart disease, unspecified Status: Acute Assessment and Plan: Heparin drip Not a candidate at this moment for cath due to instability. (5) Metabolic acidosis: Code(s): E87.2 - Acidosis Status: Acute Assessment and Plan: Bicarb as needed likely multifactorial as well as patient has renal failure is septic in shock. (6) C. difficile diarrhea: Code(s): A04.72 - Enterocolitis due to Clostridium difficile, not specified as recurrent Status: Acute Assessment and Plan: Completed course of oral Vanc. (7) Encephalopathy: Code(s): G93.40 - Encephalopathy, unspecified Status: Acute Assessment and Plan: On vent (8) UTI (urinary tract infection) due to Enterococcus: Code(s): N39.0 - Urinary tract infection, site not specified; B95.2 - Enterococcus as the cause of diseases classified elsewhere Status: Acute Assessment and Plan: On broad spectrum antibiotics. Subjective Date/time seen: 03/01/20 15:32 Patient on life support. Exam Narrative: Exam Narrative: Patient seen thru the glass, exam is limited to inspection. Const: General: other (Sedated on life support.) Nutritional Appearance: thin HENMT: Head: normocephalic Neck: Neck: supple Resp: Effort & Inspection: other (On vent support.) Cardio: Rhythm: abnormal rhythm (As per telemetry.) GI: Inspection: normal to inspection Skin: Wounds: wounds noted (Sacral area.) Neuro: General: other (Under sedation.) Extrem: General: other (Sacral wound.) Objective Data Vital Signs Vital Signs: Vital Signs - 24 hr 02/29/20 15:45 02/29/20 16:00 02/29/20 17:37 Temperature 100.2 F H Pulse Rate 115 H 112 H 107 H Respiratory Rate 21 H Blood Pressure 102/64 109/61 Pulse Oximetry 98 97 02/29/20 18:00 02/29/20 18:26 02/29/20 19:51 Temperature Pulse Rate 114 H 92 93 Respiratory Rate 17 12 Blood Pressure 119/57 L 97/46 L Pulse Oximetry 100 02/29/20 20:00 02/29/20 20:34 02/29/20 22:00 Temperature 99.7 F H Pulse Rate 110 H 92 103 H Respiratory Rate 18 18 Blood Pressure 95/56 L 97/46 L 97/57 L Pulse Oximetry 97 97 02/29/20 23:10 03/01/20 00:00 03/01/20 00:26 Temperature 99.3 F Pulse Rate 97 97 93 Respiratory Rate 15 12 Blood Pressure 96/62 L Pulse Oximetry 98 95 03/01/20 00:28 03/01/20 02:00 03/01/20 02:15 Temperature Pulse Rate 101 H 98 102 H Respiratory Rate 17 Blood Pressure 96/62 L 98/54 L Pulse Oximetry 96 97 03/01/20 04:00 03/01/20 04:56 03/01/20 05:28 Temperature 97.3 F L Pulse Rate 104 H 103 H 96 Respiratory Rate 16 Blood Pressure 91/58 L 82/54 L Pulse Oximetry 97 97 03/01/20 06:00 03/01/20 06:07 03/01/20 08:00 Temperature 98.9 F Pulse Rate 86 96 112 H Respiratory Rate 17 20 Blood Pressure 87/51 L 82/54 L 84/62 L Pulse Oximetry 93 94 03/01/20 08:59 03/01/20 10:00 03/01/20 10:44 Temperature Pulse Rate 109 H 105 H 96 Respiratory Rate 18 Blood Pressure 113/60 96/59 L Pulse Oximetry 94 94 03/01/20 11:19 03/01/20 12:00 03/01/20 13:16 Temperature 98.8 F Pulse Rate 106 H 99 110 H Respiratory Rate 19
[2020-03-01] MEDS: FENTANYL 2,500MCG/NS250ML(*CRX 2,500 MCG/250 ML BAG 7.5 MCG IV CONT (16:37)
[2020-03-01 17:49] LABS: Glucose Point of Care 463 (65-105)
[2020-03-01] MEDS: INSULIN HUMAN REGULAR (*BKC) 100 UNITS in SODIUM CHLORIDE 0.9% IV 99 ML 8.2 UNITS IV CONT (19:17)
[2020-03-01 19:31] LABS: Partial Thromboplastin Time 106.3 SECONDS (22.3-36.8)
[2020-03-01] MEDS: NOREPINEPHRINE 8 MG/D5W 250 ML 8 MG/250 ML BAG 56.25 MG IV CONT (19:51)
[2020-03-01] MEDS: QUEtiapine FUMARATE 12.5 MG TABLET PO (19:54)
[2020-03-02] VITALS (29 sets, daily range): BP systolic 87–125; BP diastolic 39–74; PULSE 70–117; RESP 10–25; TEMP 35.7–36.6; O2SAT 91–100
[2020-03-02] MEDS: NOREPINEPHRINE 8 MG/D5W 250 ML 8 MG/250 ML BAG 56.25 MG IV CONT (00:38)
[2020-03-02] MEDS: INSULIN HUMAN REGULAR (*BKC) 100 UNITS in SODIUM CHLORIDE 0.9% IV 99 ML 23.5 UNITS IV CONT (01:00)
[2020-03-02 01:16] LABS: Glucose Point of Care > 500 (65-105)
[2020-03-02 01:16] LABS: Glucose Point of Care 488 (65-105)
[2020-03-02 01:16] LABS: Glucose Point of Care 471 (65-105)
[2020-03-02 01:16] LABS: Glucose Point of Care 438 (65-105)
[2020-03-02 01:16] LABS: Glucose Point of Care 442 (65-105)
[2020-03-02] MEDS: MILRINONE LACTATE 20 MG in DEXTROSE 5% 80 ML 11.98 MG IV CONT ×3 (02:18→18:11)
[2020-03-02 02:38] LABS: Hematocrit 24.7 % (42.0-52.0); Hemoglobin 7.8 g/dL (14.0-18.0); Mean Corpuscular HGB Conc 31.6 g/dl (32-36); Mean Corpuscular Hemoglobin 28.5 pg (26-34); Mean Corpuscular Volume 90.1 fl (80-100); Platelet Count Result 399 k/mm3 (150-375); Red Blood Count 2.74 M/mm3 (4.6-6.20); Red Cell Distribution Width 13.4 % (11.5-14.5); White Blood Count 22.5 K/mm3 (4.5-10.0)
[2020-03-02 02:52] LABS: Alanine Aminotransferase 412 U/L (4-50); Albumin Level 2.8 g/dL (3.5-5.1); Alkaline Phosphatase 155 U/L (38-126); Anion Gap 13 mmol/L (8-16); Aspartate Amino Transferase 221 U/L (17-59); Bilirubin,Total 0.3 mg/dL (0.2-1.3); Blood Urea Nitrogen 119 mg/dL (9-20); Calcium 7.9 mg/dL (8.4-10.2); Carbon Dioxide 17 mmol/L (22-30); Chloride 105 mmol/L (98-107); Estimated CRCL calculation 11 ml/min; Estimated Glomerular Filt Rate 10; Glucose 264 mg/dL (75-110); Phosphorus 8.1 mg/dL (2.5-4.5); Sodium 135 mmol/L (137-145)
[2020-03-02 03:06] LABS: Partial Thromboplastin Time 89.9 SECONDS (22.3-36.8)
[2020-03-02 03:16] LABS: Glucose Point of Care 328 (65-105)
[2020-03-02 03:16] LABS: Glucose Point of Care 396 (65-105)
[2020-03-02 03:30] LABS: Alveolar/Arterial O2 Gradient 92.4 mmHg; Base Excess ABG -12.7 mEq/l (+/-2.0); Carboxyhemoglobin 0.2 % THb (0-2.0); Fractional Inspired Oxygen 30 %; HCO3 ABG 13.3 mEq/l (22.0-26.0); Methemoglobin ABG 0.4 %THb (0-1.5); Oxyhemoglobin 93.2 % THb (90.0-100.0); PCO2 ABG 31.1 mmHg (35.0-45.0); PO2 FiO2 Ratio Arterial Blood 2.83 %; Reduced Hemoglobin 6.2 %THb (0-5.0); Total Hemoglobin 10.6 g/dL (12.0-18.0)
[2020-03-02 03:33] LABS: pH ABG 7.249 (7.350-7.450)
[2020-03-02 03:34] LABS: Device VENTILATOR; Modified Allen's Test Pass; Site Drawn RIGHT RADIAL
[2020-03-02 03:35] LABS: Arterial Blood Gas Minute Volume 8 LPM; Arterial Blood Gas PEEP 5 cmH2O; Arterial Blood Gas Tidal Volume 450 ml; Arterial Blood Gas Vent Mode CMV; Arterial Blood Gas Ventilator rate 16 /MIN
[2020-03-02] MEDS: INSULIN HUMAN REGULAR (*BKC) 100 UNITS in SODIUM CHLORIDE 0.9% IV 99 ML 15.6 UNITS IV CONT (06:43)
[2020-03-02] MEDS: SODIUM CHLORIDE 0.9% IV 1,000 ML 70 ML IV CONT ×2 (06:50→20:04)
[2020-03-02] MEDS: NOREPINEPHRINE 8 MG/D5W 250 ML 8 MG/250 ML BAG 37.5 MG IV CONT (06:51)
[2020-03-02] MEDS: CENTRAL LINE FLUSH 10 ML IV PUSH ×3 (07:00→20:12)
[2020-03-02] MEDS: DEXAMETHASONE 2 MG TABLET 6 MG PO (08:54)
[2020-03-02] MEDS: CLOPIDOGREL BISULFATE 75 MG TABLET PO (08:54)
[2020-03-02] MEDS: PANTOPRAZOLE SODIUM IV 40 MG VIAL IV PUSH ×2 (08:54→20:03)
[2020-03-02] MEDS: SACCHAROMYCES BOULARDII 250 MG CAPSULE PO ×2 (08:54→17:52)
[2020-03-02] MEDS: TAMSULOSIN HCL 0.4 MG CAPSULE PO ×2 (08:54→20:04)
[2020-03-02] MEDS: levETIRAcetam 500 MG TABLET PO ×2 (08:54→20:02)
[2020-03-02] MEDS: FERROUS SULFATE 324 MG TABLET PO (08:54)
[2020-03-02] MEDS: SOD HYPOCHLORITE 1/4 STRENGTH 473 ML 1 APPLIC TOPICAL ×2 (08:56→20:04)
[2020-03-02] MEDS: INSULIN DETEMIR 100 UNITS/ML 8 UNITS SUB-Q (08:56)
[2020-03-02] MEDS: MEMANTINE 10 MG TABLET PO (08:57)
[2020-03-02 10:32] LABS: INR 1.2; Prothrombin Time 15.8 Seconds (11.1-14.7)
[2020-03-02 10:33] LABS: Partial Thromboplastin Time 63.3 SECONDS (22.3-36.8)
--- NOTE | 2020-03-02 10:33 | PM.PNCARD ---
Progress Note: A&P Assessment and Plan (1) ACS (acute coronary syndrome): Code(s): I24.9 - Acute ischemic heart disease, unspecified Status: Acute Assessment and Plan: Significant infarction has occurred. Continue supportive care. Continue anti-platelet. Will continue pressors as needed. (2) COVID-19: Code(s): U07.1 - COVID-19 Status: Acute Assessment and Plan: Continue supportive care (3) Paroxysmal atrial fibrillation: Code(s): I48.0 - Paroxysmal atrial fibrillation Status: Acute Assessment and Plan: Continue anticoagulation. Back in atrial fibrillation. There has been no need for resuming amiodarone at this point. This has been on hold and I will completely discontinue at this point. (4) Acute on chronic renal failure: Code(s): N17.9 - Acute kidney failure, unspecified; N18.9 - Chronic kidney disease, unspecified Status: Acute Assessment and Plan: Worsening and followed by other services (5) Buttock wound: Code(s): S31.809A - Unspecified open wound of unspecified buttock, initial encounter Status: Acute Assessment and Plan: Per surgery (6) Shock: Code(s): R57.9 - Shock, unspecified Status: Acute Assessment and Plan: Continue Milrinone IV drip 0.375 mcg per kg per minute. Liver enzymes are better but renal function is worsening (7) Alzheimer disease: Qualifiers: Alzheimer's disease onset: unspecified onset Dementia behavioral disturbance: without behavioral disturbance Qualified Code(s): G30.9 - Alzheimer's disease, unspecified; F02.80 - Dementia in other diseases classified elsewhere without behavioral disturbance Code(s): G30.9 - Alzheimer's disease, unspecified; F02.80 - Dementia in other diseases classified elsewhere without behavioral disturbance Status: Chronic (8) HTN (hypertension): Qualifiers: Hypertension type: unspecified Qualified Code(s): I10 - Essential (primary) hypertension Code(s): I10 - Essential (primary) hypertension Status: Chronic Assessment and Plan: Will resume BP medications when able/needed (9) Ischemic cardiomyopathy: Code(s): I25.5 - Ischemic cardiomyopathy Status: Acute Assessment and Plan: Severe. Weaning Levophed Subjective Date/time seen: 03/02/20 10:33 Interval history: 74-year-old originally admitted because of mental status changes, decubitus ulcers. Patient is on the ventilator and sedated. Date of service 03/02/2020: Went back into atrial fibrillation. worsening renal failure. Rhythm is rate controlled. Still hypotensive Review of Systems Review of Systems: ROS unobtainable: Yes unobtainable due to endotracheal tube and unobtainable due to medical condition Exam Narrative: Exam Narrative: Currently intubated and sedated Const: General: comfortable HENMT: General nose exam: Normal nares present Cardio: Rate: regular rate Rhythm: abnormal rhythm irregularly irregular Skin: General skin exam: normal color Neuro: Other: Currently intubated and sedated. Psych: Other: Sedated Objective Data Vital Signs Vital Signs: Vital Signs - 24 hr 03/01/20 10:44 03/01/20 11:19 03/01/20 12:00 Temperature 37.1 C Pulse Rate 96 106 H 99 Respiratory Rate 19 Blood Pressure 96/59 L 96/48 L Pulse Oximetry 93 93 03/01/20 13:16 03/01/20 13:20 03/01/20 13:47 Temperature Pulse Rate 110 H 110 H 117 H Respiratory Rate 19 Blood Pressure 137/64 Pulse Oximetry 97 03/01/20 14:00 03/01/20 14:05 03/01/20 16:00 Temperature 36.7 C Pulse Rate 113 H 110 H 113 H Respiratory Rate 20 17 Blood Pressure 137/64 137/64 93/50 L Pulse Oximetry 97 97 03/01/20 16:37 03/01/20 17:13 03/01/20 17:39 Temperature Pulse Rate 110 H 105 H 101 H Respiratory Rate 19 Blood Pressure 92/57 L Pulse Oximetry 97 03/01/20 17:40 03/01/20 17:43 03/01/20 17:4
[2020-03-02] MEDS: HEPARIN SODIUM 5,000 UNITS/ML VIAL 3500 UNITS IV PUSH (11:18)
--- NOTE | 2020-03-02 12:53 | WPDINTPN ---
Progress Note: A&P Assessment and Plan (1) Acute respiratory failure: Code(s): J96.00 - Acute respiratory failure, unspecified whether with hypoxia or hypercapnia Status: Acute Assessment and Plan: Acute respiratory failure likely related to acute coronary event, COVID-19 pneumonia, shock, encephalopathy -continue low tidal volume strategy -currently on peep of 5, 30 % FiO2. Follow ABG and chest x-ray. -continue bronchodilators -sedated with fentanyl and Versed infusion to keep RASS of -1. Daily sedation vacation trials. (2) Shock: Code(s): R57.9 - Shock, unspecified Status: Acute Assessment and Plan: Shock likely cardiogenic versus septic -troponin levels elevated to 73 and >80 -lactic acid normal -remains on Levophed maintain mean arterial pressures greater than 65 mmHg. -echocardiogram on 02/27: LV systolic function severely reduced with EF of 20-25%. Grade 1 diastolic dysfunction. The apical inferior wall the apical anterior wall the mid inferior wall and the basal anteroseptal wall are akinetic apical lateral wall in the mid anterior wall hypokinetic. The apical septum, apical cap, mid inferoseptal, and mid anteroseptal are dyskinetic. Milrinone was added yesterday after discussion with cardiology service. Cefepime was added yesterday empirically. (3) COVID-19: Code(s): U07.1 - COVID-19 Status: Acute Assessment and Plan: SARS-CoV-2 PCR positive on 02/16 -continue droplet, airborne, contact isolation/precautions -patient on dexamethasone initiated on 02/21/2020. Will finish a 10 day course today. -patient not a candidate for Remdesivir due to renal function and late presentation (4) Anemia: Code(s): D64.9 - Anemia, unspecified Status: Acute Assessment and Plan: Guaiac-positive stool, appreciate GI evaluation recommendation -patient has a history of colonic polyps - Protonix as patient on steroids and positive guaiac stool. (5) UTI (urinary tract infection) due to Enterococcus: Code(s): N39.0 - Urinary tract infection, site not specified; B95.2 - Enterococcus as the cause of diseases classified elsewhere Status: Acute Assessment and Plan: Urine cultures from 02/21 growing Enterococcus which is pansensitive. He has been on vancomycin presumably since then. (6) COPD (chronic obstructive pulmonary disease): Qualifiers: COPD type: unspecified COPD Qualified Code(s): J44.9 - Chronic obstructive pulmonary disease, unspecified Code(s): J44.9 - Chronic obstructive pulmonary disease, unspecified Status: Acute Assessment and Plan: Continue bronchodilators (7) DVT prophylaxis: Code(s): Z29.9 - Encounter for prophylactic measures, unspecified Status: Acute Assessment and Plan: Heparin infusion (8) Acute kidney injury superimposed on chronic kidney disease: Code(s): N17.9 - Acute kidney failure, unspecified; N18.9 - Chronic kidney disease, unspecified Status: Acute Assessment and Plan: Acute on chronic kidney disease likely related to shock, acute coronary event, hypotension -renal ultrasound 02/21/2020 showed normal kidney size, no hydronephrosis -appreciate Nephrology evaluation and recommendation. Urine output was 300 cc in the last 24 hours. He may need dialysis. -continue Milrinone since patient is probably in cardiogenic shock, may improve renal function (9) Elevated troponin: Code(s): R79.89 - Other specified abnormal findings of blood chemistry Status: Acute Assessment and Plan: Patient with acute coronary event with elevated troponin -likely late presentation SD -appreciate cardiology evaluation and recommendations -no intervention at this time given patient's renal function significantly elevated troponin and late presentation -medical management when blood pressures permit -continue heparin infusion. Dual antiplatelet therapy. (10
[2020-03-02] MEDS: HEPARIN SOD/D5W 100 UNITS/ML 25,000 UNITS/250 ML BAG 12 UNITS IV CONT (15:20)
[2020-03-02] MEDS: NOREPINEPHRINE 8 MG/D5W 250 ML 8 MG/250 ML BAG 28.13 MG IV CONT (15:58)
[2020-03-02] MEDS: INSULIN HUMAN REGULAR (*BKC) 100 UNITS in SODIUM CHLORIDE 0.9% IV 99 ML 12.4 UNITS IV CONT (15:59)
[2020-03-02 16:49] LABS: Glucose Point of Care 141 (65-105)
[2020-03-02 16:49] LABS: Glucose Point of Care 216 (65-105)
[2020-03-02 16:49] LABS: Glucose Point of Care 182 (65-105)
[2020-03-02 16:49] LABS: Glucose Point of Care 236 (65-105)
[2020-03-02 16:50] LABS: Glucose Point of Care 133 (65-105)
[2020-03-02 16:50] LABS: Glucose Point of Care 182 (65-105)
[2020-03-02 16:50] LABS: Glucose Point of Care 150 (65-105)
[2020-03-02 16:50] LABS: Glucose Point of Care 167 (65-105)
[2020-03-02 16:50] LABS: Glucose Point of Care 159 (65-105)
[2020-03-02 16:50] LABS: Glucose Point of Care 173 (65-105)
[2020-03-02 16:50] LABS: Glucose Point of Care 169 (65-105)
--- NOTE | 2020-03-02 17:19 | P.PNNP_ITS ---
Progress Note: A&P Assessment and Plan (1) Acute kidney injury: Code(s): N17.9 - Acute kidney failure, unspecified Status: Acute Assessment and Plan: * due to multifactorial ATN: - hemodynamic instability/hypotension/shock - infection/sepsis - myocardial infarction - depressed EF/poor cardiac function * unfortunately, kidney function continues to decline * urine output has decreased as well * milrinone does has not improved renal function either * given trend of labs and urine output, he will likely need dialysis soon -- however, I have concerns of how well he would tolerate renal replacement therapy given his hemodynamics * continue supportive therapy (2) Stage 3a chronic kidney disease: Code(s): N18.31 - Chronic kidney disease, stage 3a Status: Chronic Assessment and Plan: * baseline creatinine runs ~ 1.3 - 1.7mg/dl * due to hypertension, diabetes, vascular disease, as well as age (3) COVID-19: Code(s): U07.1 - COVID-19 Status: Acute Assessment and Plan: * to complete steroids today * steroids are partly to blame for elevated BUN * not a candidate for remdesivir * continue supportive therapy (4) Shock: Code(s): R57.9 - Shock, unspecified Status: Acute Assessment and Plan: * septic versus cardiac versus both? * continue vasopressor support and wean as tolerated * also on milrinone as well * follow hemodynamics (5) Acute respiratory failure: Code(s): J96.00 - Acute respiratory failure, unspecified whether with hypoxia or hyper capnia Status: Acute Assessment and Plan: * likely a combination of fluid and COVID-19 in conjunction with NH * continue ventilator support * could consider diuretics again but his hemodynamics may not tolerate (6) UTI (urinary tract infection) due to Enterococcus: Code(s): N39.0 - Urinary tract infection, site not specified; B95.2 - Enterococcus as the cause of diseases classified elsewhere Status: Acute Assessment and Plan: * culture with Enterococcus * on antibiotics (7) Metabolic acidosis: Code(s): E87.2 - Acidosis Status: Acute Assessment and Plan: * has worsened likely due to deteriorating kidney function * oral bicarbonate not really an option * consider bicarb gtt but hesitant to initiate due to declining urine output * follow trend (8) Paroxysmal atrial fibrillation: Code(s): I48.0 - Paroxysmal atrial fibrillation Status: Acute Assessment and Plan: * rate controlled * on heparin gtt (9) Diabetes: Qualifiers: Diabetes mellitus type: type 2 Diabetes mellitus care home insulin use: with care home use Diabetes mellitus complication status: without complication Qualified Code(s): E11.9 - Type 2 diabetes mellitus without complications; 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 Subjective Date/time seen: 03/02/20 17:19 Chart reviewed -- started on milrinone yesterday after discussion with Conrad faye; remains on pressor support to maintain MAP as well as on ventilator for respiratory support; empirically started on cefepine as well; no significant events noted overnight but
--- NOTE | 2020-03-02 17:19 | PM.PNNEP ---
Progress Note: A&P Assessment and Plan (1) Acute kidney injury: Code(s): N17.9 - Acute kidney failure, unspecified Status: Acute Assessment and Plan: due to multifactorial ATN: - hemodynamic instability/hypotension/shock - infection/sepsis - myocardial infarction - depressed EF/poor cardiac function unfortunately, kidney function continues to decline urine output has decreased as well milrinone does has not improved renal function either given trend of labs and urine output, he will likely need dialysis soon -- however, I have concerns of how well he would tolerate renal replacement therapy given his hemodynamics continue supportive therapy (2) Stage 3a chronic kidney disease: Code(s): N18.31 - Chronic kidney disease, stage 3a Status: Chronic Assessment and Plan: baseline creatinine runs ~ 1.3 - 1.7mg/dl due to hypertension, diabetes, vascular disease, as well as age (3) COVID-19: Code(s): U07.1 - COVID-19 Status: Acute Assessment and Plan: to complete steroids today steroids are partly to blame for elevated BUN not a candidate for remdesivir continue supportive therapy (4) Shock: Code(s): R57.9 - Shock, unspecified Status: Acute Assessment and Plan: septic versus cardiac versus both? continue vasopressor support and wean as tolerated also on milrinone as well follow hemodynamics (5) Acute respiratory failure: Code(s): J96.00 - Acute respiratory failure, unspecified whether with hypoxia or hypercapnia Status: Acute Assessment and Plan: likely a combination of fluid and COVID-19 in conjunction with [place] continue ventilator support could consider diuretics again but his hemodynamics may not tolerate (6) UTI (urinary tract infection) due to Enterococcus: Code(s): N39.0 - Urinary tract infection, site not specified; B95.2 - Enterococcus as the cause of diseases classified elsewhere Status: Acute Assessment and Plan: culture with Enterococcus on antibiotics (7) Metabolic acidosis: Code(s): E87.2 - Acidosis Status: Acute Assessment and Plan: has worsened likely due to deteriorating kidney function oral bicarbonate not really an option consider bicarb gtt but hesitant to initiate due to declining urine output follow trend (8) Paroxysmal atrial fibrillation: Code(s): I48.0 - Paroxysmal atrial fibrillation Status: Acute Assessment and Plan: rate controlled on heparin gtt (9) Diabetes: Qualifiers: Diabetes mellitus type: type 2 Diabetes mellitus senior living insulin use: with predatory animal exterminator use Diabetes mellitus complication status: without complication Qualified Code(s): E11.9 - Type 2 diabetes mellitus without complications; Z79.4 - custodial (current) use of insulin Code(s): E11.9 - Type 2 diabetes mellitus without complications Status: Chronic Assessment and Plan: on insulin gtt for better control likely exacerbated by steroid use wean as tolerated once steroids completed today Will continue to follow. Subjective Date/time seen: 03/02/20 17:19 Chart reviewed -- started on milrinone yesterday after discussion with Cardiology; remains on pressor support to maintain MAP as well as on ventilator for respiratory support; empirically started on cefepine as well; no significant events noted overnight but kidney function as well as urine output have continued to decline. Exam Narrative: Exam Narrative: General: intubated/sedated at this time Heart: IRRR, normal S1 and S2; no rub Lungs: coarse breath sounds Abdomen: soft, nontender, nondistended, hypoactive bowel sounds Extremities: no cyanosis or clubbing; 1+ edema Skin: warm and dry Objective Data Vital Signs Vital Signs: Vital Signs Temp Pulse Resp BP Pulse Ox 03/02/20 16:
--- NOTE | 2020-03-02 17:42 | PM.IMPN ---
Progress Note: A&P Assessment and Plan (1) Ischemic cardiomyopathy: Code(s): I25.5 - Ischemic cardiomyopathy Status: Acute Assessment and Plan: 2DECHO with EF=20=25% Strict I/O's Cardiology following. Milrinone drip. (2) Acute on chronic renal failure: Code(s): N17.9 - Acute kidney failure, unspecified; N18.9 - Chronic kidney disease, unspecified Status: Acute Assessment and Plan: Continue to monitor Multifactorial Optimize blood pressure and perfusion Nephro following (3) Paroxysmal atrial fibrillation: Code(s): I48.0 - Paroxysmal atrial fibrillation Status: Acute Assessment and Plan: Rate controlled (4) ACS (acute coronary syndrome): Code(s): I24.9 - Acute ischemic heart disease, unspecified Status: Acute Assessment and Plan: On Heparin drip Not a candidate for cath (5) Acute kidney injury superimposed on chronic kidney disease: Code(s): N17.9 - Acute kidney failure, unspecified; N18.9 - Chronic kidney disease, unspecified Status: Acute (6) C. difficile diarrhea: Code(s): A04.72 - Enterocolitis due to Clostridium difficile, not specified as recurrent Status: Acute Assessment and Plan: Completed course of po Vanc (7) Buttock wound: Code(s): S31.809A - Unspecified open wound of unspecified buttock, initial encounter Status: Acute Assessment and Plan: S/p sharp debridement (8) UTI (urinary tract infection) due to Enterococcus: Code(s): N39.0 - Urinary tract infection, site not specified; B95.2 - Enterococcus as the cause of diseases classified elsewhere Status: Acute Assessment and Plan: On Cefepime (9) Shock: Code(s): R57.9 - Shock, unspecified Status: Acute Assessment and Plan: Cardiogenic+Septic Early goal therapy ongoing Subjective Date/time seen: 03/02/20 17:42 On ventilator support. Review of Systems Review of Systems: Narrative: Unable to obtain as patient is vent support. Exam Narrative: Exam Narrative: Patient's examination is limited to inspection, patient seen thru glass door. Const: General: other (On life support.) HENMT: Head: normocephalic Throat: other (ETT in place.) Cardio: Rate: regular rate Rhythm: regular rhythm and other (As seen on telemetry.) Neuro: General: other (Sedated in sync with vent.) Objective Data Vital Signs Vital Signs: Vital Signs - 24 hr 03/01/20 17:43 03/01/20 17:45 03/01/20 18:00 Temperature Pulse Rate 103 H 108 H Respiratory Rate 17 14 Blood Pressure 97/54 L 107/50 L Pulse Oximetry 96 03/01/20 18:54 03/01/20 19:51 03/01/20 20:00 Temperature 97.7 F Pulse Rate 115 H 97 Respiratory Rate 17 17 Blood Pressure 102/52 L 92/50 L Pulse Oximetry 97 03/01/20 20:41 03/01/20 22:00 03/01/20 23:45 Temperature Pulse Rate 99 98 85 Respiratory Rate 17 Blood Pressure 105/50 L Pulse Oximetry 94 96 99 03/02/20 00:00 03/02/20 00:38 03/02/20 02:00 Temperature 97.3 F L Pulse Rate 113 H 102 H Respiratory Rate 25 H 14 Blood Pressure 111/56 L 105/54 L 122/61 Pulse Oximetry 99 100 03/02/20 02:17 03/02/20 02:29 03/02/20 04:00 Temperature 97.6 F Pulse Rate 106 H 117 H 107 H Respiratory Rate 18 Blood Pressure 115/70 125/60 Pulse Oximetry 100 100 03/02/20 04:54 03/02/20 05:36 03/02/20 05:50 Temperature Pulse Rate 108 H 107 H Respiratory Rate Blood Pressure 113/56 L Pulse Oximetry 93 03/02/20 06:00 03/02/20 06:51 03/02/20 06:58 Temperature Pulse Rate 110 H 107 H 117 H Respiratory Rate 22 H Blood Pressure 102/57 L 114/74 Pulse Oximetry 98 03/02/20 08:00 03/02/20 09:42 03/02/20 10:00 Temperature 97.8 F Pulse Rate 73 73 79 Respiratory Rate 16 16 Blood Pressure 98/64 L 90/39 L Pulse Oximetry 93 93 03/02/20 10:16 03/02/20 11:47 03/02/20 12:00 Temperature 96.2 F L Pulse Rate 73 80 80 Respiratory
[2020-03-02 17:52] LABS: Hematocrit 23.3 % (42.0-52.0); Hemoglobin 7.4 g/dL (14.0-18.0); Mean Corpuscular HGB Conc 31.8 g/dl (32-36); Mean Corpuscular Hemoglobin 28.5 pg (26-34); Mean Corpuscular Volume 89.6 fl (80-100); Mean Platelet Volume 11.9 fl (7.4-10.4); Platelet Count Result 352 k/mm3 (150-375); Red Cell Distribution Width 13.3 % (11.5-14.5); White Blood Count 20.2 K/mm3 (4.5-10.0)
[2020-03-02 18:03] LABS: Partial Thromboplastin Time 87.1 SECONDS (22.3-36.8)
[2020-03-02 18:19] LABS: Anion Gap 15 mmol/L (8-16); Carbon Dioxide 15 mmol/L (22-30); Chloride 105 mmol/L (98-107); Estimated CRCL calculation 10 ml/min; Estimated Glomerular Filt Rate 8; Glucose 166 mg/dL (75-110); Magnesium 2.9 mg/dL (1.6-2.3); Potassium 3.9 mmol/L (3.4-5.0); Sodium 135 mmol/L (137-145)
[2020-03-02 18:26] LABS: Monocytes Absolute Manual 1.81 K/mm3 (0.1-0.90); Monocytes Percent Manual 9 % (3-9); Neutrophils Percent Manual 89 % (46-73); Total Cells Counted 100
[2020-03-02 18:27] LABS: Platelet Estimate Adequate (Adequate)
[2020-03-02 18:48] LABS: Blood Urea Nitrogen 130 mg/dL (9-20)
[2020-03-02] MEDS: QUEtiapine FUMARATE 12.5 MG TABLET PO (20:02)
[2020-03-03] VITALS (28 sets, daily range): BP systolic 85–111; BP diastolic 39–63; PULSE 68–105; RESP 10–18; TEMP 35.9–36.9; O2SAT 94–100
[2020-03-03 00:52] LABS: Partial Thromboplastin Time 106.1 SECONDS (22.3-36.8)
[2020-03-03 00:54] LABS: Glucose Point of Care 151 (65-105)
[2020-03-03 00:54] LABS: Glucose Point of Care 169 (65-105)
[2020-03-03 00:55] LABS: Glucose Point of Care 128 (65-105)
[2020-03-03 00:55] LABS: Glucose Point of Care 116 (65-105)
[2020-03-03 00:55] LABS: Glucose Point of Care 110 (65-105)
[2020-03-03 00:55] LABS: Glucose Point of Care 159 (65-105)
[2020-03-03] MEDS: NOREPINEPHRINE 8 MG/D5W 250 ML 8 MG/250 ML BAG 28.13 MG IV CONT ×2 (01:59→11:16)
[2020-03-03] MEDS: FENTANYL 2,500MCG/NS250ML(*CRX 2,500 MCG/250 ML BAG 7.5 MCG IV CONT (02:53)
[2020-03-03] MEDS: MILRINONE LACTATE 20 MG in DEXTROSE 5% 80 ML 11.98 MG IV CONT ×3 (02:54→19:46)
[2020-03-03 04:18] LABS: Glucose Point of Care 101 (65-105)
[2020-03-03 05:14] LABS: Alveolar/Arterial O2 Gradient 85.9 mmHg; Base Excess ABG -12.2 mEq/l (+/-2.0); Carboxyhemoglobin 0.3 % THb (0-2.0); Fractional Inspired Oxygen 30 %; HCO3 ABG 13.9 mEq/l (22.0-26.0); Methemoglobin ABG 0.3 %THb (0-1.5); Oxygen Content ABG 11.4 %vol (16.0-22.0); Oxygen Saturation ABG 95.7 % (95.0-100.0); Oxyhemoglobin 94.2 % THb (90.0-100.0); PCO2 ABG 32.6 mmHg (35.0-45.0); PO2 ABG 89.7 mmHg (80.0-100.0); PO2 FiO2 Ratio Arterial Blood 2.99 %; Reduced Hemoglobin 5.2 %THb (0-5.0); Total Hemoglobin 8.5 g/dL (12.0-18.0)
[2020-03-03 05:17] LABS: pH ABG 7.249 (7.350-7.450)
[2020-03-03 05:18] LABS: Arterial Blood Gas PEEP 5 cmH2O; Arterial Blood Gas Tidal Volume 450 ml; Arterial Blood Gas Vent Mode CMV; Arterial Blood Gas Ventilator rate 16 /MIN; Device VENTILATOR; Modified Allen's Test Pass; Site Drawn RIGHT RADIAL
[2020-03-03] MEDS: INSULIN HUMAN REGULAR (*BKC) 100 UNITS in SODIUM CHLORIDE 0.9% IV 99 ML IV CONT (07:08)
[2020-03-03] MEDS: CENTRAL LINE FLUSH 10 ML IV PUSH ×4 (07:20→19:39)
[2020-03-03 07:28] LABS: Hemoglobin 7.2 g/dL (14.0-18.0); Mean Corpuscular HGB Conc 32.7 g/dl (32-36); Mean Corpuscular Hemoglobin 28.5 pg (26-34); Platelet Count Result 354 k/mm3 (150-375); Red Blood Count 2.53 M/mm3 (4.6-6.20); Red Cell Distribution Width 13.4 % (11.5-14.5); White Blood Count 18.5 K/mm3 (4.5-10.0)
[2020-03-03 07:39] LABS: Partial Thromboplastin Time 73.4 SECONDS (22.3-36.8)
[2020-03-03 07:54] LABS: Band Neutrophils Percent 2 % (0-6); Lymphocytes Absolute Manual 0.55 K/mm3 (1.1-4.5); Monocytes Absolute Manual 2.59 K/mm3 (0.1-0.90); Monocytes Percent Manual 14 % (3-9); Neutrophils Absolute Manual 15.35 K/mm3 (1.3-6.7); Neutrophils Percent Manual 81 % (46-73); Nucleated Red Blood Cells 2 %; Total Cells Counted 100
[2020-03-03 07:57] LABS: Large Platelets Present
[2020-03-03 07:59] LABS: Ovalocytes 1+ (NORMAL)
[2020-03-03 08:06] LABS: Alanine Aminotransferase 292 U/L (4-50); Albumin Level 2.7 g/dL (3.5-5.1); Alkaline Phosphatase 120 U/L (38-126); Anion Gap 13 mmol/L (8-16); Aspartate Amino Transferase 95 U/L (17-59); Bilirubin,Total 0.2 mg/dL (0.2-1.3); Calcium 7.7 mg/dL (8.4-10.2); Carbon Dioxide 16 mmol/L (22-30); Chloride 105 mmol/L (98-107); Estimated CRCL calculation 9 ml/min; Estimated Glomerular Filt Rate 8; Glucose 96 mg/dL (75-110); Phosphorus 9.5 mg/dL (2.5-4.5); Potassium 4.3 mmol/L (3.4-5.0); Sodium 134 mmol/L (137-145)
[2020-03-03 08:26] LABS: Blood Urea Nitrogen 132 mg/dL (9-20)
[2020-03-03] MEDS: PANTOPRAZOLE SODIUM IV 40 MG VIAL IV PUSH ×2 (08:42→19:38)
[2020-03-03] MEDS: FERROUS SULFATE 324 MG TABLET PO (08:43)
[2020-03-03] MEDS: CLOPIDOGREL BISULFATE 75 MG TABLET PO (08:43)
[2020-03-03] MEDS: levETIRAcetam 500 MG TABLET PO ×2 (08:43→19:38)
[2020-03-03] MEDS: SOD HYPOCHLORITE 1/4 STRENGTH 473 ML 1 APPLIC TOPICAL ×2 (08:44→19:40)
[2020-03-03] MEDS: SACCHAROMYCES BOULARDII 250 MG CAPSULE PO ×2 (08:44→17:31)
[2020-03-03] MEDS: TAMSULOSIN HCL 0.4 MG CAPSULE PO ×2 (08:44→19:39)
[2020-03-03 09:27] LABS: Magnesium 2.9 mg/dL (1.6-2.3)
[2020-03-03] MEDS: SODIUM CHLORIDE 0.9% IV 1,000 ML 70 ML IV CONT (11:12)
[2020-03-03] MEDS: HEPARIN SOD/D5W 100 UNITS/ML 25,000 UNITS/250 ML BAG 10 UNITS IV CONT (11:14)
[2020-03-03 11:28] LABS: Glucose Point of Care 115 (65-105)
[2020-03-03 11:29] LABS: Glucose Point of Care 119 (65-105)
[2020-03-03 11:29] LABS: Glucose Point of Care 98 (65-105)
[2020-03-03 11:29] LABS: Glucose Point of Care 93 (65-105)
[2020-03-03 11:29] LABS: Glucose Point of Care 96 (65-105)
[2020-03-03 11:29] LABS: Glucose Point of Care 103 (65-105)
[2020-03-03 11:29] LABS: Glucose Point of Care 100 (65-105)
[2020-03-03 11:29] LABS: Glucose Point of Care 96 (65-105)
[2020-03-03 11:29] LABS: Glucose Point of Care 95 (65-105)
--- NOTE | 2020-03-03 11:46 | PM.PNCARD ---
Progress Note: A&P Assessment and Plan (1) ACS (acute coronary syndrome): Code(s): I24.9 - Acute ischemic heart disease, unspecified Status: Acute Assessment and Plan: Significant infarction has occurred. Continue supportive care. Continue anti-platelet. Will continue pressors as needed. (2) COVID-19: Code(s): U07.1 - COVID-19 Status: Acute Assessment and Plan: Continue supportive care (3) Paroxysmal atrial fibrillation: Code(s): I48.0 - Paroxysmal atrial fibrillation Status: Acute Assessment and Plan: Continue anticoagulation. Back in atrial fibrillation. There has been no need for resuming amiodarone at this point. (4) Acute on chronic renal failure: Code(s): N17.9 - Acute kidney failure, unspecified; N18.9 - Chronic kidney disease, unspecified Status: Acute Assessment and Plan: Nephrology following. Likely need dialysis (5) Buttock wound: Code(s): S31.809A - Unspecified open wound of unspecified buttock, initial encounter Status: Acute Assessment and Plan: Per surgery (6) Shock: Code(s): R57.9 - Shock, unspecified Status: Acute Assessment and Plan: Continue Milrinone IV drip 0.375 mcg per kg per minute. Liver enzymes are better but renal function is worsening. Renal function is not significantly improved despite inotropic therapy. (7) Alzheimer disease: Qualifiers: Alzheimer's disease onset: unspecified onset Dementia behavioral disturbance: without behavioral disturbance Qualified Code(s): G30.9 - Alzheimer's disease, unspecified; F02.80 - Dementia in other diseases classified elsewhere without behavioral disturbance Code(s): G30.9 - Alzheimer's disease, unspecified; F02.80 - Dementia in other diseases classified elsewhere without behavioral disturbance Status: Chronic (8) HTN (hypertension): Qualifiers: Hypertension type: unspecified Qualified Code(s): I10 - Essential (primary) hypertension Code(s): I10 - Essential (primary) hypertension Status: Chronic Assessment and Plan: Will resume BP medications when able/needed (9) Ischemic cardiomyopathy: Code(s): I25.5 - Ischemic cardiomyopathy Status: Acute Assessment and Plan: Severe. Weaning Levophed. Subjective Date/time seen: 03/03/20 11:46 Interval history: 74-year-old originally admitted because of mental status changes, decubitus ulcers. Patient is on the ventilator and sedated. Date of service 03/03/2020: Still in atrial fibrillation but heart rate is reasonably controlled. Worsening renal failure. Still hypotensive Review of Systems Review of Systems: ROS unobtainable: Yes unobtainable due to endotracheal tube and unobtainable due to medical condition Constitutional: Constitutional: Denies excessive sweating and Denies headache(s) Eyes: Eyes: Denies blurry vision ENT: Denies headache(s), Denies lip swelling and Denies epistaxis Cardiovascular: Cardiovascular: Denies diaphoresis Respiratory: Respiratory: Denies hemoptysis Gastrointestinal: Gastrointestinal: Denies hematochezia Genitourinary: Genitourinary: Denies hematuria Musculoskeletal: Musculoskeletal: Denies joint swelling Neurologic: Denies headache(s) Endocrine: Endocrine: Denies excessive sweating Hematologic/Lymphatic: Hematologic/Lymphatic: Denies easy bleeding Allergic/Immunologic: Allergic/Immunologic: Denies lip swelling Exam Narrative: Exam Narrative: Currently intubated and sedated Const: General: comfortable HENMT: General nose exam: Normal nares present Chest: Other: No chest deformities Cardio: Rate: regular rate Rhythm: abnormal rhythm irregularly irregular Skin: General skin exam: normal color Neuro: Other: Currently intubated and sedated. Psych: Other: Sedated Objective Data Vital Signs Vital Signs: Vital Signs - 24 hr 03/02/20 11:47 1
--- NOTE | 2020-03-03 14:14 | P.PNNP_ITS ---
Progress Note: A&P Assessment and Plan (1) Acute kidney injury: Code(s): N17.9 - Acute kidney failure, unspecified Status: Acute Assessment and Plan: * due to multifactorial ATN: - hemodynamic instability/hypotension/shock - infection/sepsis - myocardial infarction - depressed EF/poor cardiac function * unfortunately, kidney function continues to decline * urine output has decreased to almost anuria * milrinone does seemed to have improved renal function * given trend of labs and urine output, he will likely need dialysis soon -- however, I have concerns of how well he would tolerate renal replacement therapy given his hemodynamics * continue supportive therapy (2) Stage 3a chronic kidney disease: Code(s): N18.31 - Chronic kidney disease, stage 3a Status: Chronic Assessment and Plan: * baseline creatinine runs ~ 1.3 - 1.7mg/dl * due to hypertension, diabetes, vascular disease, as well as age (3) COVID-19: Code(s): U07.1 - COVID-19 Status: Acute Assessment and Plan: * completed course of steroids * steroids are partly to blame for elevated BUN * not a candidate for remdesivir * continue supportive therapy (4) Shock: Code(s): R57.9 - Shock, unspecified Status: Acute Assessment and Plan: * septic versus cardiac versus both? * continue vasopressor support and wean as tolerated * also on milrinone as well * follow hemodynamics (5) Acute respiratory failure: Code(s): J96.00 - Acute respiratory failure, unspecified whether with hypoxia or hypercapnia Status: Acute Assessment and Plan: * likely a combination of fluid and COVID-19 in conjunction with [place] * continue ventilator support * could consider diuretics again but his hemodynamics may not tolerate (6) UTI (urinary tract infection) due to Enterococcus: Code(s): N39.0 - Urinary tract infection, site not specified; B95.2 - Enterococcus as the cause of diseases classified elsewhere Status: Acute Assessment and Plan: * culture with Enterococcus * on antibiotics (7) Metabolic acidosis: Code(s): E87.2 - Acidosis Status: Acute Assessment and Plan: * has worsened likely due to deteriorating kidney function * oral bicarbonate not really an option * consider bicarb gtt but hesitant to initiate due to declining urine output * follow trend (8) Paroxysmal atrial fibrillation: Code(s): I48.0 - Paroxysmal atrial fibrillation Status: Acute Assessment and Plan: * rate controlled * on heparin gtt (9) Diabetes: Qualifiers: Diabetes mellitus complication status: without complication 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 More importantly, I am not sure it will change his half-way prognosis given the multiple medical problems he has at this time. Will continue to follow. Subje
--- NOTE | 2020-03-03 14:14 | PM.PNNEP ---
Progress Note: A&P Assessment and Plan (1) Acute kidney injury: Code(s): N17.9 - Acute kidney failure, unspecified Status: Acute Assessment and Plan: due to multifactorial ATN: - hemodynamic instability/hypotension/shock - infection/sepsis - myocardial infarction - depressed EF/poor cardiac function unfortunately, kidney function continues to decline urine output has decreased to almost anuria milrinone does seemed to have improved renal function given trend of labs and urine output, he will likely need dialysis soon -- however, I have concerns of how well he would tolerate renal replacement therapy given his hemodynamics continue supportive therapy (2) Stage 3a chronic kidney disease: Code(s): N18.31 - Chronic kidney disease, stage 3a Status: Chronic Assessment and Plan: baseline creatinine runs ~ 1.3 - 1.7mg/dl due to hypertension, diabetes, vascular disease, as well as age (3) COVID-19: Code(s): U07.1 - COVID-19 Status: Acute Assessment and Plan: completed course of steroids steroids are partly to blame for elevated BUN not a candidate for remdesivir continue supportive therapy (4) Shock: Code(s): R57.9 - Shock, unspecified Status: Acute Assessment and Plan: septic versus cardiac versus both? continue vasopressor support and wean as tolerated also on milrinone as well follow hemodynamics (5) Acute respiratory failure: Code(s): J96.00 - Acute respiratory failure, unspecified whether with hypoxia or hypercapnia Status: Acute Assessment and Plan: likely a combination of fluid and COVID-19 in conjunction with [place] continue ventilator support could consider diuretics again but his hemodynamics may not tolerate (6) UTI (urinary tract infection) due to Enterococcus: Code(s): N39.0 - Urinary tract infection, site not specified; B95.2 - Enterococcus as the cause of diseases classified elsewhere Status: Acute Assessment and Plan: culture with Enterococcus on antibiotics (7) Metabolic acidosis: Code(s): E87.2 - Acidosis Status: Acute Assessment and Plan: has worsened likely due to deteriorating kidney function oral bicarbonate not really an option consider bicarb gtt but hesitant to initiate due to declining urine output follow trend (8) Paroxysmal atrial fibrillation: Code(s): I48.0 - Paroxysmal atrial fibrillation Status: Acute Assessment and Plan: rate controlled on heparin gtt (9) Diabetes: Qualifiers: Diabetes mellitus complication status: without complication Diabetes mellitus group home insulin use: with supervisor intermediates use Diabetes mellitus type: type 2 Qualified Code(s): E11.9 - Type 2 diabetes mellitus without complications; Z79.4 - termite control service representative (current) use of insulin Code(s): E11.9 - Type 2 diabetes mellitus without complications Status: Chronic Assessment and Plan: on insulin gtt for better control likely exacerbated by steroid use wean as tolerated once steroids completed today May need to discuss with family goals of care -- although renal replacement therapy is an options, I do not how well he would tolerated such an intervention. More importantly, I am not sure it will change his supervisor intermediates prognosis given the multiple medical problems he has at this time. Will continue to follow. Subjective Date/time seen: 03/03/20 14:14 Kidney function continues to deteriorate with almost anuria at this time; remains on vasopressor as well as milrinone in an attempt to maintain MAP; remains on full ventilator support. Exam Narrative: Exam Narrative: General: intubated/sedated at this time Heart: IRRR, normal S1 and S2; no rub Lungs: coarse breath sounds Abdomen: soft, nontender, nondistended, hypoactive bowel sounds Extremities: n
[2020-03-03 14:19] LABS: Partial Thromboplastin Time 61.7 SECONDS (22.3-36.8)
--- NOTE | 2020-03-03 14:19 | WPDINTPN ---
Progress Note: A&P Assessment and Plan (1) Acute respiratory failure: Code(s): J96.00 - Acute respiratory failure, unspecified whether with hypoxia or hypercapnia Status: Acute Assessment and Plan: Acute respiratory failure likely related to acute coronary event, COVID-19 pneumonia, shock, encephalopathy -continue low tidal volume strategy -currently on peep of 5, 30 % FiO2. Follow ABG and chest x-ray. -continue bronchodilators -sedated with fentanyl and Versed infusion to keep RASS of -1. Daily sedation vacation trials. (2) Shock: Code(s): R57.9 - Shock, unspecified Status: Acute Assessment and Plan: Shock likely cardiogenic versus septic -troponin levels elevated to 73 and >80 -lactic acid normal -remains on Levophed maintain mean arterial pressures greater than 65 mmHg. Continue Milrinone as per cardiology. Wean pressors and inotropes if tolerated. -echocardiogram on 02/27: LV systolic function severely reduced with EF of 20-25%. Grade 1 diastolic dysfunction. The apical inferior wall the apical anterior wall the mid inferior wall and the basal anteroseptal wall are akinetic apical lateral wall in the mid anterior wall hypokinetic. The apical septum, apical cap, mid inferoseptal, and mid anteroseptal are dyskinetic. Cefepime was added yesterday empirically. He is already on vancomycin. (3) COVID-19: Code(s): U07.1 - COVID-19 Status: Acute Assessment and Plan: SARS-CoV-2 PCR positive on 02/16 -continue droplet, airborne, contact isolation/precautions -patient was on dexamethasone initiated on 02/21/2020. He finished his dexamethasone yesterday. -patient not a candidate for Remdesivir due to renal function and late presentation (4) Anemia: Code(s): D64.9 - Anemia, unspecified Status: Acute Assessment and Plan: Guaiac-positive stool, appreciate GI evaluation recommendation -patient has a history of colonic polyps - Protonix as patient on steroids and positive guaiac stool. (5) UTI (urinary tract infection) due to Enterococcus: Code(s): N39.0 - Urinary tract infection, site not specified; B95.2 - Enterococcus as the cause of diseases classified elsewhere Status: Acute Assessment and Plan: Urine cultures from 02/21 growing Enterococcus which is pansensitive. He has completed treatment with vancomycin for almost 10 days but now he is on vancomycin for infected decubitus ulcer requiring debridement. (6) COPD (chronic obstructive pulmonary disease): Qualifiers: COPD type: unspecified COPD Qualified Code(s): J44.9 - Chronic obstructive pulmonary disease, unspecified Code(s): J44.9 - Chronic obstructive pulmonary disease, unspecified Status: Acute Assessment and Plan: Continue bronchodilators (7) DVT prophylaxis: Code(s): Z29.9 - Encounter for prophylactic measures, unspecified Status: Acute Assessment and Plan: Heparin infusion (8) Acute kidney injury superimposed on chronic kidney disease: Code(s): N17.9 - Acute kidney failure, unspecified; N18.9 - Chronic kidney disease, unspecified Status: Acute Assessment and Plan: Acute on chronic kidney disease likely related to shock, acute coronary event, hypotension -renal ultrasound 02/21/2020 showed normal kidney size, no hydronephrosis -appreciate Nephrology evaluation and recommendation. Urine output was 540 cc in the last 24 hours. He may need dialysis. -continue Levophed and Milrinone to keep map above 65 which may improve renal perfusion. (9) Elevated troponin: Code(s): R79.89 - Other specified abnormal findings of blood chemistry Status: Acute Assessment and Plan: Patient with acute coronary event with elevated troponin -likely late presentation SD -appreciate cardiology evaluation and recommendations -no intervention at this time given patient's renal function significantly elevated troponin
[2020-03-03 17:14] LABS: Glucose Point of Care 155 (65-105)
[2020-03-03 17:14] LABS: Glucose Point of Care 139 (65-105)
[2020-03-03 17:37] LABS: Glucose Point of Care 128 (65-105)
--- NOTE | 2020-03-03 17:50 | PM.IMPN ---
Progress Note: A&P Assessment and Plan (1) Acute on chronic renal failure: Code(s): N17.9 - Acute kidney failure, unspecified; N18.9 - Chronic kidney disease, unspecified Status: Acute Assessment and Plan: Oliguric Nephrology following Strict I/O's (2) Paroxysmal atrial fibrillation: Code(s): I48.0 - Paroxysmal atrial fibrillation Status: Acute Assessment and Plan: Rate controlled (3) ACS (acute coronary syndrome): Code(s): I24.9 - Acute ischemic heart disease, unspecified Status: Acute Assessment and Plan: Supportive care. Cardiology following. (4) Acute respiratory failure: Code(s): J96.00 - Acute respiratory failure, unspecified whether with hypoxia or hypercapnia Status: Acute Assessment and Plan: On vent support. Vent management as per Int/Cc Subjective Date/time seen: 03/03/20 17:50 On vent support. Review of Systems Review of Systems: Narrative: Unable to obtain as patient is on vent support. Exam Narrative: Exam Narrative: Patient is seen thru glass doors. Examination is limited to inspection. Const: General: comfortable Nutritional Appearance: thin HENMT: Head: normal to inspection and normocephalic Neck: Neck: supple Objective Data Vital Signs Vital Signs: Vital Signs - 24 hr 03/02/20 18:00 03/02/20 18:11 03/02/20 20:00 Temperature 96.7 F L Pulse Rate 83 83 90 Respiratory Rate 16 16 Blood Pressure 106/55 L 106/55 L 113/48 L Pulse Oximetry 100 97 03/02/20 22:00 03/02/20 22:58 03/03/20 00:00 Temperature 96.7 F L Pulse Rate 86 91 93 Respiratory Rate 10 L 17 Blood Pressure 112/61 111/50 L Pulse Oximetry 95 97 97 03/03/20 01:59 03/03/20 02:00 03/03/20 02:53 Temperature Pulse Rate 88 88 Respiratory Rate 17 17 Blood Pressure 98/52 L 105/50 L Pulse Oximetry 97 03/03/20 04:00 03/03/20 05:00 03/03/20 06:00 Temperature 98.3 F Pulse Rate 90 82 88 Respiratory Rate 16 17 Blood Pressure 97/48 L 90/48 L Pulse Oximetry 97 97 96 03/03/20 08:00 03/03/20 08:46 03/03/20 10:00 Temperature 97.7 F Pulse Rate 92 92 80 Respiratory Rate 16 16 Blood Pressure 104/54 L 96/39 L Pulse Oximetry 98 98 96 03/03/20 10:53 03/03/20 11:15 03/03/20 11:16 Temperature Pulse Rate 81 81 81 Respiratory Rate Blood Pressure 96/39 L 96/39 L 96/39 L Pulse Oximetry 03/03/20 11:17 03/03/20 12:00 03/03/20 14:00 Temperature 98.3 F Pulse Rate 81 105 H 81 Respiratory Rate 16 16 Blood Pressure 96/39 L 98/50 L 106/63 Pulse Oximetry 98 98 03/03/20 14:25 03/03/20 16:00 03/03/20 16:58 Temperature 98.4 F Pulse Rate 102 H 78 90 Respiratory Rate 16 Blood Pressure 106/52 L Pulse Oximetry 98 99 97 Intake/Output Intake/Output: Intake & Output 02/29/20 03/01/20 03/02/20 03/03/20 23:59 23:59 23:59 23:59 Intake Total 3029 4963.5 4039.3 2290.2 Output Total 400 995 10 4167 Balance 2629 4713.5 3959.3 1280.2 Meds/Results Medications: Active Medications Generic Name Dose Route Start Last Admin Trade Name Freq PRN Reason Stop Dose Admin Acetaminophen 650 mg 02/15/20 14:15 Acetaminophen 325 Mg Tablet PO Q4H PRN Mild Pain (1-3) or Fever Albuterol 2 puff 02/17/20 16:00 Albuterol Sulfate (*Sp) Aerosol 1 Puff INHALATION Q8HRT PRN Shortness Of Breath Aspirin 325 mg 03/04/20 08:00 Aspirin 325 Mg Tablet FEED TUBE DAILY@0800 SOURAV Clopidogrel Bisulfate 75 mg 02/16/20 09:00 03/03/20 08:43 Clopidogrel Bisulfate 75 Mg Tablet PO 75 mg DAILY SOURAV Administration Dextrose 12.5 gm 02/15/20 17:26 02/27/20 09:13 Dextrose 50% 25 Gm/50 Ml Syringe IV PUSH 12.5 gm PRN PRN Administration Hypoglycemia Protocol Donepezil HCl 10 mg 02/16/20 21:00 02/27/20 21:06 Donepezil Hcl 10 Mg Tablet PO 10 mg HS SOURAV Administration Ferrous Sulfate 324 mg 02/16/20 09:00 03/03/20 08:43 Ferrous Sulfate 324 Mg Tab
[2020-03-03] MEDS: QUEtiapine FUMARATE 12.5 MG TABLET PO (19:39)
[2020-03-03] MEDS: NOREPINEPHRINE 8 MG/D5W 250 ML 8 MG/250 ML BAG 26.25 MG IV CONT (20:04)
[2020-03-03 21:22] LABS: Glucose Point of Care 174 (65-105)
[2020-03-04] VITALS (12 sets, daily range): BP systolic 91–98; BP diastolic 39–60; PULSE 0–94; RESP 0–30; TEMP 35.5–37.2; O2SAT 90–100
[2020-03-04] MEDS: INSULIN ASPART (*BKC) 100 UNITS/ML SUB-Q ×2 (00:27→06:57)
[2020-03-04] MEDS: SODIUM CHLORIDE 0.9% IV 1,000 ML 70 ML IV CONT (00:28)
[2020-03-04] MEDS: NOREPINEPHRINE 8 MG/D5W 250 ML 8 MG/250 ML BAG 46.88 MG IV CONT (03:09)
[2020-03-04] MEDS: MILRINONE LACTATE 20 MG in DEXTROSE 5% 80 ML 11.98 MG IV CONT (03:15)
[2020-03-04 03:22] LABS: Partial Thromboplastin Time 103.2 SECONDS (22.3-36.8)
[2020-03-04 03:49] LABS: Alveolar/Arterial O2 Gradient 97.3 mmHg; Carboxyhemoglobin 0.3 % THb (0-2.0); Fractional Inspired Oxygen 30 %; HCO3 ABG 8.5 mEq/l (22.0-26.0); Methemoglobin ABG 0.2 %THb (0-1.5); Oxygen Content ABG 11.8 %vol (16.0-22.0); Oxygen Saturation ABG 95.1 % (95.0-100.0); Oxyhemoglobin 93.5 % THb (90.0-100.0); PO2 ABG 89.9 mmHg (80.0-100.0); Total Hemoglobin 8.9 g/dL (12.0-18.0)
[2020-03-04 03:51] LABS: Device VENTILATOR; Modified Allen's Test Unable to perform; PCO2 ABG 22.7 mmHg (35.0-45.0); Site Drawn LEFT RADIAL
[2020-03-04 03:52] LABS: Arterial Blood Gas PEEP 5 cmH2O; Arterial Blood Gas Tidal Volume 450 ml; Arterial Blood Gas Vent Mode ASSIST CONTROL; Arterial Blood Gas Ventilator rate 16 /MIN
[2020-03-04] MEDS: SODIUM BICARBONATE 8.4% 50 MEQ/50 ML SYRINGE IV PUSH (04:30)
[2020-03-04] MEDS: SODIUM BICARBONATE 8.4% 150 MEQ in DEXTROSE 5% 1,000 ML 950 ML 75 MEQ IV CONT (04:40)
[2020-03-04 05:19] LABS: Alanine Aminotransferase 292 U/L (4-50); Albumin Level 2.6 g/dL (3.5-5.1); Alkaline Phosphatase 108 U/L (38-126); Anion Gap 18 mmol/L (8-16); Aspartate Amino Transferase 189 U/L (17-59); Bilirubin,Total 0.4 mg/dL (0.2-1.3); Calcium 7.3 mg/dL (8.4-10.2); Carbon Dioxide 13 mmol/L (22-30); Chloride 100 mmol/L (98-107); Estimated CRCL calculation 9 ml/min; Estimated Glomerular Filt Rate 7; Glucose 263 mg/dL (75-110); Magnesium 2.8 mg/dL (1.6-2.3); Phosphorus 12.3 mg/dL (2.5-4.5); Potassium 5.3 mmol/L (3.4-5.0); Sodium 131 mmol/L (137-145)
[2020-03-04 05:21] LABS: Blood Urea Nitrogen 141 mg/dL (9-20); Lactic Acid Reflex 4.1 mmol/L (0.7-2.1)
[2020-03-04 05:24] LABS: Hematocrit 21.8 % (42.0-52.0); Mean Corpuscular HGB Conc 31.7 g/dl (32-36); Mean Corpuscular Hemoglobin 28.5 pg (26-34); Mean Corpuscular Volume 90.1 fl (80-100); Mean Platelet Volume 12.4 fl (7.4-10.4); Platelet Count Result 323 k/mm3 (150-375); Red Blood Count 2.42 M/mm3 (4.6-6.20); Red Cell Distribution Width 13.5 % (11.5-14.5); White Blood Count 19.4 K/mm3 (4.5-10.0)
[2020-03-04 05:55] LABS: Hemoglobin 6.9 g/dL (14.0-18.0)
[2020-03-04 05:59] LABS: Hypochromasia 1+ (NORMAL); Lymphocytes Absolute Manual 1.35 K/mm3 (1.1-4.5); Monocytes Absolute Manual 1.74 K/mm3 (0.1-0.90); Monocytes Percent Manual 9 % (3-9); Neutrophils Percent Manual 84 % (46-73); Nucleated Red Blood Cells 11 %; Platelet Estimate Adequate (Adequate); Total Cells Counted 100
[2020-03-04] MEDS: HEPARIN SOD/D5W 100 UNITS/ML 25,000 UNITS/250 ML BAG 12 UNITS IV CONT (06:59)
[2020-03-04] MEDS: NOREPINEPHRINE 8 MG/D5W 250 ML 8 MG/250 ML BAG 56.25 MG IV CONT (07:04)
[2020-03-04] MEDS: CENTRAL LINE FLUSH 10 ML IV PUSH (07:05)
[2020-03-04 07:50] LABS: Reflex Lactic Acid Yes or No Add Lactic
[2020-03-04 08:05] LABS: Glucose Point of Care 231 (65-105)
[2020-03-04 08:05] LABS: Glucose Point of Care 267 (65-105)
--- NOTE | 2020-03-04 08:25 | PC.NURSE ---
Database Security Expert notified family of patient decline. Family to visit and potentially withdraw care
--- NOTE | 2020-03-04 09:56 | WPDINTPN ---
Progress Note: A&P Assessment and Plan (1) Acute respiratory failure: Code(s): J96.00 - Acute respiratory failure, unspecified whether with hypoxia or hypercapnia Status: Acute Assessment and Plan: Acute respiratory failure likely related to acute coronary event, COVID-19 pneumonia, shock, encephalopathy -continue low tidal volume strategy -currently on peep of 5, 30 % FiO2. Follow ABG and chest x-ray. Increase the rate to 24 for acidosis -continue bronchodilators -sedated with fentanyl and Versed infusion to keep RASS of -1. Daily sedation vacation trials. -discussed with sia Yusuf, updated with patient's condition plan of care. Patient's and sia Yusuf arrived to the ICU, there were in the room with the patient when he peacefully (2) Shock: Code(s): R57.9 - Shock, unspecified Status: Acute Assessment and Plan: Shock likely cardiogenic versus septic -troponin levels elevated to 73 and >80 -lactic acid normal -remains on Levophed maintain mean arterial pressures greater than 65 mmHg. Continue Milrinone as per cardiology. Wean pressors and inotropes if tolerated. -echocardiogram on 02/27: LV systolic function severely reduced with EF of 20-25%. Grade 1 diastolic dysfunction. The apical inferior wall the apical anterior wall the mid inferior wall and the basal anteroseptal wall are akinetic apical lateral wall in the mid anterior wall hypokinetic. The apical septum, apical cap, mid inferoseptal, and mid anteroseptal are dyskinetic. Cefepime was added yesterday empirically. He is already on vancomycin. (3) COVID-19: Code(s): U07.1 - COVID-19 Status: Acute Assessment and Plan: SARS-CoV-2 PCR positive on 02/16 -continue droplet, airborne, contact isolation/precautions -patient was on dexamethasone initiated on 02/21/2020. He finished his dexamethasone yesterday. -patient not a candidate for Remdesivir due to renal function and late presentation (4) Anemia: Code(s): D64.9 - Anemia, unspecified Status: Acute Assessment and Plan: Guaiac-positive stool, appreciate GI evaluation recommendation -patient has a history of colonic polyps - Protonix as patient on steroids and positive guaiac stool. (5) UTI (urinary tract infection) due to Enterococcus: Code(s): N39.0 - Urinary tract infection, site not specified; B95.2 - Enterococcus as the cause of diseases classified elsewhere Status: Acute Assessment and Plan: Urine cultures from 02/21 growing Enterococcus which is pansensitive. He has completed treatment with vancomycin for almost 10 days but now he is on vancomycin for infected decubitus ulcer requiring debridement. (6) COPD (chronic obstructive pulmonary disease): Qualifiers: COPD type: unspecified COPD Qualified Code(s): J44.9 - Chronic obstructive pulmonary disease, unspecified Code(s): J44.9 - Chronic obstructive pulmonary disease, unspecified Status: Acute Assessment and Plan: Continue bronchodilators (7) DVT prophylaxis: Code(s): Z29.9 - Encounter for prophylactic measures, unspecified Status: Acute Assessment and Plan: Heparin infusion (8) Acute kidney injury superimposed on chronic kidney disease: Code(s): N17.9 - Acute kidney failure, unspecified; N18.9 - Chronic kidney disease, unspecified Status: Acute Assessment and Plan: Acute on chronic kidney disease likely related to shock, acute coronary event, hypotension -renal ultrasound 02/21/2020 showed normal kidney size, no hydronephrosis -appreciate Nephrology evaluation and recommendation. Urine output was 540 cc in the last 24 hours. He may need dialysis. -continue Levophed and Milrinone to keep map above 65 which may improve renal perfusion. (9) Elevated troponin: Code(s): R79.89 - Other specified abnormal findings of blood chemistry Status: Acute Assessment and Plan: Christopher
--- NOTE | 2020-03-24 18:41 | PM.DDS ---
Discharge Sum: Prov Provider Primary care physician: Robert Valera MD Admitting provider: Harsh Garcia MD Consults: 02/16/20 Consult to Physician Routine Comment: Spoke to Kena @ 09:05 ([facility] [[email or web address]]) Consulting Provider: Edinson Melgar cosmetology professor/MD group to consult: GI Reason for consultation: Positive guaiac stool testing Has provider been notified: Yes Wound/ET Consult Routine Reason for Consult:: large open blisters to bilateral medial buttocks 02/17/20 Consult to Physician Routine Comment: Spoke with Dr Martin @ 9200 ([facility]) Consulting Provider: Mario Martin cosmetology professor/MD group to consult: Dr. Martin Reason for consultation: Encephalopathy Has provider been notified: Yes 02/26/20 Consult to Physician Routine Comment: [place] 1615[place] [place] Provider: Marco Black cosmetology professor/MD group to consult: General surgery Reason for consultation: Worsened buttock wound Has provider been notified: Yes 02/28/20 Consult to Physician Routine Comment: Consulting Provider: Jose Frank cosmetology professor/MD group to consult: [facility] Reason for consultation: ELEVATED TROPONIN Has provider been notified: Yes Consult to Physician Routine Comment: SPOKE WITH DORA Consulting Provider: Jose Frank cosmetology professor/MD group to consult: YUMIKO Reason for consultation: ELEVATED TROPONIN Has provider been notified: Yes 02/28/20 11:47 Consult to Physician Routine Comment: Consulting Provider: Stephen Hunt cosmetology professor/MD group to consult: Nephrology Reason for consultation: Acute on chronic kidney disease Has provider been notified: Yes Discharge Sum: Diag Contributing Factors (1) Ischemic cardiomyopathy: (2) Stage 3a chronic kidney disease: (3) Acute on chronic renal failure: (4) Paroxysmal atrial fibrillation: (5) ACS (acute coronary syndrome): (6) Acute kidney injury superimposed on chronic kidney disease: (7) Buttock wound: (8) Acute respiratory failure: (9) Shock: (10) C. difficile diarrhea: (11) Encephalopathy: (12) Alzheimer disease: (13) Elevated troponin: Discharge Sum: Summary Date and Time Date of admission: 02/17/20 18:19 Date of : 03/04/20 Time of : 09:50 Summary Details: Patient was made a DNR by his family in view that there was no chance for meaningful recovery. Patient went into arrhythmia/Bradycardia passing away shortly after. Additional Data Confirmation of as documented by pronouncing clinician: no pulse Family: contacted Attending/PCP notified?: No Attending physician: Ya Nelson MD Was code activated?: No Autopsy requested?: No check examiner notified?: No Organ bank notified?: No Advance directives: Yes Hospice patient?: No
== END 2020-03-04 09:50 | disposition expired | DRG 981 ==
LOC: ANHED 09:50 → ANH2MED 14:37 → ANH3MEDSUR 02-17 14:51 → ANHICU 03-05 11:37
PROVIDERS: Family Medicine; Internal Medicine; Internal Medicine Cardiovascular Disease; Internal Medicine Critical Care Medicine; Internal Medicine Gastroenterology; Internal Medicine Nephrology; Nurse Practitioner; Physician Assistant; Student in an Organized Health Care Education/Training Program; Surgery; Admitting Provider Internal Medicine; Emergency Provider Emergency Medicine; PCP Family Medicine Adolescent Medicine; Visit Provider Internal Medicine
PROC: 0KBP0ZZ Excision of Left Hip Muscle, Open Approach (ICD-10-PCS; principal; 2020-02-27 16:30)
DX: U07.1 COVID-19 (principal); J12.89 Other viral pneumonia; L89.153 Pressure ulcer of sacral region, stage 3; J96.00 Acute respiratory failure, unspecified whether with hypoxia or hypercapnia; A41.9 Sepsis, unspecified organism; I21.9 Acute myocardial infarction, unspecified; N17.0 Acute kidney failure with tubular necrosis; R65.21 Severe sepsis with septic shock; N17.9 Acute kidney failure, unspecified; I50.32 Chronic diastolic (congestive) heart failure; G93.49 Other encephalopathy; A04.72 Enterocolitis due to Clostridium difficile, not specified as recurrent; M62.82 Rhabdomyolysis; N39.0 Urinary tract infection, site not specified; I13.0 Hypertensive heart and chronic kidney disease with heart failure and stage 1 through stage 4 chronic kidney disease, or unspecified chronic kidney disease; E87.2 Acidosis; N18.30 Chronic kidney disease, stage 3 unspecified; J44.9 Chronic obstructive pulmonary disease, unspecified; E78.5 Hyperlipidemia, unspecified; G30.9 Alzheimer's disease, unspecified; F02.80 Dementia in other diseases classified elsewhere, unspecified severity, without behavioral disturbance, psychotic disturbance, mood disturbance, and anxiety; D64.9 Anemia, unspecified; E11.9 Type 2 diabetes mellitus without complications; G51.0 Bell's palsy; I25.10 Atherosclerotic heart disease of native coronary artery without angina pectoris; I25.2 Old myocardial infarction; R56.9 Unspecified convulsions; Z79.4 Long term (current) use of insulin; L89.150 Pressure ulcer of sacral region, unstageable; R57.0 Cardiogenic shock; E11.22 Type 2 diabetes mellitus with diabetic chronic kidney disease; I48.0 Paroxysmal atrial fibrillation
CPT/HCPCS: 36415; 36600; 70450; 71045; 74018; 74019; 76705; 76775; 80048; 80053; 80069; 80074; 80177; 80202; 80307; 81001; 82040; 82140; 82274; 82375; 82550; 82570; 82607; 82728; 82746; 82805; 83036; 83050; 83540; 83550; 83605; 83615; 83735; 84100; 84156; 84300; 84443; 84484; 85025; 85027; 85610; 85730; 85999; 86140; 86850; 86900; 86901; 86920; 87040; 87045; 87046; 87077; 87086; 87088; 87186; 87324; 87427; 87493; 87635; 93005; 93306; 94002; 94003; 96360; 96361; 97110; 97162; 97166; 97530; 97535; 99285; A9270; C1751; C9113; C9803; G0378; J0171; J0282; J0330; J0461; J0692; J1644; J1815; J2250; J2260; J2310; J2405; J2704; J3010; J3370; J7030; J7040; J7070; J7120; J8540; U0003